=== PATIENT | male | born 1975 | race Caucasian/White ===

== ENCOUNTER 2018-06-12 12:34 | Outpatient (REF) | payer MEDICARE, MEDICAID, SELFPAY ==
[2018-06-12 19:28] LABS: ALT 31 U/L (12-78); AST 25 U/L (15-37); Albumin 3.8 g/dL (3.4-5.0); Alkaline Phosphatase 70 U/L (46-116); Anion Gap 9.7 mmol/L (3-11); BUN 11 mg/dL (7-18); Bilirubin, Total 0.5 mg/dL (0.2-1.0); CO2 27.3 mmol/L (21.0-32.0); CREATININE 0.92 mg/dL (0.70-1.30); Calcium 9.2 mg/dL (8.5-10.1); Chloride 97 mmol/L (98-107); Cholesterol 201 mg/dL (50-200); Glucose 145 mg/dL (70-100); HDL Cholesterol 36 mg/dL (40-60); LDL CHOLESTEROL 140 mg/dL (<100); Potassium 4.2 mmol/L (3.5-5.1); Sodium 134 mmol/L (136-145); TSH (W/Ref FT4) 1.72 uIU/mL (0.358-3.74); Triglyceride 174 mg/dL (30-150)
== END 2018-06-12 12:54 ==
LOC: NCHCN 12:34
PROVIDERS: PCP Nurse Practitioner Family; Visit Provider Family Medicine
DX: E11.9 Type 2 diabetes mellitus without complications (principal); Z68.32 Body mass index [BMI] 32.0-32.9, adult
CPT/HCPCS: 80053; 80061; 83721; 84443

== ENCOUNTER 2018-11-26 19:09 | Outpatient (REF) | payer MEDICARE, MEDICAID, SELFPAY ==
[2018-11-29 14:13] LABS: Amphetamine 34568 ng/mL (Cutoff: 25); Amphetamines Interpretation Positive.; MDA (Ecstasy Metabolite) Negative ng/mL (Cutoff: 25); MDMA (Ecstasy) Negative ng/mL (Cutoff: 25); Methamphetamine Negative ng/mL (Cutoff: 25); Phentermine Negative ng/mL (Cutoff: 25); Pseudoephedrine/Ephedrine Negative ng/mL (Cutoff: 25)
== END 2018-11-26 19:29 ==
LOC: NCHCN 19:09
PROVIDERS: PCP Nurse Practitioner Family; Visit Provider Family Medicine
DX: F90.9 Attention-deficit hyperactivity disorder, unspecified type (principal); F15.29 Other stimulant dependence with unspecified stimulant-induced disorder; Z51.81 Encounter for therapeutic drug level monitoring
CPT/HCPCS: 80324

== ENCOUNTER 2019-10-18 22:10 | Emergency (ER) | payer MEDICARE, MEDICAID, SELFPAY ==
[2019-10-18 22:13] VITALS: BP 169/113; PULSE 120; RESP 24; TEMP 37.2; O2SAT 98
--- NOTE | 2019-10-18 22:30 | NUR.NOTE ---
Nursing Note: Instilled approx. 100 ml of soap suds enema.
--- NOTE | 2019-10-18 22:35 | ED.GENADUL_ITS ---
Discharge Plan Disposition Patient Disposition: HOME Condition: Good Discharge Details Chief Complaint: Abd Prob Clinical Impression: Constipation Primary Care Provider: Kristyn Caal ED Provider: Luis Alvarenga Home Meds and New Rx's Prescriptions: Continued aripiprazole [Abilify] 5 mg tablet 5 mg PO DAILY RF: 0 Vyvanse 60 mg capsule 60 mg PO DAILY RF: 0 fluticasone propionate 50 mcg/actuation spray,suspension 2 spray CALLI DAILY RF: 0 betamethasone dipropionate 0.05 % cream 1 applic TP BID PRNRF: 0 metformin 500 mg tablet 500 mg PO BID RF: 0 benzoyl peroxide 5 % gel 1 applic TP BID RF: 0 loratadine 10 mg capsule 10 mg PO DAILY RF: 0 sildenafil [Viagra] 100 mg tablet 100 mg PO DAILY PRNRF: 0 gabapentin 800 mg tablet 800 mg PO QID RF: 0 methadone 10 MG/ML concentrate 75 mg PO BID RF: 0 omeprazole 20 MG capsule,delayed release(DR/EC) 40 mg PO DAILY RF: 0 escitalopram oxalate [Lexapro] 20 MG tablet 20 mg PO DAILY RF: 0 Discharge Instructions Instructions: Constipation (ED) Additional Instructions: At this time your constipation has been notably improved. Please tomorrow drink 10 to 12 cups of water mixed with Gatorade or Powerade intake some significant prune juice as well. You still have some stool in there, however a notable amount has been taken out by the disimpaction and the enemas. Do not be surprised if you have some cramping with the prune juice and the fluids. If you notice any worsening of your symptoms, or any new symptoms such as vomiting, diarrhea, fever, chills, shortness of breath, chest pain, numbness, weakness, or fainting , please return immediately to the emergency department for reevaluation. Please follow up with your primary care provider as soon as possible for reassessment and reevaluation. As always, it was a pleasure participating in your medical care today. Referrals: Kristyn Caal [Primary Care Provider] - Medical Decision Making 44-year-old male with a past medical history of methadone use presents today for evaluation of constipation. The patient recently just got out of a ort stint in retirement, normally he takes a split dose methadone, however when he was in retirement he took a single daily dose of methadone, which he states always causes him to get constipated. States that since coming out of retirement he has not had a significant bowel movement for the last 12 days. He admits to cramps. He has been taking multiple stool softeners, and today he did take multiple doses of Senokot, and since then he has been having notable cramps with no expectoration of stool. He presents today for additional assistance. He denies any weight loss, fevers, history of neutropenia or cancer. No other complaints at this time. He states that this feels similar to his previous episodes of constipation that he has had. Physical exam demonstrates nontender nonsurgical abdomen, rectal exam demonstrates notably hard round firm stool ball. This was broken up with digital exam. Patient tolerated this well. Will do enema, and reassess. 11:30 PM 2 enemas later into a digital rectal exams later the. Patient is feeling much better, notable amount of stool has been exuded. Patient is requesting to be discharged home. Digital exam demonstrates a notable decrease in the amount of stool in the rectal vault. Hard stool balls have been removed. Recommend continued fluids at home, and notable prune juice. Discussed red flags for which to return. I have extensively reviewed the treatment plan and discharge instructions with the patient. I have addressed all patient concerns at this time. The patient was made aware of what symptoms to monitor for that would warrant a return to the emergency department. Discussed the plan with the patient, they demonstrate verbal understanding and agreement with our assessment and plan at this time. HPI General Date/Time Provider Initiated Documentation: 10/18/19 22:11 . HPI Narrative: 44-year-old male with a past medical history of methadone use presents today for evaluation of constipation. The patient recently just got out of a short stint in retirement, normally he takes a split dose methadone, however when he w as in retirement he took a single daily dose of methadone, which he states always causes him to get constipated. States that since coming out of retirement he has not had a significant bowel movement for the last 12 days. He admits to cramps. He has been taking multiple stool softeners, and today he did take multiple doses of Senokot, and since then he has been having notable cramps with no expectoration of stool. He presents today for additional assistance. He denies any weight loss, fevers, history of neutropenia or cancer. No other complaints at this time. He states that this feels similar to his previous episodes of constipation that he has had. Related Data Home Medications Medication Instructions Recorded Confirmed methadone 75 mg PO BID 09/03/15 10/18/19 omeprazole 40 mg PO DAILY 09/03/15 10/18/19 escitalopram oxalate [Lexapro] 20 mg PO DAILY 11/09/16 10/18/19 aripiprazole 5 mg tablet 5 mg PO DAILY 01/01/19 10/18/19 benzoyl peroxide 5 % topical gel 1 applic TP BID 01/01/19 10/18/19 betamethasone dipropionate 0.05 % 1 applic TP BID PRN 01/01/19 10/18/19 topical cream fluticasone propionate 50 2 spray CALLI DAILY 01/01/19 10/18/19 mcg/actuation nasal spray,suspension gabapentin 800 mg tablet 800 mg PO QID tab 01/01/19 10/18/19 lisdexamfetamine 60 mg capsule 60 mg PO DAILY 01/01/19 10/18/19 loratadine 10 mg capsule 10 mg PO DAILY 01/01/19 10/18/19 metformin 500 mg tablet 500 mg PO BID 01/01/19 10/18/19 sildenafil 100 mg tablet 100 mg PO DAILY PRN 01/01/19 10/18/19 Allergies Allergy/AdvReac Type Severity Reaction Status Date / Time tolmetin Allergy Unverified 01/01/19 09:20 General Stated Complaint: Abd Prob KARL: 4 Review of Systems All systems reviewed & are unremarkable except as noted in HPI and below [facility] Medical History ADHD (Acute) Anxiety and depression (Acute) Chronic constipation (Acute) Degenerative disc disease (Acute) Diabetes mellitus (Chronic) Eczema of both hands (Acute) Elevated blood pressure reading (Acute) Erectile dysfunction (Acute) ETOH abuse (Chronic) Former smoker (Acute) GERD (gastroesophageal reflux disease) (Chronic) Gynecomastia (Acute) Headache (Acute) Hidradenitis suppurativa (Acute) Opioid dependence (Acute) Scrotal abscess (Acute) Sinusitis (Acute) Sleep apnea (Acute) Social History (Reviewed 10/18/19 @ 22:36 by NOAH Hobson Smoking/Tobacco Use Status: Current every day Drug use: Occasionally Do you feel safe in your relationship?: Yes Exam Narrative Exam Narrative: 1.Const: Well-nourished, Well-developed, appearing stated age 2.Eyes: PERRL, no conjunctival injection, and symmetrical lids. 3.ENT: Atraumatic external nose and ears. Moist MM. Neck: Symmetric, trachea midline, No thyromegaly. 4.CVS: +S1/S2, No murmurs or gallops. Peripheral pulses 2+ and equal in all extremities. Brisk capillary refill in all extremities. 5.RESP: Unlabored respiratory effort. Clear to auscultation bilaterally. No wheezes rales or rhonchi 6.GI: Soft, Nontender/Nondistended, No hepatosplenomegaly. No guarding or rebound. Bowel sounds are present, palpable stool present. No distention noted. Rectal exam demonstrates notable large compact hard stool ball. This was broken up digitally. 7.MSK: Normocephalic/Atraumatic, Extremities w/o deformity or ttp No cyanosis or clubbing, Normal movement of all extremities 8.Skin: Warm, Dry. No rashes or lesions. 9.Neuro: cardiopulmonary technician and eeg tech II-XII grossly intact. Sensation grossly intact, no focal neurologic deficits. 10.Psych: (AAO) x3. Appropriate mood and affect Course Vital Signs Vital signs: Vital Signs Temperature 37.2 C 10/18/19 22:13 Pulse 120 H 10/18/19 22:13 Respiratory Rate 24 10/18/19 22:13 Blood Pressure 169/113 H 10/18/19 22:13 Pulse Oximetry 98 10/18/19 22:13 Temperature 37.2 C 10/18/19 22:13 Temperature Source Tympanic 10/18/19 22:13 Pulse 120 H 10/18/19 22:13 Respiratory Rate 24 10/18/19 22:13 Respiratory Effort 10/18/19 22:19 Blood Pressure 169/113 H 10/18/19 22:13 Pulse Oximetry 98 10/18/19 22:13 Oxygen Delivery Method Room Air 10/18/19 22:13 Oxygen Flow Rate 0 10/18/19 22:13 Pain Level 10 10/18/19 22:13
--- NOTE | 2019-10-18 23:26 | NUR.NOTE ---
Nursing Note: Instilled approx 250 ml of soaps lukas enema.
== END 2019-10-19 00:10 | disposition home or self-care (01) ==
LOC: ER 10-19 01:39
PROVIDERS: Emergency Provider Student in an Organized Health Care Education/Training Program; PCP Nurse Practitioner Family
DX: K59.09 Other constipation (principal); T40.3X5A Adverse effect of methadone, initial encounter; F11.20 Opioid dependence, uncomplicated
CPT/HCPCS: 99282; 99283

== ENCOUNTER 2020-12-02 18:48 | Emergency (ER) | payer MEDICARE, MEDICAID, SELFPAY ==
[2020-12-02 18:58] VITALS: BP 147/92; PULSE 98; RESP 18; TEMP 36.3; O2SAT 98
--- NOTE | 2020-12-02 19:14 | ED.GENADUL_ITS ---
Discharge Plan Disposition Patient Disposition: HOME Condition: Stable Discharge Details Clinical Impression: Vomiting and diarrhea, Alcohol abuse Primary Care Provider: Kristyn Caal ED Provider: Ema Rivera Home Meds and New Rx's Prescriptions: No Action sildenafil [Viagra] 100 mg tablet 100 mg PO DAILY PRNRF: 0 methadone 10 MG/ML concentrate 75 mg PO BID RF: 0 omeprazole 20 MG capsule,delayed release(DR/EC) 40 mg PO DAILY RF: 0 Discharge Instructions Instructions: Abuse of Alcohol (ED), Acute Diarrhea (ED) Additional Instructions: Take the take the nausea medication as directed. Use a [id number] antacid such as Pepcid. Follow up with primary care provider in 3-5 days. Return to ED sooner if any worsening or concerns. Increase oral fluids. Referrals: Kristyn Caal [Primary Care Provider] - 5 days Medical Decision Making 45-year-old male presents to the ER with chief complaint of nausea vomiting diarrhea for the last 3 days. He reports he has been drinking water and Gatorade every day. He reports last drink approximately 2 hours prior to arrival. He denies any hematochezia or blood in his stools denies any abdominal pain. He reports his son's girlfriend is Covid positive. He also endorses some body aches denies fever. He is able to keep down his methadone daily. He is a daily smoker denies any other drugs. Past medical history includes ADHD, anxiety depression, diabetes mellitus, GERD, hidradenitis suppurativa, sleep apnea and opioid dependence. CBC, CMP, EtOH, urinalysis urine drug screen, Covid swab ordered IV normal saline 1 L ordered and infusing at this time. Labs are largely unremarkable sodium is 135 urine drug screen is positive for methadone ethyl alcohol is 183.9 Covid is negative. Patient tolerating p.o. fluids prior to discharge without difficulty. We will give patient Zofran to go and given a GI cocktail prior to discharge. Patient hemodynamically stable alert and oriented prior to discharge. Instructed to follow-up with PCP. This text was generated using [employer] system, please disregard any oddities of phrase or misspellings. Patient was given resources for substance abuse treatment facilities. HPI General Mode of arrival: ambulatory . Date/Time Provider Initiated Documentation: 12/02/20 19:12 . Limitations to Documentation: no limitations . Information obtained by: patient and RN notes reviewed . HPI Narrative: 45-year-old male presents to the ER with chief complaint of nausea vomiting diarrhea for the last 3 days. He reports he has been drinking water and Gatorade every day. He reports last drink approximately 2 hours prior to arrival. He denies any hematochezia or blood in his stools denies any abdominal pain. He reports his son's girlfriend is Covid positive. He also endorses some body aches denies fever. He is able to keep down his methadone daily. He is a daily smoker denies any other drugs. Past medical history includes ADHD, anxiety depression, diabetes mellitus, GERD, hidradenitis suppurativa, sleep apnea and opioid dependence. Related Data Home Medications Medication Instructions Recorded Confirmed methadone 75 mg PO BID 09/03/15 12/02/20 omeprazole 40 mg PO DAILY 09/03/15 12/02/20 sildenafil 100 mg tablet 100 mg PO DAILY PRN 01/01/19 12/02/20 Allergies Allergy/AdvReac Type Severity Reaction Status Date / Time tolmetin Allergy Unverified 12/02/20 19:01 General Stated Complaint: Nausea/Vomit/Diar KARL: 3 Review of Systems All systems reviewed & are unremarkable except as noted in HPI and below Gastrointestinal Gastrointestinal: Reports diarrhea, Reports nausea and Reports vomiting [facility] Medical History (Updated 12/02/20 @ 20:45 by Ema Rivera) ADHD Anxiety and depression Chronic constipation Degenerative disc disease Diabetes mellitus Eczema of both hands Elevated blood pressure reading Erectile dysfunction ETOH abuse Former smoker GERD (gastroesophageal reflux disease) Gynecomastia Headache Hidradenitis suppurativa Opioid dependence Scrotal abscess Sinusitis Sleep apnea Social History Smoking/Tobacco Use Status: Current every day Tobacco Type: cigarettes Smoking risk assessment performed?: Yes Alcohol Intake: current Alcohol Intake frequency: 3 or more drinks per day Alcohol type: hard liquor Drug use: Occasionally Do you feel safe in your relationship?: Yes Exam Narrative Exam Narrative: Constitutional: Alert and oriented x3. Appears stated age. Normal body habitus. Head: Normocephalic, no trauma. Eyes: Pupils PERRLA, Red reflex noted, EOM's intact. Eyelids symmetrical without lesions, discharge, or swelling. ENT: Bilateral TM's WNL, External ear normal to inspection, no mastoid TTP, swelling, or erythema, Nasal turbinates WNL, no nasal discharge. Normal dentition, Posterior pharynx WNL, no exudate. Chest: RRR, Normal S1, S2, distal pulses intact. Resp: Lungs clear to auscultation bilaterally, no wheezes, rales, or rhonchi. Musculoskeletal: Normal gait, 5/5 strength to all four extremities. Skin: No suspicious rashes or lesions. Capillary refill less than 2 sec. Neurologic: Cranial nerves II-XII intact. Alert and oriented x 3. DTR's intact. Hematologic/Lymphatic: No ecchymosis, no lymphadenopathy. Course Vital Signs Vital signs: Vital Signs Temperature 36.3 C L 12/02/20 18:58 Pulse 98 H 12/02/20 18:58 Respiratory Rate 18 12/02/20 18:58 Blood Pressure 147/92 H 12/02/20 18:58 Pulse Oximetry 98 12/02/20 18:58 Temperature 36.3 C L 12/02/20 18:58 Temperature Source Temporal Artery Scan 12/02/20 18:58 Pulse 98 H 12/02/20 18:58 Respiratory Rate 18 12/02/20 18:58 Respiratory Effort 12/02/20 19:03 Blood Pressure 147/92 H 12/02/20 18:58 Blood Pressure Position Sitting 12/02/20 18:58 Pulse Oximetry 98 12/02/20 18:58 Oxygen Delivery Method Room Air 12/02/20 18:58 Oxygen Flow Rate 0 12/02/20 18:58 Pain Level 2 12/02/20 18:58 PAWSS Have you Been Recently Intoxicated or Drunk Within the Last 30 days?: Yes Have you Ever Experienced Previous Episodes of Alcohol Withdrawal?: Yes Have you ever Experienced Withdrawal Seizures?: No Have you ever Experienced Delirium Tremens(DT)s?: Yes Have you ever undergone Alcohol Rehabilitation Treatment (i.e, inpt ot outpatient treatment programs)?: Yes Have you ever Experienced Blackouts?: Yes Have you ever Combined Alcohol with other Downers within the last 90 days?: No Have you ever Combined Alcohol with any other Substance of Abuse during the last 90 days?: Yes Positive Blood Alcohol level on Presentation? [PCS.BAL]: Yes Evidence of Increased Autonomic Activity (i.e. HR>120, tremor, sweating, agitation, nausea)?: No Result: 8
[2020-12-02 19:28] LABS: Source Nasal/Nares
[2020-12-02 19:31] LABS: Abs Immature Grans 0.03 10^3/uL (0.0-0.06); Absolute Basophil Count 0.12 10^3/uL (0.0-0.2); Absolute Eosinophil Count 0.15 10^3/uL (0.0-0.7); Absolute Lymphocyte Count 3.71 10^3/uL (1.2-3.4); Absolute Monocyte Count 0.73 10^3/uL (0.1-0.8); Absolute Neutrophil Count 5.43 10^3/uL (1.2-6.7); Basophils % 1.2; Eosinophils % 1.5; HCT 45.6 % (40.0-50.0); HGB 15.6 g/dL (13.5-17.5); Immature Grans % 0.3; Lymphocytes % 36.5; MCH 30.8 pg (27.0-33.0); MCHC 34.2 % (32.0-36.0); MCV 90.1 fL (80-95); MPV 8.6 fL (8.0-11.0); Monocytes % 7.2; Neutrophils % 53.3; Nucleated RBC 0 %; Platelet Count 367 10^3/uL (130-400); RBC 5.06 10^6/uL (4.36-5.78); RDW 13.4 % (11.8-14.1); RDW-SD 44.7 fL; WBC 10.17 10^3/uL (4.4-10.8)
[2020-12-02 19:44] LABS: ALT 85 U/L (16-63); AST 90 U/L (15-37); Albumin 3.5 g/dL (3.4-5.0); Alkaline Phosphatase 108 U/L (46-116); Anion Gap 7.9 mmol/L (3-11); BUN 7 mg/dL (7-18); Bilirubin, Total 0.3 mg/dL (0.2-1.0); CO2 28.1 mmol/L (21.0-32.0); CREATININE 0.8 mg/dL (0.70-1.30); Calcium 8.8 mg/dL (8.5-10.1); Chloride 99 mmol/L (98-107); ETHANOL BLOOD 183.9 mg/dL (<3); Glucose 135 mg/dL (74-106); Magnesium 2.1 mg/dL (1.8-2.4); Potassium 3.6 mmol/L (3.5-5.1); Sodium 135 mmol/L (136-145); Total Protein 8.1 g/dL (6.4-8.2)
[2020-12-02] MEDS: FAMOTIDINE 20 MG/50 ML BAG 200 MG IVPB (19:54)
[2020-12-02] MEDS: Normal Saline 500 ML IV (19:55)
[2020-12-02 20:27] LABS: COVID-19 PCR Negative (Negative)
[2020-12-02 20:36] LABS: *AMPHETAMINES SCREEN URINE Negative (Negative); *BARBITURATES SCREEN URINE Negative (Negative); *BENZODIAZEPINES SCREEN URINE Negative (Negative); Cannabinoids THC Negative (Negative); Cocaine Screen,Urine Negative (Negative); METHADONE URINE SCREEN Positive (Negative); OPIATES URINE SCREEN Negative (Negative); Tricyclic Antidepressants Negative (Negative)
[2020-12-02] MEDS: Ondansetron O.D.T. 4 MG TABEF, 3 TABS/BTL PO (20:54)
[2020-12-02 20:55] VITALS: BP 148/74; PULSE 58; RESP 18; TEMP 36.1; O2SAT 98
== END 2020-12-02 21:15 | disposition home or self-care (01) ==
PROVIDERS: Emergency Provider Registered Nurse Emergency; PCP Nurse Practitioner Family
DX: R11.2 Nausea with vomiting, unspecified (principal); R19.7 Diarrhea, unspecified; F10.10 Alcohol abuse, uncomplicated; F11.20 Opioid dependence, uncomplicated; Z20.822 Contact with and (suspected) exposure to COVID-19; R52 Pain, unspecified
CPT/HCPCS: 80053; 80307; 87635; 96361; 96374; 96375; 99284; 80320; 83735; 85025; 87086; 99283

== ENCOUNTER 2020-12-10 16:36 | Emergency (ER) | payer MEDICARE, MEDICAID, SELFPAY ==
[2020-12-10 16:54] VITALS: BP 157/105; PULSE 83; RESP 16; TEMP 36; O2SAT 96
--- NOTE | 2020-12-10 17:02 | ED.GENADUL_ITS ---
Discharge Plan Disposition Patient Disposition: HOME Condition: Stable Discharge Details Clinical Impression: Alcohol abuse, Vomiting and diarrhea Primary Care Provider: Kristyn Caal ED Provider: William White Home Meds and New Rx's Prescriptions: Continued sildenafil [Viagra] 100 mg tablet 100 mg PO DAILY PRNRF: 0 methadone 10 MG/ML concentrate 75 mg PO BID RF: 0 omeprazole 20 MG capsule,delayed release(DR/EC) 40 mg PO DAILY RF: 0 Discharge Instructions Instructions: Abuse of Alcohol (ED) Additional Instructions: your symptoms are likely due to the alcohol use, you have evidence of liver damage on your labs from the alcohol try to limit alcohol to 2 drinks a day follow up with your primary care provider in 1-2 weeks if you feel more ill, have severe pain or persistent vomit return to the emergency department Medical Decision Making 45 yo male with hx of chronic pain on methadone per his report comes in with continued n/v and diarrhea since Sunday. Denies any fevers, chills, chest pain, dyspnea, headaches. Denies any drug use but does drink vodka daily. Denies new medications or food. On exam he is caox4. He has no focal deficits. He has no abdominal tenderness on exam. Suspect his symptoms are primarily due to his alcohol abuse but will check for electrolyte abnormalities and hepatitis due to his alcohol use. Has no chest pain, no dyspnea so doubt acs. No headache or deficits on exam so doubt ich or cva and do not feel head ct indicated. No abdominal tenderness so doubt surgical pathology such as sbo and do not feel imaging of abdomen indicated pt stable, sleeping on reassessment and easily arrousable. Labs show alcohol level of 350 which is remarkable given he is clinically sober currently, and lft's are elevated. Still no abdominal tenderness and bedside u/s shows normal appearing gallbladder. Discussed with him his symptoms are likely related to his alcohol abuse. He is going to f/u with his pcp and try to limit alcohol intake, return precautions given Differential Diagnosis Differential Diagnosis: alcohol abuse, electrolyte abnormality Lab Data Lab results reviewed: Yes I reviewed the patient's lab results. HPI General Mode of arrival: EMS . Date/Time Provider Initiated Documentation: 12/10/20 16:58 . Limitations to Documentation: no limitations . Information obtained by: patient . History of Present Illness 45 year old M presents to the emergency department with the chief complaint of nausea and vomit, Patient started experiencing this week(s) (1) and it has been constant. No relieving factors improve symptom(s), No exacerbating factors reported . Patient did receive the following treatments prior to arrival, none Related Data Home Medications Medication Instructions Recorded Confirmed methadone 75 mg PO BID 09/03/15 12/10/20 omeprazole 40 mg PO DAILY 09/03/15 12/10/20 sildenafil 100 mg tablet 100 mg PO DAILY PRN 01/01/19 12/10/20 Allergies Allergy/AdvReac Type Severity Reaction Status Date / Time tolmetin Allergy Unverified 12/10/20 17:20 General Stated Complaint: AMS/LOC KARL: 2 Review of Systems All systems reviewed & are unremarkable except as noted in HPI and below Constitutional Constitutional: Denies chills, Denies fever(s) and Denies weakness Cardiovascular Cardiovascular: Denies chest pain and Denies dyspnea Respiratory Respiratory: Denies cough and Denies dyspnea Genitourinary Genitourinary: Denies dysuria Musculoskeletal Musculoskeletal: Denies joint swelling Integumentary/Breasts Skin/Breast: Denies rash Neurologic Neurologic: Denies weakness [facility] Medical History (Updated 12/10/20 @ 18:37 by William White MD) ADHD Anxiety and depression Chronic constipation Degenerative disc disease Diabetes mellitus Eczema of both hands Elevated blood pressure reading Erectile dysfunction ETOH abuse Former smoker GERD (gastroesophageal reflux disease) Gynecomastia Headache Hidradenitis suppurativa Opioid dependence Scrotal abscess Sinusitis Sleep apnea Social History Smoking/Tobacco Use Status: Current every day Tobacco Type: cigarettes Smoking risk assessment performed?: Yes Alcohol Intake: current Alcohol Intake frequency: 3 or more drinks per day Alcohol type: hard liquor Drug use: Occasionally Do you feel safe at home: Yes Do you feel safe in your relationship?: Yes Exam Const General: no acute distress Orientation: alert HENMT Head: normal to inspection Ears: external ears normal General nose exam: external nose normal Mouth: moist mucous membranes Eyes General: appearance normal, both eyes and all related structures Neck Neck: normal visual inspection Resp Effort & Inspection: normal respiratory effort and able to speak in complete sentences Cardio Rate: regular rate GI Palpation: soft and nontender Skin General skin exam: no rashes or lesions noted Neuro General: patient alert and patient oriented x3 Extrem General: normal to inspection Psych Mental Status: mental status grossly normal Course Vital Signs Vital signs: Vital Signs Temperature 36 C L 12/10/20 16:54 Pulse 83 12/10/20 16:54 Respiratory Rate 16 12/10/20 16:54 Blood Pressure 157/105 H 12/10/20 16:54 Pulse Oximetry 96 12/10/20 16:54 Temperature 36 C L 12/10/20 16:54 Temperature Source Oral 12/10/20 16:54 Pulse 83 12/10/20 16:54 Respiratory Rate 16 12/10/20 16:54 Respiratory Effort 12/10/20 17:00 Blood Pressure 157/105 H 12/10/20 16:54 Blood Pressure Position Supine 12/10/20 16:54 Pulse Oximetry 96 12/10/20 16:54 Oxygen Delivery Method Room Air 12/10/20 16:54 Oxygen Flow Rate 0 12/10/20 16:54 Pain Level 0 12/10/20 16:54 PAWSS Have you Been Recently Intoxicated or Drunk Within the Last 30 days?: Yes Result: 1
[2020-12-10 17:20] LABS: Abs Immature Grans 0.04 10^3/uL (0.0-0.06); Absolute Basophil Count 0.09 10^3/uL (0.0-0.2); Absolute Eosinophil Count 0.09 10^3/uL (0.0-0.7); Absolute Lymphocyte Count 3.87 10^3/uL (1.2-3.4); Absolute Monocyte Count 0.65 10^3/uL (0.1-0.8); Absolute Neutrophil Count 4.21 10^3/uL (1.2-6.7); HCT 44.1 % (40.0-50.0); Immature Grans % 0.4; Lymphocytes % 43.2; MCH 30.7 pg (27.0-33.0); MCV 90.2 fL (80-95); MPV 8.9 fL (8.0-11.0); Monocytes % 7.3; Neutrophils % 47.1; Nucleated RBC 0 %; Platelet Count 300 10^3/uL (130-400); RBC 4.89 10^6/uL (4.36-5.78); RDW 13.4 % (11.8-14.1); RDW-SD 44.9 fL; WBC 8.95 10^3/uL (4.4-10.8)
[2020-12-10] MEDS: Ondansetron 4 MG/2 ML VIAL IVP (17:20)
[2020-12-10] MEDS: Normal Saline 1,000 ML 1000 ML IV (17:20)
[2020-12-10 17:24] LABS: Bilirubin Negative (Negative); Blood Negative (Negative); Clarity Clear (Clear); Glucose Negative (Negative); Ketones Negative (Negative); Leukocyte Esterase Negative (Negative); Nitrite Negative (Negative); Urobilinogen 0.2 EU/dL (Up TO 0.2)
[2020-12-10 17:26] LABS: *AMPHETAMINES SCREEN URINE Negative (Negative); *BARBITURATES SCREEN URINE Negative (Negative); *BENZODIAZEPINES SCREEN URINE Negative (Negative); Cannabinoids THC Negative (Negative); Cocaine Screen,Urine Negative (Negative); METHADONE URINE SCREEN Positive (Negative); OPIATES URINE SCREEN Negative (Negative)
[2020-12-10 17:27] LABS: Tricyclic Antidepressants Negative (Negative)
[2020-12-10 17:42] LABS: Acetaminophen < 2 ug/mL (10-30)
[2020-12-10 17:48] LABS: ALT 134 U/L (16-63); AST 166 U/L (15-37); Albumin 2.9 g/dL (3.4-5.0); Alkaline Phosphatase 137 U/L (46-116); Anion Gap 8.6 mmol/L (3-11); BUN 7 mg/dL (7-18); Bilirubin, Total 0.3 mg/dL (0.2-1.0); CO2 28.4 mmol/L (21.0-32.0); CREATININE 0.7 mg/dL (0.70-1.30); Chloride 101 mmol/L (98-107); Creatine Kinase 65 U/L (39-308); Glucose 142 mg/dL (74-106); Magnesium 1.8 mg/dL (1.8-2.4); Potassium 3.1 mmol/L (3.5-5.1); Sodium 138 mmol/L (136-145); TSH (W/Ref FT4) 1.46 uIU/mL (0.36-3.74); Total Protein 7.2 g/dL (6.4-8.2)
[2020-12-10 17:50] LABS: ETHANOL BLOOD 346.9 mg/dL (<3)
[2020-12-10] MEDS: Potassium Chloride 20 MEQ TABCR 40 MEQ PO (18:44)
[2020-12-10 18:51] VITALS: BP 148/93; PULSE 82; RESP 16; TEMP 36.4; O2SAT 96
[2020-12-13 12:14] LABS: Hepatitis A Antibody IgM Negative (Negative); Hepatitis B Core Antibody Negative (Negative); Hepatitis B surface Ag Negative (Negative); Hepatitis C Ab w Rflx HCV PCR Negative (Negative)
== END 2020-12-10 18:49 | disposition home or self-care (01) ==
PROVIDERS: Emergency Provider Emergency Medicine; PCP Nurse Practitioner Family
DX: F10.120 Alcohol abuse with intoxication, uncomplicated (principal); Y90.8 Blood alcohol level of 240 mg/100 ml or more; R11.2 Nausea with vomiting, unspecified; R19.7 Diarrhea, unspecified; R74.01 Elevation of levels of liver transaminase levels
CPT/HCPCS: 36415; 80053; 80307; 82550; 82805; 86704; 86709; 86803; 87340; 96361; 96374; 99284; 80320; 80329; 81003; 83735; 84443; 85025; J2405

== ENCOUNTER 2020-12-16 03:58 | Inpatient (IN) | payer MEDICARE, MEDICAID, SELFPAY ==
[2020-12-16] VITALS (119 sets, daily range): BP systolic 129–231; BP diastolic 77–145; PULSE 45–141; RESP 7–24; TEMP 36.3–36.5; O2SAT 91–99
--- NOTE | 2020-12-16 04:11 | ED.GENADUL_ITS ---
Discharge Plan Disposition Patient Disposition: [facility] INPATIENT Condition: Stable Discharge Details Clinical Impression: Alcohol withdrawal, Electrolyte and fluid disorder, Alcoholic hepatitis Admit Date/Time: 12/16/20 11:24 Admit Provider: Danny Best Attending Provider: Danny Best Primary Care Provider: Kristyn Caal ED Provider: William White Medical Decision Making <Kevin Valverde MD - Last Filed: 12/16/20 06:17> At this point patient appears to be in full-blown alcohol withdrawal. Unclear whether vomiting and diarrhea related to withdrawal or precipitated withdrawal. Either way he is markedly tachycardic, hypertensive, diaphoretic, anxious, tremulous. Previous LFTs have been mildly elevated but he has no prior history of cirrhosis and exhibits no definitive acute liver failure. As such per hospit alist preference will proceed with phenobarbital load for alcohol withdrawal. Will provide ondansetron for nausea and vomiting. Will give a liter of saline and follow with banana bag. 06:00 - Patient with a fair number of electrolyte and lab abnormalities at this point. Will need to replenish magnesium and potassium intravenously. Initial phenobarbital load is ongoing. Vital signs do seem to be getting better. Continues to have evidence of alcohol hepatitis by lab, but no suggestion of acute liver failure. Will wait for morning meeting to occur to see if any discharges occur that will allow us to admit this patient to ICU. If not, will need to begin looking for ICU bed and transfer. For now continue phenobarb load, monitor vitals and CIWA, replenish electrolytes. Medical Records Medical records reviewed: Yes I reviewed the patient's medical records. ECG Data Attestation: I personally reviewed and interpreted this ECG (s) as follows: <William White MD - Last Filed: 12/16/20 17:45> pt laying in bed on my assessment, HR now 100 and still hypertensive at 180/80 on my exam denies any dyspnea, chest pain, or headache or other symptoms to suggest end organ damanage. Elevated lfts likely secondary to alcohol hepatitis. Unfortunately still no beds here trying to determine other hospitals that he may be able to be transferred pt stable and we now have an icu bed, spoke with dr. best who accepts for admission Lab Data Lab results reviewed: Yes I reviewed the patient's lab results. HPI <Kevin Valverde MD - Last Filed: 12/16/20 06:17> General Mode of arrival: ambulatory . Date/Time Provider Initiated Documentation: 12/16/20 04:01 . Limitations to Documentation: no limitations . Information obtained by: patient, RN notes reviewed and old records reviewed . HPI Narrative: Patient returns to ED with continued vomiting and diarrhea. Patient first seen here 2 weeks ago with similar complaint. Patient continues to have vomiting and diarrhea without ability to eat food. At this point he is having difficulty even keeping liquids down. He has been minimizing his alcohol intake because he has been so ill. Patient normally during anywhere from a pint to a fifth of hard liquor daily. He has been unable to do so over the last few days. Arrives to the ED this morning with continued vomiting, diarrhea and now anxiety, diaphoresis, feeling extremely unwell. He has been getting his methadone regularly. He denies any other street drugs. He denies cough, chest pain, shortness of breath, abdominal pain, hematemesis, hematochezia, headache, neurologic changes. Related Data Home Medications Medication Instructions Recorded Confirmed methadone 75 mg PO DAILY@1600 09/03/15 12/16/20 omeprazole 40 mg PO DAILY 09/03/15 12/16/20 lamotrigine [Lamictal] 100 mg PO BID 12/16/20 12/16/20 methadone 100 mg PO DAILY AM 12/16/20 12/16/20 methylphenidate HCl [Ritalin] 20 mg PO TID 12/16/20 12/16/20 Allergies Allergy/AdvReac Type Severity Reaction Status Date / Time tolmetin Allergy Unverified 12/16/20 04:22 General KARL: 2 Review of Systems <Kevin Valverde MD - Last Filed: 12/16/20 06:17> Narrative: 12/09 Review of Systems completed and is negative except as stated above in HPI (Systems reviewed: Const, Eyes, ENT, Resp, CV, GI, , MSK, Skin, Neuro) PFSH <Kevin Valverde MD - Last Filed: 12/16/20 06:17> Medical History (Updated 12/16/20 @ 06:17 by Kevin Valverde MD) ADHD Anxiety and depression Chronic constipation Degenerative disc disease Diabetes mellitus Eczema of both hands Elevated blood pressure reading Erectile dysfunction ETOH abuse Former smoker GERD (gastroesophageal reflux disease) Gynecomastia Headache Hidradenitis suppurativa Opioid dependence Scrotal abscess Sinusitis Sleep apnea Social History Smoking/Tobacco Use Status: Current every day Tobacco Type: cigarettes Smoking risk assessment performed?: Yes Alcohol Intake: current Alcohol Intake frequency: 3 or more drinks per day Alcohol type: hard liquor Drug use: Occasionally Substance use type: marijuana Do you feel safe at home: Yes Do you feel safe in your relationship?: Yes Exam <Kevin Valverde MD - Last Filed: 12/16/20 06:17> Narrative Exam Narrative: Const: WDWN male in NAD. Anxious. HEENT: NC/AT. Normal facial exam. Eyes: Normal conjunctiva and sclera. Neck: Supple. Trachea midline. Lungs: Normal respiratory effort. Lungs are clear. Cor: RRR without murmur. Good radial pulses. Tachycardic. GI: Soft. NT/ND. No guarding or rebound. Neuro: A+O x 3. Normal speech, mentation, gait. Cranial nerves II - XII grossly intact. No gross motor or sensory deficit. Tremor. Ext: No C/C/E. Skin: Warm. Diaphoretic. Critical Care Time <Kevin Valverde MD - Last Filed: 12/16/20 06:17> Critical Care Time Critical Care Time: Yes Total Critical Care Time: 60 Attestation: Upon my evaluation, this patient had a high probability of imminent or life- threatening deterioration, which required my direct attention, intervention, and personal management. I have personally provided 60 minutes of critical care time exclusive of time spent on separately billable procedures. Time includes review of laboratory data, radiology results, discussion with consultants, and monitoring for potential decompensation. Interventions were performed as documented above. Sign Out <Kevin Valverde MD - Last Filed: 12/16/20 06:17> Sign Out Data: Sign Out Comment: pending discharges from med/surg versus transfer if no ICU capability here Last updated by Kevin Valverde MD at 12/16/20 07:47
--- NOTE | 2020-12-16 04:45 | RT.EKG_ITS ---
APPROVED REPORT Exam: Resting ECG Reason for Exam: alcohol withdrawal Patient Location: E HR:126 bpm ECG Measurements Heart Rate 126 AXIS UT 158 P 80 QRSd 83 QRS 36 QT 255 T 263 QTc 370 Conclusion Sinus tachycardia...rate> 99 Prominent P waves, nondiagnostic...wide/notched/biphasic P waves Normal [place] Nonspecific ST-T changes No STEMI
[2020-12-16] MEDS: Normal Saline 1,000 ML 1000 ML IV (04:50)
[2020-12-16 04:58] LABS: Source Nasal/Nares
[2020-12-16 05:02] LABS: Abs Immature Grans 0.03 10^3/uL (0.0-0.06); Absolute Basophil Count 0.07 10^3/uL (0.0-0.2); Absolute Eosinophil Count 0.01 10^3/uL (0.0-0.7); Absolute Monocyte Count 0.43 10^3/uL (0.1-0.8); Absolute Neutrophil Count 5.68 10^3/uL (1.2-6.7); Basophils % 0.8; Eosinophils % 0.1; HCT 40.7 % (40.0-50.0); HGB 14.3 g/dL (13.5-17.5); Immature Grans % 0.3; Lymphocytes % 27.8; MCH 30.6 pg (27.0-33.0); MCHC 35.1 % (32.0-36.0); MCV 87.2 fL (80-95); Nucleated RBC 0 %; RBC 4.67 10^6/uL (4.36-5.78); RDW 12.7 % (11.8-14.1); RDW-SD 40.4 fL; WBC 8.62 10^3/uL (4.4-10.8)
[2020-12-16 05:10] LABS: ETHANOL BLOOD 23.6 mg/dL (<10); Lipase 432 U/L (73-393)
[2020-12-16 05:11] LABS: Prothrombin Time 10.4 sec (9.3-11.0)
[2020-12-16 05:20] LABS: Albumin 3.1 g/dL (3.4-5.0); Alkaline Phosphatase 222 U/L (46-116); Anion Gap 16.1 mmol/L (3-11); BUN 6 mg/dL (7-18); Bilirubin, Total 1.3 mg/dL (0.2-1.0); CO2 23.9 mmol/L (21.0-32.0); CREATININE 0.8 mg/dL (0.70-1.30); Calcium 8.4 mg/dL (8.5-10.1); Chloride 92 mmol/L (98-107); Glucose 178 mg/dL (74-106); Magnesium 1.5 mg/dL (1.8-2.4); Sodium 132 mmol/L (136-145); Total Protein 7.7 g/dL (6.4-8.2)
[2020-12-16 05:20] LABS: *AMPHETAMINES SCREEN URINE Negative (Negative); *BARBITURATES SCREEN URINE Negative (Negative); *BENZODIAZEPINES SCREEN URINE Negative (Negative); Cannabinoids THC Positive (Negative); Cocaine Screen,Urine Negative (Negative); METHADONE URINE SCREEN Positive (Negative); OPIATES URINE SCREEN Negative (Negative)
[2020-12-16 05:25] LABS: Tricyclic Antidepressants Positive (Negative)
[2020-12-16 05:28] LABS: Potassium 2.9 mmol/L (3.5-5.1)
[2020-12-16 05:35] LABS: ALT 211 U/L (16-63); AST 457 U/L (15-37)
[2020-12-16] MEDS: POTASSIUM CHLORIDE 10 MEQ/100 ML BAG 100 MEQ IVPB (06:35)
[2020-12-16] MEDS: MAGNESIUM SULFATE 1 GM/100 ML BAG IVPB (06:37)
--- NOTE | 2020-12-16 08:38 | NUR.NOTE ---
Nursing Note: CORAL Roberts, 100mg in morning, 75mg in afternoon both of methadone. aPatient has take home and should have enough to get through the , Elizabeth Gonzalez
[2020-12-16] MEDS: lamoTRIgine 100 MG TAB PO (08:51)
[2020-12-16] MEDS: Methadone Liquid 10 MG/ML 100 MG PO (09:04)
[2020-12-16] MEDS: MULTIVITAMIN 10 ML, THIAMINE 100 MG, FOLIC ACID 1 MG in DEXTROSE 5%-0.45% SALINE 1,000 ML 42 ML IV (09:22)
[2020-12-16 09:51] LABS: BUN 4 mg/dL (7-18); CREATININE 0.8 mg/dL (0.70-1.30); Calcium 7.6 mg/dL (8.5-10.1); Chloride 98 mmol/L (98-107); Glucose 151 mg/dL (74-106); Magnesium 1.7 mg/dL (1.8-2.4); Sodium 134 mmol/L (136-145)
[2020-12-16] MEDS: Potassium Chloride Liquid 20 MEQ PKT 40 MEQ PO (10:13)
[2020-12-16] MEDS: Heparin 5,000 UNITS/ML VIAL 5000 UNITS SC ×2 (16:28→23:53)
[2020-12-16] MEDS: Methadone Liquid 10 MG/ML 75 MG PO (16:28)
[2020-12-16] MEDS: Pantoprazole 40 MG VIAL IVP (16:28)
[2020-12-16] MEDS: Metoprolol 5 MG/5 ML VIAL IVP (16:29)
[2020-12-16] MEDS: Normal Saline Flush 10 ML SYR IVP ×2 (16:29→20:10)
[2020-12-16 17:41] LABS: COVID-19 PCR Negative (Negative)
[2020-12-16] MEDS: diphenhydrAMINE 25 MG CAP PO (20:10)
[2020-12-16] MEDS: Metoprolol 50 MG TAB PO (20:10)
[2020-12-17] VITALS: BP 156/94; PULSE 62; PULSE 63; RESP 10; TEMP 36.3; O2SAT 96
[2020-12-17 02:00] VITALS: BP 135/94; PULSE 63; PULSE 66; RESP 13; O2SAT 88
[2020-12-17 04:00] VITALS: BP 163/98; PULSE 67; PULSE 68; RESP 9; TEMP 36.3; O2SAT 96
[2020-12-17 06:00] VITALS: BP 154/96; PULSE 67; PULSE 68; RESP 7; O2SAT 97
--- NOTE | 2020-12-17 06:57 | W.PM.HP.N ---
Date of service: 12/16/20 Time of Service: 16:29 Assessment and Plan Assessment and plan (1) Alcohol withdrawal: Status: Acute Assessment and plan: Initiated on a phenobarbital withdrawal protocol and doing well. Cont monitoring. Could likely be made med-surg status today. (2) Electrolyte and fluid disorder: Status: Acute Assessment and plan: Na mildly low. K 2.9, 3.0. Replacement initiated. Monitor (3) Alcoholic hepatitis: Status: Acute Assessment and plan: AST 457, ALT 211, Total bilirubin 1.3. With avoidance of etoh, expect to see these values trend downward. Monitor. (4) Anxiety and depression: Status: Acute Assessment and plan: Currently not on any antidepressants or anxiolytics. (5) Elevated blood pressure reading: Status: Acute Assessment and plan: BP readings as high as 209/114 HR elevated in the 90's to low 100's. IV lopressor 5mg administered. Scheduled metoprolol 50mg BID. Monitor. (6) Tobacco abuse: Status: Acute Assessment and plan: He requests nicotrol inhaler; ordered. History of Present Illness History of Present Illness Chief Complaint: vomiting and diarrhea Narrative: This is a 45 yo male with a PMH of anxiety and depression, opiod dependence, Etoh abuse syndrome, DM2, GERD, sleep apnea. He presented to the ED with c/o vomiting and diarrhea that he was also seen for in the ED 2 weeks prior. He reported inability to keep down food and liquids. Despite this, his BUN and creatinine were normal. He has continued to drink alcohol but at lesser than his usual amounts. He typically drank a pint to a fifth of hard liquor daily. He endorsed takinghis methadone as prescribed and not using any illicit drugs. He was found to be tachycardic, hypertensive, diaphoretic and tremulous. LFTs were elevated. He was initiated on a phenobarbital protocol for alcohol withdrawal and then transferred to the ICU for further care. Review of Systems All systems reviewed & are unremarkable except as noted in HPI and below [facility] Medical History (Updated 12/17/20 @ 07:10 by Danny Child MD) ADHD Anxiety and depression Chronic constipation Degenerative disc disease Diabetes mellitus Eczema of both hands Elevated blood pressure reading Erectile dysfunction ETOH abuse Former smoker GERD (gastroesophageal reflux disease) Gynecomastia Headache Hidradenitis suppurativa Opioid dependence Scrotal abscess Sinusitis Sleep apnea Social History Smoking/Tobacco Use Status: Current every day Tobacco Type: cigarettes Smoking risk assessment performed?: Yes Alcohol Intake: current Alcohol Intake frequency: 3 or more drinks per day Alcohol type: hard liquor Drug use: Occasionally Substance use type: marijuana Do you feel safe at home: Yes Do you feel safe in your relationship?: Yes Meds Allergies and Home Medications Allergies Allergy/AdvReac Type Severity Reaction Status Date / Time tolmetin Allergy Unverified 12/16/20 04:22 Home Medications Medication Instructions Recorded Confirmed Type methadone 75 mg PO DAILY@1600 09/03/15 12/16/20 History omeprazole 40 mg PO DAILY 09/03/15 12/16/20 History lamotrigine [Lamictal] 100 mg PO BID 12/16/20 12/16/20 History methadone 100 mg PO DAILY AM 12/16/20 12/16/20 History methylphenidate HCl [Ritalin] 20 mg PO TID 12/16/20 12/16/20 History Exam Narrative Exam Narrative: Pt is lying in bed. Const General: cooperative and no acute distress Nutritional Appearance: average body habitus Orientation: alert and oriented x3 HENMT Head: normocephalic Neck Neck: full ROM and no JVD Resp Effort & Inspection: normal respiratory effort Auscultation: clear to auscultation bilaterally Cardio Rate: regular rate Rhythm: regular rhythm Heart Sounds: S1 normal and S2 normal GI Inspection: non-distended Palpation: soft and nontender Auscultation: normal bowel sounds Skin General skin exam: no rashes or lesions noted Neuro General: no focal motor deficits Cranial Nerves: facial strength normal Speech: speech normal Extrem General: no pedal edema and no calf tenderness Psych Appearance: grossly normal Mood: anxious mood Affect: normal affect Results Labs Result diagrams: 12/16/20 04:30 12/16/20 09:35 Labs: Laboratory Results - last 24 hr 12/16/20 12/16/20 04:50 09:35 Sodium 134 L Potassium 3.0 L Chloride 98 Carbon Dioxide 26.0 Anion Gap 10.0 BUN 4 L Creatinine 0.8 Estimated GFR/1.73 m2 >= 60.00 Glucose 151 H Calcium 7.6 L Magnesium 1.7 L SARS-CoV-2 (PCR) Negative Last Vital Signs Temp 36.3 C L 12/17/20 04:00 Pulse 67 12/17/20 06:00 Resp 7 L 12/17/20 06:00 BP 154/96 H 12/17/20 06:00 Pulse Ox 97 12/17/20 06:00
[2020-12-17 07:15] LABS: Abs Immature Grans 0.04 10^3/uL (0.0-0.06); Absolute Basophil Count 0.09 10^3/uL (0.0-0.2); Absolute Eosinophil Count 0.09 10^3/uL (0.0-0.7); Absolute Lymphocyte Count 2.74 10^3/uL (1.2-3.4); Absolute Monocyte Count 0.45 10^3/uL (0.1-0.8); Absolute Neutrophil Count 5.76 10^3/uL (1.2-6.7); HCT 38.6 % (40.0-50.0); HGB 13.5 g/dL (13.5-17.5); Immature Grans % 0.4; Lymphocytes % 29.9; MCH 30.6 pg (27.0-33.0); MCV 87.5 fL (80-95); MPV 10.4 fL (8.0-11.0); Monocytes % 4.9; Neutrophils % 62.8; Nucleated RBC 0 %; Platelet Count 197 10^3/uL (130-400); RBC 4.41 10^6/uL (4.36-5.78); RDW 13.1 % (11.8-14.1); RDW-SD 41.8 fL; WBC 9.17 10^3/uL (4.4-10.8)
[2020-12-17 07:39] LABS: ALT 168 U/L (16-63); AST 268 U/L (15-37); Albumin 2.9 g/dL (3.4-5.0); Alkaline Phosphatase 207 U/L (46-116); Anion Gap 6.3 mmol/L (3-11); Bilirubin, Total 1.4 mg/dL (0.2-1.0); CO2 30.7 mmol/L (21.0-32.0); CREATININE 0.6 mg/dL (0.70-1.30); Calcium 8.7 mg/dL (8.5-10.1); Chloride 97 mmol/L (98-107); Glucose 128 mg/dL (74-106); Potassium 3.1 mmol/L (3.5-5.1); Sodium 134 mmol/L (136-145); Total Protein 7.4 g/dL (6.4-8.2)
[2020-12-17 07:48] LABS: BUN 2 mg/dL (7-18)
[2020-12-17] MEDS: lamoTRIgine 100 MG TAB PO (07:59)
[2020-12-17] MEDS: Methadone Liquid 10 MG/ML 100 MG PO (07:59)
[2020-12-17] MEDS: Heparin 5,000 UNITS/ML VIAL 5000 UNITS SC (07:59)
[2020-12-17] MEDS: Metoprolol 50 MG TAB PO (08:00)
[2020-12-17 08:17] VITALS: BP 161/113; PULSE 85; RESP 13; TEMP 35.7; O2SAT 96
--- NOTE | 2020-12-17 08:37 | PDOC.CMIN ---
- If Service Date Differs Date of service: 12/17/20 Time of Service: 08:37 Care Management Initial Assess REASON FOR HOSPITALIZATION:: alcohol withdrawal PAST MEDICAL HISTORY/PAST SURGICAL HISTORY:: Medical History (Updated 12/17/20 @ 07:10 by Danny Child MD). ADHD. Anxiety and depression. Chronic constipation. Degenerative disc disease. Diabetes mellitus. Eczema of both hands. Elevated blood pressure reading. Erectile dysfunction. ETOH abuse. Former smoker. GERD (gastroesophageal reflux disease). Gynecomastia. Headache. Hidradenitis suppurativa. Opioid dependence. Scrotal abscess. Sinusitis. Sleep apnea PREVIOUS FUNCTIONAL STATUS/SOCIAL/FAMILY SUPPORTS:: Feliciano lives in [facility] in a home he owns and shares with his brother. He is independent at baseline and receives no services except he does have a therapist who is very supportive. CURRENT FUNCTIONAL STATUS:: Feliciano was sitting on his bed when CM met with him. He was preparing to go home and denied the need for services. He stated that he has a therapist that he has been working with for some time and feels well supported. ADVANCE DIRECTIVES:: none on file Has patient been provided with info about the portal/API?: Yes Did the patient sign up for the portal?: No CODE STATUS:: Full Code INSURANCE COVERAGE / FINANCIAL ISSUES:: Medicare. Medicaid PRIMARY CARE PHYSICIAN:: Kristyn Caal POTENTIAL DISCHARGE NEEDS:: followup with PCP and plan of care PATIENT/FAMILY EDUCATION NEEDS:: Review of discharge instructions, meedications, limitations, activity, Ask Me Three TRANSPORTATION:: via private vehicle with family PLAN:: Feliciano will be discharged home with no new services. He will follow up with his community providers and supports and plan of care and transport with family.
[2020-12-17] MEDS: MULTIVITAMIN 10 ML, THIAMINE 100 MG, FOLIC ACID 1 MG in DEXTROSE 5%-0.45% SALINE 1,000 ML 42 ML IV (10:04)
--- NOTE | 2020-12-17 10:21 | W.NUTCONSULT ---
Date of service: 12/17/20 Time of Service: 10:21 Nutritional Consult ASSESSMENT: Mr. Capellan is admitted with alcohol withdrawal. He is ordered for clear liquids. He is taking 75% of his trays. He is 168 cm and 72.1 kg. BMI is 25.7 kg/m2 c/w mild overweight. His weight 12/02 was 72.1 kg which shows that he has lost a significant 6.9% in two weeks. NUTRITIONAL DIAGNOSIS: Significant unintentional weight loss. INTERVENTION: For now, will add Ensure clear to his clear liquid trays. MONITORING AND EVALUATION: Will continue to monitor weight and PO. Will evaluate nutrition care plan ongoing and adjust as needed. Time Spent in Nutritional Counseling and Treatment: 0
--- NOTE | 2020-12-17 12:06 | DSE_ITS ---
Date of service: 12/17/20 Time of Service: 12:07 DS: Diagnosis Discharge Diagnosis (1) Alcohol withdrawal: Status: Acute (2) Electrolyte and fluid disorder: Status: Acute (3) Alcoholic hepatitis: Status: Acute (4) Anxiety and depression: Status: Acute (5) Elevated blood pressure reading: Status: Acute (6) Tobacco abuse: Status: Acute Discharge Plan Disposition Patient Disposition: HOME Condition: Good Discharge Details Reason For Visit: Alcohol Withdrawl Admit Date/Time: 12/16/20 11:24 Admit Provider: Danny Child Attending Provider: Danny Child [facility] Course: This is a 45 yo male with a PMH of anxiety and depression, opiod dependence, Etoh abuse syndrome, DM2, GERD, sleep apnea. He presented to the ED with c/o vomiting and diarrhea that he was also seen for in the ED 2 weeks prior. He reported inability to keep down food and liquids. Despite this, his BUN and creatinine were normal. He has continued to drink alcohol but at lesser than his usual amounts. He typically drank a pint to a fifth of hard liquor daily. He endorsed taking his methadone as prescribed and not using any illicit drugs. He was found to be tachycardic, hypertensive, diaphoretic and tremulous. LFTs were elevated. He was initiated on a phenobarbital protocol for alcohol withdrawal and then transferred to the ICU for further care. He endorsed sobriety from 2013 until last year. Metoprolol initiated for blood pressure control. He felt significantly better and not requiring any further phenobarbital dosing the following day. He would like to discharge with outpatient follow up with his therapist. He will discuss with care managment the community services that will be available to him. Schedule a PCP f/u in 1-2 weeks. Home Meds and New Rx's Prescriptions: New metoprolol tartrate 50 mg Tablet 50 mg PO BID Qty: 60 RF: 0 thiamine HCl (vitamin B1) 100 mg tablet 100 mg PO DAILY Qty: 30 RF: 0 Continued methadone 10 MG/ML concentrate 75 mg PO DAILY@1600 RF: 0 omeprazole 20 MG capsule,delayed release(DR/EC) 40 mg PO DAILY RF: 0 methadone 10 mg/mL Concentrate 100 mg PO DAILY AM RF: 0 lamotrigine [Lamictal] 100 mg Tablet 100 mg PO BID RF: 0 methylphenidate HCl [Ritalin] 20 mg Tablet 20 mg PO TID RF: 0 Discharge Instructions Instructions: Low-Sodium Diet (DC) Activity:: Activity as Tolerated Equipment/Supplies:: No Equipment Needed Diet:: Low Sodium Discharge Orders Discharge Orders: Discharge Order (Routine); Ordered 12/17/20 Ordered By: Danny Child DS: Summary Time Spent with Patient providing and/or coordinating discharge services: Greater than 30 minutes Status at Discharge Functional status at discharge: independent ambulation Overall status at discharge: patient is progressing back to baseline Mental Status: mental status grossly normal Speech and Movement: speech and movement normal Mood: anxious mood Affect: normal affect Exam Psych Mental Status: mental status grossly normal Speech and Movement: speech and movement normal Mood: anxious mood Affect: normal affect DS: Data Vitals/I&O Vitals and I&O: Vital Signs Temperature 35.7 C L 12/17/20 08:17 Temperature Source Temporal Artery Scan 12/17/20 08:17 Pulse 85 12/17/20 08:17 Pulse 68 12/17/20 06:00 Respiratory Rate 13 12/17/20 08:17 Respiratory Effort 12/17/20 08:17 Respiratory Depth Normal 12/17/20 08:17 Respiratory Pattern Normal 12/17/20 08:17 Blood Pressure 161/113 H 12/17/20 08:17 Blood Pressure Mean 129 12/17/20 08:17 Blood Pressure Position Sitting 12/17/20 08:17 Pulse Oximetry 96 12/17/20 08:17 Respiratory End-tidal CO2 42 12/16/20 09:20 Oxygen Delivery Method Room Air 12/17/20 08:17 Oxygen Flow Rate 0 12/17/20 08:17 Pain Level 0 12/17/20 08:17 Intake & Output 12/16/20 12/17/20 12/17/20 23:59 11:59 23:59 Intake Total 700 / 2115.0539 1461.2 / 1461.2 Output Total 2750 / 3675 1325 / 1325 Balance -2050 / -0679.9461 136.2 / 136.2 Weight 72.1 kg 72.1 kg Intake: IV 1324.0539 1021.2 / 1021.2 Oral 690 / 790 440 / 440 Output: Urine 2750 / 3675 1075 / 1075 Stool 250 / 250 Other: Urine Color Pale Yellow Light Letitia Urine Appearance Clear Clear Urine Odor Normal None Comment Patient voids in urinal. Voided 425ml of yellow urine Stool Size Small Stool Characteristics Liquid Brown Voiding Methods Urinal Urinal Data Completed and Pending Labs on day of discharge: Labs from last 24 hours 12/17/20 12/17/20 12/16/20 06:08 06:08 04:50 WBC 9.17 RBC 4.41 Hgb 13.5 Hct 38.6 L MCV 87.5 MCH 30.6 MCHC 35.0 RDW 13.1 Plt Count 197 D MPV 10.4 Immature Gran % 0.4 Neutrophils % 62.8 Lymphocytes % 29.9 Monocytes % 4.9 Eosinophils % 1.0 Basophils % 1.0 Nucleated RBC % 0 Absolute Neutrophils 5.76 Absolute Lymphocytes 2.74 Absolute Monocytes 0.45 Absolute Eosinophils 0.09 Absolute Basophils 0.09 Sodium 134 L Potassium 3.1 L Chloride 97 L Carbon Dioxide 30.7 Anion Gap 6.3 BUN 2 L Creatinine 0.6 L Estimated GFR/1.73 m2 >= 60.00 Glucose 128 H Calcium 8.7 Total Bilirubin 1.4 H AST 268 H ALT 168 H Alkaline Phosphatase 207 H Total Protein 7.4 Albumin 2.9 L SARS-CoV-2 (PCR) Negative [facility] Medical History ADHD Anxiety and depression Chronic constipation Degenerative disc disease Diabetes mellitus Eczema of both hands Elevated blood pressure reading Erectile dysfunction ETOH abuse Former smoker GERD (gastroesophageal reflux disease) Gynecomastia Headache Hidradenitis suppurativa Opioid dependence Scrotal abscess Sinusitis Sleep apnea Social History Smoking/Tobacco Use Status: Current every day Tobacco Type: cigarettes Smoking risk assessment performed?: Yes Alcohol Intake: current Alcohol Intake frequency: 3 or more drinks per day Alcohol type: hard liquor Drug use: Occasionally Substance use type: marijuana Do you feel safe at home: Yes Do you feel safe in your relationship?: Yes
[2020-12-17 12:31] VITALS: BP 150/99; PULSE 3; RESP 10; TEMP 35.1; O2SAT 98
[2020-12-17] MEDS: Mupirocin 2% 15 GM TUBE TP (13:33)
--- NOTE | 2020-12-17 14:36 | PDOC.CMDIS ---
- If Service Date Differs Date of service: 12/17/20 Time of Service: 14:36 LACE Index Scoring Tool - Questions: Length of Stay (in days): 1 Acuity (Admit via E.D.?): Yes Comorbidities: Diabetes w/o Complication, Liver or Renal Disease E.D. Visits: 1 - Answers: Total Score: 10 Risk of Readmission: High Risk Care Management Discharge Reason for Hospitalization: alcohol withdrawal Discharge Plan: Feliciano will be discharged home with no new services. He will follow up with his PCP and plan of care and transport with family. Patient/Family Education Needs: Review of discharge instructions, medications, follow up plan, Ask Me Three
== END 2020-12-17 14:01 | disposition home or self-care (01) | DRG 897 ==
LOC: ER 07:58 → ICU 16:18
PROVIDERS: Emergency Medicine; Admitting Provider Family Medicine; Emergency Provider Emergency Medicine; PCP Family Medicine; Visit Provider Family Medicine
DX: F10.139 Alcohol abuse with withdrawal, unspecified (principal); F11.20 Opioid dependence, uncomplicated; E87.1 Hypo-osmolality and hyponatremia; K70.10 Alcoholic hepatitis without ascites; F90.9 Attention-deficit hyperactivity disorder, unspecified type; F41.8 Other specified anxiety disorders; E11.9 Type 2 diabetes mellitus without complications; L30.9 Dermatitis, unspecified; K21.9 Gastro-esophageal reflux disease without esophagitis; G47.30 Sleep apnea, unspecified; F17.210 Nicotine dependence, cigarettes, uncomplicated; K59.09 Other constipation; L73.2 Hidradenitis suppurativa; Z20.822 Contact with and (suspected) exposure to COVID-19; R03.0 Elevated blood-pressure reading, without diagnosis of hypertension
CPT/HCPCS: 36415; 80048; 80053; 80307; 83690; 87635; 93005; 96361; 96365; 96366; 96367; 96368; 80320; 83735; 84100; 85025; 85610; 93010; 99223; 99281; J1644; J2560; J3475; J3480

== ENCOUNTER 2021-11-15 17:53 | Outpatient (REF) | payer MEDICARE, MEDICAID, SELFPAY ==
[2021-11-15 19:32] LABS: Calculated LDL 137 mg/dL (<100); Cholesterol 242 mg/dL (<200); HDL Cholesterol 58 mg/dL (40-60); Triglyceride 236 mg/dL (<150)
[2021-11-15 19:38] LABS: Anion Gap 10.9 mmol/L (3-11); BUN 9 mg/dL (7-18); CO2 27.1 mmol/L (21.0-32.0); CREATININE 0.8 mg/dL (0.70-1.30); Calcium 9.3 mg/dL (8.5-10.1); Chloride 97 mmol/L (98-107); Estimated GFR 109.17 (mL/min/1.73m2); Glucose 177 mg/dL (74-106); Potassium 3.6 mmol/L (3.5-5.1); Sodium 135 mmol/L (136-145)
[2021-11-17 10:00] LABS: HIV-1/2 Ag & Ab Screen Negative (Negative)
[2021-11-17 10:01] LABS: Hepatitis C Ab w Rflx HCV PCR Negative (Negative)
== END 2021-11-15 17:54 | disposition home or self-care (01) ==
LOC: NCHCN 17:53
PROVIDERS: PCP Family Medicine; Visit Provider Family Medicine
DX: I10 Essential (primary) hypertension (principal); Z11.4 Encounter for screening for human immunodeficiency virus [HIV]; Z11.59 Encounter for screening for other viral diseases; Z00.00 Encounter for general adult medical examination without abnormal findings
CPT/HCPCS: 80048; 80061; 86803; 87389

== ENCOUNTER 2022-05-23 21:22 | Emergency (ER) | payer MEDICARE, MEDICAID, SELFPAY ==
[2022-05-23 21:27] VITALS: BP 134/82; PULSE 94; RESP 18; TEMP 37.2; O2SAT 97
--- NOTE | 2022-05-23 21:28 | W.ED.GENAD ---
Discharge Plan Disposition Patient Disposition: Against Medical Advice Condition: Stable Discharge Details Clinical Impression: Internal carotid artery stenosis, Internal carotid artery occlusion, Left-sided weakness, Left rib fracture Primary Care Provider: Albert Bateman ED Provider: Miranda Magana Home Meds and New Rx's Prescriptions: Continued methadone 10 MG/ML concentrate 75 mg PO DAILY@1600 omeprazole 20 MG capsule,delayed release(DR/EC) 40 mg PO DAILY methadone 10 mg/mL Concentrate 100 mg PO DAILY AM lamotrigine [Lamictal] 100 mg Tablet 100 mg PO BID methylphenidate HCl [Ritalin] 20 mg Tablet 20 mg PO TID metoprolol tartrate 50 mg Tablet 50 mg PO BID Qty: 60 0RF thiamine HCl (vitamin B1) 100 mg tablet 100 mg PO DAILY Qty: 30 0RF Discharge Instructions Instructions: Rib Fracture (ED), Carotid Artery Disease (DC), Weakness (ED) Additional Instructions: You are leaving the hospital AGAINST MEDICAL ADVICE. It is recommended that you stay for [facility] neurology recommendations and for possible admission to the hospital. Your CT imaging noted a lesion within your right internal carotid artery which may be contributing to your left-sided weakness. A call has been placed to [facility] neurology for further recommendations. Drink plenty of fluids and get plenty of rest. You have been placed on care management list to follow-up with your primary care doctor for the neurology recommendations. Return immediately to the emergency department if you develop any worsening or new concerning symptoms. Discharge Data Discharge Date/Time-TO BE ENTERED AT DEPARTURE: 05/24/22 00:06 Discharge Comment: Pt left AMA Discharge Physician: Miranda Magana Medical Decision Making 2144 -- 47-year-old male with a history of daily alcohol abuse, anxiety, depression, diabetes, GERD presents for left-sided weakness for the past week. Also admits to bilateral leg weakness over the last few months but states his left leg has been more prominent over the last week. Patient is awake and alert and oriented x3. He appears nontoxic. His muscle strength in his bilateral upper extremities is symmetric and 5/5. His muscle strength of his left lower extremity is 4/5 compared to right lower extremity which is 5/5. No meningeal or cerebellar signs. Differential diagnosis includes neuropathy in the setting of alcohol abuse, CVA, TIA, electrolyte abnormality. History and presentation does not appear consistent with cauda equina syndrome, meningitis. Will obtain screening labs, CTA head and neck, chest x-ray and give fluid bolus. 0050 --Labs and imaging reviewed. White blood cell count 12.23. Anion gap 13.7. Troponin negative. Urinalysis negative for infection. FLUVID negative. Alcohol level 146. CTA head notes: IMPRESSION: 1. ? No large vessel occlusion. 2. ? Diminutive petrous segment of the right ICA due to the presence of a pre occlusive lesion at the origin of the ICA, extracranial segment. Normal supraclinoid segment due to collateral flow. CTA neck notes: IMPRESSION: 1. ? Calcific atherosclerotic plaque at the origin of the right extracranial internal carotid artery with a string sign consistent with the pre occlusive lesion, severe stenosis by NASCET criteria. 2. ? Ulcerated plaque at the origin of the left extracranial internal carotid artery with a moderate 61% stenosis by NASCET criteria. 3. ? Mild stenosis at the origin of the codominant right vertebral artery. 4. ? Moderate stenosis at the origin of the left vertebral artery. Results discussed with patient and informed that this could likely be contributing to his left-sided weakness. Discussed that I will contact [facility] neurology for recommendations. Patient states he does not want to wait and needs to go home to take care of a few things . Discussed with patient that admission might be recommended and without [facility] neurology recommendations, he would be leaving AGAINST MEDICAL ADVICE. He has a normal mental status and full decisional capacity. The patient understands his condition and the risks of leaving A, including BUT NOT LIMITED TO permanent disability, , etc., and has had an opportunity to ask questions about his medical condition. The patient has been informed that he may return for care at any time, and has been referred to his local medical physician for follow up BLAINE. Patient states he can return to the hospital tomorrow. Discussed that I will discuss and review the CT scan with [facility] neurology and will place patient on care management list to discuss these recommendations with his primary care doctor. He is advised to return here immediately with any worsening or concerning symptoms. Chest x-ray reviewed and notes left-sided rib fracture. Patient was informed of these results and advised on proper pain control. 0648 --Long delay in discussion with [facility] neurology. Discussed with [facility] and they had no record of consult. Discussed with [facility] neurology Dr. Marline Whittington who reviewed imaging. She recommends urgent vascular surgery evaluation. She feels it would be best if patient comes directly to [facility] ED today as this can happen quicker. She recommends that he have a Plavix load of 300 mg followed by 75 mg daily in addition to 325 mg of aspirin followed by 81 mg daily. He also needs an echocardiogram and MRI brain. She again recommends that patient come directly to [facility] ED today to facilitate an urgent vascular surgery evaluation with likely plan for carotid endarterectomy. She states we can hold on sending aspirin and Plavix to his pharmacy if he can present to [facility] ED today and they can start the process there. 0700 --I called patient on the number provided at [phone] Whittington's recommendations with him and that he present to [facility] ED today for medication management and for urgent vascular surgery evaluation. Patient states he will go to [facility] ED today. Medical Records Medical records reviewed: Yes I reviewed the patient's medical records. Imaging Data Radiologic Study: Radiologist's impression: CTA Head With Contrast, Arteriography Exam date and time: 05/23/2022 10:17 PM Age: 47 years old Clinical indication: Stroke-like symptoms; Lt lower extremity weakness; Additional info: L sided weakness, R/O acute CVA, HX of tbi on 2009 TECHNIQUE: Imaging protocol: Computed tomographic angiography of the head with contrast. Exam focused on the arteries. 3D rendering (Not supervised by radiologist): MIP and/or 3D reconstructed images were created by the technologist. Radiation optimization: All CT scans at this facility use at least one of these dose optimization techniques: automated exposure control; mA and/or kV adjustment per patient size (includes targeted exams where dose is matched to clinical indication); or iterative reconstruction. Contrast material: OMNIPAQUE 350; Contrast volume: 100 ml; Contrast route: INTRAVENOUS (IV);? COMPARISON: No relevant prior studies available. FINDINGS: ANTERIOR CIRCULATION: Right internal carotid artery: Petrous segment is diminutive due to pre occlusive stenosis of the extracranial segment. The supraclinoid segment is of normal caliber as the receives collateral flow from the posterior circulation and via the small anterior communicating artery. No aneurysm. Right middle cerebral artery: No occlusion or significant stenosis. No aneurysm.? Right anterior cerebral artery: Patent but moderately hypoplastic right A1 segment with a small anterior communicating artery, anatomic variant. No occlusion. No aneurysm. Left internal carotid artery: Intracranial segment is patent with no significant stenosis. No aneurysm. Left middle cerebral artery: No occlusion or significant stenosis. No aneurysm. ? Left anterior cerebral artery: No occlusion or significant stenosis. No aneurysm.? POSTERIOR CIRCULATION: Right vertebral artery: No occlusion or significant stenosis. No aneurysm.? Left vertebral artery: No occlusion or significant stenosis. No aneurysm.? Basilar artery: No occlusion or significant stenosis. No aneurysm. Right posterior cerebral artery: No occlusion or significant stenosis. No aneurysm.? Left posterior cerebral artery: No occlusion or significant stenosis. No aneurysm.? Brain: No definite mass, mass effect, or midline shift. There is no rim edema. Unremarkable white matter. Cerebral ventricles: No ventriculomegaly. Paranasal sinuses: There is mucoperiosteal thickening of bilateral frontal sinuses. There is mucosal thickening and opacification of multiple left ethmoid air cells. There is a retention cyst in the right sphenoid sinus. No air-fluid levels. Bones/joints: Unremarkable. No acute fracture. Soft tissues: Unremarkable. IMPRESSION: 1. ? No large vessel occlusion. 2. ? Diminutive petrous segment of the right ICA due to the presence of a pre occlusive lesion at the origin of the ICA, extracranial segment. Normal supraclinoid segment due to collateral flow. CTA Neck With Contrast Exam date and time: 05/23/2022 10:17 PM Age: 47 years old Clinical indication: Stroke-like symptoms; Lt lower extremity weakness; Additional info: L sided weakness, R/O acute CVA, HX of tbi on 2009 TECHNIQUE: Imaging protocol: Computed tomographic angiography of the neck with contrast. 3D rendering (Not supervised by radiologist): MIP and/or 3D reconstructed images were created by the technologist. Radiation optimization: All CT scans at this facility use at least one of these dose optimization techniques: automated exposure control; mA and/or kV adjustment per patient size (includes targeted exams where dose is matched to clinical indication); or iterative reconstruction. Contrast material: OMNIPAQUE 350; Contrast volume: 100 ml; Contrast route: INTRAVENOUS (IV);? COMPARISON: No relevant prior studies available. FINDINGS: Right common carotid artery: No significant stenosis. No dissection or occlusion. Right internal carotid artery: Calcified plaque at the origin of the extracranial segment with a string sign indicating near complete occlusion. No dissection or occlusion. Right external carotid artery: No occlusion or significant stenosis of the origin.? Left common carotid artery: No significant stenosis. No dissection or occlusion. Left internal carotid artery: Mixed ulcerated plaque at the origin of and proximal left extracranial ICA with moderate 61% stenosis. No dissection or occlusion. Left external carotid artery: No occlusion or significant stenosis of the origin.? Right vertebral artery: Mild stenosis at the origin of the codominant right vertebral. No dissection or occlusion. Left vertebral artery: Moderate stenosis at the origin. No dissection or occlusion. Soft tissues: No significant soft tissue swelling. Bones/joints: No acute fracture. IMPRESSION: 1. ? Calcific atherosclerotic plaque at the origin of the right extracranial internal carotid artery with a string sign consistent with the pre occlusive lesion, severe stenosis by NASCET criteria. 2. ? Ulcerated plaque at the origin of the left extracranial internal carotid artery with a moderate 61% stenosis by NASCET criteria. 3. ? Mild stenosis at the origin of the codominant right vertebral artery. 4. ? Moderate stenosis at the origin of the left vertebral artery. XR Chest Exam date and time: 05/23/2022 10:53 PM Age: 47 years old Clinical indication: Other: Fall L rib pain, R/O fx/acute disease TECHNIQUE: Imaging protocol: Radiologic exam of the chest. Views: 2 views. COMPARISON: CT BRAIN NECK CTA 05/23/2022 10:17 PM FINDINGS: Lungs: There is no evidence of focal pulmonary consolidation. Pleural spaces: No pleural effusion or pneumothorax. Heart/Mediastinum: Normal in size. Bones/joints: There is a cortical indentation or step-off on the lateral aspect of the left 7th rib suspicious for a nondisplaced fracture. IMPRESSION: 1. ? No acute cardiopulmonary findings. 2. ? Suspected nondisplaced fracture of the lateral aspect of the left 7th rib. This may be confirmed by CT scan of the chest or left rib series if clinically indicated. Lab Data Lab results reviewed: Yes I reviewed the patient's lab results. Labs: Laboratory Tests Range/Units 05/23/22 05/23/22 05/23/22 22:00 22:00 22:00 WBC (4.4-10.8) 10^3/uL 12.23 H RBC (4.36-5.78) 10^6/uL 5.04 Hgb (13.5-17.5) g/dL 14.9 Hct (40.0-50.0) % 44.4 MCV (80-95) fL 88 MCH (27.0-33.0) pg 29.6 MCHC (32.0-36.0) % 33.6 RDW (11.8-14.1) % 13.1 Plt Count (130-400) 10^3/uL 360 MPV (8.0-11.0) fL 9.3 Immature Gran % 0.6 Neutrophils % 53.4 Lymphocytes % 35.6 Monocytes % 5.6 Eosinophils % 3.8 Basophils % 1.0 Nucleated RBC % (0.0-0.3) % 0.0 Absolute Neutrophils (1.2-6.7) 10^3/uL 6.53 Absolute Lymphocytes (1.2-3.4) 10^3/uL 4.35 H Absolute Monocytes (0.1-0.8) 10^3/uL 0.68 Absolute Eosinophils (0.0-0.7) 10^3/uL 0.46 Absolute Basophils (0.0-0.2) 10^3/uL 0.12 Sodium (136-145) mmol/L 134 L Potassium (3.5-5.1) mmol/L 4.0 Chloride (98-107) mmol/L 98 Carbon Dioxide (21.0-32.0) mmol/L 22.3 Anion Gap (3-11) mmol/L 13.7 H BUN (7-18) mg/dL 7 Creatinine (0.70-1.30) mg/dL 0.8 Est GFR (CKD-EPI 2020) (mL/min/1.73m2) 108.49 Glucose (74-106) mg/dL 143 H Calcium (8.5-10.1) mg/dL 9.1 Magnesium (1.8-2.4) mg/dL 2.2 Total Bilirubin (0.2-1.0) mg/dL 0.2 AST (15-37) U/L 22 ALT (16-63) U/L 31 Alkaline Phosphatase (46-116) U/L 82 Troponin I (<or=60) ng/L < 50 Total Protein (6.4-8.2) g/dL 8.2 Albumin (3.4-5.0) g/dL 3.4 Lipase (16-77) U/L Urine Color (Yellow) Urine Clarity (Clear) Urine pH (5-8) Ur Specific [place] (1.005-1.025) Urine Protein (Negative) mg/dL Urine Ketones (Negative) mg/dL Urine Blood (Negative) Urine Nitrite (Negative) Urine Bilirubin (Negative) Urine Urobilinogen (Up to 0.2) mg/dL Ur Leukocyte Esterase (Negative) Urine Glucose (Negative) mg/dL Ethyl Alcohol (<10) mg/dL 146.1 H COVID-19 Source SARS-CoV-2 (PCR) (Negative) Influenza Type A (PCR) (Negative) Influenza Type B (PCR) (Negative) RSV (PCR) (Negative) Range/Units 05/23/22 05/23/22 05/23/22 22:00 22:17 23:20 WBC (4.4-10.8) 10^3/uL RBC (4.36-5.78) 10^6/uL Hgb (13.5-17.5) g/dL Hct (40.0-50.0) % MCV (80-95) fL MCH (27.0-33.0) pg MCHC (32.0-36.0) % RDW (11.8-14.1) % Plt Count (130-400) 10^3/uL MPV (8.0-11.0) fL Immature Gran % Neutrophils % Lymphocytes % Monocytes % Eosinophils % Basophils % Nucleated RBC % (0.0-0.3) % Absolute Neutrophils (1.2-6.7) 10^3/uL Absolute Lymphocytes (1.2-3.4) 10^3/uL Absolute Monocytes (0.1-0.8) 10^3/uL Absolute Eosinophils (0.0-0.7) 10^3/uL Absolute Basophils (0.0-0.2) 10^3/uL Sodium (136-145) mmol/L Potassium (3.5-5.1) mmol/L Chloride (98-107) mmol/L Carbon Dioxide (21.0-32.0) mmol/L Anion Gap (3-11) mmol/L BUN (7-18) mg/dL Creatinine (0.70-1.30) mg/dL Est GFR (CKD-EPI 2020) (mL/min/1.73m2) Glucose (74-106) mg/dL Calcium (8.5-10.1) mg/dL Magnesium (1.8-2.4) mg/dL Total Bilirubin (0.2-1.0) mg/dL AST (15-37) U/L ALT (16-63) U/L Alkaline Phosphatase (46-116) U/L Troponin I (<or=60) ng/L Total Protein (6.4-8.2) g/dL Albumin (3.4-5.0) g/dL Lipase (16-77) U/L 32 Urine Color (Yellow) Yellow Urine Clarity (Clear) Clear Urine pH (5-8) 5.5 Ur Specific [place] (1.005-1.025) <= 1.005 Urine Protein (Negative) mg/dL Negative Urine Ketones (Negative) mg/dL Negative Urine Blood (Negative) Negative Urine Nitrite (Negative) Negative Urine Bilirubin (Negative) Negative Urine Urobilinogen (Up to 0.2) mg/dL 0.2 Ur Leukocyte Esterase (Negative) Negative Urine Glucose (Negative) mg/dL Negative Ethyl Alcohol (<10) mg/dL COVID-19 Source Nasopharynx SARS-CoV-2 (PCR) (Negative) Negative Influenza Type A (PCR) (Negative) Negative Influenza Type B (PCR) (Negative) Negative RSV (PCR) (Negative) Negative ECG Data Attestation: I personally reviewed and interpreted this ECG (s) as follows: Interpretation: Rate of 77, sinus, normal axis, normal intervals, no STEMI. HPI General Mode of arrival: ambulatory. Date/Time Provider Initiated Documentation: 05/23/22 21:26. Limitations to Documentation: no limitations. Information obtained by: patient. HPI Narrative: Patient is a 47-year-old male with a history of hypertension, GERD, diabetes, daily alcohol abuse who presents for left-sided weakness for the past week. Patient states he has left arm and leg weakness but states the weakness in his leg is more prominent. He does state that a couple months ago he was having issues with bilateral leg weakness and felt that his legs were giving out while walking. He states a few weeks ago he was having right leg weakness and now it is predominantly in his left leg for the past week. He denies any known injury. He has not been using a cane or walker for ambulation but instead holding onto things. Patient states he hit his head a month ago when he slipped on ice and has been having intermittent headaches. He denies any fever, blurry vision, chest pain, difficulty breathing, nausea, vomiting, diarrhea or dizziness. He denies any extremity pain or numbness. Related Data Home Medications Medication Instructions Recorded Confirmed methadone 10 mg/mL oral concentrate 75 mg PO DAILY@1600 09/03/15 12/16/20 omeprazole 20 mg capsule,delayed 40 mg PO DAILY 09/03/15 12/16/20 release lamotrigine 100 mg tablet 100 mg PO BID 12/16/20 12/16/20 (Lamictal) methadone 10 mg/mL oral concentrate 100 mg PO DAILY AM 12/16/20 12/16/20 methylphenidate HCl 20 mg tablet 20 mg PO TID 12/16/20 12/16/20 (Ritalin) metoprolol tartrate 50 mg tablet 50 mg PO BID #60 tabs 12/17/20 thiamine HCl (vitamin B1) 100 mg 100 mg PO DAILY #30 tabs 12/17/20 tablet Previous Rx's Medication Instructions Recorded metoprolol tartrate 50 mg tablet 50 mg PO BID #60 tabs 12/17/20 thiamine HCl (vitamin B1) 100 mg 100 mg PO DAILY #30 tabs 12/17/20 tablet Allergies Allergy/AdvReac Type Severity Reaction Status Date / Time tolmetin Allergy Unverified 12/16/20 04:22 General Stated Complaint: GenMedical KARL: 2 Review of Systems All systems reviewed & are unremarkable except as noted in HPI and below Constitutional Constitutional: Reports as per HPI, Denies chills and Denies fever(s) Eyes Eyes: Denies blurry vision ENT Ears, Nose, Mouth, and Throat: Denies dizziness, Denies sore throat and Denies throat swelling Cardiovascular Cardiovascular: Denies chest pain and Denies dyspnea Respiratory Respiratory: Denies cough and Denies dyspnea Gastrointestinal Gastrointestinal: Denies abdominal pain, Denies diarrhea and Denies vomiting Genitourinary Genitourinary: Denies hematuria and Denies dysuria Musculoskeletal Musculoskeletal: Denies back pain and Denies numbness Integumentary/Breasts Skin/Breast: Denies lesions and Denies rash Neurologic Neurologic: Denies dizziness, Reports localized weakness and Denies numbness Allergic/Immunologic Allergic/Immunologic: Denies throat swelling PFSH All Active Problems (Updated 05/24/22 @ 00:00 by Miranda Magana DO) Internal carotid artery stenosis (Acute) Internal carotid artery occlusion (Acute) Left-sided weakness (Acute) Left rib fracture (Acute) Tobacco abuse (Acute) Elevated blood pressure reading (Acute) Anxiety and depression (Acute) Vomiting and diarrhea (Acute) Alcohol abuse (Chronic) Alcohol withdrawal (Acute) Electrolyte and fluid disorder (Acute) Alcoholic hepatitis (Acute) Medical History ADHD Anxiety and depression Chronic constipation Degenerative disc disease Diabetes mellitus Eczema of both hands Elevated blood pressure reading Erectile dysfunction ETOH abuse Former smoker GERD (gastroesophageal reflux disease) Gynecomastia Headache Hidradenitis suppurativa Opioid dependence Scrotal abscess Sinusitis Sleep apnea Social History Smoking/Tobacco Use Status: Current every day Tobacco Type: cigarettes Smoking risk assessment performed?: Yes Alcohol Intake: current Alcohol Intake frequency: 3 or more drinks per day Alcohol type: hard liquor Drug use: Occasionally Substance use type: marijuana Do you feel safe at home: Yes Do you feel safe in your relationship?: Yes Exam Const General: cooperative and no acute distress Orientation: alert, awake and oriented x3 HENMT Head: normal to inspection Ears: hearing grossly normal bilaterally, external ears normal and TM's normal bilaterally Face and sinus: normal facial exam Mouth: oral mucosae normal Throat: posterior oropharynx normal Eyes General: appearance normal, both eyes and all related structures Pupils: PERRL EOM: EOM intact bilaterally Neck Neck: normal visual inspection and No submandibular swelling Lymphatic: no lymphadenopathy noted Chest Chest: normal inspection of the chest and no tenderness Chest/axillae images: 1. Tenderness to palpation. No evidence of crepitus, step off, trauma, rash, cellulitis or lesions. Resp Effort & Inspection: normal respiratory effort and able to speak in complete sentences Auscultation: clear to auscultation bilaterally Cardio Rate: regular rate Rhythm: regular rhythm GI Inspection: normal to inspection Palpation: soft, not firm, not rigid and nontender Auscultation: hypoactive bowel sounds Male General Exam: Yes normal external exam Back/Spine/Pelvis Thoracic/Lumbar Spine: thoracic and lumbar spine normal to inspection Pelvis: no pain with anterior-posterior compression Skin General skin exam: no rashes or lesions noted Neuro General: patient alert, patient awake and patient oriented x3 Cognition: normal cognition Speech: speech normal Motor: no pronator drift Sensory Exam: no sensory deficits noted Other: Muscle strength 5/5 bilateral upper extremities. Muscle strength 4/5 left lower extremity. Muscle strength 5/5 right lower extremity. Extrem General: normal to inspection, full ROM, capillary refill normal, no calf tenderness bilaterally and no edema Psych Appearance: grossly normal Mental Status: mental status grossly normal Speech and Movement: speech and movement normal Affect: normal affect
--- NOTE | 2022-05-23 22:00 | DI.RAD_ITS ---
Exam(s) XR CHEST 2V PA LATERAL EXAM: XR CHEST 2V PA LATERAL CLINICAL HISTORY: fall L rib pain, r/o fx/acute disease TECHNIQUE: 2D digital imaging was performed of the chest. Two images were obtained. PA and lateral views were obtained. COMPARISON: CR LEFT RIBS TO INCLUDE CXR from 03/06/2010 FINDINGS: MEDIASTINUM: Normal. HEART: Normal. PULMONARY VASCULATURE: Normal. LUNGS: Clear. PLEURAL SPACE: No pleural effusion or pneumothorax. BONE:Within normal limits for the patient's age. The deformity of the lateral aspect of the left 7th rib is unchanged compared to the examination from 03/06/2010. OTHER FINDINGS:Normal. IMPRESSION: No acute pulmonary findings. DATA REPOSITORY: RADIATION DOSE DELIVERED:
--- NOTE | 2022-05-23 22:00 | DI.CT_ITS ---
Exam(s) CT BRAIN NECK CTA EXAM: CT BRAIN NECK CTA CLINICAL HISTORY: L sided weakness, r/o acute cva. TECHNIQUE: Imaging Protocol: Axial CT angiography was performed with multi-slice acquisition and mu lti-planar and/or 3D reconstructions. CONTRAST MATERIAL: Intravenous: Omnipaque 350 contrast volume:100 mL COMPARISON: CT HEAD WITHOUT CONTRAST from 09/15/2009 CT HEAD WITHOUT CONTRAST from 01/27/2010 FINDINGS: CT Head W/O and W: Ventricles and Extra axial spaces: Normal in size and morphology for the patient's age. Hemorrhage: None. Cerebral parenchyma: There are old right basal gangliar lacunar infarcts. There is a small area of d ecreased attenuation seen in the high right parietal region medially. Midline shift: None. Brainstem/Cerebellum: Normal. Calvarium: Normal. Visualized Paranasal sinuses/Mastoids: There is mucosal thickening in visualized paranasal sinuses. No fluid levels are seen. The mastoid air cells are clear. Soft Tissues: Unremarkable. Enhancement: Unremarkable. CTA Neck W: Common Carotid: Right: No dissection, occlusion or significant stenosis. Left: No dissection, occlusion or significant stenosis. External Carotid: Right: No occlusion or significant stenosis. Left: No occlusion or significant stenosis. Internal Carotid: Right: There is calcific plaque seen at the origin of the right internal carotid artery with occlusi on of the proximal right internal carotid artery. There is a thin reconstitution seen in the petrous portion of the internal carotid artery. Left: There is atherosclerotic plaque seen at the origin of the left internal carotid artery. There is moderate stenosis seen in the proximal left internal carotid artery. Vertebral Artery: Right: No dissection, occlusion or significant stenosis. There is mild narrowing of the origin of th e right vertebral artery. Left: No dissection, occlusion or significant stenosis. There is mild narrowing of the origin of the left vertebral artery. Lung Apices: Normal. Bones: Within normal limits for the patient's age. Soft Tissues: Normal. Thyroid gland: Unremarkable. CTA Brain W: Internal Carotid Arteries: There is a thin petrous portion and proximal right internal carotid artery with normal caliber supraclinoid segment. Anterior Cerebral Arteries: Right: No aneurysm, occlusion or significant stenosis. Left: No aneurysm, occlusion or significant stenosis. Middle Cerebral Arteries: Right: No aneurysm, occlusion or significant stenosis. Left: No aneurysm, occlusion or significant stenosis. Posterior Cerebral Arteries: Right: No aneurysm, occlusion or significant stenosis. Left: No aneurysm, occlusion or significant stenosis. Vertebral Arteries: Right: No aneurysm, occlusion or significant stenosis. Left: No aneurysm, occlusion or significant stenosis. Basilar Artery: No aneurysm, occlusion or significant stenosis. IMPRESSION: 1. Atherosclerotic plaque at the origin of the right internal carotid artery with occlusion of the pr oximal right internal carotid artery. The petrous and proximal intracranial portion of the right int ernal carotid artery is thin with a normal caliber supraclinoid right internal carotid artery. 2. There is atherosclerosis at the origin of the left internal carotid artery with moderate stenosis present. 3. Question of an area of decreased attenuation in the medial segment of the in the medial aspect of the right parietal lobe. MRI should be considered for further evaluation in this patient. 4. Old right lacunar infarct. 5. No acute intracranial hemorrhage. Unexpected findings RADIATION DOSE DELIVERED: 2,182.89mGy.cm Total DLP DATA REPOSITORY: All CT scans at this facility are submitted to the National Radiology Data Registry (NRDR) Dose Index Registry (DIR) with the [employer] ([employer]). RADIATION OPTIMIZATION: All CT scans at this facility use at least one of these dose optimization te chniques: automated exposure control; mA and/or kV adjustment per patient size (includes targeted exa ms where dose is matched to clinical indication); or iterative reconstruction.
[2022-05-23] MEDS: Normal Saline - Diluent 50 ML VIAL IJ (22:12)
[2022-05-23] MEDS: Omnipaque 350 MG/ML 100 ML BTL IJ (22:12)
[2022-05-23 22:13] LABS: Abs Immature Grans 0.07 10^3/uL (0.0-0.06); Absolute Basophil Count 0.12 10^3/uL (0.0-0.2); Absolute Lymphocyte Count 4.35 10^3/uL (1.2-3.4); Absolute Monocyte Count 0.68 10^3/uL (0.1-0.8); Eosinophils % 3.8; HCT 44.4 % (40.0-50.0); HGB 14.9 g/dL (13.5-17.5); Immature Grans % 0.6; Lymphocytes % 35.6; MCH 29.6 pg (27.0-33.0); MCHC 33.6 % (32.0-36.0); MCV 88 fL (80-95); MPV 9.3 fL (8.0-11.0); Monocytes % 5.6; Neutrophils % 53.4; Platelet Count 360 10^3/uL (130-400); RBC 5.04 10^6/uL (4.36-5.78); RDW 13.1 % (11.8-14.1); RDW-SD 42.5 fL; WBC 12.23 10^3/uL (4.4-10.8)
[2022-05-23] MEDS: Normal Saline Flush 10 ML SYR IVP (22:13)
[2022-05-23 22:17] LABS: Absolute Eosinophil Count 0.46 10^3/uL (0.0-0.7); Absolute Neutrophil Count 6.53 10^3/uL (1.2-6.7)
[2022-05-23 22:29] LABS: Bilirubin Negative (Negative); Blood Negative (Negative); Clarity Clear (Clear); Glucose Negative (Negative); Ketones Negative (Negative); Leukocyte Esterase Negative (Negative); Nitrite Negative (Negative); Specific Gravity <= 1.005 (1.005-1.025); Urobilinogen 0.2 mg/dL (Up to 0.2); pH 5.5 (5-8)
[2022-05-23 22:33] LABS: ETHANOL BLOOD 146.1 mg/dL (<10)
[2022-05-23 22:34] LABS: Lipase 32 U/L (16-77)
[2022-05-23 22:40] LABS: ALT 31 U/L (16-63); AST 22 U/L (15-37); Albumin 3.4 g/dL (3.4-5.0); Alkaline Phosphatase 82 U/L (46-116); Anion Gap 13.7 mmol/L (3-11); BUN 7 mg/dL (7-18); Bilirubin, Total 0.2 mg/dL (0.2-1.0); CO2 22.3 mmol/L (21.0-32.0); CREATININE 0.8 mg/dL (0.70-1.30); Calcium 9.1 mg/dL (8.5-10.1); Chloride 98 mmol/L (98-107); Estimated GFR 108.49 (mL/min/1.73m2); Glucose 143 mg/dL (74-106); Magnesium 2.2 mg/dL (1.8-2.4); Sodium 134 mmol/L (136-145); Total Protein 8.2 g/dL (6.4-8.2); Troponin I < 50 ng/L (<or=60)
--- NOTE | 2022-05-23 22:45 | RT.EKG_ITS ---
APPROVED REPORT Exam: Resting ECG Reason for Exam: weakness Patient Location: E HR:77 bpm ECG Measurements Heart Rate 77 AXIS SC 146 P 10 QRSd 75 QRS -6 QT 318 T 41 QTc 360 Conclusion Sinus rhythm...normal P axis, V-rate 60- 99. Sinus. Normal axis. Normal intervals. No STEMI. I have reviewed and interpreted ECG and agree with software generated interpretation.
[2022-05-23] MEDS: Normal Saline 1,000 ML 1000 ML IV (23:29)
--- NOTE | 2022-05-23 23:48 | DI.VRAD_ITS ---
PROCEDURE INFORMATION: Exam: CTA Head With Contrast, Arteriography Exam date and time: 05/23/2022 10:17 PM Age: 47 years old Clinical indication: Stroke-like symptoms; Lt lower extremity weakness; Additional info: L sided weakness, R/O acute CVA, HX of tbi on 2009 TECHNIQUE: Imaging protocol: Computed tomographic angiography of the head with contrast. Exam focused on the arteries. 3D rendering (Not supervised by radiologist): MIP and/or 3D reconstructed images were created by the technologist. Radiation optimization: All CT scans at this facility use at least one of these dose optimization techniques: automated exposure control; mA and/or kV adjustment per patient size (includes targeted exams where dose is matched to clinical indication); or iterative reconstruction. Contrast material: OMNIPAQUE 350; Contrast volume: 100 ml; Contrast route: INTRAVENOUS (IV); COMPARISON: No relevant prior studies available. FINDINGS: ANTERIOR CIRCULATION: Right internal carotid artery: Petrous segment is diminutive due to pre occlusive stenosis of the extracranial segment. The supraclinoid segment is of normal caliber as the receives collateral flow from the posterior circulation and via the small anterior communicating artery. No aneurysm. Right middle cerebral artery: No occlusion or significant stenosis. No aneurysm. Right anterior cerebral artery: Patent but moderately hypoplastic right A1 segment with a small anterior communicating artery, anatomic variant. No occlusion. No aneurysm. Left internal carotid artery: Intracranial segment is patent with no significant stenosis. No aneurysm. Left middle cerebral artery: No occlusion or significant stenosis. No aneurysm. Left anterior cerebral artery: No occlusion or significant stenosis. No aneurysm. POSTERIOR CIRCULATION: Right vertebral artery: No occlusion or significant stenosis. No aneurysm. Left vertebral artery: No occlusion or significant stenosis. No aneurysm. Basilar artery: No occlusion or significant stenosis. No aneurysm. Right posterior cerebral artery: No occlusion or significant stenosis. No aneurysm. Left posterior cerebral artery: No occlusion or significant stenosis. No aneurysm. Brain: No definite mass, mass effect, or midline shift. There is no rim edema. Unremarkable white matter. Cerebral ventricles: No ventriculomegaly. Paranasal sinuses: There is mucoperiosteal thickening of bilateral frontal sinuses. There is mucosal thickening and opacification of multiple left ethmoid air cells. There is a retention cyst in the right sphenoid sinus. No air-fluid levels. Bones/joints: Unremarkable. No acute fracture. Soft tissues: Unremarkable. IMPRESSION: 1. No large vessel occlusion. 2. Diminutive petrous segment of the right ICA due to the presence of a pre occlusive lesion at the origin of the ICA, extracranial segment. Normal supraclinoid segment due to collateral flow. PROCEDURE INFORMATION: Exam: CTA Neck With Contrast Exam date and time: 05/23/2022 10:17 PM Age: 47 years old Clinical indication: Stroke-like symptoms; Lt lower extremity weakness; Additional info: L sided weakness, R/O acute CVA, HX of tbi on 2009 TECHNIQUE: Imaging protocol: Computed tomographic angiography of the neck with contrast. 3D rendering (Not supervised by radiologist): MIP and/or 3D reconstructed images were created by the technologist. Radiation optimization: All CT scans at this facility use at least one of these dose optimization techniques: automated exposure control; mA and/or kV adjustment per patient size (includes targeted exams where dose is matched to clinical indication); or iterative reconstruction. Contrast material: OMNIPAQUE 350; Contrast volume: 100 ml; Contrast route: INTRAVENOUS (IV); COMPARISON: No relevant prior studies available. FINDINGS: Right common carotid artery: No significant stenosis. No dissection or occlusion. Right internal carotid artery: Calcified plaque at the origin of the extracranial segment with a string sign indicating near complete occlusion. No dissection or occlusion. Right external carotid artery: No occlusion or significant stenosis of the origin. Left common carotid artery: No significant stenosis. No dissection or occlusion. Left internal carotid artery: Mixed ulcerated plaque at the origin of and proximal left extracranial ICA with moderate 61% stenosis. No dissection or occlusion. Left external carotid artery: No occlusion or significant stenosis of the origin. Right vertebral artery: Mild stenosis at the origin of the codominant right vertebral. No dissection or occlusion. Left vertebral artery: Moderate stenosis at the origin. No dissection or occlusion. Soft tissues: No significant soft tissue swelling. Bones/joints: No acute fracture. IMPRESSION: 1. Calcific atherosclerotic plaque at the origin of the right extracranial internal carotid artery with a string sign consistent with the pre occlusive lesion, severe stenosis by NASCET criteria. 2. Ulcerated plaque at the origin of the left extracranial internal carotid artery with a moderate 61% stenosis by NASCET criteria. 3. Mild stenosis at the origin of the codominant right vertebral artery. 4. Moderate stenosis at the origin of the left vertebral artery. THIS REPORT CONTAINS FINDINGS THAT MAY BE CRITICAL TO PATIENT CARE. The findings were verbally communicated via telephone conference with lorenzo yee at 11:35 PM EDT on 05/23/2022. The findings were acknowledged and understood. REFERENCES: NASCET CRITERIA. The degree of stenosis in the cervical segment of the internal carotid artery is based on NASCET criteria. Normal is no stenosis. Mild is less than 50% stenosis. Moderate is 50-69% stenosis. Severe is 70% to 99% stenosis. Total occlusion is no detectable patent lumen. Dictated and Authenticated by: Robel Guy MD. Ordering:HERMAN Jean MD
--- NOTE | 2022-05-23 23:55 | DI.VRAD_ITS ---
PROCEDURE INFORMATION: Exam: XR Chest Exam date and time: 05/23/2022 10:53 PM Age: 47 years old Clinical indication: Other: Fall L rib pain, R/O fx/acute disease TECHNIQUE: Imaging protocol: Radiologic exam of the chest. Views: 2 views. COMPARISON: CT BRAIN NECK CTA 05/23/2022 10:17 PM FINDINGS: Lungs: There is no evidence of focal pulmonary consolidation. Pleural spaces: No pleural effusion or pneumothorax. Heart/Mediastinum: Normal in size. Bones/joints: There is a cortical indentation or step-off on the lateral aspect of the left 7th rib suspicious for a nondisplaced fracture. IMPRESSION: 1. No acute cardiopulmonary findings. 2. Suspected nondisplaced fracture of the lateral aspect of the left 7th rib. This may be confirmed by CT scan of the chest or left rib series if clinically indicated. Dictated and Authenticated by: Robel Guy MD. Ordering:HERMAN Jean MD
[2022-05-24 00:02] LABS: COVID-19 PCR Negative (Negative); Influenza A PCR Negative (Negative); Influenza B PCR Negative (Negative); RSV PCR Negative (Negative)
[2022-05-24 00:04] LABS: Source Nasopharynx
[2022-05-24 00:08] VITALS: BP 138/76; PULSE 89; RESP 18; O2SAT 96
--- NOTE | 2022-05-24 18:00 | NUR.NOTE ---
Nursing Note: Referral faxed to [facility] for follow up on [facility] Neruology/; BLAINE. Referral given to Care management for [facility] vascular surgery for the above.
== END 2022-05-24 00:06 | disposition left against medical advice (07) ==
PROVIDERS: Emergency Provider Physician Assistant; PCP Family Medicine
DX: E11.9 Type 2 diabetes mellitus without complications; Z53.20 Procedure and treatment not carried out because of patient's decision for unspecified reasons; I65.23 Occlusion and stenosis of bilateral carotid arteries; S22.32XA Fracture of one rib, left side, initial encounter for closed fracture; I10 Essential (primary) hypertension; W00.0XXA Fall on same level due to ice and snow, initial encounter; W22.8XXA Striking against or struck by other objects, initial encounter; Z20.822 Contact with and (suspected) exposure to COVID-19
CPT/HCPCS: 70496; 70498; 80053; 83690; 87637; 93005; 96360; 99284; 99285; 71046; 80320; 81003; 83735; 84484; 85025; 93010; J3490

== ENCOUNTER → 2022-08-15 08:13 | Outpatient (BNVA) | payer MEDICARE, MEDICAID, SELFPAY | PROVIDERS: PCP Nurse Practitioner Family; Referring Provider Nurse Practitioner Family; Visit Provider Psychiatry & Neurology Neurology | DX: I69.341 Monoplegia of lower limb following cerebral infarction affecting right dominant side (principal); M48.02 Spinal stenosis, cervical region; I10 Essential (primary) hypertension; E11.9 Type 2 diabetes mellitus without complications | CPT/HCPCS: 99214 ==

== ENCOUNTER 2022-12-18 06:43 | Inpatient (IN) | payer MEDICARE, MEDICAID, SELFPAY ==
[2022-12-18] VITALS (19 sets, daily range): BP systolic 107–195; BP diastolic 72–102; PULSE 73–110; RESP 8–20; TEMP 36.3–36.6; O2SAT 90–97
--- NOTE | 2022-12-18 07:00 | RT.EKG_ITS ---
APPROVED REPORT Exam: Resting ECG Reason for Exam: chest pain Patient Location: E HR:110 bpm ECG Measurements Heart Rate 110 AXIS MA 121 P -17 QRSd 83 QRS -24 QT 314 T 21 QTc 426 Conclusion Sinus tachycardia...rate> [address] segment or T wave abnormalities to suggest occlusive MT
--- NOTE | 2022-12-18 07:15 | DI.RAD_ITS ---
Exam(s) XR CHEST 2V PA LATERAL EXAM: XR CHEST 2V PA LATERAL CLINICAL HISTORY: short of breath. TECHNIQUE: 2D digital imaging was performed. COMPARISON: Prior chest x-ray 05/23/2022. FINDINGS: 2 views: Heart size is normal. The mediastinum is not widened. Lungs are clear. No infiltrates nor pleural effusions. IMPRESSION: No acute pulmonary findings. DATA REPOSITORY: RADIATION DOSE DELIVERED:
[2022-12-18 07:49] LABS: Abs Immature Grans 0.06 10^3/uL (0.0-0.06); Absolute Basophil Count 0.06 10^3/uL (0.0-0.2); Absolute Eosinophil Count 0.01 10^3/uL (0.0-0.7); Absolute Lymphocyte Count 3.48 10^3/uL (1.2-3.4); Absolute Monocyte Count 0.81 10^3/uL (0.1-0.8); Absolute Neutrophil Count 9.72 10^3/uL (1.2-6.7); Basophils % 0.4; Eosinophils % 0.1; HCT 38.8 % (40.0-50.0); HGB 13.7 g/dL (13.5-17.5); Immature Grans % 0.4; Lymphocytes % 24.6; MCH 29.6 pg (27.0-33.0); MCHC 35.3 % (32.0-36.0); MCV 84 fL (80-95); MPV 9.1 fL (8.0-11.0); Monocytes % 5.7; Neutrophils % 68.8; Platelet Count 294 10^3/uL (130-400); RBC 4.63 10^6/uL (4.36-5.78); RDW 12.6 % (11.8-14.1); RDW-SD 37.9 fL; WBC 14.13 10^3/uL (4.4-10.8)
[2022-12-18] MEDS: Normal Saline 1,000 ML 1000 ML IV (08:19)
[2022-12-18] MEDS: Ondansetron 4 MG/2 ML VIAL IVP (08:19)
[2022-12-18] MEDS: LORazepam 0.5 MG TAB PO (08:26)
--- NOTE | 2022-12-18 08:37 | ED.GENADUL_ITS ---
Discharge Plan Discharge Details Chief Complaint: GenMedical Admit Date/Time: 12/18/22 12:34 Admit Provider: Aleks Vasquez Attending Provider: Aleks Vasquez Primary Care Provider: KEAGAN TRIMBLE ED Provider: Erendira Alcazar Medical Decision Making 47yo M with hx of prior CVA, anxiety, ETOH abuse, HTN, DM, presenting for nausea, vomiting, and diarrhea for one week as well as two weeks of cough, rhinnorhea, and shortness of breath. Afebrile. Tachycardiac on arrival as well as hypertensive. Diaphoretic and slightly tremulous. Will treat initially with 1L IVFB, zofran, ativan. Reports history of ETOH withdrawal (no seizures) which may be contributing; started on CIWA, treating with ativan. EKG sinus tachycardia, no indication of occlusive WA. Symptoms overall not consistent with pulmonary embolism. CXR independently reviewed, no focal pneumonia or pneumothorax on my view, agree with radiology read below. Labs reviewed as below, CBC with leukocytosis to 14, CMP with marked hyponatremia to 119 with normal blood glucose and mildly elevated transaminases. Repeat BMP ordered for confirmation and Na 121. Symptoms concerning for legionella though no clear pneumonia on CXR so will not treat presumptively, ETOH could also be cause of hyponatremia. Will send urinary antigen/PCR as well as urine sodium/osms. Difficultly to determine etiology of GI symptoms & tremors (ETOH withdrawal/pos legionella/possibly symptomatic hyponatremia) and patient also at risks for seizures 2/t withdrawal; will treat with 100ml of hypertonic saline. Repeat BMP with Na of 126, slightly above goal. On reassessment patient symptomatically improved. Discussed with hospitalist caregivers non medical and accepted to medicine service for further workup and management. Imaging Data Radiologic Study: Imaging: X-Ray Radiologist's impression: IMPRESSION: No acute pulmonary findings. Lab Data Lab results reviewed: Yes I reviewed the patient's lab results. Labs: Laboratory Tests Range/Units 12/18/22 12/18/22 12/18/22 07:26 07:26 07:26 WBC (4.4-10.8) 10^3/uL 14.13 H RBC (4.36-5.78) 10^6/uL 4.63 Hgb (13.5-17.5) g/dL 13.7 Hct (40.0-50.0) % 38.8 L MCV (80-95) fL 84 MCH (27.0-33.0) pg 29.6 MCHC (32.0-36.0) % 35.3 RDW (11.8-14.1) % 12.6 Plt Count (130-400) 10^3/uL 294 MPV (8.0-11.0) fL 9.1 Immature Gran % 0.4 Neutrophils % 68.8 Lymphocytes % 24.6 Monocytes % 5.7 Eosinophils % 0.1 Basophils % 0.4 Nucleated RBC % (0.0-0.3) % 0.0 Absolute Neutrophils (1.2-6.7) 10^3/uL 9.72 H Absolute Lymphocytes (1.2-3.4) 10^3/uL 3.48 H Absolute Monocytes (0.1-0.8) 10^3/uL 0.81 H Absolute Eosinophils (0.0-0.7) 10^3/uL 0.01 Absolute Basophils (0.0-0.2) 10^3/uL 0.06 Sodium Cancelled Cancelled Potassium Cancelled Cancelled Chloride Cancelled Carbon Dioxide Anion Gap BUN Creatinine Est GFR (CKD-EPI 2020) Glucose Calcium Magnesium Total Bilirubin AST ALT Alkaline Phosphatase Troponin I NT-Pro-B Natriuret Pep Total Protein Albumin Lipase Ur Random Sodium mmol/L Ethyl Alcohol COVID-19 Source SARS-CoV-2 (PCR) Influenza Type A (PCR) Influenza Type B (PCR) RSV (PCR) Range/Units 12/18/22 12/18/22 12/18/22 07:26 07:26 07:26 WBC (4.4-10.8) 10^3/uL RBC (4.36-5.78) 10^6/uL Hgb (13.5-17.5) g/dL Hct (40.0-50.0) % MCV (80-95) fL MCH (27.0-33.0) pg MCHC (32.0-36.0) % RDW (11.8-14.1) % Plt Count (130-400) 10^3/uL MPV (8.0-11.0) fL Immature Gran % Neutrophils % Lymphocytes % Monocytes % Eosinophils % Basophils % Nucleated RBC % (0.0-0.3) % Absolute Neutrophils (1.2-6.7) 10^3/uL Absolute Lymphocytes (1.2-3.4) 10^3/uL Absolute Monocytes (0.1-0.8) 10^3/uL Absolute Eosinophils (0.0-0.7) 10^3/uL Absolute Basophils (0.0-0.2) 10^3/uL Sodium Potassium Chloride Cancelled Carbon Dioxide Cancelled Cancelled Anion Gap Cancelled Cancelled BUN Cancelled Creatinine Est GFR (CKD-EPI 2020) Glucose Calcium Magnesium Total Bilirubin AST ALT Alkaline Phosphatase Troponin I NT-Pro-B Natriuret Pep Total Protein Albumin Lipase Ur Random Sodium mmol/L Ethyl Alcohol COVID-19 Source SARS-CoV-2 (PCR) Influenza Type A (PCR) Influenza Type B (PCR) RSV (PCR) Range/Units 12/18/22 12/18/22 12/18/22 07:26 07:26 07:26 WBC (4.4-10.8) 10^3/uL RBC (4.36-5.78) 10^6/uL Hgb (13.5-17.5) g/dL Hct (40.0-50.0) % MCV (80-95) fL MCH (27.0-33.0) pg MCHC (32.0-36.0) % RDW (11.8-14.1) % Plt Count (130-400) 10^3/uL MPV (8.0-11.0) fL Immature Gran % Neutrophils % Lymphocytes % Monocytes % Eosinophils % Basophils % Nucleated RBC % (0.0-0.3) % Absolute Neutrophils (1.2-6.7) 10^3/uL Absolute Lymphocytes (1.2-3.4) 10^3/uL Absolute Monocytes (0.1-0.8) 10^3/uL Absolute Eosinophils (0.0-0.7) 10^3/uL Absolute Basophils (0.0-0.2) 10^3/uL Sodium Potassium Chloride Carbon Dioxide Anion Gap BUN Cancelled Creatinine Cancelled Cancelled Est GFR (CKD-EPI 2020) Cancelled Cancelled Glucose Cancelled Calcium Magnesium Total Bilirubin AST ALT Alkaline Phosphatase Troponin I NT-Pro-B Natriuret Pep Total Protein Albumin Lipase Ur Random Sodium mmol/L Ethyl Alcohol COVID-19 Source SARS-CoV-2 (PCR) Influenza Type A (PCR) Influenza Type B (PCR) RSV (PCR) Range/Units 12/18/22 12/18/22 12/18/22 07:26 07:26 07:26 WBC (4.4-10.8) 10^3/uL RBC (4.36-5.78) 10^6/uL Hgb (13.5-17.5) g/dL Hct (40.0-50.0) % MCV (80-95) fL MCH (27.0-33.0) pg MCHC (32.0-36.0) % RDW (11.8-14.1) % Plt Count (130-400) 10^3/uL MPV (8.0-11.0) fL Immature Gran % Neutrophils % Lymphocytes % Monocytes % Eosinophils % Basophils % Nucleated RBC % (0.0-0.3) % Absolute Neutrophils (1.2-6.7) 10^3/uL Absolute Lymphocytes (1.2-3.4) 10^3/uL Absolute Monocytes (0.1-0.8) 10^3/uL Absolute Eosinophils (0.0-0.7) 10^3/uL Absolute Basophils (0.0-0.2) 10^3/uL Sodium Potassium Chloride Carbon Dioxide Anion Gap BUN Creatinine Est GFR (CKD-EPI 2020) Glucose Cancelled Calcium Cancelled Cancelled Magnesium Cancelled Cancelled Total Bilirubin Cancelled AST ALT Alkaline Phosphatase Troponin I NT-Pro-B Natriuret Pep Total Protein Albumin Lipase Ur Random Sodium mmol/L Ethyl Alcohol COVID-19 Source SARS-CoV-2 (PCR) Influenza Type A (PCR) Influenza Type B (PCR) RSV (PCR) Range/Units 12/18/22 12/18/22 12/18/22 07:26 07:26 07:26 WBC (4.4-10.8) 10^3/uL RBC (4.36-5.78) 10^6/uL Hgb (13.5-17.5) g/dL Hct (40.0-50.0) % MCV (80-95) fL MCH (27.0-33.0) pg MCHC (32.0-36.0) % RDW (11.8-14.1) % Plt Count (130-400) 10^3/uL MPV (8.0-11.0) fL Immature Gran % Neutrophils % Lymphocytes % Monocytes % Eosinophils % Basophils % Nucleated RBC % (0.0-0.3) % Absolute Neutrophils (1.2-6.7) 10^3/uL Absolute Lymphocytes (1.2-3.4) 10^3/uL Absolute Monocytes (0.1-0.8) 10^3/uL Absolute Eosinophils (0.0-0.7) 10^3/uL Absolute Basophils (0.0-0.2) 10^3/uL Sodium Potassium Chloride Carbon Dioxide Anion Gap BUN Creatinine Est GFR (CKD-EPI 2020) Glucose Calcium Magnesium Total Bilirubin Cancelled AST Cancelled Cancelled ALT Cancelled Cancelled Alkaline Phosphatase Cancelled Troponin I NT-Pro-B Natriuret Pep Total Protein Albumin Lipase Ur Random Sodium mmol/L Ethyl Alcohol COVID-19 Source SARS-CoV-2 (PCR) Influenza Type A (PCR) Influenza Type B (PCR) RSV (PCR) Range/Units 12/18/22 12/18/22 12/18/22 07:26 07:26 07:26 WBC (4.4-10.8) 10^3/uL RBC (4.36-5.78) 10^6/uL Hgb (13.5-17.5) g/dL Hct (40.0-50.0) % MCV (80-95) fL MCH (27.0-33.0) pg MCHC (32.0-36.0) % RDW (11.8-14.1) % Plt Count (130-400) 10^3/uL MPV (8.0-11.0) fL Immature Gran % Neutrophils % Lymphocytes % Monocytes % Eosinophils % Basophils % Nucleated RBC % (0.0-0.3) % Absolute Neutrophils (1.2-6.7) 10^3/uL Absolute Lymphocytes (1.2-3.4) 10^3/uL Absolute Monocytes (0.1-0.8) 10^3/uL Absolute Eosinophils (0.0-0.7) 10^3/uL Absolute Basophils (0.0-0.2) 10^3/uL Sodium Potassium Chloride Carbon Dioxide Anion Gap BUN Creatinine Est GFR (CKD-EPI 2020) Glucose Calcium Magnesium Total Bilirubin AST ALT Alkaline Phosphatase Cancelled Troponin I Cancelled NT-Pro-B Natriuret Pep Cancelled Total Protein Cancelled Cancelled Albumin Cancelled Cancelled Lipase Cancelled Ur Random Sodium mmol/L Ethyl Alcohol Cancelled COVID-19 Source SARS-CoV-2 (PCR) Influenza Type A (PCR) Influenza Type B (PCR) RSV (PCR) Range/Units 12/18/22 12/18/22 12/18/22 07:38 08:11 09:00 WBC (4.4-10.8) 10^3/uL RBC (4.36-5.78) 10^6/uL Hgb (13.5-17.5) g/dL Hct (40.0-50.0) % MCV (80-95) fL MCH (27.0-33.0) pg MCHC (32.0-36.0) % RDW (11.8-14.1) % Plt Count (130-400) 10^3/uL MPV (8.0-11.0) fL Immature Gran % Neutrophils % Lymphocytes % Monocytes % Eosinophils % Basophils % Nucleated RBC % (0.0-0.3) % Absolute Neutrophils (1.2-6.7) 10^3/uL Absolute Lymphocytes (1.2-3.4) 10^3/uL Absolute Monocytes (0.1-0.8) 10^3/uL Absolute Eosinophils (0.0-0.7) 10^3/uL Absolute Basophils (0.0-0.2) 10^3/uL Sodium 119 L* Potassium 4.6 Chloride 83 L Carbon Dioxide 22.0 Anion Gap 14.0 H BUN 6 L Creatinine 0.9 Est GFR (CKD-EPI 2020) 104.70 Glucose 138 H Calcium 9.8 Magnesium 1.9 Total Bilirubin 0.7 AST 85 H ALT 81 H Alkaline Phosphatase 97 Troponin I < 50 NT-Pro-B Natriuret Pep 68 Total Protein 9.1 H Albumin 4.0 Lipase 49 Ur Random Sodium mmol/L 52 Ethyl Alcohol 10.4 H COVID-19 Source Cancelled SARS-CoV-2 (PCR) Cancelled Influenza Type A (PCR) Cancelled Influenza Type B (PCR) Cancelled RSV (PCR) Cancelled Range/Units 12/18/22 12/18/22 12/18/22 09:25 10:00 10:45 WBC (4.4-10.8) 10^3/uL RBC (4.36-5.78) 10^6/uL Hgb (13.5-17.5) g/dL Hct (40.0-50.0) % MCV (80-95) fL MCH (27.0-33.0) pg MCHC (32.0-36.0) % RDW (11.8-14.1) % Plt Count (130-400) 10^3/uL MPV (8.0-11.0) fL Immature Gran % Neutrophils % Lymphocytes % Monocytes % Eosinophils % Basophils % Nucleated RBC % (0.0-0.3) % Absolute Neutrophils (1.2-6.7) 10^3/uL Absolute Lymphocytes (1.2-3.4) 10^3/uL Absolute Monocytes (0.1-0.8) 10^3/uL Absolute Eosinophils (0.0-0.7) 10^3/uL Absolute Basophils (0.0-0.2) 10^3/uL Sodium 121 L* 126 L Potassium 4.8 4.7 Chloride 87 L 92 L Carbon Dioxide 20.8 L 21.1 Anion Gap 13.2 H 12.9 H BUN 5 L 6 L Creatinine 0.8 0.7 Est GFR (CKD-EPI 2020) 108.49 112.95 Glucose 135 H 119 H Calcium 9.1 9.2 Magnesium Total Bilirubin AST ALT Alkaline Phosphatase Troponin I NT-Pro-B Natriuret Pep Total Protein Albumin Lipase Ur Random Sodium mmol/L Ethyl Alcohol COVID-19 Source Nasopharynx SARS-CoV-2 (PCR) Negative Influenza Type A (PCR) Negative Influenza Type B (PCR) Negative RSV (PCR) Negative HPI General Mode of arrival: ambulatory . Date/Time Provider Initiated Documentation: 12/18/22 07:06 . Limitations to Documentation: no limitations . Information obtained by: patient . HPI Narrative: 47yo M with hx of prior CVA, anxiety, ETOH abuse, HTN, DM, presenting for nausea, vomiting, and diarrhea for one week. Two weeks ago had cough and rhinnorhea, these have improved but are still present. Mild shortness of breath. One week into the course of illness developed GI symptoms. Has not been able to keep anything down for the past 3-4 days except for beer. Unable to take his home medications. No blood in emesis or stool. No dysuria or hematuria. No abdominal pain. He is otherwise in his usual state of health wi th no fevers, chills, rash, chest pain, LE edema, or other concerns. Related Data Home Medications Medication Instructions Recorded Confirmed methadone 10 mg/mL oral concentrate 75 mg PO DAILY@1600 09/03/15 12/18/22 lamotrigine 100 mg tablet 100 mg PO BID 12/16/20 12/18/22 (Lamictal) methadone 10 mg/mL oral concentrate 100 mg PO DAILY AM 12/16/20 12/18/22 metoprolol tartrate 50 mg tablet 50 mg PO BID #60 tabs 12/17/20 12/18/22 thiamine HCl (vitamin B1) 100 mg 100 mg PO DAILY #30 tabs 12/17/20 12/18/22 tablet atorvastatin 80 mg tablet 80 mg PO DAILY 07/18/22 12/18/22 baclofen 20 mg tablet 20 mg PO TID 07/18/22 12/18/22 clopidogrel 75 mg tablet 75 mg PO DAILY 07/18/22 12/18/22 docusate sodium 100 mg capsule 100 mg PO BID PRN 07/18/22 12/18/22 (Colace) escitalopram oxalate 20 mg tablet 20 mg PO DAILY 07/18/22 12/18/22 gabapentin 800 mg tablet 800 mg PO TID 07/18/22 12/18/22 hydroxyzine HCl 25 mg tablet 25 mg PO TID PRN 07/18/22 12/18/22 lisinopril 20 mg tablet 20 mg PO DAILY 07/18/22 12/18/22 loratadine 10 mg tablet (Allergy 10 mg PO DAILY 07/18/22 12/18/22 Relief (loratadine)) metformin 500 mg tablet 500 mg PO BID 07/18/22 12/18/22 nicotine 7 mg/24 hr daily 1 patch transdermal Q24H 07/18/22 12/18/22 transdermal patch pantoprazole 40 mg tablet,delayed 40 mg PO DAILY 07/18/22 12/18/22 release polyethylene glycol 3350 17 17 g PO DAILY 07/18/22 12/18/22 gram/dose oral powder sildenafil 100 mg tablet (Viagra) 100 mg PO DAILY PRN 07/18/22 12/18/22 lorazepam 0.5 mg tablet 0.5 mg PO ONCE PRN 08/15/22 12/18/22 anxiety/claustrophobia #2 tabs Previous Rx's Medication Instructions Recorded metoprolol tartrate 50 mg tablet 50 mg PO BID #60 tabs 12/17/20 thiamine HCl (vitamin B1) 100 mg 100 mg PO DAILY #30 tabs 12/17/20 tablet lorazepam 0.5 mg tablet 0.5 mg PO ONCE PRN 08/15/22 anxiety/claustrophobia #2 tabs Allergies Allergy/AdvReac Type Severity Reaction Status Date / Time tolmetin Allergy Unverified 12/18/22 06:56 General Stated Complaint: GenMedical KARL: 3 Review of Systems Narrative: see HPI PFSH All Active Problems Left carotid stenosis (Acute) Right carotid artery occlusion (Acute) CVA (cerebral vascular accident) (Chronic) Tobacco abuse (Acute) Elevated blood pressure reading (Acute) Anxiety and depression (Acute) Vomiting and diarrhea (Acute) Alcohol abuse (Chronic) Alcohol withdrawal (Acute) Electrolyte and fluid disorder (Acute) Alcoholic hepatitis (Acute) Medical History ADHD BMI 32.0-32.9,adult Chronic constipation Degenerative disc disease Diabetes mellitus Eczema of both hands Erectile dysfunction ETOH abuse GERD (gastroesophageal reflux disease) Gynecomastia Headache Hidradenitis suppurativa Hyperlipidemia Hypertension Mood disorder Nephropathy Opioid dependence Scrotal abscess Sinusitis Sleep apnea Spinal stenosis of lumbar region TBI (traumatic brain injury) Weakness of left leg Surgical History S/P lumbar spine operation Family History Mother Stroke Father Heart disease Social History Smoking/Tobacco Use Status: Current every day Smoking risk assessment performed?: Yes Alcohol Intake: former Drug use: Current Sobriety Substance use type: former substance user and marijuana Number of Children: 4 current occupation: Disabled Do you feel safe at home: Yes Do you feel safe in your relationship?: Yes Exam Narrative Exam Narrative: General: Alert, anxious, diaphoretic Head: Normocephalic, atraumatic Neck: Trachea midline, Neck supple. ENT: MMM. Cardiac: Tachycardiac, regular, no murmurs appreciated Resp: No respiratory distress. CTAB. Abd: Soft, non-distended, nontender : No suprapubic tenderness. Extremities: No deformities. No peripheral edema. Neurologic: GCS 15. Moves all extremities freely against gravity Course Vital Signs Vital signs: Vital Signs Temperature 36.4 C L 12/18/22 06:53 Pulse 110 H 12/18/22 06:53 Respiratory Rate 20 12/18/22 06:53 Blood Pressure 195/96 H 12/18/22 06:53 Pulse Oximetry 97 12/18/22 06:53 Temperature 36.4 C L 12/18/22 07:14 Temperature Source Temporal Artery Scan 12/18/22 07:14 Pulse 110 H 12/18/22 07:14 Respiratory Rate 20 12/18/22 07:14 Respiratory Effort Normal, Non-Labored 12/18/22 07:13 Respiratory Depth Normal 12/18/22 07:13 Respiratory Pattern Normal 12/18/22 07:38 Blood Pressure 195/96 H 12/18/22 07:14 Blood Pressure Position Sitting 12/18/22 07:14 Pulse Oximetry 97 12/18/22 07:14 Oxygen Delivery Method Room Air 12/18/22 07:14 Oxygen Flow Rate 0 12/18/22 07:14 Lab/Test Results Lab/Test Results: Laboratory Tests Range/Units 12/18/22 12/18/22 12/18/22 07:26 07:26 07:26 WBC (4.4-10.8) 10^3/uL 14.13 H RBC (4.36-5.78) 10^6/uL 4.63 Hgb (13.5-17.5) g/dL 13.7 Hct (40.0-50.0) % 38.8 L MCV (80-95) fL 84 MCH (27.0-33.0) pg 29.6 MCHC (32.0-36.0) % 35.3 RDW (11.8-14.1) % 12.6 Plt Count (130-400) 10^3/uL 294 MPV (8.0-11.0) fL 9.1 Immature Gran % 0.4 Neutrophils % 68.8 Lymphocytes % 24.6 Monocytes % 5.7 Eosinophils % 0.1 Basophils % 0.4 Nucleated RBC % (0.0-0.3) % 0.0 Absolute Neutrophils (1.2-6.7) 10^3/uL 9.72 H Absolute Lymphocytes (1.2-3.4) 10^3/uL 3.48 H Absolute Monocytes (0.1-0.8) 10^3/uL 0.81 H Absolute Eosinophils (0.0-0.7) 10^3/uL 0.01 Absolute Basophils (0.0-0.2) 10^3/uL 0.06 Sodium Cancelled Cancelled Potassium Cancelled Cancelled Chloride Cancelled Carbon Dioxide Anion Gap BUN Creatinine Est GFR (CKD-EPI 2020) Glucose Calcium Magnesium Total Bilirubin AST ALT Alkaline Phosphatase Troponin I NT-Pro-B Natriuret Pep Total Protein Albumin Lipase Ethyl Alcohol COVID-19 Source SARS-CoV-2 (PCR) Influenza Type A (PCR) Influenza Type B (PCR) RSV (PCR) Range/Units 12/18/22 12/18/22 12/18/22 07:26 07:26 07:26 WBC (4.4-10.8) 10^3/uL RBC (4.36-5.78) 10^6/uL Hgb (13.5-17.5) g/dL Hct (40.0-50.0) % MCV (80-95) fL MCH (27.0-33.0) pg MCHC (32.0-36.0) % RDW (11.8-14.1) % Plt Count (130-400) 10^3/uL MPV (8.0-11.0) fL Immature Gran % Neutrophils % Lymphocytes % Monocytes % Eosinophils % Basophils % Nucleated RBC % (0.0-0.3) % Absolute Neutrophils (1.2-6.7) 10^3/uL Absolute Lymphocytes (1.2-3.4) 10^3/uL Absolute Monocytes (0.1-0.8) 10^3/uL Absolute Eosinophils (0.0-0.7) 10^3/uL Absolute Basophils (0.0-0.2) 10^3/uL Sodium Potassium Chloride Cancelled Carbon Dioxide Cancelled Cancelled Anion Gap Cancelled Cancelled BUN Cancelled Creatinine Est GFR (CKD-EPI 2020) Glucose Calcium Magnesium Total Bilirubin AST ALT Alkaline Phosphatase Troponin I NT-Pro-B Natriuret Pep Total Protein Albumin Lipase Ethyl Alcohol COVID-19 Source SARS-CoV-2 (PCR) Influenza Type A (PCR) Influenza Type B (PCR) RSV (PCR) Range/Units 12/18/22 12/18/22 12/18/22 07:26 07:26 07:26 WBC (4.4-10.8) 10^3/uL RBC (4.36-5.78) 10^6/uL Hgb (13.5-17.5) g/dL Hct (40.0-50.0) % MCV (80-95) fL MCH (27.0-33.0) pg MCHC (32.0-36.0) % RDW (11.8-14.1) % Plt Count (130-400) 10^3/uL MPV (8.0-11.0) fL Immature Gran % Neutrophils % Lymphocytes % Monocytes % Eosinophils % Basophils % Nucleated RBC % (0.0-0.3) % Absolute Neutrophils (1.2-6.7) 10^3/uL Absolute Lymphocytes (1.2-3.4) 10^3/uL Absolute Monocytes (0.1-0.8) 10^3/uL Absolute Eosinophils (0.0-0.7) 10^3/uL Absolute Basophils (0.0-0.2) 10^3/uL Sodium Potassium Chloride Carbon Dioxide Anion Gap BUN Cancelled Creatinine Cancelled Cancelled Est GFR (CKD-EPI 2020) Cancelled Cancelled Glucose Cancelled Calcium Magnesium Total Bilirubin AST ALT Alkaline Phosphatase Troponin I NT-Pro-B Natriuret Pep Total Protein Albumin Lipase Ethyl Alcohol COVID-19 Source SARS-CoV-2 (PCR) Influenza Type A (PCR) Influenza Type B (PCR) RSV (PCR) Range/Units 12/18/22 12/18/22 12/18/22 07:26 07:26 07:26 WBC (4.4-10.8) 10^3/uL RBC (4.36-5.78) 10^6/uL Hgb (13.5-17.5) g/dL Hct (40.0-50.0) % MCV (80-95) fL MCH (27.0-33.0) pg MCHC (32.0-36.0) % RDW (11.8-14.1) % Plt Count (130-400) 10^3/uL MPV (8.0-11.0) fL Immature Gran % Neutrophils % Lymphocytes % Monocytes % Eosinophils % Basophils % Nucleated RBC % (0.0-0.3) % Absolute Neutrophils (1.2-6.7) 10^3/uL Absolute Lymphocytes (1.2-3.4) 10^3/uL Absolute Monocytes (0.1-0.8) 10^3/uL Absolute Eosinophils (0.0-0.7) 10^3/uL Absolute Basophils (0.0-0.2) 10^3/uL Sodium Potassium Chloride Carbon Dioxide Anion Gap BUN Creatinine Est GFR (CKD-EPI 2020) Glucose Cancelled Calcium Cancelled Cancelled Magnesium Cancelled Cancelled Total Bilirubin Cancelled AST ALT Alkaline Phosphatase Troponin I NT-Pro-B Natriuret Pep Total Protein Albumin Lipase Ethyl Alcohol COVID-19 Source SARS-CoV-2 (PCR) Influenza Type A (PCR) Influenza Type B (PCR) RSV (PCR) Range/Units 12/18/22 12/18/22 12/18/22 07:26 07:26 07:26 WBC (4.4-10.8) 10^3/uL RBC (4.36-5.78) 10^6/uL Hgb (13.5-17.5) g/dL Hct (40.0-50.0) % MCV (80-95) fL MCH (27.0-33.0) pg MCHC (32.0-36.0) % RDW (11.8-14.1) % Plt Count (130-400) 10^3/uL MPV (8.0-11.0) fL Immature Gran % Neutrophils % Lymphocytes % Monocytes % Eosinophils % Basophils % Nucleated RBC % (0.0-0.3) % Absolute Neutrophils (1.2-6.7) 10^3/uL Absolute Lymphocytes (1.2-3.4) 10^3/uL Absolute Monocytes (0.1-0.8) 10^3/uL Absolute Eosinophils (0.0-0.7) 10^3/uL Absolute Basophils (0.0-0.2) 10^3/uL Sodium Potassium Chloride Carbon Dioxide Anion Gap BUN Creatinine Est GFR (CKD-EPI 2020) Glucose Calcium Magnesium Total Bilirubin Cancelled AST Cancelled Cancelled ALT Cancelled Cancelled Alkaline Phosphatase Cancelled Troponin I NT-Pro-B Natriuret Pep Total Protein Albumin Lipase Ethyl Alcohol COVID-19 Source SARS-CoV-2 (PCR) Influenza Type A (PCR) Influenza Type B (PCR) RSV (PCR) Range/Units 12/18/22 12/18/22 12/18/22 07:26 07:26 07:26 WBC (4.4-10.8) 10^3/uL RBC (4.36-5.78) 10^6/uL Hgb (13.5-17.5) g/dL Hct (40.0-50.0) % MCV (80-95) fL MCH (27.0-33.0) pg MCHC (32.0-36.0) % RDW (11.8-14.1) % Plt Count (130-400) 10^3/uL MPV (8.0-11.0) fL Immature Gran % Neutrophils % Lymphocytes % Monocytes % Eosinophils % Basophils % Nucleated RBC % (0.0-0.3) % Absolute Neutrophils (1.2-6.7) 10^3/uL Absolute Lymphocytes (1.2-3.4) 10^3/uL Absolute Monocytes (0.1-0.8) 10^3/uL Absolute Eosinophils (0.0-0.7) 10^3/uL Absolute Basophils (0.0-0.2) 10^3/uL Sodium Potassium Chloride Carbon Dioxide Anion Gap BUN Creatinine Est GFR (CKD-EPI 2020) Glucose Calcium Magnesium Total Bilirubin AST ALT Alkaline Phosphatase Cancelled Troponin I Cancelled NT-Pro-B Natriuret Pep Cancelled Total Protein Cancelled Cancelled Albumin Cancelled Cancelled Lipase Cancelled Ethyl Alcohol Cancelled COVID-19 Source SARS-CoV-2 (PCR) Influenza Type A (PCR) Influenza Type B (PCR) RSV (PCR) Range/Units 12/18/22 07:38 WBC (4.4-10.8) 10^3/uL RBC (4.36-5.78) 10^6/uL Hgb (13.5-17.5) g/dL Hct (40.0-50.0) % MCV (80-95) fL MCH (27.0-33.0) pg MCHC (32.0-36.0) % RDW (11.8-14.1) % Plt Count (130-400) 10^3/uL MPV (8.0-11.0) fL Immature Gran % Neutrophils % Lymphocytes % Monocytes % Eosinophils % Basophils % Nucleated RBC % (0.0-0.3) % Absolute Neutrophils (1.2-6.7) 10^3/uL Absolute Lymphocytes (1.2-3.4) 10^3/uL Absolute Monocytes (0.1-0.8) 10^3/uL Absolute Eosinophils (0.0-0.7) 10^3/uL Absolute Basophils (0.0-0.2) 10^3/uL Sodium Potassium Chloride Carbon Dioxide Anion Gap BUN Creatinine Est GFR (CKD-EPI 2020) Glucose Calcium Magnesium Total Bilirubin AST ALT Alkaline Phosphatase Troponin I NT-Pro-B Natriuret Pep Total Protein Albumin Lipase Ethyl Alcohol COVID-19 Source Cancelled SARS-CoV-2 (PCR) Cancelled Influenza Type A (PCR) Cancelled Influenza Type B (PCR) Cancelled RSV (PCR) Cancelled Critical Care Time Critical Care Time Critical Care Time: Yes Total Critical Care Time: 34 Attestation: Due to a high probability of clinically significant, life threatening deterioration, the patient required my highest level of preparedness to intervene emergently and I personally spent this critical care time directly and personally managing the patient. This critical care time included obtaining a history; examining the patient; pulse oximetry; ordering and review of studies; arranging urgent treatment with development of a management plan; evaluation of patient's response to treatment; frequent reassessment; and, discussions with other providers. This critical care time was performed to assess and manage the high probability of imminent, life-threatening deterioration that could result in multi-organ failure. It was exclusive of separately billable procedures.
[2022-12-18 08:47] LABS: ALT 81 U/L (16-63); AST 85 U/L (15-37); Alkaline Phosphatase 97 U/L (46-116); BUN 6 mg/dL (7-18); Bilirubin, Total 0.7 mg/dL (0.2-1.0); CREATININE 0.9 mg/dL (0.70-1.30); Calcium 9.8 mg/dL (8.5-10.1); Chloride 83 mmol/L (98-107); ETHANOL BLOOD 10.4 mg/dL (<10); Glucose 138 mg/dL (74-106); Lipase 49 U/L (16-77); Magnesium 1.9 mg/dL (1.8-2.4); NT-proBNP 68 pg/mL (<300); Potassium 4.6 mmol/L (3.5-5.1); Total Protein 9.1 g/dL (6.4-8.2); Troponin I < 50 ng/L (<or=60)
[2022-12-18 08:50] LABS: Sodium 119 mmol/L (136-145)
[2022-12-18 09:50] LABS: Anion Gap 13.2 mmol/L (3-11); BUN 5 mg/dL (7-18); CO2 20.8 mmol/L (21.0-32.0); CREATININE 0.8 mg/dL (0.70-1.30); Calcium 9.1 mg/dL (8.5-10.1); Chloride 87 mmol/L (98-107); Estimated GFR 108.49 (mL/min/1.73m2); Glucose 135 mg/dL (74-106); Potassium 4.8 mmol/L (3.5-5.1)
[2022-12-18 09:52] LABS: Sodium 121 mmol/L (136-145)
[2022-12-18 09:59] LABS: Sodium, Urine 52 mmol/L
[2022-12-18] MEDS: SODIUM CHLORIDE 3% 500 ML IV (10:21)
[2022-12-18] MEDS: LORazepam 1 MG TAB PO/SL ×2 (10:39→15:06)
--- NOTE | 2022-12-18 10:46 | NUR.NOTE ---
Per SHADY pt has take home through the . 100mg in morning 75mg in evening. Nursing Note:
[2022-12-18 10:50] LABS: COVID-19 PCR Negative (Negative); Influenza A PCR Negative (Negative); Influenza B PCR Negative (Negative); RSV PCR Negative (Negative)
[2022-12-18 11:04] LABS: Anion Gap 12.9 mmol/L (3-11); BUN 6 mg/dL (7-18); CO2 21.1 mmol/L (21.0-32.0); CREATININE 0.7 mg/dL (0.70-1.30); Calcium 9.2 mg/dL (8.5-10.1); Chloride 92 mmol/L (98-107); Estimated GFR 112.95 (mL/min/1.73m2); Glucose 119 mg/dL (74-106); Potassium 4.7 mmol/L (3.5-5.1); Sodium 126 mmol/L (136-145)
[2022-12-18 11:08] LABS: Source Nasopharynx
--- NOTE | 2022-12-18 13:24 | W.PC.ACHO ---
Registration Status: REG ER Primary Language: Preferred Language: French ED Information & Data Chief Complaint GenMedical 12/18/22 08:38 Triage Note Patient complaining of cough 12/18/22 06:53 , vomiting, diarrhea, dizzy, SOB, sweating for a couple of weeks. Medical / Surgical History (Last Reviewed 08/15/22 @ 22:43 by Carmen Crowder MD) TBI (traumatic brain injury) Hyperlipidemia Mood disorder Spinal stenosis of lumbar region BMI 32.0-32.9,adult Hypertension Nephropathy Weakness of left leg ETOH abuse Degenerative disc disease ADHD Gynecomastia GERD (gastroesophageal reflux disease) Opioid dependence Chronic constipation Erectile dysfunction Hidradenitis suppurativa Diabetes mellitus Sleep apnea Eczema of both hands Headache Scrotal abscess Sinusitis (Last Reviewed 08/15/22 @ 22:43 by Carmen Crowder MD) S/P lumbar spine operation Most Recent Vital Signs Temperature 36.6 C 12/18/22 09:17 Temperature Source Tympanic 12/18/22 09:17 Pulse 108 H 12/18/22 09:17 Respiratory Rate 20 12/18/22 07:14 Respiratory Effort Normal, Non-Labored 12/18/22 07:13 Respiratory Depth Normal 12/18/22 07:13 Respiratory Pattern Normal 12/18/22 07:38 Blood Pressure 185/102 H 12/18/22 09:17 Blood Pressure Position Sitting 12/18/22 07:14 Pulse Oximetry 97 12/18/22 09:17 Oxygen Delivery Method Room Air 12/18/22 07:14 Oxygen Flow Rate 0 12/18/22 07:14 Allergies tolmetin Allergy (Unverified 12/18/22 06:56) years ago Precautions Isolation PUI 12/18/22 06:59 Active Medications Generic Name Dose Route Start Last Admin Trade Name Freq PRN Reason Stop Dose Admin Sodium Chloride (Hypertonic) 500 mls @ 0 mls/hr 12/18/22 10:00 12/18/22 10:29 Sodium Chloride 3% IV 0 mls/hr INFUSION GABY Infusion As Directed Lorazepam 0 mg 12/18/22 10:28 12/18/22 10:39 Lorazepam 1 Mg Tab PO/SL 2 mg DIRECTED PRN Administration IV IV Catheter Type [Left Saline Lock Antecubital] IV Catheter Type [Right Saline Lock Antecubital] IV Catheter Gauge [Left 18 Antecubital] IV Catheter Gauge [Right 18 Antecubital] Diet Orders Category Date Time Status Regular/Normal [DIET] Nutrition 12/18/22 Lunch Active Diagnostics 12/18/22 12/18/22 12/18/22 Range/Units 10:45 10:00 09:54 WBC (4.4-10.8) 10^3/uL RBC (4.36-5.78) 10^6/uL Hgb (13.5-17.5) g/dL Hct (40.0-50.0) % MCV (80-95) fL MCH (27.0-33.0) pg MCHC (32.0-36.0) % RDW (11.8-14.1) % Plt Count (130-400) 10^3/uL MPV (8.0-11.0) fL Immature Gran % Neutrophils % Lymphocytes % Monocytes % Eosinophils % Basophils % Nucleated RBC % (0.0-0.3) % Absolute Neutrophils (1.2-6.7) 10^3/uL Absolute Lymphocytes (1.2-3.4) 10^3/uL Absolute Monocytes (0.1-0.8) 10^3/uL Absolute Eosinophils (0.0-0.7) 10^3/uL Absolute Basophils (0.0-0.2) 10^3/uL Sodium 126 L Potassium 4.7 Chloride 92 L Carbon Dioxide 21.1 Anion Gap 12.9 H BUN 6 L Creatinine 0.7 Est GFR (CKD-EPI 2020) 112.95 Glucose 119 H Calcium 9.2 Magnesium Total Bilirubin AST ALT Alkaline Phosphatase Troponin I NT-Pro-B Natriuret Pep Total Protein Albumin Lipase Urine Osmolality Ur Random Sodium mmol/L Ethyl Alcohol COVID-19 Source Nasopharynx SARS-CoV-2 (PCR) Negative Influenza Type A (PCR) Negative Influenza Type B (PCR) Negative Legionella Source Pending Urine Legionella Ag Legionella DNA (PCR) Pending RSV (PCR) Negative 12/18/22 12/18/22 12/18/22 Range/Units 09:25 09:00 08:11 WBC (4.4-10.8) 10^3/uL RBC (4.36-5.78) 10^6/uL Hgb (13.5-17.5) g/dL Hct (40.0-50.0) % MCV (80-95) fL MCH (27.0-33.0) pg MCHC (32.0-36.0) % RDW (11.8-14.1) % Plt Count (130-400) 10^3/uL MPV (8.0-11.0) fL Immature Gran % Neutrophils % Lymphocytes % Monocytes % Eosinophils % Basophils % Nucleated RBC % (0.0-0.3) % Absolute Neutrophils (1.2-6.7) 10^3/uL Absolute Lymphocytes (1.2-3.4) 10^3/uL Absolute Monocytes (0.1-0.8) 10^3/uL Absolute Eosinophils (0.0-0.7) 10^3/uL Absolute Basophils (0.0-0.2) 10^3/uL Sodium 121 L* 119 L* Potassium 4.8 4.6 Chloride 87 L 83 L Carbon Dioxide 20.8 L 22.0 Anion Gap 13.2 H 14.0 H BUN 5 L 6 L Creatinine 0.8 0.9 Est GFR (CKD-EPI 2020) 108.49 104.70 Glucose 135 H 138 H Calcium 9.1 9.8 Magnesium 1.9 Total Bilirubin 0.7 AST 85 H ALT 81 H Alkaline Phosphatase 97 Troponin I < 50 NT-Pro-B Natriuret Pep 68 Total Protein 9.1 H Albumin 4.0 Lipase 49 Urine Osmolality Pending Ur Random Sodium 52 mmol/L Ethyl Alcohol 10.4 H COVID-19 Source SARS-CoV-2 (PCR) Influenza Type A (PCR) Influenza Type B (PCR) Legionella Source Urine Legionella Ag Pending Legionella DNA (PCR) RSV (PCR) 12/18/22 12/18/22 12/18/22 Range/Units 07:38 07:26 07:26 WBC (4.4-10.8) 10^3/uL RBC (4.36-5.78) 10^6/uL Hgb (13.5-17.5) g/dL Hct (40.0-50.0) % MCV (80-95) fL MCH (27.0-33.0) pg MCHC (32.0-36.0) % RDW (11.8-14.1) % Plt Count (130-400) 10^3/uL MPV (8.0-11.0) fL Immature Gran % Neutrophils % Lymphocytes % Monocytes % Eosinophils % Basophils % Nucleated RBC % (0.0-0.3) % Absolute Neutrophils (1.2-6.7) 10^3/uL Absolute Lymphocytes (1.2-3.4) 10^3/uL Absolute Monocytes (0.1-0.8) 10^3/uL Absolute Eosinophils (0.0-0.7) 10^3/uL Absolute Basophils (0.0-0.2) 10^3/uL Sodium Potassium Chloride Carbon Dioxide Anion Gap BUN Creatinine Est GFR (CKD-EPI 2020) Glucose Calcium Magnesium Total Bilirubin AST ALT Alkaline Phosphatase Troponin I NT-Pro-B Natriuret Pep Total Protein Cancelled Albumin Cancelled Cancelled Lipase Cancelled Urine Osmolality Ur Random Sodium mmol/L Ethyl Alcohol Cancelled COVID-19 Source Cancelled SARS-CoV-2 (PCR) Cancelled Influenza Type A (PCR) Cancelled Influenza Type B (PCR) Cancelled Legionella Source Urine Legionella Ag Legionella DNA (PCR) RSV (PCR) Cancelled 12/18/22 12/18/22 12/18/22 Range/Units 07:26 07:26 07:26 WBC (4.4-10.8) 10^3/uL RBC (4.36-5.78) 10^6/uL Hgb (13.5-17.5) g/dL Hct (40.0-50.0) % MCV (80-95) fL MCH (27.0-33.0) pg MCHC (32.0-36.0) % RDW (11.8-14.1) % Plt Count (130-400) 10^3/uL MPV (8.0-11.0) fL Immature Gran % Neutrophils % Lymphocytes % Monocytes % Eosinophils % Basophils % Nucleated RBC % (0.0-0.3) % Absolute Neutrophils (1.2-6.7) 10^3/uL Absolute Lymphocytes (1.2-3.4) 10^3/uL Absolute Monocytes (0.1-0.8) 10^3/uL Absolute Eosinophils (0.0-0.7) 10^3/uL Absolute Basophils (0.0-0.2) 10^3/uL Sodium Potassium Chloride Carbon Dioxide Anion Gap BUN Creatinine Est GFR (CKD-EPI 2020) Glucose Calcium Magnesium Total Bilirubin AST Cancelled ALT Cancelled Cancelled Alkaline Phosphatase Cancelled Cancelled Troponin I Cancelled NT-Pro-B Natriuret Pep Cancelled Total Protein Cancelled Albumin Lipase Urine Osmolality Ur Random Sodium mmol/L Ethyl Alcohol COVID-19 Source SARS-CoV-2 (PCR) Influenza Type A (PCR) Influenza Type B (PCR) Legionella Source Urine Legionella Ag Legionella DNA (PCR) RSV (PCR) 12/18/22 12/18/22 12/18/22 Range/Units 07:26 07:26 07:26 WBC (4.4-10.8) 10^3/uL RBC (4.36-5.78) 10^6/uL Hgb (13.5-17.5) g/dL Hct (40.0-50.0) % MCV (80-95) fL MCH (27.0-33.0) pg MCHC (32.0-36.0) % RDW (11.8-14.1) % Plt Count (130-400) 10^3/uL MPV (8.0-11.0) fL Immature Gran % Neutrophils % Lymphocytes % Monocytes % Eosinophils % Basophils % Nucleated RBC % (0.0-0.3) % Absolute Neutrophils (1.2-6.7) 10^3/uL Absolute Lymphocytes (1.2-3.4) 10^3/uL Absolute Monocytes (0.1-0.8) 10^3/uL Absolute Eosinophils (0.0-0.7) 10^3/uL Absolute Basophils (0.0-0.2) 10^3/uL Sodium Potassium Chloride Carbon Dioxide Anion Gap BUN Creatinine Est GFR (CKD-EPI 2020) Glucose Calcium Cancelled Magnesium Cancelled Cancelled Total Bilirubin Cancelled Cancelled AST Cancelled ALT Alkaline Phosphatase Troponin I NT-Pro-B Natriuret Pep Total Protein Albumin Lipase Urine Osmolality Ur Random Sodium mmol/L Ethyl Alcohol COVID-19 Source SARS-CoV-2 (PCR) Influenza Type A (PCR) Influenza Type B (PCR) Legionella Source Urine Legionella Ag Legionella DNA (PCR) RSV (PCR) 12/18/22 12/18/22 12/18/22 Range/Units 07:26 07:26 07:26 WBC (4.4-10.8) 10^3/uL RBC (4.36-5.78) 10^6/uL Hgb (13.5-17.5) g/dL Hct (40.0-50.0) % MCV (80-95) fL MCH (27.0-33.0) pg MCHC (32.0-36.0) % RDW (11.8-14.1) % Plt Count (130-400) 10^3/uL MPV (8.0-11.0) fL Immature Gran % Neutrophils % Lymphocytes % Monocytes % Eosinophils % Basophils % Nucleated RBC % (0.0-0.3) % Absolute Neutrophils (1.2-6.7) 10^3/uL Absolute Lymphocytes (1.2-3.4) 10^3/uL Absolute Monocytes (0.1-0.8) 10^3/uL Absolute Eosinophils (0.0-0.7) 10^3/uL Absolute Basophils (0.0-0.2) 10^3/uL Sodium Potassium Chloride Carbon Dioxide Anion Gap BUN Creatinine Cancelled Est GFR (CKD-EPI 2020) Cancelled Cancelled Glucose Cancelled Cancelled Calcium Cancelled Magnesium Total Bilirubin AST ALT Alkaline Phosphatase Troponin I NT-Pro-B Natriuret Pep Total Protein Albumin Lipase Urine Osmolality Ur Random Sodium mmol/L Ethyl Alcohol COVID-19 Source SARS-CoV-2 (PCR) Influenza Type A (PCR) Influenza Type B (PCR) Legionella Source Urine Legionella Ag Legionella DNA (PCR) RSV (PCR) 12/18/22 12/18/22 12/18/22 Range/Units 07:26 07:26 07:26 WBC (4.4-10.8) 10^3/uL RBC (4.36-5.78) 10^6/uL Hgb (13.5-17.5) g/dL Hct (40.0-50.0) % MCV (80-95) fL MCH (27.0-33.0) pg MCHC (32.0-36.0) % RDW (11.8-14.1) % Plt Count (130-400) 10^3/uL MPV (8.0-11.0) fL Immature Gran % Neutrophils % Lymphocytes % Monocytes % Eosinophils % Basophils % Nucleated RBC % (0.0-0.3) % Absolute Neutrophils (1.2-6.7) 10^3/uL Absolute Lymphocytes (1.2-3.4) 10^3/uL Absolute Monocytes (0.1-0.8) 10^3/uL Absolute Eosinophils (0.0-0.7) 10^3/uL Absolute Basophils (0.0-0.2) 10^3/uL Sodium Potassium Chloride Carbon Dioxide Cancelled Anion Gap Cancelled Cancelled BUN Cancelled Cancelled Creatinine Cancelled Est GFR (CKD-EPI 2020) Glucose Calcium Magnesium Total Bilirubin AST ALT Alkaline Phosphatase Troponin I NT-Pro-B Natriuret Pep Total Protein Albumin Lipase Urine Osmolality Ur Random Sodium mmol/L Ethyl Alcohol COVID-19 Source SARS-CoV-2 (PCR) Influenza Type A (PCR) Influenza Type B (PCR) Legionella Source Urine Legionella Ag Legionella DNA (PCR) RSV (PCR) 12/18/22 12/18/22 12/18/22 Range/Units 07:26 07:26 07:26 WBC (4.4-10.8) 10^3/uL RBC (4.36-5.78) 10^6/uL Hgb (13.5-17.5) g/dL Hct (40.0-50.0) % MCV (80-95) fL MCH (27.0-33.0) pg MCHC (32.0-36.0) % RDW (11.8-14.1) % Plt Count (130-400) 10^3/uL MPV (8.0-11.0) fL Immature Gran % Neutrophils % Lymphocytes % Monocytes % Eosinophils % Basophils % Nucleated RBC % (0.0-0.3) % Absolute Neutrophils (1.2-6.7) 10^3/uL Absolute Lymphocytes (1.2-3.4) 10^3/uL Absolute Monocytes (0.1-0.8) 10^3/uL Absolute Eosinophils (0.0-0.7) 10^3/uL Absolute Basophils (0.0-0.2) 10^3/uL Sodium Cancelled Potassium Cancelled Cancelled Chloride Cancelled Cancelled Carbon Dioxide Cancelled Anion Gap BUN Creatinine Est GFR (CKD-EPI 2020) Glucose Calcium Magnesium Total Bilirubin AST ALT Alkaline Phosphatase Troponin I NT-Pro-B Natriuret Pep Total Protein Albumin Lipase Urine Osmolality Ur Random Sodium mmol/L Ethyl Alcohol COVID-19 Source SARS-CoV-2 (PCR) Influenza Type A (PCR) Influenza Type B (PCR) Legionella Source Urine Legionella Ag Legionella DNA (PCR) RSV (PCR) 12/18/22 Range/Units 07:26 WBC 14.13 H (4.4-10.8) 10^3/uL RBC 4.63 (4.36-5.78) 10^6/uL Hgb 13.7 (13.5-17.5) g/dL Hct 38.8 L (40.0-50.0) % MCV 84 (80-95) fL MCH 29.6 (27.0-33.0) pg MCHC 35.3 (32.0-36.0) % RDW 12.6 (11.8-14.1) % Plt Count 294 (130-400) 10^3/uL MPV 9.1 (8.0-11.0) fL Immature Gran % 0.4 Neutrophils % 68.8 Lymphocytes % 24.6 Monocytes % 5.7 Eosinophils % 0.1 Basophils % 0.4 Nucleated RBC % 0.0 (0.0-0.3) % Absolute Neutrophils 9.72 H (1.2-6.7) 10^3/uL Absolute Lymphocytes 3.48 H (1.2-3.4) 10^3/uL Absolute Monocytes 0.81 H (0.1-0.8) 10^3/uL Absolute Eosinophils 0.01 (0.0-0.7) 10^3/uL Absolute Basophils 0.06 (0.0-0.2) 10^3/uL Sodium Cancelled Potassium Chloride Carbon Dioxide Anion Gap BUN Creatinine Est GFR (CKD-EPI 2020) Glucose Calcium Magnesium Total Bilirubin AST ALT Alkaline Phosphatase Troponin I NT-Pro-B Natriuret Pep Total Protein Albumin Lipase Urine Osmolality Ur Random Sodium mmol/L Ethyl Alcohol COVID-19 Source SARS-CoV-2 (PCR) Influenza Type A (PCR) Influenza Type B (PCR) Legionella Source Urine Legionella Ag Legionella DNA (PCR) RSV (PCR) Intake and Output - 24 Hour Total 12/18/22 06:43 thru 12/18/22 10:42 Intake Total 1086.667 Balance 1086.667 Weight 79.379 kg Intake: IV 1086.667 Falls Risk Assessment History of Falls No History 12/18/22 08:05 Contributing Factors No Factors 12/18/22 08:05 Ambulatory Aids Uses ambulatory device 12/18/22 08:05 Tubes/Lines None 12/18/22 08:05 Gait Evaluation W/no contributing factors 12/18/22 08:05 Cognition No cognitive impairment 12/18/22 08:05 Fall Total Score 25 12/18/22 08:05 Level of Risk Moderate Risk 12/18/22 08:05 Notes 12/18/22 10:46 Nursing Notes by Elizabeth Gonzalez pt has take home through the . 100mg in morning 75mg in evening. Nursing Note: Initialized on 12/18/22 10:46 - END OF NOTE v v v v v v v v v Sending and/or Receiving Nurses: Please use comment section below to note any information pertinent to the patient hand-off not included above. Information / Comments: Report received from: Tone Wild RN @[id number]
[2022-12-18] MEDS: Enoxaparin 40 MG/0.4 ML SYR SC (15:16)
[2022-12-18 15:38] LABS: Anion Gap 7.1 mmol/L (3-11); BUN 8 mg/dL (7-18); CO2 25.9 mmol/L (21.0-32.0); CREATININE 0.7 mg/dL (0.70-1.30); Calcium 8.8 mg/dL (8.5-10.1); Chloride 94 mmol/L (98-107); Estimated GFR 112.95 (mL/min/1.73m2); Glucose 137 mg/dL (74-106); Sodium 127 mmol/L (136-145)
--- NOTE | 2022-12-18 15:49 | W.PM.HP.N ---
Date of service: 12/18/22 Time of Service: 15:49 Assessment and Plan Assessment and plan (1) Acute hyponatremia: Status: Acute Assessment and plan: patient does not need any further hypertonic saline as his Na has already risen by 9 mMoles in a matter of several hours. I have added DDAVP to prevent over correction of his hyponatremia. If his serum sodium continues to rise then he will need additional free water to bring his sodium back down. He should only rise by 5 to 6 mMoles in the first 24h.Critical care time spent interviewing and examining the patient, reviewing studies, discussing case with patient's nurse and consulting physicians was 60 minutes (2) Alcohol withdrawal: Status: Acute Qualifiers: Complication of substance-induced condition: with perceptual disturbance Qualified Code(s): F10.932 - Alcohol use, unspecified with withdrawal with perceptual disturbance (3) Hypertension: Assessment and plan: continue lisinopril Qualifiers: Hypertension type: primary hypertension Qualified Code(s): I10 - Essential (primary) hypertension (4) Diabetes mellitus: Assessment and plan: continue metformin and monitor glucose AC/HS, add novolog Qualifiers: Diabetes mellitus type: type 2 Diabetes mellitus detention insulin use: without terminal manager use Diabetes mellitus complication status: without complication Qualified Code(s): E11.9 - Type 2 diabetes mellitus without complications (5) Opioid dependence: Assessment and plan: unclear as to his last dose of methadone, some of his symptoms may be d/t methadone withdrawal. Nevertheless we have resumed his home dose of methadone Qualifiers: Substance use status: in withdrawal Qualified Code(s): F11.23 - Opioid dependence with withdrawal (6) Mood disorder: Assessment and plan: continue his lamictal (7) DVT prophylaxis: Status: Acute Assessment and plan: enoxaparin 40 mg SC daily; continue his aspirin and plavix for his cerebrovascular disease (carotid artery stenosis in setting of prior stroke). 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 Evaluation in the ER found him to be diaphoretic, tremulous, but not frankly hallucinating, workup included CXR (negative for acute findings), labs (CBC: WBC 14,000, no anemia or dyscrasia), CMP demonstrated hyponatremia (Na 119), mild transaminitis 9AST 85, ALT 81, normal bilirubin and alkaline phosphatase), blood alcohol level 10.4 mg/dL, FLUVID negative for SARS-COV2, RSV, and influenza A&B. Patient was treated for the hyponatremia w/ bolus of normal saline w/ repeat serum sodium of 121 at which point the ED provider ordered 3% saline x 100 mL to be given. His subsequent sodium levels have risen to 126, 127 and now 128. He was also given Ativan 0.5 mg IV for acute alcohol withdrawal. He is admitted to ICU for close monitoring and treatment of his alcohol withdrawal and hyponatremia. I have started him on DDAVP to avoid over correction of his hyponatremia. Review of Systems Unobtainable due to mental condition (patient excessively lethargic after ativan and methadone) PFSH All Active Problems (Updated 12/18/22 @ 19:18 by Aleks Vasquez MD) DVT prophylaxis (Acute) Acute hyponatremia (Acute) Alcohol withdrawal (Acute) Left carotid stenosis (Acute) Right carotid artery occlusion (Acute) CVA (cerebral vascular accident) (Chronic) Tobacco abuse (Acute) Elevated blood pressure reading (Acute) Anxiety and depression (Acute) Vomiting and diarrhea (Acute) Alcohol abuse (Chronic) Alcohol withdrawal (Acute) Electrolyte and fluid disorder (Acute) Alcoholic hepatitis (Acute) Medical History TBI (traumatic brain injury) Hyperlipidemia Mood disorder Spinal stenosis of lumbar region BMI 32.0-32.9,adult Hypertension Nephropathy Weakness of left leg ETOH abuse Degenerative disc disease ADHD Gynecomastia GERD (gastroesophageal reflux disease) Opioid dependence Chronic constipation Erectile dysfunction Hidradenitis suppurativa Diabetes mellitus Sleep apnea Eczema of both hands Headache Scrotal abscess Sinusitis Surgical History S/P lumbar spine operation Family History Mother Stroke Father Heart disease Social History Smoking/Tobacco Use Status: Current every day Smoking risk assessment performed?: Yes Alcohol Intake: former Drug use: Current Sobriety Substance use type: former substance user and marijuana Housing: house Number of Children: 4 current occupation: Disabled Do you feel safe at home: Yes Do you feel safe in your relationship?: Yes Meds Allergies and Home Medications Allergies Allergy/AdvReac Type Severity Reaction Status Date / Time tolmetin Allergy Unverified 12/18/22 06:56 Home Medications Medication Instructions Recorded Confirmed Type methadone 10 mg/mL oral concentrate 75 mg PO DAILY@1600 09/03/15 12/18/22 History lamotrigine 100 mg tablet 100 mg PO BID 12/16/20 12/18/22 History (Lamictal) methadone 10 mg/mL oral concentrate 100 mg PO DAILY AM 12/16/20 12/18/22 History metoprolol tartrate 50 mg tablet 50 mg PO BID #60 tabs 12/17/20 12/18/22 Rx thiamine HCl (vitamin B1) 100 mg 100 mg PO DAILY #30 tabs 12/17/20 12/18/22 Rx tablet atorvastatin 80 mg tablet 80 mg PO DAILY 07/18/22 12/18/22 History baclofen 20 mg tablet 20 mg PO TID 07/18/22 12/18/22 History clopidogrel 75 mg tablet 75 mg PO DAILY 07/18/22 12/18/22 History docusate sodium 100 mg capsule 100 mg PO BID PRN 07/18/22 12/18/22 History (Colace) escitalopram oxalate 20 mg tablet 20 mg PO DAILY 07/18/22 12/18/22 History gabapentin 800 mg tablet 800 mg PO TID 07/18/22 12/18/22 History hydroxyzine HCl 25 mg tablet 25 mg PO TID PRN 07/18/22 12/18/22 History lisinopril 20 mg tablet 20 mg PO DAILY 07/18/22 12/18/22 History loratadine 10 mg tablet (Allergy 10 mg PO DAILY 07/18/22 12/18/22 History Relief (loratadine)) metformin 500 mg tablet 500 mg PO BID 07/18/22 12/18/22 History nicotine 7 mg/24 hr daily 1 patch transdermal Q24H 07/18/22 12/18/22 History transdermal patch pantoprazole 40 mg tablet,delayed 40 mg PO DAILY 07/18/22 12/18/22 History release polyethylene glycol 3350 17 17 g PO DAILY 07/18/22 12/18/22 History gram/dose oral powder sildenafil 100 mg tablet (Viagra) 100 mg PO DAILY PRN 07/18/22 12/18/22 History lorazepam 0.5 mg tablet 0.5 mg PO ONCE PRN 08/15/22 12/18/22 Rx anxiety/claustrophobia #2 tabs Exam Narrative Exam Narrative: Patient is very somnolent but will arouse with verbal and tactile stimulation. When he opens his eyes he will answer me but then falls asleep midsentence. He has sonorous respirations. When he does awaken he does answer my questions such as how much alcohol he consumes and when his last drink was taken. However I could not keep him awake long enough to have a prolonged conversation or give a detailed history from him. HEENT remarkable for dry mucous membranes no facial asymmetry, PERRLA, EOMI, no scleral icterus Neck supple nontender no JVD he has a tattoo over the right side of his neck. He has diminished carotid pulses bilaterally no audible bruits Lungs are clear to auscultation Heart is regular rate rhythm no appreciable murmur rub Abdomen is soft nondistended nontender Extremities no peripheral cyanosis or edema. Patient did complain earlier of left knee pain but I do not see any erythema nor is there any crepitus with passive flexion extension nor any ballotable effusion, pedal pulses are intact. Feet are dirty Neuro exam was difficult to complete as a trouble keeping him awake. But I did not notice any facial asymmetry and when he was awake there was no dysarthric speech. EOMI intact, PERRLA, right arm and hand grasp and right leg strength is within normal limits There is slight weakness in left hand grasp as well as with arm pushing and pulling as well as with hip flexion extension on the left side. but he is able to resist me and hold them up in the air Results Labs 12/18/22 07:26 12/18/22 16:51 Labs: Laboratory Results - last 24 hr 12/18/22 12/18/22 12/18/22 07:26 07:26 07:26 WBC 14.13 H RBC 4.63 Hgb 13.7 Hct 38.8 L MCV 84 MCH 29.6 MCHC 35.3 RDW 12.6 Plt Count 294 MPV 9.1 Immature Gran % 0.4 Neutrophils % 68.8 Lymphocytes % 24.6 Monocytes % 5.7 Eosinophils % 0.1 Basophils % 0.4 Nucleated RBC % 0.0 Absolute Neutrophils 9.72 H Absolute Lymphocytes 3.48 H Absolute Monocytes 0.81 H Absolute Eosinophils 0.01 Absolute Basophils 0.06 Sodium Cancelled Cancelled Potassium Cancelled Cancelled Chloride Cancelled Carbon Dioxide Anion Gap BUN Creatinine Est GFR (CKD-EPI 2020) Glucose Calcium Magnesium Total Bilirubin AST ALT Alkaline Phosphatase Troponin I NT-Pro-B Natriuret Pep Total Protein Albumin Lipase Ur Random Sodium Ethyl Alcohol COVID-19 Source SARS-CoV-2 (PCR) Influenza Type A (PCR) Influenza Type B (PCR) RSV (PCR) 12/18/22 12/18/22 12/18/22 07:26 07:26 07:26 WBC RBC Hgb Hct MCV MCH MCHC RDW Plt Count MPV Immature Gran % Neutrophils % Lymphocytes % Monocytes % Eosinophils % Basophils % Nucleated RBC % Absolute Neutrophils Absolute Lymphocytes Absolute Monocytes Absolute Eosinophils Absolute Basophils Sodium Potassium Chloride Cancelled Carbon Dioxide Cancelled Cancelled Anion Gap Cancelled Cancelled BUN Cancelled Creatinine Est GFR (CKD-EPI 2020) Glucose Calcium Magnesium Total Bilirubin AST ALT Alkaline Phosphatase Troponin I NT-Pro-B Natriuret Pep Total Protein Albumin Lipase Ur Random Sodium Ethyl Alcohol COVID-19 Source SARS-CoV-2 (PCR) Influenza Type A (PCR) Influenza Type B (PCR) RSV (PCR) 12/18/22 12/18/22 12/18/22 07:26 07:26 07:26 WBC RBC Hgb Hct MCV MCH MCHC RDW Plt Count MPV Immature Gran % Neutrophils % Lymphocytes % Monocytes % Eosinophils % Basophils % Nucleated RBC % Absolute Neutrophils Absolute Lymphocytes Absolute Monocytes Absolute Eosinophils Absolute Basophils Sodium Potassium Chloride Carbon Dioxide Anion Gap BUN Cancelled Creatinine Cancelled Cancelled Est GFR (CKD-EPI 2020) Cancelled Cancelled Glucose Cancelled Calcium Magnesium Total Bilirubin AST ALT Alkaline Phosphatase Troponin I NT-Pro-B Natriuret Pep Total Protein Albumin Lipase Ur Random Sodium Ethyl Alcohol COVID-19 Source SARS-CoV-2 (PCR) Influenza Type A (PCR) Influenza Type B (PCR) RSV (PCR) 12/18/22 12/18/22 12/18/22 07:26 07:26 07:26 WBC RBC Hgb Hct MCV MCH MCHC RDW Plt Count MPV Immature Gran % Neutrophils % Lymphocytes % Monocytes % Eosinophils % Basophils % Nucleated RBC % Absolute Neutrophils Absolute Lymphocytes Absolute Monocytes Absolute Eosinophils Absolute Basophils Sodium Potassium Chloride Carbon Dioxide Anion Gap BUN Creatinine Est GFR (CKD-EPI 2020) Glucose Cancelled Calcium Cancelled Cancelled Magnesium Cancelled Cancelled Total Bilirubin Cancelled AST ALT Alkaline Phosphatase Troponin I NT-Pro-B Natriuret Pep Total Protein Albumin Lipase Ur Random Sodium Ethyl Alcohol COVID- Source SARS-CoV-2 (PCR) Influenza Type A (PCR) Influenza Type B (PCR) RSV (PCR) 12/18/22 12/18/22 12/18/22 07:26 07:26 07:26 WBC RBC Hgb Hct MCV MCH MCHC RDW Plt Count MPV Immature Gran % Neutrophils % Lymphocytes % Monocytes % Eosinophils % Basophils % Nucleated RBC % Absolute Neutrophils Absolute Lymphocytes Absolute Monocytes Absolute Eosinophils Absolute Basophils Sodium Potassium Chloride Carbon Dioxide Anion Gap BUN Creatinine Est GFR (CKD-EPI 2020) Glucose Calcium Magnesium Total Bilirubin Cancelled AST Cancelled Cancelled ALT Cancelled Cancelled Alkaline Phosphatase Cancelled Troponin I NT-Pro-B Natriuret Pep Total Protein Albumin Lipase Ur Random Sodium Ethyl Alcohol ID- Source SARS-CoV-2 (PCR) Influenza Type A (PCR) Influenza Type B (PCR) RSV (PCR) 12/18/22 12/18/22 12/18/22 07:26 07:26 07:26 WBC RBC Hgb Hct MCV MCH MCHC RDW Plt Count MPV Immature Gran % Neutrophils % Lymphocytes % Monocytes % Eosinophils % Basophils % Nucleated RBC % Absolute Neutrophils Absolute Lymphocytes Absolute Monocytes Absolute Eosinophils Absolute Basophils Sodium Potassium Chloride Carbon Dioxide Anion Gap BUN Creatinine Est GFR (CKD-EPI 2020) Glucose Calcium Magnesium Total Bilirubin AST ALT Alkaline Phosphatase Cancelled Troponin I Cancelled NT-Pro-B Natriuret Pep Cancelled Total Protein Cancelled Cancelled Albumin Cancelled Cancelled Lipase Cancelled Ur Random Sodium Ethyl Alcohol Cancelled ID- Source SARS-CoV-2 (PCR) Influenza Type A (PCR) Influenza Type B (PCR) RSV (PCR) 12/18/22 12/18/22 12/18/22 07:38 08:11 09:00 WBC RBC Hgb Hct MCV MCH MCHC RDW Plt Count MPV Immature Gran % Neutrophils % Lymphocytes % Monocytes % Eosinophils % Basophils % Nucleated RBC % Absolute Neutrophils Absolute Lymphocytes Absolute Monocytes Absolute Eosinophils Absolute Basophils Sodium 119 L* Potassium 4.6 Chloride 83 L Carbon Dioxide 22.0 Anion Gap 14.0 H BUN 6 L Creatinine 0.9 Est GFR (CKD-EPI 2020) 104.70 Glucose 138 H Calcium 9.8 Magnesium 1.9 Total Bilirubin 0.7 AST 85 H ALT 81 H Alkaline Phosphatase 97 Troponin I < 50 NT-Pro-B Natriuret Pep 68 Total Protein 9.1 H Albumin 4.0 Lipase 49 Ur Random Sodium 52 Ethyl Alcohol 10.4 H COVID-19 Source Cancelled SARS-CoV-2 (PCR) Cancelled Influenza Type A (PCR) Cancelled Influenza Type B (PCR) Cancelled RSV (PCR) Cancelled 12/18/22 12/18/22 12/18/22 09:25 10:00 10:45 WBC RBC Hgb Hct MCV MCH MCHC RDW Plt Count MPV Immature Gran % Neutrophils % Lymphocytes % Monocytes % Eosinophils % Basophils % Nucleated RBC % Absolute Neutrophils Absolute Lymphocytes Absolute Monocytes Absolute Eosinophils Absolute Basophils Sodium 121 L* 126 L Potassium 4.8 4.7 Chloride 87 L 92 L Carbon Dioxide 20.8 L 21.1 Anion Gap 13.2 H 12.9 H BUN 5 L 6 L Creatinine 0.8 0.7 Est GFR (CKD-EPI 2020) 108.49 112.95 Glucose 135 H 119 H Calcium 9.1 9.2 Magnesium Total Bilirubin AST ALT Alkaline Phosphatase Troponin I NT-Pro-B Natriuret Pep Total Protein Albumin Lipase Ur Random Sodium Ethyl Alcohol COVID-19 Source Nasopharynx SARS-CoV-2 (PCR) Negative Influenza Type A (PCR) Negative Influenza Type B (PCR) Negative RSV (PCR) Negative 12/18/22 15:18 WBC RBC Hgb Hct MCV MCH MCHC RDW Plt Count MPV Immature Gran % Neutrophils % Lymphocytes % Monocytes % Eosinophils % Basophils % Nucleated RBC % Absolute Neutrophils Absolute Lymphocytes Absolute Monocytes Absolute Eosinophils Absolute Basophils Sodium 127 L Potassium 4.0 Chloride 94 L Carbon Dioxide 25.9 Anion Gap 7.1 BUN 8 Creatinine 0.7 Est GFR (CKD-EPI 2020) 112.95 Glucose 137 H Calcium 8.8 Magnesium Total Bilirubin AST ALT Alkaline Phosphatase Troponin I NT-Pro-B Natriuret Pep Total Protein Albumin Lipase Ur Random Sodium Ethyl Alcohol COVID-19 Source SARS-CoV-2 (PCR) Influenza Type A (PCR) Influenza Type B (PCR) RSV (PCR) Last Vital Signs Temp 36.4 C L 12/18/22 13:57 Pulse 96 H 12/18/22 14:16 Resp 14 12/18/22 14:16 BP 129/89 12/18/22 14:16 Pulse Ox 93 12/18/22 14:16 PAWSS Have you Been Recently Intoxicated or Drunk Within the Last 30 days?: Yes Have you Ever Experienced Previous Episodes of Alcohol Withdrawal?: Yes Have you ever Experienced Withdrawal Seizures?: Unable to Obtain Have you ever Experienced Delirium Tremens(DT)s?: Yes Have you ever undergone Alcohol Rehabilitation Treatment (i.e, inpt ot outpatient treatment programs)?: Yes Have you ever Experienced Blackouts?: Yes Have you ever Combined Alcohol with other Downers within the last 90 days?: No Have you ever Combined Alcohol with any other Substance of Abuse during the last 90 days?: No Positive Blood Alcohol level on Presentation? [PCS.BAL]: Yes Evidence of Increased Autonomic Activity (i.e. HR>120, tremor, sweating, agitation, nausea)?: Yes Result: 7 Time Spent Time spent with Patient: 55-74 minutes Time was spent: preparing to see the patient(eg.review tests), ordering medications,tests, procedures, referring, communicating with other health critical care physician assistant, indepentently interpreting results, counseling the patient and care coordination
[2022-12-18] MEDS: Gabapentin 800 MG TAB PO ×2 (16:01→20:19)
[2022-12-18] MEDS: Methadone Liquid 10 MG/ML 75 MG PO (16:01)
[2022-12-18 16:32] LABS: PHOSPHORUS 3.1 mg/dL (2.6-4.7)
[2022-12-18 17:13] LABS: Anion Gap 8.2 mmol/L (3-11); BUN 9 mg/dL (7-18); CO2 25.8 mmol/L (21.0-32.0); CREATININE 0.7 mg/dL (0.70-1.30); Calcium 9.1 mg/dL (8.5-10.1); Chloride 94 mmol/L (98-107); Estimated GFR 112.95 (mL/min/1.73m2); Glucose 148 mg/dL (74-106); Sodium 128 mmol/L (136-145)
[2022-12-18 17:25] LABS: Osmolality, Urine 625 mOsm/kg (150-1150)
[2022-12-18] MEDS: Ketorolac 30 MG/ML VIAL IVP (17:37)
[2022-12-18] MEDS: Normal Saline Flush 10 ML SYR IVP (17:37)
[2022-12-18 19:33] LABS: Anion Gap 6.7 mmol/L (3-11); BUN 11 mg/dL (7-18); CO2 26.3 mmol/L (21.0-32.0); CREATININE 0.7 mg/dL (0.70-1.30); Calcium 9.1 mg/dL (8.5-10.1); Chloride 95 mmol/L (98-107); Estimated GFR 112.95 (mL/min/1.73m2); Glucose 111 mg/dL (74-106); Potassium 3.7 mmol/L (3.5-5.1); Sodium 128 mmol/L (136-145)
[2022-12-18] MEDS: lamoTRIgine 100 MG TAB PO (20:19)
[2022-12-18] MEDS: Baclofen 10 MG TAB 20 MG PO (20:20)
[2022-12-18] MEDS: metFORMIN 500 MG TAB PO (20:20)
[2022-12-18 20:59] LABS: Legionella Ag Detection Urine Negative (Negative)
[2022-12-18 22:26] LABS: Anion Gap 7.1 mmol/L (3-11); BUN 13 mg/dL (7-18); CO2 26.9 mmol/L (21.0-32.0); CREATININE 0.7 mg/dL (0.70-1.30); Chloride 95 mmol/L (98-107); Estimated GFR 112.95 (mL/min/1.73m2); Glucose 137 mg/dL (74-106); Potassium 3.7 mmol/L (3.5-5.1); Sodium 129 mmol/L (136-145)
[2022-12-19] VITALS (22 sets, daily range): BP systolic 116–153; BP diastolic 76–102; PULSE 81–104; RESP 7–16; TEMP 36.1–36.9; O2SAT 90–97
[2022-12-19 00:37] LABS: Sodium 130 mmol/L (136-145)
[2022-12-19] MEDS: DEXTROSE 5%-WATER 1,000 ML 75 ML IV (02:15)
[2022-12-19 03:54] LABS: Sodium 130 mmol/L (136-145)
[2022-12-19 07:14] LABS: Abs Immature Grans 0.04 10^3/uL (0.0-0.06); Absolute Basophil Count 0.05 10^3/uL (0.0-0.2); Absolute Eosinophil Count 0.05 10^3/uL (0.0-0.7); Absolute Lymphocyte Count 2.06 10^3/uL (1.2-3.4); Absolute Monocyte Count 0.65 10^3/uL (0.1-0.8); Absolute Neutrophil Count 7.86 10^3/uL (1.2-6.7); Basophils % 0.5; Eosinophils % 0.5; HCT 37.9 % (40.0-50.0); HGB 13.2 g/dL (13.5-17.5); Immature Grans % 0.4; Lymphocytes % 19.2; MCH 29.6 pg (27.0-33.0); MCHC 34.8 % (32.0-36.0); MCV 85 fL (80-95); MPV 9.4 fL (8.0-11.0); Monocytes % 6.1; Neutrophils % 73.3; Platelet Count 224 10^3/uL (130-400); RBC 4.46 10^6/uL (4.36-5.78); RDW-SD 39.8 fL; WBC 10.71 10^3/uL (4.4-10.8)
[2022-12-19 07:28] LABS: ALT 74 U/L (16-63); AST 81 U/L (15-37); Albumin 3.4 g/dL (3.4-5.0); Alkaline Phosphatase 82 U/L (46-116); Bilirubin, Direct 0.2 mg/dL (0.0-0.2); Bilirubin, Total 0.7 mg/dL (0.2-1.0); Magnesium 2.3 mg/dL (1.8-2.4); Total Protein 7.9 g/dL (6.4-8.2)
[2022-12-19 07:30] LABS: ALT 74 U/L (16-63); AST 80 U/L (15-37); Albumin 3.3 g/dL (3.4-5.0); Alkaline Phosphatase 83 U/L (46-116); Anion Gap 9.8 mmol/L (3-11); BUN 9 mg/dL (7-18); Bilirubin, Total 0.7 mg/dL (0.2-1.0); CO2 26.2 mmol/L (21.0-32.0); CREATININE 0.6 mg/dL (0.70-1.30); Calcium 9.2 mg/dL (8.5-10.1); Chloride 94 mmol/L (98-107); Estimated GFR 118.34 (mL/min/1.73m2); Glucose 108 mg/dL (74-106); Sodium 130 mmol/L (136-145); Total Protein 7.8 g/dL (6.4-8.2)
[2022-12-19] MEDS: Nicotine 7 MG/24 HR PATCH TD ×2 (07:59→10:54)
[2022-12-19] MEDS: Baclofen 10 MG TAB 20 MG PO ×3 (07:59→19:30)
[2022-12-19] MEDS: Gabapentin 800 MG TAB PO ×3 (08:01→19:30)
[2022-12-19] MEDS: Atorvastatin 40 MG TAB 80 MG PO (08:01)
[2022-12-19] MEDS: Clopidogrel 75 MG TAB PO (08:01)
[2022-12-19] MEDS: Escitalopram 20 MG TAB PO (08:01)
[2022-12-19] MEDS: Lisinopril 20 MG TAB PO (08:01)
[2022-12-19] MEDS: Acetaminophen 325 MG TAB PO (08:02)
[2022-12-19] MEDS: Pantoprazole 40 MG TABCR PO (08:03)
[2022-12-19] MEDS: lamoTRIgine 100 MG TAB PO ×2 (08:03→19:30)
[2022-12-19] MEDS: metFORMIN 500 MG TAB PO ×2 (08:03→19:30)
[2022-12-19] MEDS: Multivitamin TAB 1 TAB PO (08:04)
[2022-12-19] MEDS: Folic Acid 1 MG TAB PO (08:04)
[2022-12-19] MEDS: Thiamine 100 MG TAB PO (08:04)
[2022-12-19] MEDS: Loratidine 10 MG TAB PO (08:04)
[2022-12-19] MEDS: Methadone Liquid 10 MG/ML 100 MG PO (08:26)
[2022-12-19] MEDS: Normal Saline Flush 10 ML SYR IVP (08:27)
--- NOTE | 2022-12-19 08:40 | INITIAL_ITS ---
Date of service: 12/19/22 Time of Service: 08:40 Care Management Initial Assmt Initial Assessment REASON FOR HOSPITALIZATION:: Hyponatremia and alcohol withdrawal PREVIOUS FUNCTIONAL STATUS/SOCIAL/FAMILY SUPPORTS:: Feliciano, who prefers to be called Nanette, lives in a mobile home in [place] [facility] [place] with his brother Gianfranco. They own the mobile home together. Nanette has 4 children but only sees his oldest son on a regular basis. He was twice and the children from his second marriage have had a complicated custody situation, making contact more challenging. Nanette is disabled, having hurt his back many years ago. He is on Methadone maintenance for pain control which he receives from [facility]. He does not currently receive [facility] community services. CURRENT FUNCTIONAL STATUS:: Nanette was lying in bed in the ICU when CM met with donald katrin. He was a bit sleepy but awoke up fully to engage with CM. He talked a bit about his family situation with his 2 marriages and custody challenges with his younger 2 children. He also shared that he had a pretty significant stroke about 5-6 months ago and spent time at [facility] for rehabilitation. He still has residual weakness on his left side, mostly his LLE. CM offered to contact a financial coach but Nanette declined. he informed CM that he has stopped using alcohol for many years in the past and has no intention of drinking again. He shared that he just needed help with the detoxification process. ADVANCE DIRECTIVES:: none on file Has patient been provided with info about the portal/API?: Yes Did the patient sign up for the portal?: No CODE STATUS:: Full Code INSURANCE COVERAGE / FINANCIAL ISSUES:: Medicare Medicaid CURRENT HOME/COMMUNITY SERVICES/EQUIPMENT:: none PRIMARY CARE PHYSICIAN:: Beth Adams POTENTIAL DISCHARGE NEEDS:: follow up with substance use treatment options PATIENT/FAMILY EDUCATION NEEDS:: Review of discharge instructions, limitations, activity, follow up plan, discuss Ask Me [employer] TRANSPORTATION:: via private vehicle with family PLAN:: Anticipate Feliciano will be discharged home with no new services . He will follow up with his community providers and plan of care and transport with family. CM will follow and assess for discharge concerns. PFSH All Active Problems (Updated 12/18/22 @ 19:18 by Aleks Vasquez MD) DVT prophylaxis (Acute) Acute hyponatremia (Acute) Alcohol withdrawal (Acute) Left carotid stenosis (Acute) Right carotid artery occlusion (Acute) CVA (cerebral vascular accident) (Chronic) Tobacco abuse (Acute) Elevated blood pressure reading (Acute) Anxiety and depression (Acute) Vomiting and diarrhea (Acute) Alcohol abuse (Chronic) Alcohol withdrawal (Acute) Electrolyte and fluid disorder (Acute) Alcoholic hepatitis (Acute) Medical History TBI (traumatic brain injury) Hyperlipidemia Mood disorder Spinal stenosis of lumbar region BMI 32.0-32.9,adult Hypertension Nephropathy Weakness of left leg ETOH abuse Degenerative disc disease ADHD Gynecomastia GERD (gastroesophageal reflux disease) Opioid dependence Chronic constipation Erectile dysfunction Hidradenitis suppurativa Diabetes mellitus Sleep apnea Eczema of both hands Headache Scrotal abscess Sinusitis Surgical History S/P lumbar spine operation Family History Mother Stroke Father Heart disease Social History Smoking/Tobacco Use Status: Current every day Smoking risk assessment performed?: Yes Alcohol Intake: former Drug use: Current Sobriety Substance use type: former substance user and marijuana Housing: house Number of Children: 4 current occupation: Disabled Do you feel safe at home: Yes Do you feel safe in your relationship?: Yes
--- NOTE | 2022-12-19 09:17 | PGE_ITS ---
Date of Service Date of service: 12/19/22 Time of Service: 09:17 Assessment and Plan Assessment and plan (1) Acute hyponatremia: Status: Acute Assessment and plan: serum sodium is up to 130 this morning, he did require bolus of D5w x 500 mL to prevent over correction of his hyponatremia. He did receive his last dose of DDAVP this morning. I will recheck BMP at noon and if stable then decreased to daily labs. His hyponatremia is likely d/t beer potomania (he usually drinks up to 24 beers/day) professional time spent interviewing and examining patient, discussion of goals of care with hospital team (care management, nursing and consulting professionals) was 35 minutes. (2) Alcohol withdrawal: Status: Acute Assessment and plan: not scoring high on his CIWA scale and not requiring further parenteral ativan. He can be transfer to med/surg. He will be monitored for one more day and if stable then dc home in the a.m. Qualifiers: Complication of substance-induced condition: with perceptual disturbance Qualified Code(s): F10.932 - Alcohol use, unspecified with withdrawal with perceptual disturbance (3) Hypertension: Assessment and plan: continue lisinopril Qualifiers: Hypertension type: primary hypertension Qualified Code(s): I10 - Essential (primary) hypertension (4) Diabetes mellitus: Assessment and plan: continue metformin and monitor glucose AC/HS, add novolog Qualifiers: Diabetes mellitus type: type 2 Diabetes mellitus land sales agent insulin use: without land sales agent use Diabetes mellitus complication status: without complication Qualified Code(s): E11.9 - Type 2 diabetes mellitus without complications (5) Opioid dependence: Assessment and plan: pharmacy has verified his dose of methadone from [facility]. He takes 100 mg in the morning and 75 mg in the afternoon Qualifiers: Substance use status: in withdrawal Qualified Code(s): F11.23 - Opioid dependence with withdrawal (6) Mood disorder: Assessment and plan: continue his lamictal (7) DVT prophylaxis: Status: Acute Assessment and plan: enoxaparin 40 mg SC daily; continue his aspirin and plavix for his cerebrovascular disease (carotid artery stenosis in setting of prior stroke). Subjective Subjective Interval history since last seen: Patient states that he is sleepy this morning although he says that he did sleep last night. He feels less anxious today. He seems to be very sensitive to the Ativan. Just 1 mg oral made him very somnolent yesterday. Fortunately he does not seem to be having severe withdrawal. Overnight his CIWA score was 0 but this morning he has scored up to 5. Exam Narrative Exam Narrative: He does not appear anxious, he is alert and oriented to person/place/circumstance ( I did not ask him the date) Skin is non-diaphoretic Hands/arms: non tremulous Motor: good ROM and strength bilaterally in both upper and lower limbs Lungs: clear Heart: RRR w/out m,r,g Objective Last Vital Signs Temp 36.9 C 12/19/22 07:23 Pulse 102 H 12/19/22 09:01 Resp 13 12/19/22 09:01 BP 144/90 H 12/19/22 09:01 Pulse Ox 94 12/19/22 09:01 Laboratory Results - last 24 hr 12/18/22 12/18/22 12/18/22 09:00 09:25 10:00 WBC RBC Hgb Hct MCV MCH MCHC RDW Plt Count MPV Immature Gran % Neutrophils % Lymphocytes % Monocytes % Eosinophils % Basophils % Nucleated RBC % Absolute Neutrophils Absolute Lymphocytes Absolute Monocytes Absolute Eosinophils Absolute Basophils Sodium 121 L* Potassium 4.8 Chloride 87 L Carbon Dioxide 20.8 L Anion Gap 13.2 H BUN 5 L Creatinine 0.8 Est GFR (CKD-EPI 2020) 108.49 Glucose 135 H Calcium 9.1 Phosphorus Magnesium Total Bilirubin Conjugated Bilirubin AST ALT Alkaline Phosphatase Total Protein Albumin Ur Random Sodium 52 COVID-19 Source Nasopharynx SARS-CoV-2 (PCR) Negative Influenza Type A (PCR) Negative Influenza Type B (PCR) Negative RSV (PCR) Negative 12/18/22 12/18/22 12/18/22 10:45 13:18 14:55 WBC RBC Hgb Hct MCV MCH MCHC RDW Plt Count MPV Immature Gran % Neutrophils % Lymphocytes % Monocytes % Eosinophils % Basophils % Nucleated RBC % Absolute Neutrophils Absolute Lymphocytes Absolute Monocytes Absolute Eosinophils Absolute Basophils Sodium 126 L Cancelled Potassium 4.7 Cancelled Chloride 92 L Cancelled Carbon Dioxide 21.1 Cancelled Anion Gap 12.9 H Cancelled BUN 6 L Cancelled Creatinine 0.7 Cancelled Est GFR (CKD-EPI 2020) 112.95 Cancelled Glucose 119 H Cancelled Calcium 9.2 Cancelled Phosphorus 3.1 Magnesium Total Bilirubin Conjugated Bilirubin AST ALT Alkaline Phosphatase Total Protein Albumin Ur Random Sodium COVID-19 Source SARS-CoV-2 (PCR) Influenza Type A (PCR) Influenza Type B (PCR) RSV (PCR) 12/18/22 12/18/22 12/18/22 15:18 16:51 19:10 WBC RBC Hgb Hct MCV MCH MCHC RDW Plt Count MPV Immature Gran % Neutrophils % Lymphocytes % Monocytes % Eosinophils % Basophils % Nucleated RBC % Absolute Neutrophils Absolute Lymphocytes Absolute Monocytes Absolute Eosinophils Absolute Basophils Sodium 127 L 128 L 128 L Potassium 4.0 4.0 3.7 Chloride 94 L 94 L 95 L Carbon Dioxide 25.9 25.8 26.3 Anion Gap 7.1 8.2 6.7 BUN 8 9 11 Creatinine 0.7 0.7 0.7 Est GFR (CKD-EPI 2020) 112.95 112.95 112.95 Glucose 137 H 148 H 111 H Calcium 8.8 9.1 9.1 Phosphorus Magnesium Total Bilirubin Conjugated Bilirubin AST ALT Alkaline Phosphatase Total Protein Albumin Ur Random Sodium COVID-19 Source SARS-CoV-2 (PCR) Influenza Type A (PCR) Influenza Type B (PCR) RSV (PCR) 12/18/22 12/19/22 12/19/22 22:08 00:19 03:32 WBC RBC Hgb Hct MCV MCH MCHC RDW Plt Count MPV Immature Gran % Neutrophils % Lymphocytes % Monocytes % Eosinophils % Basophils % Nucleated RBC % Absolute Neutrophils Absolute Lymphocytes Absolute Monocytes Absolute Eosinophils Absolute Basophils Sodium 129 L 130 L 130 L Potassium 3.7 Chloride 95 L Carbon Dioxide 26.9 Anion Gap 7.1 BUN 13 Creatinine 0.7 Est GFR (CKD-EPI 2020) 112.95 Glucose 137 H Calcium 9.0 Phosphorus Magnesium Total Bilirubin Conjugated Bilirubin AST ALT Alkaline Phosphatase Total Protein Albumin Ur Random Sodium COVID-19 Source SARS-CoV-2 (PCR) Influenza Type A (PCR) Influenza Type B (PCR) RSV (PCR) 12/19/22 12/19/22 12/19/22 06:15 06:15 06:15 WBC 10.71 RBC 4.46 Hgb 13.2 L Hct 37.9 L MCV 85 MCH 29.6 MCHC 34.8 RDW 13.0 Plt Count 224 MPV 9.4 Immature Gran % 0.4 Neutrophils % 73.3 Lymphocytes % 19.2 Monocytes % 6.1 Eosinophils % 0.5 Basophils % 0.5 Nucleated RBC % 0.0 Absolute Neutrophils 7.86 H Absolute Lymphocytes 2.06 Absolute Monocytes 0.65 Absolute Eosinophils 0.05 Absolute Basophils 0.05 Sodium 130 L Potassium 4.0 Chloride 94 L Carbon Dioxide 26.2 Anion Gap 9.8 BUN 9 Creatinine 0.6 L Est GFR (CKD-EPI 2020) 118.34 Glucose 108 H Calcium 9.2 Phosphorus Magnesium 2.3 Total Bilirubin 0.7 0.7 Conjugated Bilirubin 0.2 AST 80 H 81 H ALT 74 H Alkaline Phosphatase Total Protein Albumin Ur Random Sodium COVID-19 Source SARS-CoV-2 (PCR) Influenza Type A (PCR) Influenza Type B (PCR) RSV (PCR) 12/19/22 12/19/22 12/19/22 06:15 06:15 06:15 WBC RBC Hgb Hct MCV MCH MCHC RDW Plt Count MPV Immature Gran % Neutrophils % Lymphocytes % Monocytes % Eosinophils % Basophils % Nucleated RBC % Absolute Neutrophils Absolute Lymphocytes Absolute Monocytes Absolute Eosinophils Absolute Basophils Sodium Potassium Chloride Carbon Dioxide Anion Gap BUN Creatinine Est GFR (CKD-EPI 2020) Glucose Calcium Phosphorus Magnesium Total Bilirubin Conjugated Bilirubin AST ALT 74 H Alkaline Phosphatase 83 82 Total Protein 7.8 7.9 Albumin 3.3 L Ur Random Sodium COVID-19 Source SARS-CoV-2 (PCR) Influenza Type A (PCR) Influenza Type B (PCR) RSV (PCR) 12/19/22 06:15 WBC RBC Hgb Hct MCV MCH MCHC RDW Plt Count MPV Immature Gran % Neutrophils % Lymphocytes % Monocytes % Eosinophils % Basophils % Nucleated RBC % Absolute Neutrophils Absolute Lymphocytes Absolute Monocytes Absolute Eosinophils Absolute Basophils Sodium Potassium Chloride Carbon Dioxide Anion Gap BUN Creatinine Est GFR (CKD-EPI 2020) Glucose Calcium Phosphorus Magnesium Total Bilirubin Conjugated Bilirubin AST ALT Alkaline Phosphatase Total Protein Albumin 3.4 Ur Random Sodium COVID-19 Source SARS-CoV-2 (PCR) Influenza Type A (PCR) Influenza Type B (PCR) RSV (PCR) PAWSS Have you Been Recently Intoxicated or Drunk Within the Last 30 days?: Yes Have you Ever Experienced Previous Episodes of Alcohol Withdrawal?: Yes Have you ever Experienced Withdrawal Seizures?: Unable to Obtain Have you ever Experienced Delirium Tremens(DT)s?: Yes Have you ever undergone Alcohol Rehabilitation Treatment (i.e, inpt ot outpatient treatment programs)?: Yes Have you ever Experienced Blackouts?: Yes Have you ever Combined Alcohol with other Downers within the last 90 days?: No Have you ever Combined Alcohol with any other Substance of Abuse during the last 90 days?: No Positive Blood Alcohol level on Presentation? [PCS.BAL]: Yes Evidence of Increased Autonomic Activity (i.e. HR>120, tremor, sweating, agitation, nausea)?: Yes Result: 7 Time Spent with Patient Time Spent with Patient: 35-49 minutes Time was spent: preparing to see the patient(eg.review tests), ordering medications,tests, procedures, referring, communicating with other health menagerie caretaker, indepentently interpreting results, counseling the patient and care coordination
[2022-12-19 09:20] LABS: *AMPHETAMINES SCREEN URINE Negative (Negative); *BARBITURATES SCREEN URINE Negative (Negative); *BENZODIAZEPINES SCREEN URINE Negative (Negative); Cannabinoids THC Negative (Negative); Cocaine Screen,Urine Positive (Negative); METHADONE URINE SCREEN Positive (Negative); OPIATES URINE SCREEN Negative (Negative); Tricyclic Antidepressants Negative (Negative)
[2022-12-19 12:18] LABS: Anion Gap 7.6 mmol/L (3-11); BUN 11 mg/dL (7-18); CO2 25.4 mmol/L (21.0-32.0); CREATININE 0.8 mg/dL (0.70-1.30); Chloride 93 mmol/L (98-107); Estimated GFR 108.49 (mL/min/1.73m2); Glucose 108 mg/dL (74-106); Potassium 4.5 mmol/L (3.5-5.1); Sodium 126 mmol/L (136-145)
[2022-12-19] MEDS: Enoxaparin 40 MG/0.4 ML SYR SC (13:55)
[2022-12-19] MEDS: LORazepam 1 MG TAB PO/SL (14:07)
[2022-12-19 18:32] LABS: BUN 10 mg/dL (7-18); CREATININE 0.9 mg/dL (0.70-1.30); Calcium 8.8 mg/dL (8.5-10.1); Chloride 91 mmol/L (98-107); Glucose 112 mg/dL (74-106)
[2022-12-19 18:38] LABS: Sodium 124 mmol/L (136-145)
[2022-12-19] MEDS: Methadone Liquid 10 MG/ML 75 MG PO (19:31)
[2022-12-19] MEDS: Insulin Aspart 300 UNITS/3 ML PEN SC (21:27)
[2022-12-19 22:09] LABS: Anion Gap 6.9 mmol/L (3-11); BUN 10 mg/dL (7-18); CO2 25.1 mmol/L (21.0-32.0); CREATININE 1.1 mg/dL (0.70-1.30); Chloride 92 mmol/L (98-107); Estimated GFR 82.29 (mL/min/1.73m2); Glucose 157 mg/dL (74-106)
[2022-12-19 22:10] LABS: Sodium 124 mmol/L (136-145)
[2022-12-20 07:33] LABS: Anion Gap 7.9 mmol/L (3-11); BUN 8 mg/dL (7-18); CO2 29.1 mmol/L (21.0-32.0); CREATININE 0.8 mg/dL (0.70-1.30); Calcium 9.2 mg/dL (8.5-10.1); Chloride 97 mmol/L (98-107); Estimated GFR 108.49 (mL/min/1.73m2); Glucose 136 mg/dL (74-106); Potassium 4.1 mmol/L (3.5-5.1); Sodium 134 mmol/L (136-145)
[2022-12-20] MEDS: Lisinopril 20 MG TAB PO (08:16)
[2022-12-20] MEDS: Baclofen 10 MG TAB 20 MG PO ×3 (08:16→20:53)
[2022-12-20] MEDS: Methadone Liquid 10 MG/ML 100 MG PO (08:16)
[2022-12-20] MEDS: metFORMIN 500 MG TAB PO ×2 (08:16→20:53)
[2022-12-20] MEDS: Gabapentin 800 MG TAB PO ×3 (08:16→20:53)
[2022-12-20] MEDS: Thiamine 100 MG TAB PO (08:17)
[2022-12-20] MEDS: Clopidogrel 75 MG TAB PO (08:17)
[2022-12-20] MEDS: lamoTRIgine 100 MG TAB PO ×2 (08:17→20:53)
[2022-12-20] MEDS: Multivitamin TAB 1 TAB PO (08:17)
[2022-12-20] MEDS: Atorvastatin 40 MG TAB 80 MG PO (08:17)
[2022-12-20] MEDS: Loratidine 10 MG TAB PO (08:17)
[2022-12-20] MEDS: Pantoprazole 40 MG TABCR PO (08:17)
[2022-12-20] MEDS: Escitalopram 20 MG TAB PO (08:17)
[2022-12-20] MEDS: Folic Acid 1 MG TAB PO (08:18)
--- NOTE | 2022-12-20 08:58 | RESPIRATORY ---
RT spoke with patient concerning history of Sleep Apnea in his chart. Patient stated he does not have a machine or has ever done anything for it. He stated that he knows he stops breathing in his sleep and is interested in getting a device is needed. RT instructed patient to contact his PCP in order to get a referral to have a sleep study done to start the process. RT told patient the first step is to have a sleep study done to see if he qualifies for a device or not.
[2022-12-20 09:09] VITALS: BP 148/86; PULSE 91; RESP 14; TEMP 36.9; O2SAT 99
[2022-12-20 09:17] VITALS: TEMP 36.9
--- NOTE | 2022-12-20 09:45 | PGE_ITS ---
Date of Service Date of service: 12/20/22 Time of Service: 09:46 Assessment and Plan Assessment and plan (1) Acute hyponatremia: Status: Acute Assessment and plan: After initial correction of his hyponatremia with 3% saline and use of DDAVP clamp serum sodium had initially risen to as high as 130 yesterday requiring some extra D5W to bring him back down. Unfortunately because of the additional dose of DDAVP he got yesterday morning his serum sodium dropped to as low as 124 yesterday. However overnight with fluid restriction has come up to 134. At this point he should not need any further fluid restriction and should not need any further IV fluids. We will continue to monitor his electrolytes. Because of his increased anxiety and tremulousness and diaphoresis he still needs hospitalization for his acute alcohol withdrawal. Seems to be very sensitive to the lorazepam therefore I will give him a trial with oxazepam low-dose 5 mg. (2) Alcohol withdrawal: Status: Acute Assessment and plan: As noted above patient is not ready for discharge as he is showing some signs of increased anxiety and diaphoresis along with nausea suggesting that he is still in withdrawal. Trial of oxazepam as noted above. Patient remained in the ICU this morning but has been already approved for transfer to medical/surgical floor. As he is not scoring high on his CIWA scores he can be managed on the medical floor with oral benzodiazepines. Qualifiers: Complication of substance-induced condition: with perceptual disturbance Qualified Code(s): F10.932 - Alcohol use, unspecified with withdrawal with perceptual disturbance (3) Hypertension: Assessment and plan: continue lisinopril Qualifiers: Hypertension type: primary hypertension Qualified Code(s): I10 - Essential (primary) hypertension (4) Diabetes mellitus: Assessment and plan: continue metformin and monitor glucose AC/HS, add novolog Qualifiers: Diabetes mellitus type: type 2 Diabetes mellitus marine oil terminal superintendent insulin use: without alf use Diabetes mellitus complication status: without complication Qualified Code(s): E11.9 - Type 2 diabetes mellitus without compl ications (5) Opioid dependence: Assessment and plan: pharmacy has verified his dose of methadone from [facility]. He takes 100 mg in the morning and 75 mg in the afternoon Qualifiers: Substance use status: in withdrawal Qualified Code(s): F11.23 - Opioid dependence with withdrawal (6) Mood disorder: Assessment and plan: continue his lamictal (7) DVT prophylaxis: Status: Acute Assessment and plan: enoxaparin 40 mg SC daily; continue his aspirin and plavix for his cerebrovascular disease (carotid artery stenosis in setting of prior stroke). Subjective Subjective Interval history since last seen: Patient states he he has been sweating more than usual. No hallucinations and no pain but some mild nausea. Per nursing, CIWA scoring around 4. he has not been requiring further Ativan but he may well need some low doses. Ativan 1 mg completely snowed him. Exam Narrative Exam Narrative: Middle age white male sitting up in bed having finished his breakfast; he is alert and oriented Lungs: clear Heart: regular, does not sound to be tachycardic and no murmur Abdomen: soft, nondistended, nontedner Extremities: slight tremor in his outstretched hands, L>R Objective Last Vital Signs Temp 36.9 C 12/20/22 09:17 Pulse 91 H 12/20/22 09:09 Resp 14 12/20/22 09:09 BP 148/86 H 12/20/22 09:09 Pulse Ox 99 12/20/22 09:09 Laboratory Results - last 24 hr 12/18/22 12/19/22 12/19/22 09:00 12:00 18:10 Sodium 126 L 124 L Potassium 4.5 4.0 Chloride 93 L 91 L Carbon Dioxide 25.4 27.0 Anion Gap 7.6 6.0 BUN 11 10 Creatinine 0.8 0.9 Est GFR (CKD-EPI 2020) 108.49 104.70 Glucose 108 H 112 H Calcium 9.0 8.8 Urine Osmolality 625 Urine Legionella Ag Negative 12/19/22 12/20/22 21:55 06:10 Sodium 124 L 134 L D Potassium 4.0 4.1 Chloride 92 L 97 L Carbon Dioxide 25.1 29.1 Anion Gap 6.9 7.9 BUN 10 8 Creatinine 1.1 0.8 Est GFR (CKD-EPI 2020) 82.29 108.49 Glucose 157 H 136 H Calcium 9.0 9.2 Urine Osmolality Urine Legionella Ag PAWSS Have you Been Recently Intoxicated or Drunk Within the Last 30 days?: Yes Have you Ever Experienced Previous Episodes of Alcohol Withdrawal?: Yes Have you ever Experienced Withdrawal Seizures?: Unable to Obtain Have you ever Experienced Delirium Tremens(DT)s?: Yes Have you ever undergone Alcohol Rehabilitation Treatment (i.e, inpt ot outpatient treatment programs)?: Yes Have you ever Experienced Blackouts?: Yes Have you ever Combined Alcohol with other Downers within the last 90 days?: No Have you ever Combined Alcohol with any other Substance of Abuse during the last 90 days?: No Positive Blood Alcohol level on Presentation? [PCS.BAL]: Yes Evidence of Increased Autonomic Activity (i.e. HR>120, tremor, sweating, agitation, nausea)?: Yes Result: 7 Time Spent with Patient Time Spent with Patient: 35-49 minutes Time was spent: preparing to see the patient(eg.review tests), ordering medications,tests, procedures, referring, communicating with other health school child care attendant (Discussed with care management and nursing), indepentently interpreting results, counseling the patient and care coordination
[2022-12-20 09:59] VITALS: BP 158/89; PULSE 100; RESP 18; TEMP 37.1; O2SAT 96
[2022-12-20] MEDS: Oxazepam 10 MG CAP PO (10:48)
[2022-12-20] MEDS: Nicotine 7 MG/24 HR PATCH TD (10:48)
[2022-12-20 11:17] VITALS: BP 131/76; PULSE 94; RESP 18; TEMP 36.6; O2SAT 96
[2022-12-20] MEDS: Enoxaparin 40 MG/0.4 ML SYR SC (14:26)
[2022-12-20 14:58] VITALS: BP 136/87; PULSE 83; RESP 18; TEMP 36.2; O2SAT 95
--- NOTE | 2022-12-20 17:23 | PDOC.CMPRO ---
Date of service: 12/20/22 Time of Service: 17:23 Care Management Progress Note Progress Note Text Progress Note Text: S/O:Nanette was asleep each time CM attempted to meet with him. He felt a bit tremulous this morning and was diaphoretic so was given a single dose of Serax, which may have made him sleepy. He did not respond to voice or gentle touch. Nanette scored 4 on the CIWA scale this morning and early afternoon but scored 0 later in the day. His blood pressure has been a little high and his heart rate has been between 90 and 100 most of the day. Fortunately, his sodium is normalizing and was 134 this morning. A: Nanette is a 47 year old man admitted on 12/18/22 with hyponatremia and ETOH withdrawal P:Anticipate Feliciano (Nanette) will be discharged home with no new services . He will follow up with his community providers and plan of care and transport with family. CM will follow and assess for discharge concerns.
[2022-12-20] MEDS: Insulin Aspart 300 UNITS/3 ML PEN SC (17:47)
[2022-12-20] MEDS: Normal Saline Flush 10 ML SYR IVP (17:47)
[2022-12-20 20:02] VITALS: BP 134/87; PULSE 98; RESP 16; TEMP 36.7; O2SAT 96
[2022-12-20] MEDS: Methadone Liquid 10 MG/ML 75 MG PO (20:53)
[2022-12-20] MEDS: Acetaminophen 325 MG TAB PO (21:01)
[2022-12-21 00:32] VITALS: BP 138/85; PULSE 85; RESP 16; TEMP 36.7; O2SAT 96
[2022-12-21 04:18] VITALS: BP 147/93; PULSE 77; RESP 16; TEMP 36.6; O2SAT 95
[2022-12-21] MEDS: Pantoprazole 40 MG TABCR PO (07:37)
[2022-12-21 07:43] VITALS: BP 155/93; PULSE 88; RESP 16; TEMP 35.9; O2SAT 97
[2022-12-21] MEDS: Escitalopram 20 MG TAB PO (07:50)
[2022-12-21] MEDS: Atorvastatin 40 MG TAB 80 MG PO (07:50)
[2022-12-21] MEDS: Gabapentin 800 MG TAB PO ×2 (07:50→14:26)
[2022-12-21] MEDS: metFORMIN 500 MG TAB PO (07:51)
[2022-12-21] MEDS: Baclofen 10 MG TAB 20 MG PO ×2 (07:51→14:26)
[2022-12-21] MEDS: Thiamine 100 MG TAB PO (07:51)
[2022-12-21] MEDS: Loratidine 10 MG TAB PO (07:51)
[2022-12-21] MEDS: Lisinopril 20 MG TAB PO (07:52)
[2022-12-21] MEDS: Folic Acid 1 MG TAB PO (07:52)
[2022-12-21] MEDS: Multivitamin TAB 1 TAB PO (07:52)
[2022-12-21] MEDS: lamoTRIgine 100 MG TAB PO (07:52)
[2022-12-21] MEDS: Clopidogrel 75 MG TAB PO (07:52)
[2022-12-21] MEDS: Insulin Aspart 300 UNITS/3 ML PEN SC (08:02)
[2022-12-21] MEDS: Acetaminophen 325 MG TAB PO (08:02)
[2022-12-21 08:04] LABS: Anion Gap 8.4 mmol/L (3-11); BUN 8 mg/dL (7-18); CO2 28.6 mmol/L (21.0-32.0); CREATININE 0.7 mg/dL (0.70-1.30); Calcium 9.6 mg/dL (8.5-10.1); Chloride 97 mmol/L (98-107); Estimated GFR 112.95 (mL/min/1.73m2); Glucose 165 mg/dL (74-106); Potassium 3.8 mmol/L (3.5-5.1); Sodium 134 mmol/L (136-145)
--- NOTE | 2022-12-21 09:11 | PDOC.CMPRO ---
Date of service: 12/21/22 Time of Service: 09:11 Care Management Progress Note Progress Note Text Progress Note Text: S/O:Nanette A: Nanette is a 47 year old man admitted on 12/18/22 with hyponatremia and ETOH withdrawal P:Anticipate Feliciano (Nanette) will be discharged home with no new services . He will follow up with his community providers and plan of care and transport with family. CM will follow and assess for discharge concerns.
[2022-12-21] MEDS: Methadone Liquid 10 MG/ML 100 MG PO (09:36)
[2022-12-21] MEDS: Nicotine 7 MG/24 HR PATCH TD (10:52)
[2022-12-21 11:11] VITALS: BP 133/88; PULSE 79; RESP 18; TEMP 36.8; O2SAT 98
--- NOTE | 2022-12-21 13:36 | W.PM.DS.N ---
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 Who presented to the ER for evaluation. he was found him to be diaphoretic, tremulous, but not frankly hallucinating, workup included CXR (negative for acute findings), labs (CBC: WBC 14,000, no anemia or dyscrasia), CMP demonstrated hyponatremia (Na 119), mild transaminitis 9AST 85, ALT 81, normal bilirubin and alkaline phosphatase), blood alcohol level 10.4 mg/dL, FLUVID negative for SARS-COV2, RSV, and influenza A&B. Patient was treated for the hyponatremia with bolus of normal saline and repeat serum sodium of 121 at which point the ED provider ordered 3% saline x 100 mL to be given. His subsequent sodium levels have risen to 126, 127 and then 128. He was also given Ativan 0.5 mg IV for acute alcohol withdrawal. He is admitted to ICU for close monitoring and treatment of his alcohol withdrawal and hyponatremia. He was started him on DDAVP to avoid over correction of his hyponatremia. His alcohol withdrawal symptoms initially responded to Ativan. His sodium improved. He was down stepped to the medical surgical unit for further monitoring. After being transferred to the floor he did experience some increased anxiety and diaphoresis along with nausea so was trialed on oxazepam with good response. He is now medically stable and ready for discharge to home. He will be discharged with no services Discharge is discussed with Dr. Ramos there are no new prescriptions at discharge he will follow-up with his primary care provider outpatient for chronic disease management Home Meds and New Rx's Prescriptions: Continued nicotine 7 mg/24 hr patch 24 hour 1 patch transdermal Q24H clopidogrel 75 mg tablet 75 mg PO DAILY atorvastatin 80 mg tablet 80 mg PO DAILY baclofen 20 mg tablet 20 mg PO TID hydroxyzine HCl 25 mg tablet 25 mg PO TID PRN pantoprazole 40 mg tablet,delayed release (DR/EC) 40 mg PO DAILY polyethylene glycol 3350 17 gram/dose powder 17 g PO DAILY docusate sodium [Colace] 100 mg capsule 100 mg PO BID PRN gabapentin 800 mg tablet 800 mg PO TID escitalopram oxalate 20 mg tablet 20 mg PO DAILY lisinopril 20 mg tablet 20 mg PO DAILY metformin 500 mg tablet 500 mg PO BID loratadine [Allergy Relief (loratadine)] 10 mg tablet 10 mg PO DAILY methadone 10 MG/ML concentrate 75 mg PO DAILY@1600 Patient Comments: 100 in am 75 in pm methadone 10 mg/mL Concentrate 100 mg PO DAILY AM lamotrigine [Lamictal] 100 mg Tablet 100 mg PO BID thiamine HCl (vitamin B1) 100 mg tablet 100 mg PO DAILY Qty: 30 0RF No Action lorazepam 0.5 mg tablet 0.5 mg PO ONCE PRN (Reason: anxiety/claustrophobia) Qty: 2 0RF Rx Instructions: Take one tablet 30min prior to MRI. Ok to take second at time of MRI if still anxious. Do not drive after taking. sildenafil [Viagra] 100 mg tablet 100 mg PO DAILY PRN Rx Instructions: administer 30 minutes to 4 hours before activity metoprolol tartrate 50 mg Tablet 50 mg PO BID Qty: 60 0RF Discharge Instructions Instructions: Hyponatremia (DC), Abuse of Alcohol (DC) Stand Alone Forms: Nursing Discharge Form Referrals: Albert Bateman [ [facility] STAFF PHYSICIAN] - 01/04/23 11:00 am Activity:: Activity as Tolerated Equipment/Supplies:: No Equipment Needed Diet:: As Tolerated Discharge Orders Discharge Orders: Discharge Order (Routine); Ordered 12/21/22 Ordered By: Melissa Reardon Discharge Data Discharge Date/Time-TO BE ENTERED AT DEPARTURE: 12/21/22 15:03 Discharge Comment: dc home DS: Summary Time Spent with Patient providing and/or coordinating discharge services: Less than 30 minutes Status at Discharge Functional status at discharge: independent ambulation Overall status at discharge: patient is back to baseline Mental Status: mental status grossly normal Speech and Movement: speech and movement normal Mood: congruent mood Affect: normal affect Exam Const General: cooperative and no acute distress Nutritional Appearance: average body habitus Orientation: alert and oriented x3 HENMT Head: normocephalic Neck Neck: full ROM and no JVD Resp Effort & Inspection: normal respiratory effort Auscultation: clear to auscultation bilaterally Cardio Rate: regular rate Rhythm: regular rhythm GI Inspection: non-distended Palpation: soft and nontender Auscultation: normal bowel sounds Skin General skin exam: no rashes or lesions noted Neuro General: no focal motor deficits Cranial Nerves: facial strength normal Speech: speech normal Extrem General: no pedal edema and no calf tenderness Psych Appearance: grossly normal Mental Status: mental status grossly normal Speech and Movement: speech and movement normal Mood: congruent mood Affect: normal affect DS: Data Vitals/I&O Vitals and I&O: Vital Signs Temperature 36.8 C 12/21/22 11:11 Temperature Source Tympanic 12/21/22 11:11 Pulse 79 12/21/22 11:11 Pulse Rhythm Regular 12/21/22 08:04 Pulse 96 H 12/19/22 09:01 Respiratory Rate 18 12/21/22 11:11 Respiratory Effort Normal, Non-Labored 12/21/22 08:04 Respiratory Depth Normal 12/21/22 08:04 Respiratory Pattern Normal 12/21/22 08:04 Blood Pressure 133/88 12/21/22 11:11 Blood Pressure Mean 103 12/20/22 09:09 Blood Pressure Position Supine 12/19/22 07:23 Pulse Oximetry 98 12/21/22 11:11 Oxygen Delivery Method Room Air 12/21/22 11:11 Oxygen Flow Rate 0 12/21/22 11:11 Pain Level 0 12/21/22 11:11 Comment bp called over radio 12/20/22 09:59 Intake & Output 12/20/22 12/21/22 12/21/22 23:59 11:59 23:59 Intake Total 1900 / 3290 920 / 930 Output Total 2049 2950 / 2950 Balance -150 / -2160 -2940 / -2020 Intake: IV Oral 1900 / 2290 920 Output: Urine 2049 2950 / 2950 Other: Urine Color Pale Yellow Urine Appearance Clear Clear Urine Odor None Normal Voiding Methods Urinal Urinal Data Completed and Pending Labs on day of discharge: Labs from last 24 hours 12/21/22 06:09 Sodium 134 L Potassium 3.8 Chloride 97 L Carbon Dioxide 28.6 Anion Gap 8.4 BUN 8 Creatinine 0.7 Est GFR (CKD-EPI 2020) 112.95 Glucose 165 H Calcium 9.6 PFSH All Active Problems (Updated 12/18/22 @ 19:18 by Aleks Vasquez MD) DVT prophylaxis (Acute) Acute hyponatremia (Acute) Alcohol withdrawal (Acute) Left carotid stenosis (Acute) Right carotid artery occlusion (Acute) CVA (cerebral vascular accident) (Chronic) Tobacco abuse (Acute) Elevated blood pressure reading (Acute) Anxiety and depression (Acute) Vomiting and diarrhea (Acute) Alcohol abuse (Chronic) Alcohol withdrawal (Acute) Electrolyte and fluid disorder (Acute) Alcoholic hepatitis (Acute) Medical History TBI (traumatic brain injury) Hyperlipidemia Mood disorder Spinal stenosis of lumbar region BMI 32.0-32.9,adult Hypertension Nephropathy Weakness of left leg ETOH abuse Degenerative disc disease ADHD Gynecomastia GERD (gastroesophageal reflux disease) Opioid dependence Chronic constipation Erectile dysfunction Hidradenitis suppurativa Diabetes mellitus Sleep apnea Eczema of both hands Headache Scrotal abscess Sinusitis Surgical History S/P lumbar spine operation Family History Mother Stroke Father Heart disease Social History Smoking/Tobacco Use Status: Current every day Smoking risk assessment performed?: Yes Alcohol Intake: former Drug use: Current Sobriety Substance use type: former substance user and marijuana Housing: house Number of Children: 4 current occupation: Disabled Do you feel safe at home: Yes Do you feel safe in your relationship?: Yes Time Spent with Patient Time Spent with Patient: <45 minutes Time was spent: preparing to see the patient(eg.review tests), indepentently interpreting results and counseling the patient
[2022-12-21] MEDS: Enoxaparin 40 MG/0.4 ML SYR SC (14:26)
--- NOTE | 2022-12-21 14:54 | PDOC.CMDIS ---
Date of service: 12/21/22 Time of Service: 14:55 LACE Index Scoring Tool Questions: Length of Stay (in days): 3 Was the patient admitted via the E.D.?: Yes Comorbidities: Cerebrovascular Disease and Liver or Renal Disease E.D. Visits: 1 Answers: Total Score: 12 Risk of Readmission: High Risk Care Management Discharge Plan Reason for Hospitalization: Hyponatremia and alcohol withdrawal Discharge Plan: Feliciano Phillips) will be discharged home with no new services . He will follow up with his community providers and plan of care and transport with family. Patient/Family Education Needs: Review of discharge instructions, limitations, activity, follow up plan, discuss Ask Me Three
== END 2022-12-21 15:03 | disposition home or self-care (01) | DRG 641 ==
LOC: ER 07:34 → ICU 13:43 → MS 12-20 09:45
PROVIDERS: Internal Medicine; Admitting Provider Internal Medicine; Emergency Provider Student in an Organized Health Care Education/Training Program; PCP Nurse Practitioner Family; Visit Provider Internal Medicine
DX: E87.1 Hypo-osmolality and hyponatremia (principal); F10.932 Alcohol use, unspecified with withdrawal with perceptual disturbance; F11.23 Opioid dependence with withdrawal; I69.354 Hemiplegia and hemiparesis following cerebral infarction affecting left non-dominant side; I10 Essential (primary) hypertension; Z79.84 Long term (current) use of oral hypoglycemic drugs; R74.01 Elevation of levels of liver transaminase levels; I65.23 Occlusion and stenosis of bilateral carotid arteries; F17.210 Nicotine dependence, cigarettes, uncomplicated; F41.8 Other specified anxiety disorders; K70.10 Alcoholic hepatitis without ascites; E78.5 Hyperlipidemia, unspecified; F39 Unspecified mood [affective] disorder; M48.061 Spinal stenosis, lumbar region without neurogenic claudication; F90.9 Attention-deficit hyperactivity disorder, unspecified type; K21.9 Gastro-esophageal reflux disease without esophagitis; K59.09 Other constipation; N62 Hypertrophy of breast; N52.9 Male erectile dysfunction, unspecified; E11.21 Type 2 diabetes mellitus with diabetic nephropathy; L30.8 Other specified dermatitis; G47.30 Sleep apnea, unspecified
CPT/HCPCS: 00123; 36415; 80048; 80053; 80076; 80307; 83690; 83935; 87426; 87449; 87637; 87801; 93005; 99291; J1650; 71046; 80320; 83735; 83880; 84100; 84295; 84300; 84484; 85025; 93010; 99232; 99238; J1885; J2405; J2597; J7060

== ENCOUNTER 2023-07-11 13:20 | Outpatient (REF) | payer MEDICAID, SELFPAY ==
[2023-07-11 16:31] LABS: Hemoglobin A1C 6.4 % (<5.7)
[2023-07-11 16:40] LABS: Anion Gap 11.1 mmol/L (3-11); BUN 8 mg/dL (7-18); CO2 25.9 mmol/L (21.0-32.0); CREATININE 0.8 mg/dL (0.70-1.30); Calcium 9.4 mg/dL (8.5-10.1); Calculated LDL 61 mg/dL (<100); Chloride 103 mmol/L (98-107); Cholesterol 133 mg/dL (<200); Estimated GFR 107.82 (mL/min/1.73m2); Glucose 259 mg/dL (74-106); HDL Cholesterol 50 mg/dL (40-60); Potassium 4.4 mmol/L (3.5-5.1); Sodium 140 mmol/L (136-145); Triglyceride 111 mg/dL (<150)
== END 2023-07-11 13:21 | disposition home or self-care (01) ==
LOC: NCHCN 13:20
PROVIDERS: PCP Student in an Organized Health Care Education/Training Program; Visit Provider Student in an Organized Health Care Education/Training Program
DX: E11.9 Type 2 diabetes mellitus without complications (principal); I10 Essential (primary) hypertension
CPT/HCPCS: 80048; 80061; 83036

== ENCOUNTER 2024-06-10 00:03 | Inpatient (IN) | payer MEDICARE, MEDICAID, SELFPAY ==
[2024-06-10] VITALS (192 sets, daily range): BP systolic 109–230; BP diastolic 57–118; PULSE 63–121; RESP 7–38; TEMP 36.5–37.3; O2SAT 79–100
--- NOTE | 2024-06-10 | RT.EKG_ITS ---
APPROVED REPORT Exam: Resting ECG Reason for Exam: stroke like symptoms Patient Location: E HR:106 bpm ECG Measurements Heart Rate 106 AXIS WY 149 P 78 QRSd 72 QRS 9 QT 288 T 32 QTc 383 Conclusion Sinus tachycardia...rate> 99 Probable left atrial enlargement...P >50mS, <-0.10mV V1 Physician: no stemi
--- NOTE | 2024-06-10 00:15 | DI.CT_ITS ---
Exam(s) CT BRAIN NECK CTA EXAM: CT BRAIN NECK CTA CLINICAL HISTORY: Left sided weakness, history of stroke. TECHNIQUE: Imaging Protocol: Axial CT angiography was performed with multi-slice acquisition and mu lti-planar and MIP reconstructions. CONTRAST MATERIAL: Intravenous: Omnipaque 350 Contrast volume:100 ml COMPARISON: CT CT BRAIN NECK CTA from 05/23/2022 FINDINGS: CT Head W/O and W contrast: Ventricles and Extra axial spaces: Slight dilatation of the right lateral ventricle. Hemorrhage: None. Cerebral parenchyma: No evidence of acute infarct or mass. Small area of old infarct in the high pos teromedial right frontal parietal region. Old basal ganglia lacunar infarcts. Midline shift: None. Brainstem/Cerebellum: No acute findings.. Calvarium: Normal chronic deformity at left frontal skull. Visualized Paranasal sinuses/Mastoids: Mucosal thickening of the sinuses. Opacification of multiple ethmoid sinuses. Mastoid air cells are clear. Soft Tissues: Unremarkable. Enhancement: Normal. CTA Brain W: Internal Carotid Arteries: There is again noted to be occlusion of the right internal carotid artery with reconstitution at the supraclinoid region. The left internal carotid artery shows no significant stenosis. Middle Cerebral Arteries: Right: No aneurysm, occlusion or significant stenosis. Left: No aneurysm, occlusion or significant stenosis. Anterior Cerebral Arteries: Right: No aneurysm, occlusion or significant stenosis. Left: No aneurysm, occlusion or significant stenosis. Posterior cerebral Arteries: Right: No aneurysm, occlusion or significant stenosis. Left: No aneurysm, occlusion or significant stenosis. Vertebral Arteries: Right: No aneurysm, occlusion or significant stenosis. Left: No aneurysm, occlusion or significant stenosis. Basilar Artery: No aneurysm, occlusion or significant stenosis. CTA Neck W: Common Carotid: Right: No dissection, occlusion or significant stenosis. Left: No dissection, occlusion or significant stenosis. External Carotid: Right: No dissection, occlusion or significant stenosis. Left: No dissection, occlusion or significant stenosis. Internal Carotid: Right: Occluded, as on prior. Left: There is mixed calcific and noncalcific plaque at the origin with apparent severe stenosis, how ever there is some motion in this area somewhat limiting the evaluation. Vertebral Artery: Right: No dissection, occlusion or significant stenosis. Left: No dissection, occlusion or significant stenosis. Lung Apices: No acute findings. Bones: No acute abnormality. Soft Tissues: Normal. IMPRESSION: 1. CTA brain: Occlusion of the right internal carotid artery again noted. 2. Head CT: Old right frontal parietal and basal ganglia lacunar infarcts. 3. CTA neck: Occlusion of the right internal carotid artery from origin through supraclinoid portion where it is reconstituted. This was noted on prior exam. There is mixed plaque at the origin of the left internal carotid artery with apparent severe stenosis which appears greater on the prior exam h owever there is motion at this level. RADIATION DOSE DELIVERED: 2,184.47mGy.cm Total DLP DATA REPOSITORY: All CT scans at this facility are submitted to the National Radiology Data Registry (NRDR) Dose Index Registry (DIR) with the [employer] ([employer]). RADIATION OPTIMIZATION: All CT scans at this facility use at least one of these dose optimization te chniques: automated exposure control; mA and/or kV adjustment per patient size (includes targeted exa ms where dose is matched to clinical indication); or iterative reconstruction.
--- NOTE | 2024-06-10 00:15 | DI.CT_ITS ---
Exam(s) CT CHEST PE CTA EXAM: CT CHEST PE CTA CLINICAL HISTORY: Chest heaviness and pressure, shortness of breath. TECHNIQUE: Imaging Protocol: Axial CT angiography was performed with multi-slice acquisition and mu lti-planar reconstructions as well as axial, coronal and sagittal MIP reconstructions. Computer aided detection (CAD) was utilized. CONTRAST MATERIAL: Intravenous: Omnipaque 350 Contrast volume:80 ml COMPARISON: CR XR CHEST 2V PA LATERAL from 12/18/2022 FINDINGS: Pulmonary Arteries: No evidence of filling defect to suggest pulmonary emboli. Mediastinum and Reyna: No dominant adenopathy or fluid collection. Tiny hiatal hernia. Pulmonary parenchyma: No consolidation or dominant measurable mass. Pleura: No effusion or pneumothorax. Heart: The heart is not dilated. Mild coronary artery calcifications are seen. Aorta: Thoracic aorta non-dilated. No dissection. Mild atherosclerotic changes. Upper abdomen: No acute findings. Bones: Unremarkable for age. Tubes, Catheters, and Lines: None Soft tissues: Mild bilateral gynecomastia. IMPRESSION: No evidence of pulmonary embolism or other acute abnormality.. RADIATION DOSE DELIVERED: 78.85mGy.cm Total DLP DATA REPOSITORY: All CT scans at this facility are submitted to the National Radiology Data Registry (NRDR) Dose Index Registry (DIR) with the [employer] ([employer]). RADIATION OPTIMIZATION: All CT scans at this facility use at least one of these dose optimization te chniques: automated exposure control; mA and/or kV adjustment per patient size (includes targeted exa ms where dose is matched to clinical indication); or iterative reconstruction.
[2024-06-10 00:23] LABS: BE (Venous) -3 mmol/L (-2-3); HCO3 (Venous) 23 mmol/L (23-28); O2 Sat (Venous) 85 %; TCO2 (Venous) 21 mmol/L (24-29); pCO2 (Venous) 42 mmHg (41-51); pH (Venous) 7.35 (7.31-7.41); pO2 (Venous) 58 mmHg
[2024-06-10] MEDS: nitroGLYcerin 0.4 MG TAB SL (00:23)
[2024-06-10] MEDS: Lactated Ringers 1,000 ML 1000 ML IV (00:24)
[2024-06-10 00:25] LABS: Abs Immature Grans 0.06 10^3/uL (0.0-0.06); Absolute Basophil Count 0.14 10^3/uL (0.0-0.2); Absolute Neutrophil Count 10.17 10^3/uL (1.2-6.7); Eosinophils % 0.1 %; HCT 42.1 % (40.0-50.0); Immature Grans % 0.4 %; MCH 29.4 pg (27.0-33.0); MCHC 33.3 % (32.0-36.0); MCV 88 fL (80-95); Monocytes % 3.4 %; Neutrophils % 71.1 %; Platelet Count 420 10^3/uL (130-400); RBC 4.76 10^6/uL (4.36-5.78); RDW 12.9 % (11.8-14.1); RDW-SD 42.1 fL; WBC 14.31 10^3/uL (4.4-10.8)
[2024-06-10 00:26] LABS: Absolute Eosinophil Count 0.01 10^3/uL (0.0-0.7); Absolute Lymphocyte Count 3.43 10^3/uL (1.2-3.4); Absolute Monocyte Count 0.49 10^3/uL (0.1-0.8)
[2024-06-10 00:38] LABS: INR 1.1 (0.9-1.1); Prothrombin Time 11.2 sec (9.1-11.1)
[2024-06-10 00:46] LABS: ETHANOL BLOOD 127.3 mg/dL (<10)
[2024-06-10 00:47] LABS: ALT 293 U/L (16-63); AST 308 U/L (15-37); Albumin 3.4 g/dL (3.4-5.0); Alkaline Phosphatase 109 U/L (46-116); Anion Gap 15.2 mmol/L (3-11); BUN 11 mg/dL (7-18); Bilirubin, Total 0.4 mg/dL (0.2-1.0); CO2 23.8 mmol/L (21.0-32.0); CREATININE 0.9 mg/dL (0.70-1.30); Calcium 8.2 mg/dL (8.5-10.1); Chloride 100 mmol/L (98-107); Glucose 157 mg/dL (74-106); Lipase 16 U/L (<78); Potassium 3.7 mmol/L (3.5-5.1); Sodium 139 mmol/L (136-145); Total Protein 7.7 g/dL (6.4-8.2); Troponin I 5 ng/L (<or=76)
[2024-06-10 00:53] LABS: NT-proBNP 104 pg/mL (<300); TSH (W/Ref FT4) 0.87 uIU/mL (0.36-3.74)
[2024-06-10] MEDS: Omnipaque 350 MG/ML 100 ML BTL IJ (01:00)
[2024-06-10] MEDS: Omnipaque 350 MG/ML 50 ML BTL IJ (01:00)
[2024-06-10] MEDS: Normal Saline - Diluent 50 ML VIAL IJ ×2 (01:04→01:05)
[2024-06-10] MEDS: Normal Saline Flush 10 ML SYR IVP ×3 (01:05→13:52)
--- NOTE | 2024-06-10 01:09 | W.ED.GENAD ---
Discharge Plan Disposition Patient Disposition: Admit to [facility] Discharge Details Clinical Impression: Left-sided weakness, Alcohol withdrawal, Stroke, Hypertensive urgency Primary Care Provider: Mikey Martínez ED Provider: Luis Alvarenga Home Meds and New Rx's Prescriptions: No Action lorazepam 0.5 mg tablet 0.5 mg PO ONCE PRN (Reason: anxiety/claustrophobia) Qty: 2 0RF Rx Instructions: Take one tablet 30min prior to MRI. Ok to take second at time of MRI if still anxious. Do not drive after taking. nicotine 7 mg/24 hr patch 24 hour 1 patch transdermal Q24H clopidogrel 75 mg tablet 75 mg PO DAILY atorvastatin 80 mg tablet 80 mg PO DAILY baclofen 20 mg tablet 20 mg PO TID hydroxyzine HCl 25 mg tablet 25 mg PO TID PRN pantoprazole 40 mg tablet,delayed release (DR/EC) 40 mg PO DAILY polyethylene glycol 3350 17 gram/dose powder 17 g PO DAILY docusate sodium [Colace] 100 mg capsule 100 mg PO BID PRN gabapentin 800 mg tablet 800 mg PO TID escitalopram oxalate 20 mg tablet 20 mg PO DAILY lisinopril 20 mg tablet 20 mg PO DAILY metformin 500 mg tablet 500 mg PO BID sildenafil [Viagra] 100 mg tablet 100 mg PO DAILY PRN Rx Instructions: administer 30 minutes to 4 hours before activity loratadine [Allergy Relief (loratadine)] 10 mg tablet 10 mg PO DAILY methadone 10 MG/ML concentrate 75 mg PO DAILY@1600 Patient Comments: 100 in am 75 in pm methadone 10 mg/mL Concentrate 100 mg PO DAILY AM lamotrigine [Lamictal] 100 mg Tablet 100 mg PO BID metoprolol tartrate 50 mg Tablet 50 mg PO BID Qty: 60 0RF thiamine HCl (vitamin B1) 100 mg tablet 100 mg PO DAILY Qty: 30 0RF HPI General Date/Time Provider Initiated Documentation: 06/10/24 00:05. HPI Narrative: This is a 49-year-old male with a past medical history of stroke about 2 years ago with subsequent chronic left-sided deficits, TBI, high cholesterol, hypertension, previous tobacco use currently now just using chew tobacco, diabetes mellitus, alcohol use, who is not currently on any blood thinners or antiplatelets (uncertain as to why) who presents today for evaluation of chest discomfort and weakness. Patient states that at 6 PM he developed mild shortness of breath, mild chest pressure, and weakness in his left leg that was worse than normal, as well as slight weakness that was worsening in his left arm. The symptoms remain stable and persistent for the last 6 hours. He did drink some alcohol tonight. He denies any falls or trauma. He denies any vomiting or diarrhea. He denies any history of heart attack. He denies any other complaints at this time. Related Data Home Medications ?Medication ?Instructions ?Recorded ?Confirmed methadone 10 mg/mL oral concentrate 75 mg PO DAILY@1600 09/03/15 06/10/24 lamotrigine 100 mg tablet 100 mg PO BID 12/16/20 06/10/24 (Lamictal) methadone 10 mg/mL oral concentrate 100 mg PO DAILY AM 12/16/20 06/10/24 metoprolol tartrate 50 mg tablet 50 mg PO BID #60 tabs 12/17/20 06/10/24 thiamine HCl (vitamin B1) 100 mg 100 mg PO DAILY #30 tabs 12/17/20 06/10/24 tablet atorvastatin 80 mg tablet 80 mg PO DAILY 07/18/22 06/10/24 baclofen 20 mg tablet 20 mg PO TID 07/18/22 06/10/24 clopidogrel 75 mg tablet 75 mg PO DAILY 07/18/22 06/10/24 docusate sodium 100 mg capsule 100 mg PO BID PRN 07/18/22 06/10/24 (Colace) escitalopram oxalate 20 mg tablet 20 mg PO DAILY 07/18/22 06/10/24 gabapentin 800 mg tablet 800 mg PO TID 07/18/22 06/10/24 hydroxyzine HCl 25 mg tablet 25 mg PO TID PRN 07/18/22 06/10/24 lisinopril 20 mg tablet 20 mg PO DAILY 07/18/22 06/10/24 loratadine 10 mg tablet (Allergy 10 mg PO DAILY 07/18/22 06/10/24 Relief (loratadine)) metformin 500 mg tablet 500 mg PO BID 07/18/22 06/10/24 nicotine 7 mg/24 hr daily 1 patch transdermal Q24H 07/18/22 06/10/24 transdermal patch pantoprazole 40 mg tablet,delayed 40 mg PO DAILY 07/18/22 06/10/24 release polyethylene glycol 3350 17 17 g PO DAILY 07/18/22 06/10/24 gram/dose oral powder sildenafil 100 mg tablet (Viagra) 100 mg PO DAILY PRN 07/18/22 06/10/24 lorazepam 0.5 mg tablet 0.5 mg PO ONCE PRN 08/15/22 06/10/24 anxiety/claustrophobia #2 tabs Previous Rx's ?Medication ?Instructions ?Recorded metoprolol tartrate 50 mg tablet 50 mg PO BID #60 tabs 12/17/20 thiamine HCl (vitamin B1) 100 mg 100 mg PO DAILY #30 tabs 12/17/20 tablet lorazepam 0.5 mg tablet 0.5 mg PO ONCE PRN 08/15/22 anxiety/claustrophobia #2 tabs Allergies Allergy/AdvReac Type Severity Reaction Status Date / Time tolmetin Allergy Unknown Unverified 06/10/24 00:14 General Stated Complaint: GenMedical KARL: 2 Exam Narrative Exam Narrative: 1.Const: Well-nourished, Well-developed, appearing stated age 2.Eyes: PERRL, no conjunctival injection, and symmetrical lids. 3.ENT: Atraumatic external nose and ears. Moist MM. Neck: Symmetric, trachea midline, No thyromegaly. 4.CVS: +S1/S2, Peripheral pulses 2+ and equal in all extremities. Brisk capillary refill in all extremities. 5.RESP: Unlabored respiratory effort. Clear to auscultation bilaterally. No wheezes rales or rhonchi 6.GI: Soft, Nontender/Nondistended, No hepatosplenomegaly. No guarding or rebound. 7.MSK: Normocephalic/Atraumatic, Extremities w/o deformity or ttp No cyanosis or clubbing, Normal movement of all extremities 8.Skin: Warm, Dry. No rashes or lesions. 9.Neuro: radiation monitor II-XII grossly intact. Sensation grossly intact, mild weakness on left lower extremity in the left upper extremity compared to the right. Patient states that this is slightly worse than his normal baseline. No dysdiadochokinesia or dysmetria for the upper extremities. Normal [id number]. Left lower extremity is unable to perform [id number], which she states is similar but slightly worse than normal. Right lower extremity functions normally with no weakness or deficit. No slurring of speech. 10.Psych: (AAO) x3. Appropriate mood and affect Course Vital Signs Vital signs: Vital Signs Pulse 115 H 06/10/24 00:06 Respiratory Rate 20 06/10/24 00:06 Blood Pressure 213/95 H 06/10/24 00:06 Pulse Oximetry 94 06/10/24 00:06 Pulse 100 H 06/10/24 00:31 Pulse 100 H 06/10/24 00:31 Respiratory Rate 13 06/10/24 00:31 Respiratory Effort Short of Breath 06/10/24 00:12 Respiratory Depth Normal 06/10/24 00:12 Respiratory Pattern Normal 06/10/24 00:12 Blood Pressure 159/92 H 06/10/24 00:31 Blood Pressure Mean 106 06/10/24 00:31 Blood Pressure Position Sitting 06/10/24 00:06 Pulse Oximetry 95 06/10/24 00:31 Oxygen Delivery Method Room Air 06/10/24 00:06 Oxygen Flow Rate 0 06/10/24 00:06 Lab/Test Results Lab/Test Results: Laboratory Tests Range/Units 06/10/24 06/10/24 00:10 00:21 WBC (4.4-10.8) 10^3/uL 14.31 H RBC (4.36-5.78) 10^6/uL 4.76 Hgb (13.5-17.5) g/dL 14.0 Hct (40.0-50.0) % 42.1 MCV (80-95) fL 88 MCH (27.0-33.0) pg 29.4 MCHC (32.0-36.0) % 33.3 RDW (11.8-14.1) % 12.9 Plt Count (130-400) 10^3/uL 420 H MPV (8.0-11.0) fL 9.0 Immature Gran % % 0.4 Neutrophils % % 71.1 Lymphocytes % % 24.0 Monocytes % % 3.4 Eosinophils % % 0.1 Basophils % % 1.0 Nucleated RBC % (0.0-0.3) % 0.0 Absolute Neutrophils (1.2-6.7) 10^3/uL 10.17 H Absolute Lymphocytes (1.2-3.4) 10^3/uL 3.43 H Absolute Monocytes (0.1-0.8) 10^3/uL 0.49 Absolute Eosinophils (0.0-0.7) 10^3/uL 0.01 Absolute Basophils (0.0-0.2) 10^3/uL 0.14 PT (9.1-11.1) sec 11.2 H INR (0.9-1.1) 1.1 APTT (20.6-30.2) sec 24.0 VBG pH (7.31-7.41) 7.35 VBG pCO2 (41-51) mmHg 42 VBG pO2 mmHg 58 VBG HCO3 (23-28) mmol/L 23 VBG Total CO2 (24-29) mmol/L 21 L VBG O2 Saturation % 85 VBG Base Excess (-2-3) mmol/L -3 L Sodium (136-145) mmol/L 139 Potassium (3.5-5.1) mmol/L 3.7 Chloride (98-107) mmol/L 100 Carbon Dioxide (21.0-32.0) mmol/L 23.8 Anion Gap (3-11) mmol/L 15.2 H BUN (7-18) mg/dL 11 Creatinine (0.70-1.30) mg/dL 0.9 Est GFR (CKD-EPI 2020) (mL/min/1.73m2) 103.40 Glucose (74-106) mg/dL 157 H Calcium (8.5-10.1) mg/dL 8.2 L Total Bilirubin (0.2-1.0) mg/dL 0.4 AST (15-37) U/L 308 H ALT (16-63) U/L 293 H Alkaline Phosphatase (46-116) U/L 109 Troponin I (<or=76) ng/L 5 NT-Pro-B Natriuret Pep (<300) pg/mL 104 Total Protein (6.4-8.2) g/dL 7.7 Albumin (3.4-5.0) g/dL 3.4 Lipase (<78) U/L 16 TSH (0.36-3.74) uIU/mL 0.87 Ethyl Alcohol (<10) mg/dL 127.3 H Medical Decision Making This is a 49-year-old male with a past medical history of stroke about 2 years ago with subsequent chronic left-sided deficits, TBI, high cholesterol, hypertension, previous tobacco use currently now just using chew tobacco, diabetes mellitus, alcohol use, who is not currently on any blood thinners or antiplatelets (uncertain as to why) who presents today for evaluation of chest discomfort and weakness. Patient states that at 6 PM he developed mild shortness of breath, mild chest pressure, and weakness in his left leg that was worse than normal, as well as slight weakness that was worsening in his left arm. The symptoms remain stable and persistent for the last 6 hours. He did drink some alcohol tonight. He denies any falls or trauma. He denies any vomiting or diarrhea. He denies any history of heart attack. He denies any other complaints at this time. Exam demonstrates well-appearing male, he has his chronic left-sided deficits of weakness for the upper and lower extremity, and subjectively he feels that they are slightly worse than normal. He demonstrates elevated heart rate in the 120s, as well as notable hypertension in the 210s systolic. Patient is out of the window for tPA/TNK at this stage being at or greater than 6 hours. Differential is concerning for worsening stroke, dehydration infection or electrolyte abnormality causing the slightly worsening acute on chronic weakness. The chest discomfort is concerning for ACS versus PE. Less likely dissection. Nitroglycerin was given and this notably improved his blood pressure, and also improved to chest pain from a 4 out of 10 to a 2 out of 10. We will get a CT/CTA to evaluate for clot for potential catheter directed thrombolysis or clot retrieval if this is a stroke. We will evaluate the chest for potential PE, will get troponins, monitor closely and reassess. EKG shows no evidence of STEMI at this stage. Will also test an alcohol level as intoxication is certainly concern as well. 3:[address] imaging has returned, no evidence of acute component or stroke, however he has multiple occlusions in his right internal carotid artery, as well as stenosis of his left internal carotid artery. However there appears to be good reconstitution distally everywhere. Laboratory workup shows white count of 14, but no bandemia. He denies any cough. He denies any headache or neck pain to suggest meningitis. Electrolytes stable, anion gap was 15. Renal function stable. Calcium slightly low at 8.2, transaminases are higher than normal at 308 and 293 respectively. Troponins are normal. Thyroid function normal. Alcohol level here is 127. Patient states that he has been drinking a significant amount quite regularly. He states that he usually drinks a 30 pack every day, but recently switched to gin. He states that he has had DTs in the past but denies ever having had a seizure from them that he can recall. Currently he does not show signs of detox, but I suspect as his alcohol level normalizes he very well may. We did have teleneurology evaluate the patient and did review the imaging and evaluated the patient. At this time with no signs of acute findings on imaging, and the patient being out of the tPA window she does not recommend any thrombolytics. She does recommend full dose aspirin, MRI, echo and PT OT. Additionally blood pressure was controlled with the nitroglycerin, but then it went back up to the 190s. 20 of labetalol was given this brought him back down to the 120s to 130s. I did contact the hospitalist Dr. Sarmiento and discussed the case with him. He agrees on the need for admission however we do not have any ICU beds at this time. It is unclear as to whether or not any patients can be transferred out of the ICU at this time, and so in the meantime we will plan for admission but keep the patient here in the ED until the daytime hospitalist staff is able to review the situation to determine if the patient needs to board in the ED or can be transition to the ICU here. In the meantime because of the patient's notable regular alcohol intake, and his last drink being at 9 PM last night we will start him prophylactically on phenobarbital at the low dose to prevent any significant DTs to further complicate his scenario. 7:25 AM Discussed the case with the hospitalist Dr. Brizuela, he agrees with the plan. Plan will still be for patient admission to the ICU if bed becomes available. I have extensively reviewed the treatment plan with the patient. I have addressed all patient concerns at this time. I have also discussed the plan with the admitting physician and they agree with the current assessment and plan and have agreed to assume responsibility for the patient. All parties demonstrate verbal understanding and agreement with our assessment and plan at this time. The documentation in this chart was dictated using Fullscreen dictation software. Please excuse any dictation errors. FINDINGS: ANTERIOR CIRCULATION: Right internal carotid artery: Right internal carotid artery is occluded with supraclinoid reconstitution. Right middle cerebral artery: No occlusion or significant stenosis. No aneurysm. Right anterior cerebral artery: No occlusion or significant stenosis. No aneurysm. Left internal carotid artery: Intracranial segment is patent with no significant stenosis. No aneurysm. Left middle cerebral artery: No occlusion or significant stenosis. No aneurysm. Left anterior cerebral artery: No occlusion or significant stenosis. No aneurysm. POSTERIOR CIRCULATION: Right vertebral artery: No occlusion or significant stenosis. No aneurysm. Left vertebral artery: No occlusion or significant stenosis. No aneurysm. Basilar artery: No occlusion or significant stenosis. No aneurysm. Right posterior cerebral artery: No occlusion or significant stenosis. No aneurysm. Left posterior cerebral artery: No occlusion or significant stenosis. No aneurysm. HEAD: Brain: Small area of encephalomalacia in the superior posterior right frontal lobe/right parietal lobe. Old lacunar infarction(s). No brain edema. No intracranial hemorrhage. Cerebral ventricles: Normal. No ventriculomegaly. Bones: Chronic focal deformity of the the life frontal skull. Paranasal sinuses: Pansinusitis. Mastoid air cells: Visualized mastoids are normal. No mastoid effusion. Soft tissues: Unremarkable. IMPRESSION: 1. Pansinusitis. 2. No acute brain findings. 3. Right internal carotid artery is occluded with supraclinoid reconstitution. 4. Cerebral arteries otherwise unremarkable. FINDINGS: Right common carotid artery: No stenosis. No dissection or occlusion. Right internal carotid artery: The entire cervical portion of the right internal carotid artery is completely occluded, with supraclinoid reconstitution, age-indeterminate, but probably chronic. Right external carotid artery: No occlusion or stenosis of the origin. Left common carotid artery: No stenosis. No dissection or occlusion. Left internal carotid artery: Severe short-segment stenosis of the origin proximal left internal carotid artery secondary to mixed atherosclerotic plaque. No thrombosis or occlusion. Left external carotid artery: No occlusion or stenosis of the origin. Right vertebral artery: No stenosis. No dissection or occlusion. Left vertebral artery: No stenosis. No dissection or occlusion. Soft tissues: Normal. No significant soft tissue swelling. Bones/joints: No acute fracture. IMPRESSION: 1. Severe short-segment stenosis of the origin proximal left internal carotid artery secondary to mixed atherosclerotic plaque. No thrombosis or occlusion. 2. The entire cervical portion of the right internal carotid artery is completely occluded, with supraclinoid reconstitution, age-indeterminate, but probably chronic. 3. No acute vascular findings. Quality:[facility] Health Related Social Needs: No Data to Display Critical Care Time Critical Care Time Critical Care Time: Yes Total Critical Care Time: 60 Attestation: Upon my evaluation, this patient had a high probability of imminent or life-threatening deterioration, which required my direct attention, intervention, and personal management. I have personally provided 60 minutes of critical care time exclusive of time spent on separately billable procedures. Time includes review of laboratory data, radiology results, discussion with consultants, and monitoring for potential decompensation. Interventions were performed as documented. [facility] All Active Problems (Updated 06/10/24 @ 03:43 by Luis Alvarenga DO) Hypertensive urgency (Acute) Stroke (Chronic) Alcohol withdrawal (Acute) Left-sided weakness (Acute) Acute hyponatremia (Acute) Alcohol withdrawal (Acute) Left carotid stenosis (Acute) Right carotid artery occlusion (Acute) CVA (cerebral vascular accident) (Chronic) Tobacco abuse (Acute) Elevated blood pressure reading (Acute) Anxiety and depression (Acute) Vomiting and diarrhea (Acute) Alcohol abuse (Chronic) Alcohol withdrawal (Acute) Electrolyte and fluid disorder (Acute) Alcoholic hepatitis (Acute) Medical History TBI (traumatic brain injury) Hyperlipidemia Mood disorder Spinal stenosis of lumbar region BMI 32.0-32.9,adult Hypertension Nephropathy Weakness of left leg ETOH abuse Degenerative disc disease ADHD Gynecomastia GERD (gastroesophageal reflux disease) Opioid dependence Chronic constipation Erectile dysfunction Hidradenitis suppurativa Diabetes mellitus Sleep apnea Eczema of both hands Headache Scrotal abscess Sinusitis Surgical History S/P lumbar spine operation Family History Mother Stroke Father Heart disease Social History Smoking/Tobacco Use Status: Current every day Smoking risk assessment performed?: Yes Alcohol Intake: former Drug use: Never Substance use type: former substance user and marijuana Housing: house Number of Children: 4 current occupation: Disabled Do you feel safe at home: Yes Do you feel safe in your relationship?: Yes
--- NOTE | 2024-06-10 01:35 | DI.VRAD_ITS ---
PROCEDURE INFORMATION: Exam: CTA Head Without And With Contrast, Arteriography Exam date and time: 06/10/2024 12:32 AM Age: 49 years old Clinical indication: Stroke-like symptoms; Lt upper extremity and lt lower extremity weakness; Additional info: L sided weakness TECHNIQUE: Imaging protocol: Computed tomographic angiography of the head without and with contrast. Exam focused on the arteries. 3D rendering (Not supervised by radiologist): MIP and/or 3D reconstructed images were created by the technologist. Radiation optimization: All CT scans at this facility use at least one of these dose optimization techniques: automated exposure control; mA and/or kV adjustment per patient size (includes targeted exams where dose is matched to clinical indication); or iterative reconstruction. Contrast material: OMNIPAQUE 350; Contrast volume: 70 ml; Contrast route: INTRAVENOUS (IV); Other technique: STROKE PROTOCOL was implemented. COMPARISON: CT BRAIN NECK CTA 05/23/2022 10:17 PM FINDINGS: ANTERIOR CIRCULATION: Right internal carotid artery: Right internal carotid artery is occluded with supraclinoid reconstitution. Right middle cerebral artery: No occlusion or significant stenosis. No aneurysm. Right anterior cerebral artery: No occlusion or significant stenosis. No aneurysm. Left internal carotid artery: Intracranial segment is patent with no significant stenosis. No aneurysm. Left middle cerebral artery: No occlusion or significant stenosis. No aneurysm. Left anterior cerebral artery: No occlusion or significant stenosis. No aneurysm. POSTERIOR CIRCULATION: Right vertebral artery: No occlusion or significant stenosis. No aneurysm. Left vertebral artery: No occlusion or significant stenosis. No aneurysm. Basilar artery: No occlusion or significant stenosis. No aneurysm. Right posterior cerebral artery: No occlusion or significant stenosis. No aneurysm. Left posterior cerebral artery: No occlusion or significant stenosis. No aneurysm. HEAD: Brain: Small area of encephalomalacia in the superior posterior right frontal lobe/right parietal lobe. Old lacunar infarction(s). No brain edema. No intracranial hemorrhage. Cerebral ventricles: Normal. No ventriculomegaly. Bones: Chronic focal deformity of the the life frontal skull. Paranasal sinuses: Pansinusitis. Mastoid air cells: Visualized mastoids are normal. No mastoid effusion. Soft tissues: Unremarkable. IMPRESSION: 1. Pansinusitis. 2. No acute brain findings. 3. Right internal carotid artery is occluded with supraclinoid reconstitution. 4. Cerebral arteries otherwise unremarkable. PROCEDURE INFORMATION: Exam: CTA Neck Without And With Contrast Exam date and time: 06/10/2024 12:32 AM Age: 49 years old Clinical indication: Stroke-like symptoms; Lt upper extremity and lt lower extremity weakness; Additional info: L sided weakness TECHNIQUE: Imaging protocol: Computed tomographic angiography of the neck without and with contrast. Exam focused on the cervical segments of the vasculature. 3D rendering (Not supervised by radiologist): MIP and/or 3D reconstructed images were created by the technologist. Radiation optimization: All CT scans at this facility use at least one of these dose optimization techniques: automated exposure control; mA and/or kV adjustment per patient size (includes targeted exams where dose is matched to clinical indication); or iterative reconstruction. Contrast material: OMNIPAQUE 350; Contrast volume: 70 ml; Contrast route: INTRAVENOUS (IV); COMPARISON: CT BRAIN NECK CTA 05/23/2022 10:17 PM FINDINGS: Right common carotid artery: No stenosis. No dissection or occlusion. Right internal carotid artery: The entire cervical portion of the right internal carotid artery is completely occluded, with supraclinoid reconstitution, age-indeterminate, but probably chronic. Right external carotid artery: No occlusion or stenosis of the origin. Left common carotid artery: No stenosis. No dissection or occlusion. Left internal carotid artery: Severe short-segment stenosis of the origin proximal left internal carotid artery secondary to mixed atherosclerotic plaque. No thrombosis or occlusion. Left external carotid artery: No occlusion or stenosis of the origin. Right vertebral artery: No stenosis. No dissection or occlusion. Left vertebral artery: No stenosis. No dissection or occlusion. Soft tissues: Normal. No significant soft tissue swelling. Bones/joints: No acute fracture. IMPRESSION: 1. Severe short-segment stenosis of the origin proximal left internal carotid artery secondary to mixed atherosclerotic plaque. No thrombosis or occlusion. 2. The entire cervical portion of the right internal carotid artery is completely occluded, with supraclinoid reconstitution, age-indeterminate, but probably chronic. 3. No acute vascular findings. REFERENCES: NASCET CRITERIA. The degree of stenosis in the cervical segment of the internal carotid artery is based on NASCET criteria. Normal is no stenosis. Mild is less than 50% stenosis. Moderate is 50-69% stenosis. Severe is 70% to 99% stenosis. Total occlusion is no detectable patent lumen. Dictated and Authenticated by: Andres Sharpe MD. Orderin Colette Smith MD
[2024-06-10 01:41] LABS: Troponin I 6 ng/L (<or=76)
--- NOTE | 2024-06-10 03:02 | DI.VRAD_ITS ---
PROCEDURE INFORMATION: Exam: CTA Chest With Contrast Exam date and time: 06/10/2024 12:50 AM Age: 49 years old Clinical indication: Shortness of breath; Additional info: Chest heaviness, pressure, SOB TECHNIQUE: Imaging protocol: Computed tomographic angiography of the chest with contrast. Exam focused on the arteries. 3D rendering (Not supervised by radiologist): MIP and/or 3D reconstructed images were created by the technologist. Radiation optimization: All CT scans at this facility use at least one of these dose optimization techniques: automated exposure control; mA and/or kV adjustment per patient size (includes targeted exams where dose is matched to clinical indication); or iterative reconstruction. Contrast material: OMNIPAQUE 350; Contrast volume: 80 ml; Contrast route: INTRAVENOUS (IV); COMPARISON: CR XR CHEST 2V PA LATERAL 12/18/2022 7:58 AM FINDINGS: Pulmonary arteries: Normal. No pulmonary emboli. Aorta: Aorta demonstrates mild atherosclerotic calcification. No aortic aneurysm or dissection. Lungs: Unremarkable. No consolidation. No masses. Pleural spaces: Unremarkable. No pneumothorax. No pleural effusion. Heart: Unremarkable. No cardiomegaly. No pericardial effusion. Coronary arteries: Mild atherosclerotic calcification coronary arteries. Lymph nodes: Unremarkable. No enlarged lymph nodes. Diaphragm: Small hiatal hernia. Bones/joints: Unremarkable. No acute fracture. Soft tissues: Bilateral nonspecific gynecomastia. IMPRESSION: No pulmonary embolism identified. Dictated and Authenticated by: Epi Graves MD. Orderin Colette Smith MD
[2024-06-10] MEDS: Aspirin 325 MG TAB PO (03:10)
[2024-06-10] MEDS: Labetalol 100 MG/20 ML VIAL 20 MG IVP (03:10)
[2024-06-10] MEDS: PHENobarbital 200 MG in Normal Saline 50 ML 100 MG IVPB ×2 (04:03→07:35)
--- NOTE | 2024-06-10 07:15 | DI.MRI_ITS ---
Exam(s) MR BRAIN WO EXAM: MR BRAIN WO CLINICAL HISTORY: eval for stroke. TECHNIQUE: Multiplanar multisequence MRI of the brain was performed. CONTRAST MATERIAL: Noncontrast COMPARISON: CT CT BRAIN NECK CTA from 06/10/2024 FINDINGS: Exam is limited by motion. VENTRICLES AND EXTRA AXIAL SPACES: Mild dilatation of the frontal horn of the right lateral ventricle due to ex vacuo dilatation secondary to adjacent old lacunar infarct. HEMORRHAGE: None. CEREBRAL PARENCHYMA: No focus of restricted diffusion to suggest acute infarct. No space-occupying le minerva identified. Old lacunar infarct adjacent to the frontal horn of the right lateral ventricle. O ld cortical infarct in the high right frontal parietal region. Scattered small foci of high signal i n the white matter consistent with microvascular changes. BRAINSTEM/CEREBELLUM: Normal. CALVARIUM: Mild depression in the anterior left frontal skull. VISUALIZED PARANASAL SINUSES/MASTOIDS: Pansinusitis. Small amount of fluid in the right mastoid air cells. Orbits: Unremarkable. Pituitary: Not enlarged. Vasculature: Chronic occlusion of the right infraclinoid internal carotid artery. IMPRESSION: Old high right frontal parietal and right basal ganglia lacunar infarcts. Chronic occlusion of right internal carotid artery. No evidence of acute infarct. DATA REPOSITORY:
--- NOTE | 2024-06-10 08:05 | W.EDPROG ---
Date of service: 06/10/24 Time of Service: 08:05 Medical Decision Making I received signout on this 49-year-old male pending hospitalization. Patient had a stroke last night, out of the window for tPA. Symptoms stable. Has a strong history of alcohol intake and will likely withdraw. Started on phenobarb protocol. MRI is ordered. Pending plan for admission once disposition location has been determined. Hospitalist team aware. I ordered the patient his morning lisinopril. 8:17 AM Patient's CIWA score was 4. He was normothermic. 8:34 AM I reassessed patient. He is awake alert has had some breakfast. He is requesting something to drink. He also wants something for anxiolysis prior to the MRI. I ordered him 2 mg IV midazolam. 1:13 PM Late charting due to patient care. Patient remained stable in the emergency department. Spoke with Dr. Bateman who placed orders for the patient to be hospitalized. Quality:SDOH Health Related Social Needs: No Data to Display Discharge Plan Disposition Patient Disposition: Admit to [facility] Discharge Details Clinical Impression: Left-sided weakness, Alcohol withdrawal, Stroke, Hypertensive urgency Admit Date/Time: 06/10/24 08:32 Admit Provider: Albert Bateman Attending Provider: Albert Bateman Primary Care Provider: Mikey Martínez ED Provider: Albert De Los Santos
--- NOTE | 2024-06-10 08:40 | NUR.NOTE ---
Bag of methadone given to pharmacy to verify.
[2024-06-10] MEDS: Midazolam 2 MG/2 ML VIAL IVP (08:45)
[2024-06-10] MEDS: Lisinopril 10 MG TAB 20 MG PO (08:46)
--- NOTE | 2024-06-10 08:47 | W.PM.HP.N ---
Date of service: 06/10/24 Time of Service: 08:47 Assessment and Plan Assessment and plan (1) CVA (cerebral vascular accident): Status: Chronic Assessment and plan: Clinically c/w an acute CVA with worsening of previous left sided deficits, but MRI/CTA did not show new infarcts. His symptoms may be related to variations in blood flow to old infarcted area. Also could be some degree of TIA. Teleneurology note reviewed. Given no sign of cardioembolic stroke and clinically a dynamic process occurring, will continue aspirin and add clopidogrel along with statin. Repeat lipids and A1c to assess risk factors He will need PT evaluation No issues with observed swallowing, he can eat when feeling able. (2) Hypertensive urgency: Status: Acute Assessment and plan: Severe hypertension at up to 230/118 in ED associated with chest pain. Chest pain resolved with NTG and EKG and troponin not c/w ACS. He did get a dose of lisinopril and I will not treat BP futher in first 24 hours unless it gets above 220/120, permissive HTN. Holding metoprolol (3) Alcohol withdrawal: Status: Acute Assessment and plan: Complicating picture, at risk for severe withdrawal. On phenobarbitol protocol, continue this. He is still nauseous, will give banana bag x 1 though he is taking a little po. If symptoms are severe and hits phenobarbital max we can add precedex Observe in ICU due to risk of severe withdrawal in setting of severe HTN with CVA and vascular disease. (4) Tobacco abuse: Status: Acute Assessment and plan: congratulated quitting smoking. He is still chewing, wants nicotene patch which I think is okay. (5) Opioid dependence: Assessment and plan: Continue methadone after confirming dose with [facility]. QTc reassuring. (6) Diabetes mellitus: Assessment and plan: Hasn't been getting regular care. Holding metformin with CTA. Get A1c. ISS coverage. (7) Contracture of muscle of left lower extremity: Status: Acute Assessment and plan: He is having pain and has a clear contracture that is chronic, though he is describing it feeling worse today. He had trial on baclofen for this but didn't like it. Will ask for PT. Phenobarb may help relax this. (8) Alcohol abuse: Status: Chronic Assessment and plan: He would like to quit drinking. Naltrexone not an option. He is on gabapentin. Acamprosate an option. Will review option for medical/non medical treatment and offer recovery coaching as he emerges from withdrawal. (9) Alcoholic hepatitis: Status: Acute Assessment and plan: AST/ALT up but INR and bili reassuring. Labs less indicative of cirrhosis. Follow LFTs. 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 He also had some weakness in the left hand but he didn't notice it was different than normal. He did not notice headache, though has been nauseous since then. He did not have vision changes, vertigo, voice changes, or trouble swallowing. At the same time, he felt pressure in his chest. He went to get help from a roommate and noted he had trouble walking and getting certain words out. He came to the emergency room at midnight. Upon arrival in the ED his pressure was quite elevated and he was given nitroglycerin. This resolved his chest pain and improved his blood pressure. He thinks his speaking is better, but left pain and weakness the same. Pain is achy and in the leg muscle and 6-7/10. He has this chronically but worse today. He first had a stroke in April 2022 associated with right internal carotid disease. He left the ED AMA but ended up admitted at [facility] [place] followed by 3 weeks of rehab. He had R frontal and parietal infarcts as well as R lentiform nucleus and cortical lacunes per neurology. He has had left sided weakness since then but no CN defects on neurologist exam then. .He had another admission 07/2022 with right leg weakness, but this resolved. He states he was taking his statin before today but ran out of aspirin and was not taking it. He hasn't seen his PCP or checked his A1c since June 2024. Review of Systems All systems reviewed & are unremarkable except as noted in HPI and below Cardiovascular Cardiovascular: Reports lightheadedness (sometimes when he looks to the right and get sup) Gastrointestinal Comments: some diffuse crampy abd pain Psychiatric Psychiatric: Reports difficulty concentrating (chronic) PFSH All Active Problems DVT prophylaxis (Acute) Contracture of muscle of left lower extremity (Acute) Hypertensive urgency (Acute) Stroke (Chronic) Alcohol withdrawal (Acute) Left-sided weakness (Acute) Acute hyponatremia (Acute) Alcohol withdrawal (Acute) Left carotid stenosis (Acute) Right carotid artery occlusion (Acute) CVA (cerebral vascular accident) (Chronic) Tobacco abuse (Acute) Alcoholic hepatitis (Acute) Electrolyte and fluid disorder (Acute) Alcohol withdrawal (Acute) Alcohol abuse (Chronic) Vomiting and diarrhea (Acute) Anxiety and depression (Acute) Elevated blood pressure reading (Acute) Medical History TBI (traumatic brain injury) Hyperlipidemia Mood disorder Spinal stenosis of lumbar region BMI 32.0-32.9,adult Hypertension Nephropathy Weakness of left leg ETOH abuse Degenerative disc disease ADHD Gynecomastia GERD (gastroesophageal reflux disease) Opioid dependence Chronic constipation Erectile dysfunction Hidradenitis suppurativa Diabetes mellitus Sleep apnea Eczema of both hands Headache Scrotal abscess Sinusitis Surgical History S/P lumbar spine operation Family History Mother Stroke Father Heart disease Social History (Updated 06/10/24 @ 14:23 by Albert Bateman) Smoking/Tobacco Use Status: Current every day Counseling given: provider counseling and counseling >3 minutes Smoking risk assessment performed?: Yes Alcohol Intake: current Alcohol Intake frequency: 3 or more drinks per day Alcohol type: hard liquor Counseling given: Yes Drug use: Never Substance use type: former substance user and marijuana Counseling provided: provider counseling and treatment program Housing: house Number of Children: 4 current occupation: Disabled Do you feel safe at home: Yes Do you feel safe in your relationship?: Yes Additional Social history: On SSDI since stroke. Lives in home with roommates Meds Allergies and Home Medications Allergies Allergy/AdvReac Type Severity Reaction Status Date / Time tolmetin Allergy Unknown Unverified 06/10/24 00:14 Home Medications ?Medication ?Instructions ?Recorded ?Confirmed ?Type methadone 10 mg/mL oral concentrate 75 mg PO DAILY@1600 09/03/15 06/10/24 History lamotrigine 100 mg tablet 100 mg PO BID 12/16/20 06/10/24 History (Lamictal) methadone 10 mg/mL oral concentrate 100 mg PO DAILY AM 12/16/20 06/10/24 History metoprolol tartrate 50 mg tablet 50 mg PO BID #60 tabs 12/17/20 06/10/24 Rx thiamine HCl (vitamin B1) 100 mg 100 mg PO DAILY #30 tabs 12/17/20 06/10/24 Rx tablet atorvastatin 80 mg tablet 80 mg PO DAILY 07/18/22 06/10/24 History baclofen 20 mg tablet 20 mg PO TID 07/18/22 06/10/24 History clopidogrel 75 mg tablet 75 mg PO DAILY 07/18/22 06/10/24 History docusate sodium 100 mg capsule 100 mg PO BID PRN 07/18/22 06/10/24 History (Colace) escitalopram oxalate 20 mg tablet 20 mg PO DAILY 07/18/22 06/10/24 History gabapentin 800 mg tablet 800 mg PO TID 07/18/22 06/10/24 History hydroxyzine HCl 25 mg tablet 25 mg PO TID PRN 07/18/22 06/10/24 History lisinopril 20 mg tablet 20 mg PO DAILY 07/18/22 06/10/24 History loratadine 10 mg tablet (Allergy 10 mg PO DAILY 07/18/22 06/10/24 History Relief (loratadine)) metformin 500 mg tablet 500 mg PO BID 07/18/22 06/10/24 History nicotine 7 mg/24 hr daily 1 patch transdermal Q24H 07/18/22 06/10/24 History transdermal patch pantoprazole 40 mg tablet,delayed 40 mg PO DAILY 07/18/22 06/10/24 History release polyethylene glycol 3350 17 17 g PO DAILY 07/18/22 06/10/24 History gram/dose oral powder sildenafil 100 mg tablet (Viagra) 100 mg PO DAILY PRN 07/18/22 06/10/24 History lorazepam 0.5 mg tablet 0.5 mg PO ONCE PRN 08/15/22 06/10/24 Rx anxiety/claustrophobia #2 tabs Exam Narrative Exam Narrative: GEN: Alert and oriented x 4, pleasant and cooperative, gives linear history. Sitting up in bed mildly uncomfortable appearing and diaphoretic HEENT: Head atraumatic. Conjunctiva clear, no icterus. PEERL, EOMI. no rhinorrhea. MMM, OP benign. Neck is supple with no masses or lymphadenopathy, trachea midline LUNGS: CTAB with normal effort CV: RRR with no murmurs, gallops, or rubs. ABD: active bowel sounds, soft, nontender and nondistended. No masses. EXT: no cyanosis, clubbing, or edema MSK: No joint redness or swelling NEURO: CN 2-12 significant for left facial droop sparing forehead, weak bite left, dimished sensation and louder sound on left vs right. Normal coordinaiton. 4/5 strenght RUE and RLE with extension contracture of left ankle. DTRs 3+ left and 2+ right in patellar, 2+ andre biceps. Normal speech. No tremor/asterixis SKIN: Pletheric and diaphoretic, no rashes or open wounds. PSYCH: normal mood and affect, normal thought process. He did describe seeing some bugs in the ED but no hallucinations now Results Imaging Chest x-ray: report reviewed (No acute pulmonary findings) and image reviewed CT scan - chest: report reviewed (No evidence of pulmonary embolism or other acute abnormality.. ) EKG: report reviewed and image reviewed (NSR, nl axis, intervals including QTc 383, Borderline ST depression V5-6 similar to 12/18, no STEMI) Imaging Studies: MRI Brain: Old high right frontal parietal and right basal ganglia lacunar infarcts. Chronic occlusion of right internal carotid artery. No evidence of acute infarct. CTA head/neck: 1. CTA brain: Occlusion of the right internal carotid artery again noted. 2. Head CT: Old right frontal parietal and basal ganglia lacunar infarcts. 3. CTA neck: Occlusion of the right internal carotid artery from origin through supraclinoid portion where it is reconstituted. This was noted on prior exam. There is mixed plaque at the origin of the left internal carotid artery with apparent severe stenosis which appears greater on the prior exam however there is motion at this level. Labs 06/10/24 00:10 06/10/24 00:10 Labs: Laboratory Results - last 24 hr 06/10/24 06/10/24 06/10/24 00:10 00:21 01:03 WBC 14.31 H RBC 4.76 Hgb 14.0 Hct 42.1 MCV 88 MCH 29.4 MCHC 33.3 RDW 12.9 Plt Count 420 H MPV 9.0 Immature Gran % 0.4 Neutrophils % 71.1 Lymphocytes % 24.0 Monocytes % 3.4 Eosinophils % 0.1 Basophils % 1.0 Nucleated RBC % 0.0 Absolute Neutrophils 10.17 H Absolute Lymphocytes 3.43 H Absolute Monocytes 0.49 Absolute Eosinophils 0.01 Absolute Basophils 0.14 PT 11.2 H INR 1.1 APTT 24.0 VBG pH 7.35 VBG pCO2 42 VBG pO2 58 VBG HCO3 23 VBG Total CO2 21 L VBG O2 Saturation 85 VBG Base Excess -3 L Sodium 139 Potassium 3.7 Chloride 100 Carbon Dioxide 23.8 Anion Gap 15.2 H BUN 11 Creatinine 0.9 Est GFR (CKD-EPI 2020) 103.40 Glucose 157 H Calcium 8.2 L Total Bilirubin 0.4 AST 308 H ALT 293 H Alkaline Phosphatase 109 Troponin I 5 6 NT-Pro-B Natriuret Pep 104 Total Protein 7.7 Albumin 3.4 Lipase 16 TSH 0.87 Ethyl Alcohol 127.3 H 06/10/24 03:16 WBC RBC Hgb Hct MCV MCH MCHC RDW Plt Count MPV Immature Gran % Neutrophils % Lymphocytes % Monocytes % Eosinophils % Basophils % Nucleated RBC % Absolute Neutrophils Absolute Lymphocytes Absolute Monocytes Absolute Eosinophils Absolute Basophils PT INR APTT VBG pH VBG pCO2 VBG pO2 VBG HCO3 VBG Total CO2 VBG O2 Saturation VBG Base Excess Sodium Potassium Chloride Carbon Dioxide Anion Gap BUN Creatinine Est GFR (CKD-EPI 2020) Glucose Calcium Total Bilirubin AST ALT Alkaline Phosphatase Troponin I Cancelled NT-Pro-B Natriuret Pep Total Protein Albumin Lipase TSH Ethyl Alcohol Last Vital Signs Temp 37.3 C 06/10/24 08:16 Pulse 91 H 06/10/24 08:33 Resp 10 L 06/10/24 08:30 BP 200/85 H 06/10/24 08:33 Pulse Ox 98 06/10/24 08:33 Time Spent Time spent with Patient: >75 minutes Time was spent: preparing to see the patient(eg.review tests), obtaining and/or reviewing separately otained hiistory, ordering medications,tests, procedures, referring, communicating with other health care transport nurse, indepentently interpreting results, counseling the patient and care coordination
[2024-06-10 08:49] LABS: Bilirubin Negative (Negative); Blood Negative (Negative); Clarity Clear (Clear); Glucose Negative (Negative); Ketones Negative (Negative); Leukocyte Esterase Negative (Negative); Nitrite Negative (Negative)
[2024-06-10 09:07] LABS: Lab Add On Test DONE
[2024-06-10 09:11] LABS: *AMPHETAMINES SCREEN URINE Negative (Negative); *BARBITURATES SCREEN URINE Positive (Negative); *BENZODIAZEPINES SCREEN URINE Negative (Negative); Cannabinoids THC Negative (Negative); Cocaine Screen,Urine Negative (Negative); METHADONE URINE SCREEN Positive (Negative); OPIATES URINE SCREEN Negative (Negative)
[2024-06-10 09:12] LABS: Tricyclic Antidepressants Negative (Negative)
[2024-06-10 09:14] LABS: Magnesium 1.7 mg/dL (1.8-2.4)
[2024-06-10] MEDS: Methadone Liquid 10 MG/ML 100 MG PO (10:22)
[2024-06-10] MEDS: Atorvastatin 40 MG TAB 80 MG PO (10:46)
[2024-06-10] MEDS: Enoxaparin 40 MG/0.4 ML SYR SC (10:47)
[2024-06-10] MEDS: PHENobarbital 110 MG in Normal Saline 50 ML 98.677 MG IVPB (11:23)
[2024-06-10] MEDS: Pantoprazole 40 MG TABCR PO (11:27)
[2024-06-10 13:01] LABS: Folate 9.4 ng/mL (8.6-20.0)
[2024-06-10] MEDS: Nicotine 7 MG/24 HR PATCH TD (13:46)
[2024-06-10] MEDS: PHENobarbital 130 MG/ML VIAL IVP (13:51)
[2024-06-10] MEDS: Ondansetron 4 MG/2 ML VIAL IVP (13:51)
--- NOTE | 2024-06-10 14:16 | W.PC.ACHO ---
Registration Status: Primary Language: Preferred Language: ED Information & Data Chief Complaint GenMedical 06/10/24 01:14 Triage Note hx of strokes. Pt sates that 06/10/24 00:06 he feels nauseatd and states that his left leg doesnt work. SOB. States that he feels out of it. Last stroke 2 years ago. States that he is on thinners. Started around 1830. Medical / Surgical History (Last Reviewed 12/18/22 @ 17:49 by Aleks Vasquez MD) TBI (traumatic brain injury) Hyperlipidemia Mood disorder Spinal stenosis of lumbar region BMI 32.0-32.9,adult Hypertension Nephropathy Weakness of left leg ETOH abuse Degenerative disc disease ADHD Gynecomastia GERD (gastroesophageal reflux disease) Opioid dependence Chronic constipation Erectile dysfunction Hidradenitis suppurativa Diabetes mellitus Sleep apnea Eczema of both hands Headache Scrotal abscess Sinusitis (Last Reviewed 12/18/22 @ 17:49 by Aleks Vasquez MD) S/P lumbar spine operation Most Recent Vital Signs Temperature 37 C 06/10/24 12:10 Temperature Source Temporal Artery Scan 06/10/24 12:10 Pulse 78 06/10/24 12:40 Pulse 79 06/10/24 12:40 Respiratory Rate 10 L 06/10/24 12:40 Respiratory Effort Normal, Non-Labored 06/10/24 12:10 Respiratory Depth Normal 06/10/24 12:10 Respiratory Pattern Normal 06/10/24 12:10 Blood Pressure 162/91 H 06/10/24 12:25 Blood Pressure Mean 114 06/10/24 12:25 Blood Pressure Position Sitting 06/10/24 12:10 Pulse Oximetry 95 06/10/24 12:40 Oxygen Delivery Method Room Air 06/10/24 12:10 Oxygen Flow Rate 0 06/10/24 12:10 Pain Level 7 06/10/24 12:10 Allergies tolmetin Allergy (Unverified 06/10/24 00:14) Unknown years ago Precautions Isolation Standard precaution 06/10/24 00:10 Active Medications Generic Name Dose Route Start Last Admin Trade Name Freq PRN Reason Stop Dose Admin Atorvastatin Calcium 80 mg 06/10/24 10:00 06/10/24 10:46 Atorvastatin 40 Mg Tab PO 80 mg DAILY GABY Administration Enoxaparin Sodium 40 mg 06/10/24 10:00 06/10/24 10:47 Enoxaparin 40 Mg/0.4 Ml Syr SC 40 mg Q24H GABY Administration Methadone HCl 100 mg 06/10/24 10:00 06/10/24 10:22 Methadone Liquid 10 Mg/Ml PO 100 mg DAILY GABY Administration Nicotine 7 mg 06/10/24 08:44 06/10/24 13:46 Nicotine 7 Mg/24 Hr Patch TD 7 mg DAILY PRN PRN Administration Agitation Ondansetron HCl 4 mg 06/10/24 13:07 06/10/24 13:51 Ondansetron 4 Mg/2 Ml Vial IVP 4 mg Q8H PRN PRN Administration Pantoprazole Sodium 40 mg 06/11/24 07:30 06/10/24 11:27 Pantoprazole 40 Mg Tabcr PO 40 mg DAILY@0730 GABY Administration Phenobarbital Sodium 130 mg 06/10/24 08:42 06/10/24 13:51 Phenobarbital 130 Mg/Ml Vial IVP 130 mg DIRECTED PRN Administration for mild anxiety/agitation Sodium Chloride 0 ml 06/10/24 01:05 06/10/24 13:52 Normal Saline Flush 10 Ml Syr IVP 10 ml PRN PRN Administration IV IV Catheter Type [Right Saline Lock Antecubital] IV Catheter Gauge [Right 18 Antecubital] Diet Orders Category Date Time Status Regular/Normal [DIET] Nutrition 06/10/24 Breakfast Active Diagnostics 06/10/24 06/10/24 06/10/24 Range/Units 12:23 09:06 08:34 WBC (4.4-10.8) 10^3/uL RBC (4.36-5.78) 10^6/uL Hgb (13.5-17.5) g/dL Hct (40.0-50.0) % MCV (80-95) fL MCH (27.0-33.0) pg MCHC (32.0-36.0) % RDW (11.8-14.1) % Plt Count (130-400) 10^3/uL MPV (8.0-11.0) fL Immature Gran % % Neutrophils % % Lymphocytes % % Monocytes % % Eosinophils % % Basophils % % Nucleated RBC % (0.0-0.3) % Absolute Neutrophils (1.2-6.7) 10^3/uL Absolute Lymphocytes (1.2-3.4) 10^3/uL Absolute Monocytes (0.1-0.8) 10^3/uL Absolute Eosinophils (0.0-0.7) 10^3/uL Absolute Basophils (0.0-0.2) 10^3/uL PT (9.1-11.1) sec INR (0.9-1.1) APTT (20.6-30.2) sec VBG pH (7.31-7.41) VBG pCO2 (41-51) mmHg VBG pO2 mmHg VBG HCO3 (23-28) mmol/L VBG Total CO2 (24-29) mmol/L VBG O2 Saturation % VBG Base Excess (-2-3) mmol/L Sodium (136-145) mmol/L Potassium (3.5-5.1) mmol/L Chloride (98-107) mmol/L Carbon Dioxide (21.0-32.0) mmol/L Anion Gap (3-11) mmol/L BUN (7-18) mg/dL Creatinine (0.70-1.30) mg/dL Est GFR (CKD-EPI 2020) (mL/min/1.73m2) Glucose (74-106) mg/dL Calcium (8.5-10.1) mg/dL Magnesium (1.8-2.4) mg/dL Total Bilirubin (0.2-1.0) mg/dL AST (15-37) U/L ALT (16-63) U/L Alkaline Phosphatase (46-116) U/L Troponin I (<or=76) ng/L NT-Pro-B Natriuret Pep (<300) pg/mL Total Protein (6.4-8.2) g/dL Albumin (3.4-5.0) g/dL Lipase (<78) U/L Whole Bld Vitamin B1 Folate 9.4 (8.6-20.0) ng/mL TSH (0.36-3.74) uIU/mL Urine Color Yellow (Yellow) Urine Clarity Clear (Clear) Urine pH 6.0 (5-8) Ur Specific Hillister 1.020 (1.005-1.025) Urine Protein Trace (Neg-Trace) mg/dL Urine Ketones Negative (Negative) mg/dL Urine Blood Negative (Negative) Urine Nitrite Negative (Negative) Urine Bilirubin Negative (Negative) Urine Urobilinogen 2.0 H (Up to 0.2) mg/dL Ur Leukocyte Esterase Negative (Negative) Urine Glucose Negative (Negative) mg/dL Urine Opiates Screen Negative (Negative) Urine Methadone Screen Positive A (Negative) Ur Barbiturates Screen Positive A (Negative) Ur Tricyclics Screen Negative (Negative) Ur Amphetamines Screen Negative (Negative) U Benzodiazepines Scrn Negative (Negative) Urine Cocaine Screen Negative (Negative) Ur THC Screen Negative (Negative) Ethyl Alcohol (<10) mg/dL Add-On Test Request DONE 06/10/24 06/10/24 06/10/24 Range/Units 03:16 01:03 00:21 WBC (4.4-10.8) 10^3/uL RBC (4.36-5.78) 10^6/uL Hgb (13.5-17.5) g/dL Hct (40.0-50.0) % MCV (80-95) fL MCH (27.0-33.0) pg MCHC (32.0-36.0) % RDW (11.8-14.1) % Plt Count (130-400) 10^3/uL MPV (8.0-11.0) fL Immature Gran % % Neutrophils % % Lymphocytes % % Monocytes % % Eosinophils % % Basophils % % Nucleated RBC % (0.0-0.3) % Absolute Neutrophils (1.2-6.7) 10^3/uL Absolute Lymphocytes (1.2-3.4) 10^3/uL Absolute Monocytes (0.1-0.8) 10^3/uL Absolute Eosinophils (0.0-0.7) 10^3/uL Absolute Basophils (0.0-0.2) 10^3/uL PT (9.1-11.1) sec INR (0.9-1.1) APTT (20.6-30.2) sec VBG pH (7.31-7.41) VBG pCO2 (41-51) mmHg VBG pO2 mmHg VBG HCO3 (23-28) mmol/L VBG Total CO2 (24-29) mmol/L VBG O2 Saturation % VBG Base Excess (-2-3) mmol/L Sodium (136-145) mmol/L Potassium (3.5-5.1) mmol/L Chloride (98-107) mmol/L Carbon Dioxide (21.0-32.0) mmol/L Anion Gap (3-11) mmol/L BUN (7-18) mg/dL Creatinine (0.70-1.30) mg/dL Est GFR (CKD-EPI 2020) (mL/min/1.73m2) Glucose (74-106) mg/dL Calcium (8.5-10.1) mg/dL Magnesium (1.8-2.4) mg/dL Total Bilirubin (0.2-1.0) mg/dL AST (15-37) U/L ALT (16-63) U/L Alkaline Phosphatase (46-116) U/L Troponin I Cancelled 6 (<or=76) ng/L NT-Pro-B Natriuret Pep (<300) pg/mL Total Protein (6.4-8.2) g/dL Albumin (3.4-5.0) g/dL Lipase (<78) U/L Whole Bld Vitamin B1 Folate (8.6-20.0) ng/mL TSH (0.36-3.74) uIU/mL Urine Color (Yellow) Urine Clarity (Clear) Urine pH (5-8) Ur Specific Hillister (1.005-1.025) Urine Protein (Neg-Trace) mg/dL Urine Ketones (Negative) mg/dL Urine Blood (Negative) Urine Nitrite (Negative) Urine Bilirubin (Negative) Urine Urobilinogen (Up to 0.2) mg/dL Ur Leukocyte Esterase (Negative) Urine Glucose (Negative) mg/dL Urine Opiates Screen (Negative) Urine Methadone Screen (Negative) Ur Barbiturates Screen (Negative) Ur Tricyclics Screen (Negative) Ur Amphetamines Screen (Negative) U Benzodiazepines Scrn (Negative) Urine Cocaine Screen (Negative) Ur THC Screen (Negative) Ethyl Alcohol 127.3 H (<10) mg/dL Add-On Test Request 06/10/24 Range/Units 00:10 WBC 14.31 H (4.4-10.8) 10^3/uL RBC 4.76 (4.36-5.78) 10^6/uL Hgb 14.0 (13.5-17.5) g/dL Hct 42.1 (40.0-50.0) % MCV 88 (80-95) fL MCH 29.4 (27.0-33.0) pg MCHC 33.3 (32.0-36.0) % RDW 12.9 (11.8-14.1) % Plt Count 420 H (130-400) 10^3/uL MPV 9.0 (8.0-11.0) fL Immature Gran % 0.4 % Neutrophils % 71.1 % Lymphocytes % 24.0 % Monocytes % 3.4 % Eosinophils % 0.1 % Basophils % 1.0 % Nucleated RBC % 0.0 (0.0-0.3) % Absolute Neutrophils 10.17 H (1.2-6.7) 10^3/uL Absolute Lymphocytes 3.43 H (1.2-3.4) 10^3/uL Absolute Monocytes 0.49 (0.1-0.8) 10^3/uL Absolute Eosinophils 0.01 (0.0-0.7) 10^3/uL Absolute Basophils 0.14 (0.0-0.2) 10^3/uL PT 11.2 H (9.1-11.1) sec INR 1.1 (0.9-1.1) APTT 24.0 (20.6-30.2) sec VBG pH 7.35 (7.31-7.41) VBG pCO2 42 (41-51) mmHg VBG pO2 58 mmHg VBG HCO3 23 (23-28) mmol/L VBG Total CO2 21 L (24-29) mmol/L VBG O2 Saturation 85 % VBG Base Excess -3 L (-2-3) mmol/L Sodium 139 (136-145) mmol/L Potassium 3.7 (3.5-5.1) mmol/L Chloride 100 (98-107) mmol/L Carbon Dioxide 23.8 (21.0-32.0) mmol/L Anion Gap 15.2 H (3-11) mmol/L BUN 11 (7-18) mg/dL Creatinine 0.9 (0.70-1.30) mg/dL Est GFR (CKD-EPI 2020) 103.40 (mL/min/1.73m2) Glucose 157 H (74-106) mg/dL Calcium 8.2 L (8.5-10.1) mg/dL Magnesium 1.7 L (1.8-2.4) mg/dL Total Bilirubin 0.4 (0.2-1.0) mg/dL AST 308 H (15-37) U/L ALT 293 H (16-63) U/L Alkaline Phosphatase 109 (46-116) U/L Troponin I 5 (<or=76) ng/L NT-Pro-B Natriuret Pep 104 (<300) pg/mL Total Protein 7.7 (6.4-8.2) g/dL Albumin 3.4 (3.4-5.0) g/dL Lipase 16 (<78) U/L Whole Bld Vitamin B1 Pending Folate (8.6-20.0) ng/mL TSH 0.87 (0.36-3.74) uIU/mL Urine Color (Yellow) Urine Clarity (Clear) Urine pH (5-8) Ur Specific Hillister (1.005-1.025) Urine Protein (Neg-Trace) mg/dL Urine Ketones (Negative) mg/dL Urine Blood (Negative) Urine Nitrite (Negative) Urine Bilirubin (Negative) Urine Urobilinogen (Up to 0.2) mg/dL Ur Leukocyte Esterase (Negative) Urine Glucose (Negative) mg/dL Urine Opiates Screen (Negative) Urine Methadone Screen (Negative) Ur Barbiturates Screen (Negative) Ur Tricyclics Screen (Negative) Ur Amphetamines Screen (Negative) U Benzodiazepines Scrn (Negative) Urine Cocaine Screen (Negative) Ur THC Screen (Negative) Ethyl Alcohol (<10) mg/dL Add-On Test Request [id number] Documentation Fingerstick Glucose Start: 06/10/24 00:12 Freq: Status: Complete Protocol: Activity Type Activity Date Activity User E-sign Co-sign Detail Recorded Client Recorded Date Recorded By Document 06/10/24 00:11 BKG DAEMON(10) [id number] 06/10/24 00:12 BKG DAEMON(10) Intake and Output - 24 Hour Total 06/10/24 00:03 thru 06/10/24 13:42 Intake Total 653.9269 Balance 653.9222 Weight 83.9 kg Intake: IV 653.9252 Other: Stool Size Large Stool Characteristics Soft Liquid Brown Falls Risk Assessment History of Falls Previous History 06/10/24 12:10 Contributing Factors Confusion,Impairments, 06/10/24 12:10 Incontinence,Medications Ambulatory Aids Independent 06/10/24 12:10 Tubes/Lines With any additional score 06/10/24 12:10 Gait Evaluation W/any additional score 06/10/24 12:10 Cognition No cognitive impairment 06/10/24 12:10 Fall Total Score 67 06/10/24 12:10 Level of Risk High Risk 06/10/24 12:10 Problems (Last Reviewed 12/18/22 @ 17:49 by Aleks Vasquez MD) DVT prophylaxis (Acute) Contracture of muscle of left lower extremity (Acute) Hypertensive urgency (Acute) CVA (cerebral vascular accident) (Chronic) Tobacco abuse (Acute) Alcohol abuse (Chronic) Alcohol withdrawal (Acute) Alcoholic hepatitis (Acute) Notes 06/10/24 08:40 Nursing Notes by Alissa Garcia Bag of methadone given to pharmacy to verify. Initialized on 06/10/24 08:40 - END OF NOTE v v v v v v v v v Sending and/or Receiving Nurses: Please use comment section below to note any information pertinent to the patient hand-off not included above. Information / Comments: Report taken at [employer] 11:50. [employer] shut down - report not saved. This is a re-documentation of the original handoff report. #18 RAC lungs clear A & O midazolam for MRI L sided weakness Report received from: Lola Reynaga RN
[2024-06-10] MEDS: MAGNESIUM SULFATE 8.12 MEQ, MULTIVITAMIN 10 ML, THIAMINE 100 MG, FOLIC ACID 1 MG in Nor... 168.867 MG IV (14:36)
[2024-06-10] MEDS: Clopidogrel 300 MG TAB PO (14:36)
[2024-06-10] MEDS: Gabapentin 800 MG TAB PO ×2 (14:36→20:05)
[2024-06-10] MEDS: Methadone Liquid 10 MG/ML 75 MG PO (20:05)
[2024-06-10] MEDS: lamoTRIgine 100 MG TAB PO (20:05)
[2024-06-11] VITALS (63 sets, daily range): BP systolic 143–204; BP diastolic 80–125; PULSE 61–96; RESP 7–40; TEMP 35.8–36.8; O2SAT 66–100
[2024-06-11 05:44] LABS: Abs Immature Grans 0.03 10^3/uL (0.0-0.06); Absolute Basophil Count 0.09 10^3/uL (0.0-0.2); Absolute Eosinophil Count 0.24 10^3/uL (0.0-0.7); Absolute Lymphocyte Count 2.61 10^3/uL (1.2-3.4); Absolute Monocyte Count 0.49 10^3/uL (0.1-0.8); Basophils % 0.9 %; Eosinophils % 2.3 %; HCT 36.3 % (40.0-50.0); HGB 11.8 g/dL (13.5-17.5); Immature Grans % 0.3 %; Lymphocytes % 25.4 %; MCH 29.1 pg (27.0-33.0); MCHC 32.5 % (32.0-36.0); MCV 89 fL (80-95); MPV 9.1 fL (8.0-11.0); Monocytes % 4.8 %; Neutrophils % 66.3 %; Platelet Count 279 10^3/uL (130-400); RBC 4.06 10^6/uL (4.36-5.78); RDW 12.8 % (11.8-14.1); RDW-SD 42.2 fL; WBC 10.26 10^3/uL (4.4-10.8)
[2024-06-11 06:06] LABS: Hemoglobin A1C 6.5 % (<5.7)
[2024-06-11 06:22] LABS: ALT 156 U/L (16-63); AST 115 U/L (15-37); Albumin 2.8 g/dL (3.4-5.0); Alkaline Phosphatase 132 U/L (46-116); Anion Gap 6.5 mmol/L (3-11); BUN 6 mg/dL (7-18); Bilirubin, Total 0.7 mg/dL (0.2-1.0); CO2 28.5 mmol/L (21.0-32.0); CREATININE 0.8 mg/dL (0.70-1.30); Calcium 8.2 mg/dL (8.5-10.1); Chloride 107 mmol/L (98-107); Estimated GFR 107.15 (mL/min/1.73m2); Glucose 100 mg/dL (74-106); PHOSPHORUS 3.3 mg/dL (2.6-4.7); Potassium 3.5 mmol/L (3.5-5.1); Sodium 142 mmol/L (136-145); Total Protein 6.6 g/dL (6.4-8.2)
[2024-06-11 06:34] LABS: Calculated LDL 14 mg/dL (<100); Cholesterol 87 mg/dL (<200); HDL Cholesterol 46 mg/dL (>or=40); Triglyceride 137 mg/dL (<150)
[2024-06-11] MEDS: Lisinopril 20 MG TAB PO (08:19)
[2024-06-11] MEDS: Atorvastatin 40 MG TAB 80 MG PO (08:19)
[2024-06-11] MEDS: Gabapentin 800 MG TAB PO ×3 (08:20→20:23)
[2024-06-11] MEDS: Escitalopram 20 MG TAB PO (08:20)
[2024-06-11] MEDS: Pantoprazole 40 MG TABCR PO (08:20)
[2024-06-11] MEDS: lamoTRIgine 100 MG TAB PO ×2 (08:20→20:23)
[2024-06-11] MEDS: Folic Acid 1 MG TAB PO (08:20)
[2024-06-11] MEDS: Multivitamin TAB 1 TAB PO (08:20)
[2024-06-11] MEDS: Clopidogrel 75 MG TAB PO (08:21)
[2024-06-11] MEDS: Methadone Liquid 10 MG/ML 100 MG PO (08:22)
[2024-06-11] MEDS: Thiamine 100 MG TAB PO (08:22)
--- NOTE | 2024-06-11 08:38 | PDOC.CMIN ---
Date of service: 06/11/24 Time of Service: 08:38 Care Management Initial Assmt Initial Assessment Reason for Hospitalization: ? CVA, Hypertensive urgency, alcohol withdrawal Functional Status/Living Situation Patient Presentation: Nanette presented to the ED early yesterday morning with c/o worsening of left sided deficits. He has hx of old infarct, but MRI/CTA did not show new infarcts. He was also noted to be severely hypertensive with BP as high as 230/118 with CP. He is also at risk for severe alcohol withdrawal, and is on the phenobarbitol protocol. Feliciano was lying in bed when CM met with him. He stated that he was keeping his head back because his neck is swollen and it is more comfortable that way. He otherwise looked well. He stated that he is feeling better today than yesterday, but feels stiff from being in bed. PT is recommending HH vs. OP PT and is issuing a FWW. Nanette would prefer outpatient PT Nanette was offered the Director Of Creative Services. He did not want the college sports coach at this time. Nanette is aware of that the college sports coach can be reached 18/09, and that he is able to call himself if so desired. He stated the desire to find a sponsor once he is feeling better. He is also hoping to find a therapist. Town of Residence: [facility] Resides with: Other (2 roommates) Significant Other/Family: Local (Mom, 2 sisters. Friend, [place]. 4 children. Feels well supported) Natural Supports: family is good support Employment Status: Disabled (due to depression and anxiety) Instrumental Activities of Daily Living (ADLs): Independent Medications Medication Management: No Issues/Barriers identified and Issues/Barriers with Instructions/Directions (does not appear that he is compliant) Physical Functioning/Mobility Assistive Device: left sided defecits at baseline from previous stroke. PT is issuing FWW. Advance Directives Advance Directives: Do you have an Advance Directive: N 10/10/12 00:14 AD On File at [facility]: N 10/10/12 00:14 Date Asked 06/11/24 06/11/24 11:37 AD Date Reviewed COLST On File at [facility] COLST Date Scanned Code Status Resuscitation Status Full Code Insurance Coverage/Financial Issues Insurance: Medicare Part A & B Medicaid of [place] Care Team Visit Care Team Role Provider Type Mikey Martínez Primary Care Provider NON-[facility] STAFF PHYSICIAN Albert De Los Santos MD Emergency Provider [facility] STAFF PHYSICIAN Albert Bateman Admit Provider [facility] STAFF PHYSICIAN Attending Provider Discharge Potential Discharge Needs: PCP F/U Appt and Other (may need neuro f/u) Anticipated Barriers to Discharge: None Identified Patient/Family Education Needs: Review discharge instructions, discuss Ask Me Three Transportation: Private vehicle Plan: Feliciano will be discharged home with a new referral for outpatient PT once medically stable. Feliciano will f/u with his PCP and continue per his plan of care. CM will continue to follow and to update the plan as needed. Social Determinants of Health Screening Social Determinants of health last assessed in clinic: 06/11/24 Will the Patient Participate in the Screening?: Yes Do you worry about having a steady place to live?: no Problems where you live: no known problems In the past 12 months, have you had to go without electric, gas, oil or water in your home?: no 1. Within the past 12 months, we worried whether our food would run out before we got money to buy more.: Don't know/refused 2. Within the past 12 months, the food we bought just didn't last and we didn't have money to get more.: Don't know/refused Has lack of transportation kept you from medical appointments or from doing things needed for daily living?: no Has anyone in your life made you feel unsafe or unsupported?: no How hard is it for you to pay for the very basics like food, housing, medical care, and heating? Would you say it is:: Not hard at all Do you want help finding or keeping work or a job?: I do not need or want help If for any reason you need help with day-to-day activities such as bathing, preparing meals, shopping, managing finances, etc., do you get the help you need?: I get all the help I need How often do you feel lonely or isolated from those around you?: Never Do you speak a language other than Arabic at home?: No Does the patient want assistance with any of the above?: No PFSH All Active Problems (Updated 06/11/24 @ 11:36 by Albert Bateman) DVT prophylaxis (Acute) Contracture of muscle of left lower extremity (Acute) Hypertensive urgency (Acute) Stroke (Chronic) Left-sided weakness (Acute) Left carotid stenosis (Acute) Right carotid artery occlusion (Acute) CVA (cerebral vascular accident) (Chronic) Tobacco abuse (Acute) Elevated blood pressure reading (Acute) Anxiety and depression (Acute) Vomiting and diarrhea (Acute) Alcohol abuse (Chronic) Alcohol withdrawal (Acute) Electrolyte and fluid disorder (Acute) Alcoholic hepatitis (Acute) Medical History (Updated 06/11/24 @ 11:36 by Albert Bateman) Acute hyponatremia TBI (traumatic brain injury) Hyperlipidemia Mood disorder Spinal stenosis of lumbar region BMI 32.0-32.9,adult Hypertension Nephropathy Weakness of left leg ETOH abuse Degenerative disc disease ADHD Gynecomastia GERD (gastroesophageal reflux disease) Opioid dependence Chronic constipation Erectile dysfunction Hidradenitis suppurativa Diabetes mellitus Sleep apnea Eczema of both hands Headache Scrotal abscess Sinusitis Surgical History S/P lumbar spine operation Family History Mother Stroke Father Heart disease Social History (Updated 06/10/24 @ 14:23 by Albert Bateman) Smoking/Tobacco Use Status: Current every day Counseling given: provider counseling and counseling >3 minutes Smoking risk assessment performed?: Yes Alcohol Intake: current Alcohol Intake frequency: 3 or more drinks per day Alcohol type: hard liquor Counseling given: Yes Drug use: Never Substance use type: former substance user and marijuana Counseling provided: provider counseling and treatment program Housing: house Number of Children: 4 current occupation: Disabled Do you feel safe at home: Yes Do you feel safe in your relationship?: Yes Additional Social history: On SSDI since stroke. Lives in home with roommates Readmission Within the Past 30 Days Yes or No: No
--- NOTE | 2024-06-11 09:45 | IN_ITS ---
PT Notes Visit Reasons: CVA/TIA, alcohol withdrawal Physical Therapy Inpatient Initial Evaluation Date: 06/11/2024 Referring Doctor: Albert Bateman MD PT Orders: PT CONSULT: Eval for Assistive Device. Safety Consult for D/C. Fall Safety Assessment Precautions: Fall. Standard. Activity as tolerated. Patient Profile/Admitting Diagnosis: Feliciano is a 49-year-old male with past medical history significant for CVA x 2, TBI, and EtOH abuse who presented to the ED on 06/10/2024 due to worsening chest discomfort and weakness. Patient was admitted for further assessment of suspected CVA, hypertensive urgency, ETOH withrawal, tobacco abuse, opiod dependence, DM, and alcoholic hepatitis. Patient was placed on ASA and Clopidogrel as well as statin but brain MRI and CTA both revealed no new infarcts. Permissive hypertension was allowed up to 220/110 mmHg per hospitalist. PMHX: All Active Problems DVT prophylaxis (Acute) Contracture of muscle of left lower extremity (Acute) Hypertensive urgency (Acute) Stroke (Chronic) Alcohol withdrawal (Acute) Left-sided weakness (Acute) Acute hyponatremia (Acute) Alcohol withdrawal (Acute) Left carotid stenosis (Acute) Right carotid artery occlusion (Acute) CVA (cerebral vascular accident) (Chronic) Tobacco abuse (Acute) Alcoholic hepatitis (Acute) Electrolyte and fluid disorder (Acute) Alcohol withdrawal (Acute) Alcohol abuse (Chronic) Vomiting and diarrhea (Acute) Anxiety and depression (Acute) Elevated blood pressure reading (Acute) Medical History TBI (traumatic brain injury) Hyperlipidemia Mood disorder Spinal stenosis of lumbar region BMI 32.0-32.9,adult Hypertension Nephropathy Weakness of left leg ETOH abuse Degenerative disc disease ADHD Gynecomastia GERD (gastroesophageal reflux disease) Opioid dependence Chronic constipation Erectile dysfunction Hidradenitis suppurativa Diabetes mellitus Sleep apnea Eczema of both hands Headache Scrotal abscess Sinusitis Surgical History S/P lumbar spine operation Social History/Home Situation: Lives in a mobile home with a friend and friend's daughter with 3 steps to enter. He is unsure of how long more he can stay with them and is hopeful he can find his own place soon. Equipment Owned/DME: His AFO on the L got lost when he moved out of his old place of residence. Subjective: Feliciano stated that because of what has happened to him in the past months, he has not continued with any therapies that were started for him. He is not able to identify where he has left his L AFO since he moved out his old house. He also said that he was incarcerated fro 30 days which further made his situation complicated. He is hoping to move outo f his current home. Denied headache, chest pain, and lightheadedness throughout session. He feels that the back of his L knee feels tighter and his ankle heavier than before he was admitted. Complained of pain in the L knee that did not limit amublation distance today. Added that he has had more than 10 falls in the past year due to his dizziness. Complained of stiffness and pain in neck as well. Objective: General Observation: Telemetry monitoring in place. L knee flexion contracture (chronic). L foot drop (chronic) Mental Status: Alert and oriented as to person, place, time, and purpose. Able to pay attention, focus, and respond appropriately. Mildly impulsive. Pain: Minimal pain in L knee at rest and with movement Vital Signs: Closely monitoed via tele ROM: Right Upper Extremity: Shoulder Flexion allowed up to 90 degrees. Shoulder abduction allowed up to 90 degrees. Elbow flexion WFL. Wrist flexion WFL. Functional opening and closing of hand WFL. Left Upper Extremity: Shoulder Flexion allowed up to 90 degrees. Shoulder abduction allowed up to 90 degrees. Elbow flexion WFL. Wrist flexion WFL. Functional opening and closing of hand WFL. Right Lower Extremity: Hip flexion WFL. Hip abduction WFL. Knee flexion WFL. Ankle dorsiflexion WFL. Ankle plantarflexion WFL. Left Lower Extremity: Hip flexion allows up to 100 degrees. Hip abduction WFL. Knee flexion 90 degrees to 45 degrees. Ankle dorsiflexion absent. Ankle plantarflexion WFL. Strength: Right Upper Extremity: Shoulder flexors 3-/5. Shoulder abductors 3-/5. Elbow flexors 4-/5. Elbow extensors 3-/5. Signal Operator strong. Left Upper Extremity: Shoulder flexors 3-/5. Shoulder abductors 3-/5. Elbow flexors 4-/5. Elbow extensors 3-/5. Signal Operator weak but functional. Right Lower Extremity: Hip flexors 4-/5. Hip abductors 4-/5. Knee flexors 4-/5. Knee extensors 4-/5. Ankle dorsiflexors 4-/5. Ankle plantarflexors 4-/5. Left Lower Extremity: Hip flexors 3-/5. Hip abductors 4-/5. Knee flexors 2-/5. Knee extensors 2-/5. Ankle dorsiflexors 1/5. Ankle plantarflexors 4-/5. Bed Mobility/Transfers: Minimal cueing provided for use of B hands as needed for support, movement sequence, AD management, and posture to reduce fall risk and minimize pain report Rolling independent Supine to sit independent Sit to supine independent Sit to stand stand by assist with FWW Stand to sit stand by assist with FWW Bed to toilet stand by assist with FWW Toilet to bed stand by assist with FWW Bed to reclining stand by assist with FWW Reclining chair to stand by assist with FWW Gait: 300 feet with FWW with conatct guard assist only. Gait hemiplegic-circumduction at L hip, absent DF on L, decreased L knee flexion during swing phase, decreased extension at heel strike due to L knee flexion contracture. Moderate verbal cueing provided fro walker management and more controlled pace during directional change to prevent LOB. Balance: Static Sitting: Normal Dynamic Sitting: Good Static Standing: Fair Dynamic Standing: Fair Special Tests: Mobility Limitations Standardized Measure [facility] 6 clicks Basic Mobility Inpatient Short Form: Raw Score: 22 CMS Score: 21% deficit Pronator Drift: None observed Rapid Alternating movement: Intact in B UE Impaired in L LE Romberg Test: Positive 4-Stage Balance Test: Deferred Informed Consent/Education: Patient was instructed in purpose of PT consult and plan of care. Agreeable to proceed with established PT POC to achieve personal goals. Assessment: Chronic L-sided hemipraresis with L LE more affected than L UE. Signal Operator on L weak but functional, able to hold onto walker handle safely. Hemiparetic gait much more subjectively pronounced but no loss of balance with use of FWW. New incrased painnin L knee did not limit ambulation distance for this evaluation. Patient did not report any chest discomfort throughout the session. Stability of walking more improved with FWW, will issue said device to take home with patient. Will also assess value of using a L AFO on footwear. Will have no support from firends he lives with. Patient presents with clinical signs and symptoms consistent with current/admitting diagnoses that have resulted to mobility limitations, gait instability, generalized weakness, and overall ADL decline as demonstrated by the following impairment level findings: 1. Decreased strength to L UE/LE major muscle groups 2. Impaired standing balance 3. Impaired activity tolerance 4. Limitation of joint range of motion in L knee extension and L ankle DF (acute on chronic) 5. Repeated falls 6. Pain in L knee (acute on chronic) Impairments are contributing to the following functional limitations: 1. Decline in bed mobility skills 2. Decline in transfer skills 3. Difficulty with ambulation without assistive device 4. Increased completion time for mobility ADL performance 5. Increased risk for falls 6. Difficulty with managing steps alone safely [place] 66086 moderate complexity based on the following: History: 49-year-old male with past medical history as indicated above Examination: Demonstrable impairment in strength, balance, and mobility level with underlying impairments and functional limitations as exhibited above as well as deficit score of 21% utilizing the [facility] Mobility Inpatient Short Form Presentation: Evolving Decision Makin moderate complexity Goals: Goals X1 week 1. Supine-Sit independent 2. Sit-Supine independent 3. Sit-Stand independent 4. Stand-Sit independent with FWW 5. Bed-Chair independent with FWW 6. Chair-Bed independent with FWW 7. Independent gait on level surface with use of FWW for at least 500 feet without report of pain nor dyspnea 8. Independent stair negotiation while holding onto B rails for at least 3 steps without report of pain nor dyspnea 9. Independent with home exercise program 10. Good static and dynamic standing balance/tolerance Plan of Care/Treatment Plan: 1-2x/day, 7 days/week x 1 week. Plan of care has been reviewed with the SALES AND SERVICE CONSULTANT providing the service under Physical Therapy direction. Initiate Physical Therapy intervention for pain management as needed, strengthening, bed mobility, transfers, gait, stairs, balance training, and use of assistive device. -- Assess value of L AFO in next session --Fit and issue FWW DISCHARGE RECOMMENDATIONS: [] Home with no services [] [X] Home with services. Patient will benefit from home health PT services in order to progress mobility level using least restrictive assistive ambulatory device, assess home safety, identify additional equipment needs, and establish a functional maintenance program that will increase ability of patient to remain at home. [] Home with outpatient PT [] [] SNF for continued rehabilitation [] [] Electronic Field Service Engineer Care [] [] SNF versus LTC based on ability to participate and progress [] TREATMENT CODE/TIME: 67632 x 20 minutes for 1 unit at, 9.530 x 15 minutes (9:45?10:20). Thank you for the opportunity to participate in the care of this patient. Mally Magana PT, DPT, CLT [facility] [place], [place]
--- NOTE | 2024-06-11 10:26 | W.PM.PROGNOT ---
Date of Service Date of service: 06/11/24 Time of Service: 08:05 Assessment and Plan Assessment and plan (1) CVA (cerebral vascular accident): Status: Chronic Assessment and plan: Clinically c/w an acute CVA with worsening of previous left sided deficits, but MRI/CTA did not show new infarcts. His symptoms may be related to variations in blood flow to old infarcted area. Also could be some degree of TIA. He was off all platelet meds prior to admission Teleneurology note reviewed. Given no sign of cardioembolic stroke and clinically a dynamic process occurring, will continue aspirin and add clopidogrel along with statin. Plan DAPT for 21 days, then ASA. Repeat lipids show LDL low at 14 and and A1c well controlled at 6.5% Left hemiparesis/facial droop improved on exam 06/11 PT evaluation today (2) Hypertensive urgency: Status: Acute Assessment and plan: Severe hypertension at up to 230/118 in ED associated with chest pain. Chest pain resolved with NTG and EKG and troponin not c/w ACS. He did get a dose of lisinopril and I will not treat BP futher in first 24 hours unless it gets above 220/120, permissive HTN. Now >24hours from event, resume metoprolol (3) Alcohol withdrawal: Status: Acute Assessment and plan: Complicating picture, at risk for severe withdrawal. Some hallucinations 06/10 but these have resolved. On phenobarbitol protocol, not scoring now after initial loading. Given stability, can transfer to floor. (4) Tobacco abuse: Status: Acute Assessment and plan: congratulated quitting smoking. He is still chewing, wants nicotene patch, continue this (5) Opioid dependence: Assessment and plan: Continue methadone per SHADY. QTc reassuring. (6) Diabetes mellitus: Assessment and plan: Hasn't been getting regular care. Holding metformin with CTA. A1c reassurign at 6.5%. ISS coverage. (7) Sleep apnea: Assessment and plan: Hypoxic overnight, c/w sleep apnea. He agrees to sleep study at discharge. (8) Contracture of muscle of left lower extremity: Status: Acute Assessment and plan: He is having pain and has a clear contracture that is chronic, though he is describing it feeling worse today. He had trial on baclofen for this but didn't like it. Improving today, PT consult (9) Alcohol abuse: Status: Chronic Assessment and plan: He would like to quit drinking. Naltrexone not an option. He is on gabapentin. Acamprosate an option. Will review option for medical/non medical treatment and offer recovery coaching prior to discharge (10) Alcoholic hepatitis: Status: Acute Assessment and plan: AST/ALT up but INR and bili reassuring. Labs less indicative of cirrhosis. LFTs improving 06/11 (11) DVT prophylaxis: Status: Acute Assessment and plan: enoxaparin Subjective Subjective Interval history since last seen: 24 events: On oxygen overnight, off this am (known untreated MICHAEL) CIWA scores 1 overnight, no prn phenobarb given Objective Last Vital Signs Temp 36.8 C 06/11/24 08:00 Pulse 88 06/11/24 09:56 Resp 11 L 06/11/24 09:56 BP 171/100 H 06/11/24 09:56 Pulse Ox 97 06/11/24 09:56 Laboratory Results - last 24 hr 06/10/24 06/11/24 12:23 05:28 WBC 10.26 RBC 4.06 L Hgb 11.8 L D Hct 36.3 L MCV 89 MCH 29.1 MCHC 32.5 RDW 12.8 Plt Count 279 MPV 9.1 Immature Gran % 0.3 Neutrophils % 66.3 Lymphocytes % 25.4 Monocytes % 4.8 Eosinophils % 2.3 Basophils % 0.9 Nucleated RBC % 0.0 Absolute Neutrophils 6.80 H Absolute Lymphocytes 2.61 Absolute Monocytes 0.49 Absolute Eosinophils 0.24 Absolute Basophils 0.09 Sodium 142 Potassium 3.5 Chloride 107 Carbon Dioxide 28.5 Anion Gap 6.5 BUN 6 L Creatinine 0.8 Est GFR (CKD-EPI 2020) 107.15 Glucose 100 Hemoglobin A1c 6.5 H Calcium 8.2 L Phosphorus 3.3 Magnesium 2.0 Total Bilirubin 0.7 AST 115 H ALT 156 H Alkaline Phosphatase 132 H Total Protein 6.6 Albumin 2.8 L Triglycerides 137 Total Cholesterol 87 LDL Cholesterol, Calc 14 HDL Cholesterol 46 H Folate 9.4 PAWSS Have you Been Recently Intoxicated or Drunk Within the Last 30 days?: Yes Have you Ever Experienced Previous Episodes of Alcohol Withdrawal?: Yes Have you ever Experienced Withdrawal Seizures?: No Have you ever Experienced Delirium Tremens(DT)s?: No Have you ever undergone Alcohol Rehabilitation Treatment (i.e, inpt ot outpatient treatment programs)?: Yes Have you ever Experienced Blackouts?: Yes Have you ever Combined Alcohol with other Downers within the last 90 days?: No Have you ever Combined Alcohol with any other Substance of Abuse during the last 90 days?: No Positive Blood Alcohol level on Presentation? [PCS.BAL]: Yes Evidence of Increased Autonomic Activity (i.e. HR>120, tremor, sweating, agitation, nausea)?: No Result: 5 Time Spent with Patient Time Spent with Patient: >50 minutes Time was spent: preparing to see the patient(eg.review tests), obtaining and/or reviewing separately otained hiistory, ordering medications,tests, procedures, referring, communicating with other health healthcare risk control consultant, indepentently interpreting results, counseling the patient and care coordination
[2024-06-11] MEDS: Metoprolol 50 MG TAB PO ×2 (10:31→20:23)
[2024-06-11] MEDS: Aspirin 81 MG CHEW PO (10:31)
[2024-06-11] MEDS: Enoxaparin 40 MG/0.4 ML SYR SC (10:32)
--- NOTE | 2024-06-11 11:26 | W.PC.ACHO ---
Registration Status: Primary Language: Preferred Language: ED Information & Data Chief Complaint GenMedical 06/10/24 01:14 Triage Note hx of strokes. Pt sates that 06/10/24 00:06 he feels nauseatd and states that his left leg doesnt work. SOB. States that he feels out of it. Last stroke 2 years ago. States that he is on thinners. Started around 1830. Medical / Surgical History (Last Updated 06/11/24 @ 10:34 by Albert Bateman) Acute hyponatremia TBI (traumatic brain injury) Hyperlipidemia Mood disorder Spinal stenosis of lumbar region BMI 32.0-32.9,adult Hypertension Nephropathy Weakness of left leg ETOH abuse Degenerative disc disease ADHD Gynecomastia GERD (gastroesophageal reflux disease) Opioid dependence Chronic constipation Erectile dysfunction Hidradenitis suppurativa Diabetes mellitus Sleep apnea Eczema of both hands Headache Scrotal abscess Sinusitis (Last Reviewed 06/10/24 @ 14:22 by Albert Bateman) S/P lumbar spine operation Most Recent Vital Signs Temperature 36.8 C 06/11/24 08:00 Temperature Source Temporal Artery Scan 06/11/24 08:00 Pulse 71 06/11/24 11:09 Pulse 71 06/11/24 11:09 Respiratory Rate 16 06/11/24 11:09 Respiratory Effort Normal, Non-Labored 06/10/24 12:10 Respiratory Depth Normal 06/10/24 12:10 Respiratory Pattern Normal 06/10/24 12:10 Blood Pressure 159/96 H 06/11/24 11:09 Blood Pressure Mean 116 06/11/24 11:09 Blood Pressure Position Sitting 06/10/24 12:10 Pulse Oximetry 95 06/11/24 11:09 Oxygen Delivery Method Room Air 06/11/24 08:17 Oxygen Flow Rate 0 06/11/24 08:17 Pain Level 0 06/11/24 11:20 Comment sleeping well briefly awake for vs, no needs verbalized 06/11/24 03:57 Allergies tolmetin Allergy (Unverified 06/10/24 00:14) Unknown years ago Precautions Isolation Standard precaution 06/10/24 00:10 Active Medications Generic Name Dose Route Start Last Admin Trade Name Freq PRN Reason Stop Dose Admin Atorvastatin Calcium 80 mg 06/10/24 10:00 06/11/24 08:19 Atorvastatin 40 Mg Tab PO 80 mg DAILY GABY Administration Clopidogrel Bisulfate 75 mg 06/11/24 08:30 06/11/24 08:21 Clopidogrel 75 Mg Tab PO 75 mg DAILY GABY Administration Enoxaparin Sodium 40 mg 06/10/24 10:00 06/11/24 10:32 Enoxaparin 40 Mg/0.4 Ml Syr SC 40 mg Q24H GABY Administration Escitalopram Oxalate 20 mg 06/11/24 08:30 06/11/24 08:20 Escitalopram 20 Mg Tab PO 20 mg DAILY GABY Administration Folic Acid 1 mg 06/11/24 08:30 06/11/24 08:20 Folic Acid 1 Mg Tab PO 06/17/24 08:31 1 mg QAM GABY Administration Gabapentin 800 mg 06/10/24 14:00 06/11/24 08:20 Gabapentin 800 Mg Tab PO 800 mg TID GABY Administration Insulin Aspart 0 units 06/10/24 17:00 06/11/24 10:09 Insulin Aspart 300 Units/3 Ml Pen SC Not Given 0800,1200,1700 [facility] Protocol Lamotrigine 100 mg 06/10/24 20:00 06/11/24 08:20 Lamotrigine 100 Mg Tab PO 100 mg BID GABY Administration Lisinopril 20 mg 06/11/24 08:30 06/11/24 08:19 Lisinopril 20 Mg Tab PO 20 mg DAILY GABY Administration Loratadine 10 mg 06/11/24 08:30 06/11/24 10:10 Loratidine 10 Mg Tab PO Not Given DAILY GABY Methadone HCl 100 mg 06/10/24 10:00 06/11/24 08:22 Methadone Liquid 10 Mg/Ml PO 100 mg DAILY GAYB Administration Methadone HCl 75 mg 06/10/24 20:00 06/10/24 20:05 Methadone Liquid 10 Mg/Ml PO 75 mg QPM GABY Administration Multivitamins 1 tab 06/11/24 08:30 06/11/24 08:20 Multivitamin Tab PO 06/17/24 08:31 1 tab QAM GABY Administration Nicotine 7 mg 06/10/24 08:44 06/10/24 13:46 Nicotine 7 Mg/24 Hr Patch TD 7 mg DAILY PRN PRN Administration Agitation Ondansetron HCl 4 mg 06/10/24 13:07 06/10/24 13:51 Ondansetron 4 Mg/2 Ml Vial IVP 4 mg Q8H PRN PRN Administration Pantoprazole Sodium 40 mg 06/11/24 07:30 06/11/24 08:20 Pantoprazole 40 Mg Tabcr PO 40 mg DAILY@0730 GABY Administration Phenobarbital Sodium 130 mg 06/10/24 08:42 06/10/24 13:51 Phenobarbital 130 Mg/Ml Vial IVP 130 mg DIRECTED PRN Administration for mild anxiety/agitation Sodium Chloride 0 ml 06/10/24 01:05 06/10/24 13:52 Normal Saline Flush 10 Ml Syr IVP 10 ml PRN PRN Administration Thiamine HCl 100 mg 06/11/24 08:30 06/11/24 08:22 Thiamine 100 Mg Tab PO 06/17/24 08:31 100 mg QAM GABY Administration IV IV Catheter Type [Right Peripheral IV Antecubital] IV Catheter Gauge [Right 18 Antecubital] Diet Orders Category Date Time Status Diet [Diabetes Consistent CHO] [DIET] Nutrition 06/11/24 Lunch Active Diagnostics 06/11/24 06/10/24 Range/Units 05:28 12:23 WBC 10.26 (4.4-10.8) 10^3/uL RBC 4.06 L (4.36-5.78) 10^6/uL Hgb 11.8 L D (13.5-17.5) g/dL Hct 36.3 L (40.0-50.0) % MCV 89 (80-95) fL MCH 29.1 (27.0-33.0) pg MCHC 32.5 (32.0-36.0) % RDW 12.8 (11.8-14.1) % Plt Count 279 (130-400) 10^3/uL MPV 9.1 (8.0-11.0) fL Immature Gran % 0.3 % Neutrophils % 66.3 % Lymphocytes % 25.4 % Monocytes % 4.8 % Eosinophils % 2.3 % Basophils % 0.9 % Nucleated RBC % 0.0 (0.0-0.3) % Absolute Neutrophils 6.80 H (1.2-6.7) 10^3/uL Absolute Lymphocytes 2.61 (1.2-3.4) 10^3/uL Absolute Monocytes 0.49 (0.1-0.8) 10^3/uL Absolute Eosinophils 0.24 (0.0-0.7) 10^3/uL Absolute Basophils 0.09 (0.0-0.2) 10^3/uL Sodium 142 (136-145) mmol/L Potassium 3.5 (3.5-5.1) mmol/L Chloride 107 (98-107) mmol/L Carbon Dioxide 28.5 (21.0-32.0) mmol/L Anion Gap 6.5 (3-11) mmol/L BUN 6 L (7-18) mg/dL Creatinine 0.8 (0.70-1.30) mg/dL Est GFR (CKD-EPI 2020) 107.15 (mL/min/1.73m2) Glucose 100 (74-106) mg/dL Hemoglobin A1c 6.5 H (<5.7) % Calcium 8.2 L (8.5-10.1) mg/dL Phosphorus 3.3 (2.6-4.7) mg/dL Magnesium 2.0 (1.8-2.4) mg/dL Total Bilirubin 0.7 (0.2-1.0) mg/dL AST 115 H (15-37) U/L ALT 156 H (16-63) U/L Alkaline Phosphatase 132 H (46-116) U/L Total Protein 6.6 (6.4-8.2) g/dL Albumin 2.8 L (3.4-5.0) g/dL Triglycerides 137 (<150) mg/dL Total Cholesterol 87 (<200) mg/dL LDL Cholesterol, Calc 14 (<100) mg/dL HDL Cholesterol 46 H (>or=40) mg/dL Folate 9.4 (8.6-20.0) ng/mL [id number] Documentation Fingerstick Glucose Start: 06/10/24 00:12 Freq: Status: Complete Protocol: Activity Type Activity Date Activity User E-sign Co-sign Detail Recorded Client Recorded Date Recorded By Document 06/10/24 00:11 BKG DAEMON [id number] 06/10/24 00:12 BKG DAEMON(2) Fingerstick Glucose Start: 06/10/24 13:43 Freq: .AC Status: Active Protocol: Activity Type Activity Date Activity User E-sign Co-sign Detail Recorded Client Recorded Date Recorded By Document 06/11/24 07:13 BKG DAEMON(3) [id number] 06/11/24 07:14 BKG DAEMON(4) Intake and Output - 24 Hour Total 06/10/24 00:03 thru 06/11/24 10:22 Intake Total 5359.1232 Output Total 1100 Balance 4259.1232 Weight 81.7 kg Intake: IV 1667.1232 Oral 3692 Output: Urine 1100 Other: Urine Color Yellow Urine Appearance Clear Urine Odor Normal Stool Occult Blood Negative Stool Size Large Stool Characteristics Soft Formed [place] Risk Assessment History of Falls Previous History 06/10/24 12:10 Contributing Factors Confusion,Impairments, 06/10/24 12:10 Incontinence,Medications Ambulatory Aids Independent 06/10/24 12:10 Tubes/Lines With any additional score 06/10/24 12:10 Gait Evaluation W/any additional score 06/10/24 12:10 Cognition No cognitive impairment 06/10/24 12:10 Fall Total Score 67 06/10/24 12:10 Level of Risk High Risk 06/10/24 12:10 Problems (Last Updated 06/11/24 @ 10:34 by Albert Bateman) DVT prophylaxis (Acute) Contracture of muscle of left lower extremity (Acute) Hypertensive urgency (Acute) CVA (cerebral vascular accident) (Chronic) Tobacco abuse (Acute) Alcohol abuse (Chronic) Alcohol withdrawal (Acute) Alcoholic hepatitis (Acute) Notes 06/10/24 08:40 Nursing Notes by Alissa Garcia Bag of methadone given to pharmacy to verify. Initialized on 06/10/24 08:40 - END OF NOTE v v v v v v v v v Sending and/or Receiving Nurses: Please use comment section below to note any information pertinent to the patient hand-off not included above. Information / Comments: TIA/ETOH w/Drawl, A&O x4, HR Reg, NSR, Lungs clear, L sided weakness, PT evaled today, Phenobar protocol, Total given 640, Soft stop 957, hard stop 1276, CIWA 1. Report received from: Mariana CASE SPECIALIST at 1115
[2024-06-11] MEDS: LORazepam 0.5 MG TAB PO (13:09)
[2024-06-11] MEDS: Nicotine 7 MG/24 HR PATCH TD (13:09)
--- NOTE | 2024-06-11 14:08 | PT.INTREAT ---
PT Notes Visit Reasons: CVA/TIA, alcohol withdrawal Physical Therapy Inpatient Initial Evaluation Date: 06/11/2024 Referring Doctor: Albert Bateman MD PT Orders: PT CONSULT: Eval for Assistive Device. Safety Consult for D/C. Fall Safety Assessment Precautions: Fall. Standard. Activity as tolerated. Patient Profile/Admitting Diagnosis: Feliciano is a 49-year-old male with past medical history significant for CVA x 2, TBI, and EtOH abuse who presented to the ED on 06/10/2024 due to worsening chest discomfort and weakness. Patient was admitted for further assessment of suspected CVA, hypertensive urgency, ETOH withrawal, tobacco abuse, opiod dependence, DM, and alcoholic hepatitis. Patient was placed on ASA and Clopidogrel as well as statin but brain MRI and CTA both revealed no new infarcts. Permissive hypertension was allowed up to 220/110 mmHg per hospitalist. PMHX: All Active Problems DVT prophylaxis (Acute) Contracture of muscle of left lower extremity (Acute) Hypertensive urgency (Acute) Stroke (Chronic) Alcohol withdrawal (Acute) Left-sided weakness (Acute) Acute hyponatremia (Acute) Alcohol withdrawal (Acute) Left carotid stenosis (Acute) Right carotid artery occlusion (Acute) CVA (cerebral vascular accident) (Chronic) Tobacco abuse (Acute) Alcoholic hepatitis (Acute) Electrolyte and fluid disorder (Acute) Alcohol withdrawal (Acute) Alcohol abuse (Chronic) Vomiting and diarrhea (Acute) Anxiety and depression (Acute) Elevated blood pressure reading (Acute) Medical History TBI (traumatic brain injury) Hyperlipidemia Mood disorder Spinal stenosis of lumbar region BMI 32.0-32.9,adult Hypertension Nephropathy Weakness of left leg ETOH abuse Degenerative disc disease ADHD Gynecomastia GERD (gastroesophageal reflux disease) Opioid dependence Chronic constipation Erectile dysfunction Hidradenitis suppurativa Diabetes mellitus Sleep apnea Eczema of both hands Headache Scrotal abscess Sinusitis Surgical History S/P lumbar spine operation Social History/Home Situation: Lives in a mobile home with a friend and friend's daughter with 3 steps to enter. He is unsure of how long more he can stay with them and is hopeful he can find his own place soon. Equipment Owned/DME: His AFO on the L got lost when he moved out of his old place of residence. Subjective: Feliciano stated that because of what has happened to him in the past months, he has not continued with any therapies that were started for him. He is not able to identify where he has left his L AFO since he moved out his old house. He also said that he was incarcerated fro 30 days which further made his situation complicated. He is hoping to move outo f his current home. Denied headache, chest pain, and lightheadedness throughout session. He feels that the back of his L knee feels tighter and his ankle heavier than before he was admitted. Complained of pain in the L knee that did not limit amublation distance today. Added that he has had more than 10 falls in the past year due to his dizziness. Complained of stiffness and pain in neck as well. Objective: General Observation: Telemetry monitoring in place. L knee flexion contracture (chronic). L foot drop (chronic) Mental Status: Alert and oriented as to person, place, time, and purpose. Able to pay attention, focus, and respond appropriately. Mildly impulsive. Pain: Minimal pain in L knee at rest and with movement Vital Signs: Closely monitoed via tele ROM: Right Upper Extremity: Shoulder Flexion allowed up to 90 degrees. Shoulder abduction allowed up to 90 degrees. Elbow flexion WFL. Wrist flexion WFL. Functional opening and closing of hand WFL. Left Upper Extremity: Shoulder Flexion allowed up to 90 degrees. Shoulder abduction allowed up to 90 degrees. Elbow flexion WFL. Wrist flexion WFL. Functional opening and closing of hand WFL. Right Lower Extremity: Hip flexion WFL. Hip abduction WFL. Knee flexion WFL. Ankle dorsiflexion WFL. Ankle plantarflexion WFL. Left Lower Extremity: Hip flexion allows up to 100 degrees. Hip abduction WFL. Knee flexion 90 degrees to 45 degrees. Ankle dorsiflexion absent. Ankle plantarflexion WFL. Strength: Right Upper Extremity: Shoulder flexors 3-/5. Shoulder abductors 3-/5. Elbow flexors 4-/5. Elbow extensors 3-/5. Housekeeping Room Inspector strong. Left Upper Extremity: Shoulder flexors 3-/5. Shoulder abductors 3-/5. Elbow flexors 4-/5. Elbow extensors 3-/5. Housekeeping Room Inspector weak but functional. Right Lower Extremity: Hip flexors 4-/5. Hip abductors 4-/5. Knee flexors 4-/5. Knee extensors 4-/5. Ankle dorsiflexors 4-/5. Ankle plantarflexors 4-/5. Left Lower Extremity: Hip flexors 3-/5. Hip abductors 4-/5. Knee flexors 2-/5. Knee extensors 2-/5. Ankle dorsiflexors 1/5. Ankle plantarflexors 4-/5. Bed Mobility/Transfers: Minimal cueing provided for use of B hands as needed for support, movement sequence, AD management, and posture to reduce fall risk and minimize pain report Rolling independent Supine to sit independent Sit to supine independent Sit to stand stand by assist with FWW Stand to sit stand by assist with FWW Bed to toilet stand by assist with FWW Toilet to bed stand by assist with FWW Bed to reclining stand by assist with FWW Reclining chair to stand by assist with FWW Gait: 300 feet with FWW with conatct guard assist only. Gait hemiplegic-circumduction at L hip, absent DF on L, decreased L knee flexion during swing phase, decreased extension at heel strike due to L knee flexion contracture. Moderate verbal cueing provided fro walker management and more controlled pace during directional change to prevent LOB. Balance: Static Sitting: Normal Dynamic Sitting: Good Static Standing: Fair Dynamic Standing: Fair Special Tests: Mobility Limitations Standardized Measure [facility] 6 clicks Basic Mobility Inpatient Short Form: Raw Score: 22 CMS Score: 21% deficit Pronator Drift: None observed Rapid Alternating movement: Intact in B UE Impaired in L LE Romberg Test: Positive 4-Stage Balance Test: Deferred Informed Consent/Education: Patient was instructed in purpose of PT consult and plan of care. Agreeable to proceed with established PT POC to achieve personal goals. Assessment: Chronic L-sided hemipraresis with L LE more affected than L UE. Housekeeping Room Inspector on L weak but functional, able to hold onto walker handle safely. Hemiparetic gait much more subjectively pronounced but no loss of balance with use of FWW. New incrased painnin L knee did not limit ambulation distance for this evaluation. Patient did not report any chest discomfort throughout the session. Stability of walking more improved with FWW, will issue said device to take home with patient. Will also assess value of using a L AFO on footwear. Will have no support from firends he lives with. Patient presents with clinical signs and symptoms consistent with current/admitting diagnoses that have resulted to mobility limitations, gait instability, generalized weakness, and overall ADL decline as demonstrated by the following impairment level findings: 1. Decreased strength to L UE/LE major muscle groups 2. Impaired standing balance 3. Impaired activity tolerance 4. Limitation of joint range of motion in L knee extension and L ankle DF (acute on chronic) 5. Repeated falls 6. Pain in L knee (acute on chronic) Impairments are contributing to the following functional limitations: 1. Decline in bed mobility skills 2. Decline in transfer skills 3. Difficulty with ambulation without assistive device 4. Increased completion time for mobility ADL performance 5. Increased risk for falls 6. Difficulty with managing steps alone safely Patient is assessed as a 15527 moderate complexity based on the following: History: 49-year-old male with past medical history as indicated above Examination: Demonstrable impairment in strength, balance, and mobility level with underlying impairments and functional limitations as exhibited above as well as deficit score of 21% utilizing the [facility] Mobility Inpatient Short Form Presentation: Evolving Decision Makin moderate complexity Goals: Goals X1 week 1. Supine-Sit independent 2. Sit-Supine independent 3. Sit-Stand independent 4. Stand-Sit independent with FWW 5. Bed-Chair independent with FWW 6. Chair-Bed independent with FWW 7. Independent gait on level surface with use of FWW for at least 500 feet without report of pain nor dyspnea 8. Independent stair negotiation while holding onto B rails for at least 3 steps without report of pain nor dyspnea 9. Independent with home exercise program 10. Good static and dynamic standing balance/tolerance Plan of Care/Treatment Plan: 1-2x/day, 7 days/week x 1 week. Plan of care has been reviewed with the METALLOGRAPHY TEACHER providing the service under Physical Therapy direction. Initiate Physical Therapy intervention for pain management as needed, strengthening, bed mobility, transfers, gait, stairs, balance training, and use of assistive device. -- Assess value of L AFO in next session --Fit and issue FWW DISCHARGE RECOMMENDATIONS: [] Home with no services [] [X] Home with services. Patient will benefit from home health PT services in order to progress mobility level using least restrictive assistive ambulatory device, assess home safety, identify additional equipment needs, and establish a functional maintenance program that will increase ability of patient to remain at home. [] Home with outpatient PT [] [] SNF for continued rehabilitation [] [] Out[facility] Beveler [facility] [] [] SNF versus LTC based on ability to participate and progress [] TREATMENT CODE/TIME: 75186 x 20 minutes for 1 unit at, 9.530 x 15 minutes (9:45?10:20). Thank you for the opportunity to participate in the care of this patient. Mally Magana PT, DPT, CLT [facility] [place], [place]
--- NOTE | 2024-06-11 14:08 | PT.INTREAT ---
PT Notes Visit Reasons: CVA/TIA, alcohol withdrawal Physical Therapy Inpatient Treatment Note Date: 06/11/2024 Precautions: Fall. Standard. Activity as tolerated. Subjective: Agreeable to treatment session. Objective: General Observation: Telemetry monitoring in place. L knee flexion contracture (chronic). L foot drop (chronic) Mental Status: Alert and oriented as to person, place, time, and purpose. Able to pay attention, focus, and respond appropriately. Mildly impulsive. Pain: Minimal pain in L knee at rest and with movement Vital Signs: Closely monitored via tele Bed Mobility/Transfers: Minimal cueing provided for use of B hands as needed for support, movement sequence, AD management, and posture to reduce fall risk and minimize pain report Rolling independent Supine to sit independent Sit to supine independent Sit to stand stand by assist with FWW Stand to sit stand by assist with FWW Bed to toilet stand by assist with FWW Toilet to bed stand by assist with FWW Bed to reclining stand by assist with FWW Reclining chair to stand by assist with FWW Gait: 150 feet + 300 feet with FWW with contact guard assist only. Gait hemiplegic-circumduction at L hip, absent DF on L, decreased L knee flexion during swing phase, decreased extension at heel strike due to L knee flexion contracture. Moderate verbal cueing provided fro walker management and more controlled pace during directional change to prevent LOB. Balance: Static Sitting: Normal Dynamic Sitting: Good Static Standing: Fair Dynamic Standing: Fair THERA EX: Patient was advised about safely and correctly performing gentle active stretches to the L knee flexors and L ankle plantarflexors using a stool in sitting and a folded pillow in bed held for 5-10 seconds x 10 reps. Instructed on doing this every two hours on his own. Assessment: Trialled AFO to L which fitted well in his L crocs without any issues -- less L foot drag, increased L ankle dorsiflexion, and more improved posture and stability as patient is able to put weight through the whole of L foot allowing active stretching to L contracted knee flexors and plantarflexors during stance phase of gat. Patient has also been fitted and provided with a front-wheeled walker to reduce fall risk. Chronic L-sided hemipraresis with L LE more affected than L UE. Product Assurance Engineer on L weak but functional, able to hold onto walker handle safely. Hemiparetic gait much more subjectively pronounced but no loss of balance with use of FWW. New incrased painnin L knee did not limit ambulation distance for this evaluation. Patient did not report any chest discomfort throughout the session. Stability of walking more improved with FWW, will issue said device to take home with patient. Will also assess value of using a L AFO on footwear. Will have no support from firends he lives with. Plan of Care/Treatment Plan: 1-2x/day, 7 days/week x 1 week. Plan of care has been reviewed with the CUSTOMER SUCCESS ASSOCIATE providing the service under Physical Therapy direction. Initiate Physical Therapy intervention for pain management as needed, strengthening, bed mobility, transfers, gait, stairs, balance training, and use of assistive device. DISCHARGE RECOMMENDATIONS: [] Home with no services [] [X] Home with services. Patient will benefit from home health PT services in order to progress mobility level using least restrictive assistive ambulatory device, assess home safety, identify additional equipment needs, and establish a functional maintenance program that will increase ability of patient to remain at home. [] Home with outpatient PT [] [] SNF for continued rehabilitation [] [] [facility] [] [] SNF versus LTC based on ability to participate and progress [] TREATMENT CODE/TIME: 66326 x 15 minutes for 1 unit, 76595 x 15 minutes for 1 unit (14:08?14:32).
[2024-06-11] MEDS: Methadone Liquid 10 MG/ML 75 MG PO (20:23)
[2024-06-12 03:24] VITALS: BP 157/93; PULSE 60; RESP 18; TEMP 36; O2SAT 92
[2024-06-12 07:14] VITALS: BP 180/94; PULSE 58; RESP 14; TEMP 35.9; O2SAT 95
[2024-06-12] MEDS: Atorvastatin 40 MG TAB 80 MG PO (08:09)
[2024-06-12] MEDS: Clopidogrel 75 MG TAB PO (08:12)
[2024-06-12] MEDS: Aspirin 81 MG CHEW PO (08:12)
[2024-06-12] MEDS: Gabapentin 800 MG TAB PO ×2 (08:13→13:54)
[2024-06-12] MEDS: Escitalopram 20 MG TAB PO (08:13)
[2024-06-12] MEDS: Folic Acid 1 MG TAB PO (08:13)
[2024-06-12] MEDS: lamoTRIgine 100 MG TAB PO (08:13)
[2024-06-12] MEDS: Methadone Liquid 10 MG/ML 100 MG PO (08:14)
[2024-06-12] MEDS: Lisinopril 20 MG TAB PO (08:14)
[2024-06-12] MEDS: Metoprolol 50 MG TAB PO (08:15)
[2024-06-12] MEDS: Multivitamin TAB 1 TAB PO (08:15)
[2024-06-12] MEDS: Pantoprazole 40 MG TABCR PO (08:16)
[2024-06-12] MEDS: Thiamine 100 MG TAB PO (08:16)
--- NOTE | 2024-06-12 09:30 | DI.US_ITS ---
APPROVED REPORT EXAM: Comprehensive 2D, Doppler, and color-flow Echocardiogram Patient Location: In-Patient Room/Bed: 215 Hydroelectric Machinery Mechanic: Adilson Syed RDCS (AE) Indications: TIA, h/o CVA Echo Enhancing Agent Indication: Rule out Shunt Agent(s) / Amount(s) Used: Agitated Saline 30.0 cc Comments: Contrast study was performed with 3 IV injections of 10ccs of agitated normal saline, at re st, with cough and post valsalva maneuver. Negative contrast study for shunt flow. Other Information Study Quality: Adequate Conclusion Normal left ventricular wall thickness and chamber size. Ejection fraction is 60%. Wall motion is n ormal Normal right ventricular size and function Both atria are normal in size No intracardiac shunting is identified with injection of agitated saline There are no structural valvular abnormalities Mild mitral regurgitation Estimated right ventricular systolic pressure is 39 mmHg Wall motion Left Ventricle The left ventricle is normal size. Left ventricular systolic function is normal. The left ventricular ejection fraction is within the normal range. There is normal left ventricular wall thickness. There is normal LV segmental wall motion. The left ventricular diastolic function is normal. There is no v entricular septal defect visualized. LVEF is 60%. Right Ventricle The right ventricle is normal size. The right ventricular systolic function is normal. Atria The left atrium size is normal. The right atrium size is normal. Saline bubble contrast intravenous i njection does not demonstrate PFO. Aortic Valve The aortic valve is normal in structure. Aortic valve is trileaflet. There is no aortic valvular sten osis. No aortic regurgitation is present. Mitral Valve The mitral valve is normal in structure. No evidence of mitral valve stenosis. Mild mitral regurgitat ion. Tricuspid Valve The tricuspid valve is normal in structure. There is no tricuspid valve stenosis. Trace tricuspid reg urgitation. The RVSP is 39 mmHg. Pulmonic Valve The pulmonary valve is normal in structure. There is no pulmonic valvular stenosis. There is no pulmo truong valvular regurgitation. Great Vessels The aortic root is normal in size. The ascending aorta is mildly dilated. Aortic arch is normal in ca liber. IVC is normal in size and collapses >50% with inspiration. Pericardium There is no pericardial effusion. 2D Dimensions IVSD d PLAX 0.65 cm M: 0.6-1.2 Ao Root d 3.54 cm M: 3.1 - 3.7 LVPW d PLAX 0.53 cm M: 0.6 - 1.2 Ao Asc Diam d 3.52 cm M: 2.6 - 3.4 LVID d PLAX 5.85 cm M: 4.2 - 5.8 LVDs 3.93 cm M: 2.5 - 4.0 LV EF Teichholz 60.4 % FS 32.74 % LV EDV (Teich) 169.6 mL LV ESV (Teich) 67.2 mL Stroke Vol Index (Teich) 53.61 M-Mode TAPSE 2.77 cm (M/F) >1.7 Auto EF LV EDV A4C 109.5 mL LV EDV A2C 132.1 mL LV EDV BP 121.1 mL LV ESV A4C 46.6 mL LV ESV A2C 53.0 mL LV ESV BP 50.2 mL LVEF(%) A4C 57.4 % LVEF(%) A2C 59.9 % LVEF(%) BP 58.5 % LV SV A4C 62.9 ml LV SV A2C 79.1 ml LV SV BP 70.9 ml LV CO A4C 3.7 L/min LV CO A2C 4.6 L/min LV CO BP 4.2 L/min HR A4C 58.64 BPM HR A2C 58.73 BPM LV EDV Index (BP) LA Volume LA Length A4C 3.8 cm LA Length A2C 3.6 cm LA Area A4C s 8.36 cm2 LA Area A2C s 6.41 cm2 LA Vol A4C A-L 15.54 mL LA Vol A2C A-L 9.69 mL LA Vol Biplane A-L 12.6 mL LA Vol/BSA A4C A-L LA Vol/BSA A2C A-L LA Vol/BSA BP A-L 6.6 mL/m2 LA Vol A4C MOD 14.5 mL LA Vol A2C MOD 9.4 mL LA Vol BP MOD 11.9 mL RA Volume RA Area A4C 10.2 cm2 RA ESV A4C (A-L) 21.9mL RA Vol/BSA A4C A-L RA Length A4C 4.1 cm RA ESV A4C (MOD) 21.0mL LV Diastology MV E' medial 0.097 (>0.07 m/s) MV E Vmax 1.00 (0.4-1.3 m/s) MV E/E' MED 10.26 (<14) MV A Vmax 0.95 (0.4-1.3 m/s) MV E' lateral 0.092 (>0.1 m/s) E/A Ratio 1.1 MV E/E' LAT 10.86 (<14) MV E' Average 0.095 m/s MV E/E'(average) 10.55 Aortic Valve AoV Vmax 1.18 m/s LVOT Vmax 1.01 m/s AoV Peak Grad 5.6 mmHg LVOT Peak Grad 4.1 mmHg AoV Area (Vmax) 3.60 cm2 LVOT VTI 0.236 m AoV VTI 0.301 m LVOT Mean Grad 2.1 mmHg AoV Mean Willy. 0.85 m/s LVOT SV 99.74 mL AoV Mean Grad 3.2 mmHg LVOT Diam s 2.30 cm AoV Area (VTI) 3.32 cm2 AV Regurg Peak Gr. 5.60 mmHg Velocity Ratio 0.86 Mitral Valve MV DT 133 (160-240 msec) Tricuspid Valve RA Pressure 3.00 mmHg TR Vmax 3.00 m/s TV S' 0.16 m/s TR Peak Grad 35.9 mmHg RVSP (TR) 39.0 mmHg
--- NOTE | 2024-06-12 10:14 | W.PM.PROGNOT ---
Assessment and Plan Assessment and plan (1) CVA (cerebral vascular accident): Status: Chronic Assessment and plan: Clinically c/w an acute CVA with worsening of previous left sided deficits, but MRI/CTA did not show new infarcts. His symptoms may be related to variations in blood flow to old infarcted area. Also could be some degree of TIA. He was off all platelet meds prior to admission Teleneurology note reviewed. Given no sign of cardioembolic stroke and clinically a dynamic process occurring, will continue aspirin and add clopidogrel along with statin. Plan DAPT for 21 days, then ASA. Repeat lipids show LDL low at 14 and and A1c well controlled at 6.5% Left hemiparesis/facial droop improved on exam 06/11 PT evaluation today (2) Hypertensive urgency: Status: Acute Assessment and plan: Severe hypertension at up to 230/118 in ED associated with chest pain. Chest pain resolved with NTG and EKG and troponin not c/w ACS. He did get a dose of lisinopril and I will not treat BP futher in first 24 hours unless it gets above 220/120, permissive HTN. Now >24hours from event, resume metoprolol (3) Alcohol withdrawal: Status: Acute Assessment and plan: Complicating picture, at risk for severe withdrawal. Some hallucinations /15 but these have resolved. On phenobarbitol protocol, not scoring now after initial loading. Given stability, can transfer to floor. (4) Tobacco abuse: Status: Acute Assessment and plan: congratulated quitting smoking. He is still chewing, wants nicotene patch, continue this (5) Opioid dependence: Assessment and plan: Continue methadone per SHADY. QTc reassuring. (6) Diabetes mellitus: Assessment and plan: Hasn't been getting regular care. Holding metformin with CTA. A1c reassurign at 6.5%. ISS coverage. (7) Sleep apnea: Assessment and plan: Hypoxic overnight, c/w sleep apnea. He agrees to sleep study at discharge. (8) Contracture of muscle of left lower extremity: Status: Acute Assessment and plan: He is having pain and has a clear contracture that is chronic, though he is describing it feeling worse today. He had trial on baclofen for this but didn't like it. Improving today, PT consult (9) Alcohol abuse: Status: Chronic Assessment and plan: He would like to quit drinking. Naltrexone not an option. He is on gabapentin. Acamprosate an option. Will review option for medical/non medical treatment and offer recovery coaching prior to discharge (10) Alcoholic hepatitis: Status: Acute Assessment and plan: AST/ALT up but INR and bili reassuring. Labs less indicative of cirrhosis. LFTs improving 06/11 (11) DVT prophylaxis: Status: Acute Assessment and plan: enoxaparin Objective Last Vital Signs Temp 35.9 C L 06/12/24 07:14 Pulse 58 L 06/12/24 07:14 Resp 14 06/12/24 07:14 BP 180/94 H 06/12/24 07:14 Pulse Ox 95 06/12/24 07:14 PAWSS Have you Been Recently Intoxicated or Drunk Within the Last 30 days?: Yes Have you Ever Experienced Previous Episodes of Alcohol Withdrawal?: Yes Have you ever Experienced Withdrawal Seizures?: No Have you ever Experienced Delirium Tremens(DT)s?: No Have you ever undergone Alcohol Rehabilitation Treatment (i.e, inpt ot outpatient treatment programs)?: Yes Have you ever Experienced Blackouts?: Yes Have you ever Combined Alcohol with other Downers within the last 90 days?: No Have you ever Combined Alcohol with any other Substance of Abuse during the last 90 days?: No Positive Blood Alcohol level on Presentation? [PCS.BAL]: Yes Evidence of Increased Autonomic Activity (i.e. HR>120, tremor, sweating, agitation, nausea)?: No Result: 5
[2024-06-12] MEDS: Enoxaparin 40 MG/0.4 ML SYR SC (10:53)
--- NOTE | 2024-06-12 11:19 | PTTR_ITS ---
PT Notes Visit Reasons: CVA/TIA, alcohol withdrawal Physical Therapy Inpatient Treatment Note Date: 06/12/2024 Precautions: Fall. Standard. Activity as tolerated. Subjective: Feels good about use of newly given AFO to L and of front-wheeled walker. Motivated to going back to outpatient PT. Objective: General Observation: L knee flexion contracture (chronic). L foot drop (chronic) Mental Status: Alert and oriented as to person, place, time, and purpose. Able to pay attention, focus, and respond appropriately. Mildly impulsive. Pain: Minimal pain in L knee at rest and with movement Vital Signs: SaO2 of 97% 99% on RA, HR 62-75 bpm during NuStep use Bed Mobility/Transfers: Minimal cueing provided for use of B hands as needed for support, movement sequence, AD management, and posture to reduce fall risk and minimize pain report Rolling independent Supine to sit independent Sit to supine independent Sit to stand stand by assist with FWW Stand to sit stand by assist with FWW Bed to toilet stand by assist with FWW Toilet to bed stand by assist with FWW Bed to reclining stand by assist with FWW Reclining chair to stand by assist with FWW Gait: 150 feet + 300 feet in the morning and 300 feet + 300 feet in the afternoon with FWW with supervision only. Gait hemiplegic-circumduction at L hip, absent DF on L, decreased L knee flexion during swing phase, decreased extension at heel strike due to L knee flexion contracture. Moderate verbal cueing provided fro walker management and more controlled pace during directional change to prevent LOB. Stairs: 6 x 4 inch steps and 2 x 4-inch steps while holding onto B rails for support Balance: Static Sitting: Normal Dynamic Sitting: Good Static Standing: Fair Dynamic Standing: Fair THERA EX: -Patient was advised about safely and correctly perform gentle active stretches to the L knee flexors and L ankle plantarflexors using a stool in sitting and a folded pillow in bed held for 5-10 seconds x 10 reps. Instructed on doing this every two hours on his own. -NuStep with resistance at 6 for 2 minutes x 2 sets in the morning; 2 minutes x 3 sets in the afternoon with report of L knee pain at 3-4/10 that subsided with rest. Assessment: Trialled AFO to L which fitted well in his L crocs without any issues -- less L foot drag, increased L ankle dorsiflexion, and more improved posture and stability as patient is able to put weight through the whole of L foot allowing active stretching to L contracted knee flexors and plantarflexors during stance phase of gat. Patient has also been fitted and provided with a front-wheeled walker to reduce fall risk. DISCHARGE RECOMMENDATIONS: [] Home with no services [] [] Home with services [] [X] Home with outpatient PT for continued neurologic rehab to improve gait, increase stability, and progress overall mobility level. [] SNF for continued rehabilitation [] [] [facility] [] [] SNF versus LTC based on ability to participate and progress [] TREATMENT CODE/TIME: Session 1--54391 x 21 minutes for 1 unit (11:19?11:40). Session 2-- 7530 x 15 minutes for 1 unit, 32906 x 15 minutes for 1 unit (13:25-13:55).
[2024-06-12 11:23] VITALS: BP 145/88; PULSE 62; RESP 14; TEMP 35.9; O2SAT 95
--- NOTE | 2024-06-12 13:44 | W.NUTRFU ---
Date of service: 06/12/24 Time of Service: 13:30 Nutrition Note NOTE: Feliciano sitting in bed cleaning his hat on my visit. PT admitted for stroke workup and being treated for CVA, hypertensive urgency, etoh withdrawal. Feliciano is current smoker. He relates he has had diabetes for years but never took it too seriously as far as being compliant with meds. He feels after having a stroke he is more inclined to keep blood sugars tighter in control. A1c was 6.5% yesterday and shared that this is a good number - suggested that other things need to be worked on as well and can be bigger risks for cardiovascular issues such as tobacco use - related that combined with diabetes this will lead to complications more easily. He took some educational handouts about balancing plate for diabetes along with my card to contact for outpatient visit. will follow up prior to d/c to see if any questions and try again to get outpatient appt booked for continued guidance Time Spent in Nutritional Counseling and Treatment: 10 min
--- NOTE | 2024-06-12 13:54 | PHA.REVIEW2 ---
Pharmacy Admission Review Admission Clinical Review Admission Pharmacy Review: DVT prophylaxis (Acute) Contracture of muscle of left lower extremity (Acute) Hypertensive urgency (Acute) Tobacco abuse (Acute) Alcohol withdrawal (Acute) Alcoholic hepatitis (Acute) tolmetin Allergy (Unverified 06/10/24 00:14) Unknown Resuscitation Status Full Code Height 5 ft 6 in Weight 82.7 kg Pharmacy Admission Review Renal Dosing Renal Dosing: BUN 6 mg/dL (7-18) L 06/11/24 05:28 Creatinine 0.8 mg/dL (0.70-1.30) 06/11/24 05:28 Medications needing adjustments: Reviewed (CrCl 110.2 mL/min) List of meds needing interventions: Current medications are okay Anticoagulation Anticoagulation: Hgb 11.8 g/dL (13.5-17.5) L D 06/11/24 05:28 Hct 36.3 % (40.0-50.0) L 06/11/24 05:28 Plt Count 279 10^3/uL (130-400) 06/11/24 05:28 INR 1.1 (0.9-1.1) 06/10/24 00:10 Creatinine 0.8 mg/dL (0.70-1.30) 06/11/24 05:28 DVT Prophylaxis: Reviewed Medications: Enoxaparin (40mg daily) Opiate Usage Evaluate Pain Scale/Pains Meds: Reviewed (methadone 100mg qAM and 75mg qPM - confirmed with [facility]) Scheduled Bowel Reg ordered if on Opiates?: No (PRN docusate and Miralax) Relevant Labs Relevant Labs: Sodium 142 mmol/L (136-145) 06/11/24 05:28 Potassium 3.5 mmol/L (3.5-5.1) 06/11/24 05:28 Chloride 107 mmol/L (98-107) 06/11/24 05:28 Phosphorus 3.3 mg/dL (2.6-4.7) 06/11/24 05:28 Magnesium 2.0 mg/dL (1.8-2.4) 06/11/24 05:28 Electrolytes, C-Reactive P, ESR: Reviewed (No new labs for today) DM Control DM Control: Glucose 100 mg/dL (74-106) 06/11/24 05:28 Hemoglobin A1c 6.5 % (<5.7) H 06/11/24 05:28 Finger Stick Blood Glucose 92 1203 Finger Stick Blood Glucose 92 1121 Finger Stick Blood Glucose 92 1121 Finger Stick Blood Glucose 87 0823 Finger Stick Blood Glucose 87 0713 Finger Stick Blood Glucose 87 0713 DM Control: Reviewed Insulin Dosing, Diabetic Medication: Has order for SS insulin Cardiac Review Cardiac Review: Troponin I Cancelled 06/10/24 03:16 NT-Pro-B Natriuret Pep 104 pg/mL (<300) 06/10/24 00:10 Blood Pressure 145/88 1123 Blood Pressure 180/94 0714 Blood Pressure 157/93 0324 BP, HR, EF%: Reviewed (HR WNL (low 60s)) List meds needing interventions: Has order for lisinopril 20mg daily and metoprolol 50mg BID QTc Review QTc: Reviewed (383 from 06/10/24) IV to PO Switch IV Medications: Intervened (changed ondansetron from IV to PO - verified with provider first) Home Meds Home Med List reviewed: Reviewed Relevent Home Meds Not ordered & why?: baclofen (PRN), hydroxyzine (PRN), lorazepam (PRN), metformin (on hold per H+P), sildenafil (PRN) Current Meds Current Medication Order Review: Intervened Comments: Asked provider if order for PRN phenobarbital could be discontinued (last dosed 06/10) - provider was okay with this
[2024-06-12] MEDS: Nicotine 7 MG/24 HR PATCH TD (13:57)
--- NOTE | 2024-06-12 15:18 | W.PM.DS.N ---
Date of service: 06/12/24 Time of Service: 15:19 DS: Diagnosis Discharge Diagnosis (1) CVA (cerebral vascular accident): Status: Chronic (2) Hypertensive urgency: Status: Acute (3) Alcohol withdrawal: Status: Acute (4) Tobacco abuse: Status: Acute (5) Opioid dependence: (6) Diabetes mellitus: (7) Sleep apnea: (8) Contracture of muscle of left lower extremity: Status: Acute (9) Alcohol abuse: Status: Chronic (10) Alcoholic hepatitis: Status: Acute (11) DVT prophylaxis: Status: Acute Discharge Plan Disposition Patient Disposition: Home Condition: Improving Discharge Details Reason For Visit: CVA/TIA, alcohol withdrawal Admit Date/Time: 06/10/24 08:32 Admit Provider: Albert Bateman Attending Provider: Albert Bateman Primary Care Provider: Mikey Martínez Hospital Course Hospital Course: This 49 yo male with PMHx 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 On arrival to the ED his pressure was quite elevated and he was given nitroglycerin. This resolved his chest pain and improved his blood pressure. Work up in the ED showed no acute or new findings as per head CT, head/neck CTA. Blood work was unremarkable except forWBC 14, AST 308 and ALT 293. The patint was admitted to the medical surgical floor with telemetry by the hospitalist for evaluation and management of hypertensive urgency, ETOH withdrawal, transaminitis, stroke TIA with recommendation for ASA, plavix, TTE w bubble and MRI by [facility] neurology. MRI was negative for acute stroke but showed old high right frontal parietal and right basal ganglia lacunar infarcts. Chronic occlusion of right internal carotid artery. Echocardiogram was unremarkable with LVEF 60% and no findings of right to left shunt. Blood pressure has been controlled; the patient received phenobarbital for withdrawal symptoms that resolved. Will be discharge home with outpatient physical therapy and follow-up with PCP. Recommendations for PCP follow-up: Neurology and vascular surgery referrals needed A1C 6.5% Discussed with Dr. Kim Home Meds and New Rx's Prescriptions: New aspirin [Children's Aspirin] 81 mg Tablet,Chewable 81 mg PO DAILY Qty: 30 0RF folic acid 1 mg Tablet 1 mg PO QAM Qty: 30 0RF Continued lorazepam 0.5 mg tablet 0.5 mg PO ONCE PRN (Reason: anxiety/claustrophobia) Qty: 2 0RF Rx Instructions: Take one tablet 30min prior to MRI. Ok to take second at time of MRI if still anxious. Do not drive after taking. nicotine 7 mg/24 hr patch 24 hour 1 patch transdermal Q24H clopidogrel 75 mg tablet 75 mg PO DAILY atorvastatin 80 mg tablet 80 mg PO DAILY baclofen 20 mg tablet 20 mg PO TID hydroxyzine HCl 25 mg tablet 25 mg PO TID PRN pantoprazole 40 mg tablet,delayed release (DR/EC) 40 mg PO DAILY polyethylene glycol 3350 17 gram/dose powder 17 g PO DAILY docusate sodium [Colace] 100 mg capsule 100 mg PO BID PRN gabapentin 800 mg tablet 800 mg PO TID escitalopram oxalate 20 mg tablet 20 mg PO DAILY lisinopril 20 mg tablet 20 mg PO DAILY metformin 500 mg tablet 500 mg PO BID sildenafil [Viagra] 100 mg tablet 100 mg PO DAILY PRN Rx Instructions: administer 30 minutes to 4 hours before activity loratadine [Allergy Relief (loratadine)] 10 mg tablet 10 mg PO DAILY methadone 10 MG/ML concentrate 75 mg PO 1999 Patient Comments: 100 in am 75 in pm 799 and 1999 per his report methadone 10 mg/mL Concentrate 100 mg PO DAILY AM lamotrigine [Lamictal] 100 mg Tablet 100 mg PO BID metoprolol tartrate 50 mg Tablet 50 mg PO BID Qty: 60 0RF thiamine HCl (vitamin B1) 100 mg tablet 100 mg PO DAILY Qty: 30 0RF Discharge Instructions Stand Alone Forms: Nursing Discharge Form Referrals: Mikey Martínez [Primary Care Provider] - (Follow-up within 7 days of discharged) SYD Chirinos [OTHER] - (Outpatient PT) Activity:: Activity as Tolerated Equipment/Supplies:: No Equipment Needed Diet:: heart healthy diabetic Discharge Orders Other Ambulatory Orders: Cardiac Event Recorder (Routine) Timeframe: 20240612 Facility: [facility] - Location: Respiratory Therapy Ordered By: Anna Mason DS: Summary Time Spent with Patient providing and/or coordinating discharge services: Greater than 30 minutes Status at Discharge Functional status at discharge: uses cane/walker Overall status at discharge: patient is progressing back to baseline Mental Status: mental status grossly normal Speech and Movement: speech and movement normal Mood: congruent mood Affect: normal affect Quality:SDOH Health Related Social Needs: No Data to Display Exam Narrative Exam Narrative: GEN: Alert and oriented x 4 LUNGS: unlabored, clear lungs bilaterally CV: RRR with no murmurs, gallops, or rubs. ABD: nondistended , soft, nontender NEURO: Alert and oriented X4 CN 2-12 significant for left facial droop sparing forehead, weak bite left, diminished sensation and louder sound on left vs right. Normal coordinaiton. 4/5 strenght RUE and RLE with extension contracture of left ankle. Normal speech. No tremor/asterixis SKIN:No rashes or open wounds. PSYCH: normal mood and affect, normal thought process, no hallucinations now Psych Mental Status: mental status grossly normal Speech and Movement: speech and movement normal Mood: congruent mood Affect: normal affect DS: Data Vitals/I&O Vitals and I&O: Vital Signs Temperature 35.9 C L 06/12/24 11:23 Temperature Source Temporal Artery Scan 06/12/24 11:23 Pulse 62 06/12/24 11:23 Pulse 71 06/11/24 11:09 Respiratory Rate 14 06/12/24 11:23 Respiratory Effort Normal, Non-Labored 06/10/24 12:10 Respiratory Depth Normal 06/10/24 12:10 Respiratory Pattern Normal 06/10/24 12:10 Blood Pressure 145/88 H 06/12/24 11:23 Blood Pressure Mean 116 06/11/24 11:09 Blood Pressure Position Sitting 06/10/24 12:10 Pulse Oximetry 95 06/12/24 11:23 Oxygen Delivery Method Room Air 06/12/24 11:23 Oxygen Flow Rate 0 06/12/24 11:23 Pain Level 0 06/12/24 03:24 Comment RN notified 06/12/24 11:23 Intake & Output 06/11/24 06/12/24 06/12/24 23:59 11:59 23:59 Intake Total 300 / 4285.2 600 / 600 Output Total 1450 / 1800 1300 / 1300 Balance -1150 / 2485.2 -700 / -700 Weight 82.7 kg Intake: Oral 300 / 3272 600 / 600 Output: Urine 1450 / 1800 1300 / 1300 Other: Urine Color Pale Yellow Urine Appearance Clear Clear Cloudy Urine Odor Normal Comment pt voided, unmeasured PFSH All Active Problems (Updated 06/12/24 @ 15:48 by Anna Mason APRN) TIA (transient ischemic attack) (Acute) DVT prophylaxis (Acute) Contracture of muscle of left lower extremity (Acute) Hypertensive urgency (Acute) Stroke (Chronic) Left-sided weakness (Acute) Left carotid stenosis (Acute) Right carotid artery occlusion (Acute) CVA (cerebral vascular accident) (Chronic) Tobacco abuse (Acute) Elevated blood pressure reading (Acute) Anxiety and depression (Acute) Vomiting and diarrhea (Acute) Alcohol abuse (Chronic) Alcohol withdrawal (Acute) Electrolyte and fluid disorder (Acute) Alcoholic hepatitis (Acute) Medical History (Updated 06/12/24 @ 15:48 by Anna Mason APRN) Acute hyponatremia TBI (traumatic brain injury) Hyperlipidemia Mood disorder Spinal stenosis of lumbar region BMI 32.0-32.9,adult Hypertension Nephropathy Weakness of left leg ETOH abuse Degenerative disc disease ADHD Gynecomastia GERD (gastroesophageal reflux disease) Opioid dependence Chronic constipation Erectile dysfunction Hidradenitis suppurativa Diabetes mellitus Sleep apnea Eczema of both hands Headache Scrotal abscess Sinusitis Surgical History S/P lumbar spine operation Family History Mother Stroke Father Heart disease Social History (Updated 06/10/24 @ 14:23 by Albert Bateman) Smoking/Tobacco Use Status: Current every day Counseling given: provider counseling and counseling >3 minutes Smoking risk assessment performed?: Yes Alcohol Intake: current Alcohol Intake frequency: 3 or more drinks per day Alcohol type: hard liquor Counseling given: Yes Drug use: Never Substance use type: former substance user and marijuana Counseling provided: provider counseling and treatment program Housing: house Number of Children: 4 current occupation: Disabled Do you feel safe at home: Yes Do you feel safe in your relationship?: Yes Additional Social history: On SSDI since stroke. Lives in home with roommates Time Spent with Patient Time Spent with Patient: 70-84 minutes4 Time was spent: preparing to see the patient(eg.review tests), obtaining and/or reviewing separately otained hiistory, ordering medications,tests, procedures, referring, communicating with other health ocular care technician, indepentently interpreting results, counseling the patient and care coordination
[2024-06-12 15:19] VITALS: BP 163/87; PULSE 61; RESP 14; TEMP 35.9; O2SAT 98
--- NOTE | 2024-06-12 16:40 | PDOC.CMDIS ---
LACE Index Scoring Tool Questions: Length of Stay (in days): 2 Was the patient admitted via the E.D.?: Yes Comorbidities: Cerebrovascular Disease and Mild Liver/Renal Disease E.D. Visits: 1 Answers: Total Score: 9 Risk of Readmission: Low Risk Care Management Discharge Plan Reason for Hospitalization: R/O CVA, alcoholic withdrawal Discharge Plan: Feliciano was discharged home this evening with no new orders. He will f/u with his PCP and was referred to outpatient PT. He was also issued a FWW from PT. Feliciano declined the offer of [facility] [employer] [facility] again today. Feliciano will continue per his plan of care. He was transported home in a private vehicle. Patient/Family Education Needs: Review of discharge instructions, activity, limitations, and discuss ask me 3. Services Needed at Discharge: Physical Therapy (outpatient referral to Srinivasan Vogel was sent) [facility] Health Related Social Needs: No Data to Display
[2024-06-14 13:00] LABS: Thiamine (Vitamin B1), WB 170 nmol/L (70-180)
== END 2024-06-12 16:26 | disposition home or self-care (01) | DRG 305 ==
LOC: ER 09:23 → ICU 12:22 → MS 06-11 11:31
PROVIDERS: Student in an Organized Health Care Education/Training Program; Admitting Provider Family Medicine; Emergency Provider Emergency Medicine; PCP Student in an Organized Health Care Education/Training Program; Responsible Provider Nurse Practitioner Acute Care; Visit Provider Family Medicine
DX: I16.0 Hypertensive urgency (principal); F10.139 Alcohol abuse with withdrawal, unspecified; E87.1 Hypo-osmolality and hyponatremia; I69.354 Hemiplegia and hemiparesis following cerebral infarction affecting left non-dominant side; F11.23 Opioid dependence with withdrawal; I10 Essential (primary) hypertension; M62.462 Contracture of muscle, left lower leg; K70.10 Alcoholic hepatitis without ascites; G47.30 Sleep apnea, unspecified; Z87.820 Personal history of traumatic brain injury; E78.00 Pure hypercholesterolemia, unspecified; F17.220 Nicotine dependence, chewing tobacco, uncomplicated; F41.8 Other specified anxiety disorders; M48.061 Spinal stenosis, lumbar region without neurogenic claudication; E11.29 Type 2 diabetes mellitus with other diabetic kidney complication; K21.9 Gastro-esophageal reflux disease without esophagitis; F90.9 Attention-deficit hyperactivity disorder, unspecified type; I65.23 Occlusion and stenosis of bilateral carotid arteries; R07.89 Other chest pain; R74.01 Elevation of levels of liver transaminase levels
CPT/HCPCS: 00123; 36415; 36416; 70496; 70498; 71275; 80053; 80061; 80307; 82805; 82962; 83690; 93005; 93270; 93306; 94761; 96361; 96365; 96366; 96372; 96375; 97110; 97162; 97530; 99291; J1650; 70551; 80320; 81003; 82746; 83036; 83735; 83880; 84100; 84425; 84443; 84484; 85025; 85610; 85730; 93010; 94760; 99223; 99233; 99239; J1815; J1920; J2250; J2405; J2560; J3411; J3475; J3490; Q9967

== ENCOUNTER 2024-07-15 07:21 | Outpatient (CLI) | payer MEDICARE, MEDICAID, SELFPAY ==
--- NOTE | 2024-07-15 14:05 | W.CARDEVENT ---
Date of service: 07/15/24 Time of Service: 14:05 Cardiac Event Recorder Referring Provider:: Anna Mason Indications:: TIA Cardiac Event Note: This is a cardiac event monitor. Patient was monitored for 23 days. Rhythm throughout was sinus with an average heart rate overall of 78. Minimum was 52, maximum 158. There were no significant ventricular dysrhythmias. There was no atrial fibrillation, no high-grade AV block, no pauses greater than 3 seconds. No symptoms were reported
== END 2024-07-15 07:22 | disposition home or self-care (01) ==
LOC: CARDOPNVT 07:21
PROVIDERS: PCP Student in an Organized Health Care Education/Training Program; Visit Provider Internal Medicine Cardiovascular Disease
DX: G45.9 Transient cerebral ischemic attack, unspecified (principal); I63.9 Cerebral infarction, unspecified
CPT/HCPCS: 93272

== ENCOUNTER 2024-07-17 13:27 | Inpatient (IN) | payer MEDICARE, MEDICAID, SELFPAY ==
[2024-07-17] VITALS (106 sets, daily range): BP systolic 70–199; BP diastolic 46–161; PULSE 59–126; RESP 11–29; TEMP 36.5–37.6; O2SAT 81–100
--- NOTE | 2024-07-17 13:15 | RT.EKG_ITS ---
APPROVED REPORT Exam: Resting ECG Reason for Exam: Stroke Patient Location: E HR:104 bpm ECG Measurements Heart Rate 104 AXIS OR 147 P 83 QRSd 77 QRS -9 QT 399 T 18 QTc 526 Conclusion Sinus tachycardia...rate> 99 Prolonged QT interval...QTc >500mS Sinus tachycardia. Prlonged QT. When compared to 06/10/24 prolonged QT is new. WD
[2024-07-17] MEDS: Naloxone 0.4 MG/ML VIAL (13:29)
[2024-07-17] MEDS: Ketamine 50 MG/5 ML SYRINGE (13:43)
[2024-07-17] MEDS: Rocuronium 50 MG/5 ML SYR (13:44)
--- NOTE | 2024-07-17 13:45 | DI.RAD_ITS ---
Exam(s) XR PORTABLE CHEST AP POST LINE EXAM: XR PORTABLE CHEST AP POST LINE CLINICAL HISTORY: post intubation TECHNIQUE: 2D digital imaging was performed. COMPARISON: CR XR CHEST 2V PA LATERAL from 12/18/2022 FINDINGS: Exam is limited by multiple overlying monitoring leads as well as defibrillator pads. Lungs are not well inflated. Endotracheal tube has been inserted which appears to lie to proximal aspect of the right main bronchu s. It should be retracted 4-5 cm. LUNGS: Clear. No pleural abnormality seen. HEART: Normal size. AORTA: Normal diameter. BONES: Unremarkable for age. Soft tissues: A nasogastric tube has been inserted which projects in the stomach. IMPRESSION: Endotracheal tube projects in the right main bronchus. Nasogastric tube appears appropriate position within the stomach. Findings called to Dr. Duke of the emergency department. DATA REPOSITORY: RADIATION DOSE DELIVERED:
--- NOTE | 2024-07-17 13:52 | W.ED.GENAD ---
Discharge Plan Disposition Patient Disposition: Admit to [facility] Condition: Serious Discharge Details Chief Complaint: CVA/TIA Clinical Impression: Alcohol abuse, Hyperglycemia, Long-term current use of methadone for opiate dependence, Alcohol withdrawal, Respiratory failure, DKA (diabetic ketoacidosis), Acidosis Primary Care Provider: Mikey Martínez ED Provider: Sanjuana Wilson Home Meds and New Rx's Prescriptions: No Action lorazepam 0.5 mg tablet 0.5 mg PO ONCE PRN (Reason: anxiety/claustrophobia) Qty: 2 0RF Rx Instructions: Take one tablet 30min prior to MRI. Ok to take second at time of MRI if still anxious. Do not drive after taking. nicotine 7 mg/24 hr patch 24 hour 1 patch transdermal Q24H clopidogrel 75 mg tablet 75 mg PO DAILY atorvastatin 80 mg tablet 80 mg PO DAILY baclofen 20 mg tablet 20 mg PO TID hydroxyzine HCl 25 mg tablet 25 mg PO TID PRN pantoprazole 40 mg tablet,delayed release (DR/EC) 40 mg PO DAILY polyethylene glycol 3350 17 gram/dose powder 17 g PO DAILY docusate sodium [Colace] 100 mg capsule 100 mg PO BID PRN gabapentin 800 mg tablet 800 mg PO TID escitalopram oxalate 20 mg tablet 20 mg PO DAILY lisinopril 20 mg tablet 20 mg PO DAILY metformin 500 mg tablet 500 mg PO BID sildenafil [Viagra] 100 mg tablet 100 mg PO DAILY PRN Rx Instructions: administer 30 minutes to 4 hours before activity loratadine [Allergy Relief (loratadine)] 10 mg tablet 10 mg PO DAILY methadone 10 MG/ML concentrate 75 mg PO 1999 Patient Comments: 100 in am 75 in pm 799 and 1999 per his report methadone 10 mg/mL Concentrate 100 mg PO DAILY AM lamotrigine [Lamictal] 100 mg Tablet 100 mg PO BID metoprolol tartrate 50 mg Tablet 50 mg PO BID Qty: 60 0RF thiamine HCl (vitamin B1) 100 mg tablet 100 mg PO DAILY Qty: 30 0RF aspirin [Children's Aspirin] 81 mg Tablet,Chewable 81 mg PO DAILY Qty: 30 0RF folic acid 1 mg Tablet 1 mg PO QAM Qty: 30 0RF HPI General Date/Time Provider Initiated Documentation: 07/17/24 13:52. Limitations to Documentation: altered mental status (unresponsive). History of Present Illness 49 year old M presents to the emergency department with the chief complaint of Brought in via EMS after being found down at home, unresponsive, Related Data Home Medications ?Medication ?Instructions ?Recorded ?Confirmed methadone 10 mg/mL oral concentrate 75 mg PO 199909/03/15 06/10/24 lamotrigine 100 mg tablet 100 mg PO BID 12/16/20 06/10/24 (Lamictal) methadone 10 mg/mL oral concentrate 100 mg PO DAILY AM 12/16/20 06/10/24 metoprolol tartrate 50 mg tablet 50 mg PO BID #60 tabs 12/17/20 06/10/24 thiamine HCl (vitamin B1) 100 mg 100 mg PO DAILY #30 tabs 12/17/20 06/10/24 tablet atorvastatin 80 mg tablet 80 mg PO DAILY 07/18/22 06/10/24 baclofen 20 mg tablet 20 mg PO TID 07/18/22 06/10/24 clopidogrel 75 mg tablet 75 mg PO DAILY 07/18/22 06/10/24 docusate sodium 100 mg capsule 100 mg PO BID PRN 07/18/22 06/10/24 (Colace) escitalopram oxalate 20 mg tablet 20 mg PO DAILY 07/18/22 06/10/24 gabapentin 800 mg tablet 800 mg PO TID 07/18/22 06/10/24 hydroxyzine HCl 25 mg tablet 25 mg PO TID PRN 07/18/22 06/10/24 lisinopril 20 mg tablet 20 mg PO DAILY 07/18/22 06/10/24 loratadine 10 mg tablet (Allergy 10 mg PO DAILY 07/18/22 06/10/24 Relief (loratadine)) metformin 500 mg tablet 500 mg PO BID 07/18/22 06/10/24 nicotine 7 mg/24 hr daily 1 patch transdermal Q24H 07/18/22 06/10/24 transdermal patch pantoprazole 40 mg tablet,delayed 40 mg PO DAILY 07/18/22 06/10/24 release polyethylene glycol 3350 17 17 g PO DAILY 07/18/22 06/10/24 gram/dose oral powder sildenafil 100 mg tablet (Viagra) 100 mg PO DAILY PRN 07/18/22 06/10/24 lorazepam 0.5 mg tablet 0.5 mg PO ONCE PRN 08/15/22 06/10/24 anxiety/claustrophobia #2 tabs aspirin 81 mg chewable tablet 81 mg PO DAILY #30 tabs 06/12/24 (Children's Aspirin) folic acid 1 mg tablet 1 mg PO QAM #30 tabs 06/12/24 Previous Rx's ?Medication ?Instructions ?Recorded metoprolol tartrate 50 mg tablet 50 mg PO BID #60 tabs 12/17/20 thiamine HCl (vitamin B1) 100 mg 100 mg PO DAILY #30 tabs 12/17/20 tablet lorazepam 0.5 mg tablet 0.5 mg PO ONCE PRN 08/15/22 anxiety/claustrophobia #2 tabs aspirin 81 mg chewable tablet 81 mg PO DAILY #30 tabs 06/12/24 (Children's Aspirin) folic acid 1 mg tablet 1 mg PO QAM #30 tabs 06/12/24 Allergies Allergy/AdvReac Type Severity Reaction Status Date / Time tolmetin Allergy Unknown Unverified 06/10/24 00:14 General KARL: 2 Review of Systems Narrative: Unable to obtain d/t level of consciousness Exam Const General: ill appearing acutely and other (pulse present, insufficient respiratory effort being bagged, nasal trumpet ) Nutritional Appearance: average body habitus Orientation: obtunded Limitations: altered mental status HENMT Head: normal to inspection and no palpable skull fracture Face and sinus: normal facial exam Mouth: oral mucosae normal and oropharynx normal (no gag reflex) Teeth and gingiva: poor dentition Eyes Pupils: irregular on the left (fixed at 5mm, right 4mm with slightly more response) and not reactive Neck Neck: no tracheal deviation Chest Chest: normal inspection of the chest Resp Effort & Inspection: decreased respiratory effort Auscultation: clear to auscultation bilaterally Cardio Rate: tachycardic Rhythm: regular rhythm Pulses: femoral pulses present and other (central present, no pulses at radial or feet) GI Inspection: normal to inspection Skin General skin exam: mottling (extremities) and scars (hx of several abscesses noted in axilla and buttoc) Neuro General: patient obtunded Cranial Nerves: pupils not ERRL Extrem General: normal to inspection Procedure Airway Management Date of Procedure: 07/17/24 Patient Consented: Emergent Case Indication: Respiratory failure and Reduced level of consciousness Provider that performed the procedure: Sanjuana Wilson Mallampati Class: 2 Airway Type: Intubation Laryngoscopy: Atraumatic Laryngoscopy. Grade: Airway Blades: Glidescope 1. Endotracheal Tube: Oral, Cuffed and 7.5mm. Secured at(cm): 24. Placement Confirmation: Cuff inflated with minimally occlusive pressure, Secured with commercial device, breath sounds > on right and ETCO2 waveform present Comment: ET tube repositioned, back up, after noting absent breath sounds on the left Medical Decision Making Patient is an unresponsive 49-year-old male brought in via EMS found down at home. Per EMS, patient was found by his roommate with unknown downtime. Patient does have history of TBI, hyperlipidemia, hypertension, chronic weakness of the left side associated with previous CVA, alcohol abuse, ADHD, GERD, opioid dependence on methadone, unknown last dose, diabetes. He was noted to have low respiratory rate, became apneic in route here. Patient has been hypotensive and tachycardic. They did attempt narcan with possible mild improvement. He is on methadone, unknown last dose. No known trauma, no objective trauma evidence per EMS. They report that roomate lives with him, reported vague hx and unknown down time or if he actually fell. Glucose per EMS in the 400s. On exam, patient appears acutely ill, unresponsive. He does have spontaneous respirations with easy bruising Sharlow and assisted with bagging by respiratory therapy was also at bedside. Patient does have pupillary discrepancy left being greater than the right, right is more reactive than the left. 5 mm on the left,4 mm on the right. Patient's skin is mottled, he has absent peripheral pulses but intact central pulses. Patient does have some mild response to noxious stimuli but also has some notable posturing of the upper extremities. Decision was made by the teams for emergent endotracheal intubation as patient is currently not able to protect his airway, seems to be deteriorating based on history from EMS. No response from dosing of Narcan. Oxygen was optimized with respiratory at bedside, bagged into the mid 90s as best as possible. Patient not have any episode of emesis or aspiration. No objective findings of trauma. Intubation was performed by myself with Dr. Duke at bedside with Ketamine and Rocuronium. 7.5mm tube was placed with glidescope. Absent breath sounds initially on the left, tube was backedup. Mejia and OG was also placed by nursing staff. Patient noted to be hypothermic initially at 35.8, unclear if this is associated with prolonged downtime. Considered OD, withdrawal, seizure, trauma, elevated ICP, ICH, DKA or other metabolic disorder. Based on the patient's having unknown downtime, if he does have a CVA, he would not be a candidate for lytics. Will obtain a CT Noncon to evaluate for any intracranial hemorrhage, CTA chest abdomen pelvis to evaluate for any aortic abnormality or other emergent process. pH 6.9, lactate 12.5, CO2 67, HCO3 13. This was immediate post intubation, with his ventilation improving, will obtain repeat, expect improvement. With glucose >400, will beging tx for DKA. He is receiving IV fluids, starting insulin. K 4.6. Called by radiologist: nothing acute in abdomen/pelvis. They note that ET tube needs to be backed up which has already been completed after I had immediately reviewed the images. No acute abnroamlities in the head CT, just chronic findings of previous CVA. Attempted to call Royer Adams, listed as next of kin, without success. Family came to hospital, primary contact is Adilson tinoco, . Roommate is also point of contact per family, Carolina [phone]. Mom and other family members present. Meg reports that Feliciano had been doing well, last ETOH was last night. drinkgs about 30 beers per day. current ETOH <3. they report that he will intermittently decide to stop drinking and become sick- no known personal hx of seizures with ETOH cessation but they report family hx of this. She states taht he began to feel unwell in logan shower, when he got out, asked for an ambulance because he felt, hot. He then became weak and confused. Roomoote reports that she noted his speech changed. With this report, will add CTA head and neck. Family also report that he has hx of depression and reported recently that he, wants to . They do not believe he had access to OD and do not feel that he would really try to commit suicide. They also note that he has had diarrhea for a few days. Sedation being maintained with propofol which has had to be titrated based on patient's blood pressure and responsiveness. Remaining labs are returned. CBC shows normal white count, hemoglobin hematocrit within normal limits. ABG repeated after intubation with a pH of 7.7, CO2 of 48, bicarb 18. CMP shows a sodium of 133 which corrects to 139.Creatinine 1.6 which is new for the patient, typically around 0.8. CK 612. Did consider seizure as well as rhabdomyolysis although this number is not that significantly elevated. Initial troponin within normal limits. Repeat troponin remains stable. With ETOH withdrawal high on ddx, will begin on phenobarbatol protocol, he did have this when last admitted. As the patient was noted to have gastroenteritis on the CT scan as well as diarrhea at home we will also begin the patient on ceftriaxone and Flagyl although with the acute onset of his symptoms I do find infectious etiology less likely. He did have a significantly elevated lactate. Patient remains intubated. He is on his third liter of fluids. He has received rocuronium and get demeaned for intubation sedation. Remains sedated with propofol. Beginning the phenobarbital. Getting ceftriaxone and Flagyl. Since intubation, patient is remained hemodynamically stable. CT chest abdomen pelvis as well as CTA without finding suggest stroke, acute dissection or aneurysm. Labs do not support ACS. More concerning is the patient's acidosis likely associated with DKA and acute alcohol withdrawal in the setting of respiratory failure. Concern for potential seizure as well that would have been unwitnessed. Consulted with the hospitalist who agrees to admission. Quality:SDOH Health Related Social Needs: No Data to Display PFSH All Active Problems (Updated 07/17/24 @ 17:13 by NICOL Jeong) Acidosis (Acute) DKA (diabetic ketoacidosis) (Acute) Respiratory failure (Acute) Alcohol withdrawal (Acute) Alcohol abuse (Chronic) Long-term current use of methadone for opiate dependence (Acute) Depression (Chronic) History of CVA (cerebrovascular accident) (Acute) Hyperglycemia (Acute) Lactic acidosis (Acute) Enteritis (Acute) Aspiration into airway (Acute) Acute respiratory failure with hypoxia (Acute) TIA (transient ischemic attack) (Acute) Stroke (Chronic) Left-sided weakness (Acute) Left carotid stenosis (Acute) Right carotid artery occlusion (Acute) CVA (cerebral vascular accident) (Chronic) Tobacco abuse (Acute) Elevated blood pressure reading (Acute) Anxiety and depression (Acute) Vomiting and diarrhea (Acute) Alcohol abuse (Chronic) Electrolyte and fluid disorder (Acute) Alcoholic hepatitis (Acute) Medical History (Updated 07/17/24 @ 17:13 by NICOL Jeong) Contracture of muscle of left lower extremity Acute hyponatremia TBI (traumatic brain injury) Hyperlipidemia Mood disorder Spinal stenosis of lumbar region BMI 32.0-32.9,adult Hypertension Nephropathy Weakness of left leg ETOH abuse Degenerative disc disease ADHD Gynecomastia GERD (gastroesophageal reflux disease) Opioid dependence Chronic constipation Erectile dysfunction Hidradenitis suppurativa Diabetes mellitus Sleep apnea Eczema of both hands Headache Scrotal abscess Sinusitis Surgical History S/P lumbar spine operation Family History Mother Stroke Father Heart disease Social History (Updated 06/10/24 @ 14:23 by Albert Bateman) Smoking/Tobacco Use Status: Current every day Counseling given: provider counseling and counseling >3 minutes Smoking risk assessment performed?: Yes Alcohol Intake: current Alcohol Intake frequency: 3 or more drinks per day Alcohol type: hard liquor Counseling given: Yes Drug use: Never Substance use type: former substance user and marijuana Counseling provided: provider counseling and treatment program Housing: house Number of Children: 4 current occupation: Disabled Do you feel safe at home: Yes Do you feel safe in your relationship?: Yes Additional Social history: On SSDI since stroke. Lives in home with roommates
[2024-07-17 13:55] LABS: BE (Venous) -20 mmol/L (-2-3); HCO3 (Venous) 13 mmol/L (23-28); O2 Sat (Venous) 92 %; TCO2 (Venous) 14 mmol/L (24-29); pO2 (Venous) 106 mmHg
[2024-07-17 13:58] LABS: pCO2 (Venous) 67 mmHg (41-51)
[2024-07-17 13:59] LABS: Lactate 12.5 mmol/L (<or=2.0)
[2024-07-17 14:02] LABS: Abs Immature Grans 0.06 10^3/uL (0.0-0.06); Absolute Basophil Count 0.03 10^3/uL (0.0-0.2); Absolute Eosinophil Count 0.04 10^3/uL (0.0-0.7); Absolute Lymphocyte Count 3.66 10^3/uL (1.2-3.4); Absolute Neutrophil Count 3.31 10^3/uL (1.2-6.7); Basophils % 0.4 %; Eosinophils % 0.5 %; HCT 42.6 % (40.0-50.0); HGB 13.2 g/dL (13.5-17.5); Immature Grans % 0.8 %; Lymphocytes % 49.5 %; MCH 29.2 pg (27.0-33.0); MCV 94 fL (80-95); MPV 10.1 fL (8.0-11.0); Monocytes % 4.1 %; Neutrophils % 44.7 %; Platelet Count 281 10^3/uL (130-400); RBC 4.52 10^6/uL (4.36-5.78); RDW 13.3 % (11.8-14.1); RDW-SD 46.3 fL
[2024-07-17 14:09] LABS: Prothrombin Time 10.4 sec (9.1-11.1)
[2024-07-17 14:17] LABS: Creatine Kinase 612 U/L (39-308)
[2024-07-17] MEDS: Normal Saline - Diluent 50 ML VIAL IJ ×2 (14:21→15:57)
[2024-07-17] MEDS: Omnipaque 350 MG/ML 500 ML BTL-Imaging package IJ (14:22)
--- NOTE | 2024-07-17 14:25 | DI.CT_ITS ---
Exam(s) CT HEAD - STROKE PROTOCOL EXAM: CT HEAD - STROKE PROTOCOL CLINICAL HISTORY: unconscious, blown pupil. TECHNIQUE: Imaging Protocol: Axial computed tomography images with coronal and sagittal reformatted images were created and reviewed COMPARISON: CT CT BRAIN NECK CTA from 06/10/2024 FINDINGS: Ventricles and Extra axial spaces: Normal in size and morphology for the patient's age. Hemorrhage: None. Cerebral parenchyma: There is again seen an area of encephalomalacia involving the high right parieta l lobe. There is an old lacunar infarct involving the right caudate nucleus. There are areas of dec reased attenuation in the white matter consistent with chronic microvascular ischemic disease. No ac jessica mass effect. No evidence of an acute territorial infarct is seen. Midline shift: None. Brainstem/Cerebellum: Normal. Calvarium: Normal. Visualized Paranasal sinuses/Mastoids: Mucosal thickening in several paranasal sinuses. The mastoid air cells are clear. Soft Tissues: Unremarkable. IMPRESSION: 1. No acute intracranial process. If symptoms persist, a follow-up MRI of the brain should be consid ered. 2. Old lacunar infarct in the right caudate nucleus and an area of encephalomalacia in the high right parietal lobe. RADIATION DOSE DELIVERED: 878.96mGy.cm Total DLP DATA REPOSITORY: All CT scans at this facility are submitted to the National Radiology Data Registry (NRDR) Dose Index Registry (DIR) with the [employer] (ACR). RADIATION OPTIMIZATION: All CT scans at this facility use at least one of these dose optimization te chniques: automated exposure control; mA and/or kV adjustment per patient size (includes targeted exa ms where dose is matched to clinical indication); or iterative reconstruction.
--- NOTE | 2024-07-17 14:25 | DI.CT_ITS ---
Exam(s) CT THORAX ABD/PEL CTA EXAM: CT THORAX ABD/PEL CTA CLINICAL HISTORY: unresponsive, unclear etiology. TECHNIQUE: Imaging Protocol: Axial CT angiography was performed with multi-slice acquisition and m ulti-planar and/or 3D reconstructions. Lung Computer Aided Detection (CAD) was utilized. CONTRAST MATERIAL: Intravenous: Omnipaque 350 contrast volume:100 mL Oral: No COMPARISON: CT HEAD WITHOUT CONTRAST from 01/27/[address] CHEST PE CTA from 06/10/2024 FINDINGS: CHEST: Tracheobronchial tree: Patent where visualized. There is no evidence of bronchiectasis.The tip of the endotracheal tube is seen in the right mainstem bronchus. The emergency department was immediately c ontacted with this finding. Pulmonary parenchyma: There is complete collapse of the left lower lobe. Atelectatic changes are seen in the right lung base. The lungs are otherwise clear. No suspicious pulmonary nodules are present. No architectural distortion. Pulmonary Arteries: No evidence of filling defect to suggest pulmonary emboli. Mediastinum and Reyna: No dominant adenopathy or fluid collection. The esophagus is unremarkable.There is a mild leftward shift of the mediastinum likely secondary to the loss of volume of the left lower lobe. The enteric tube passes into the stomach with its tip in the body in good position. Visualized thyroid: Unremarkable. Pleura: No effusion or pneumothorax. Heart: The heart is not dilated. No coronary artery calcifications are seen. No pericardial effusion. Aorta: Thoracic aorta non-dilated. No evidence of dissection. Atherosclerotic calcification is presen t. Soft Tissues: Bilateral gynecomastia. Bones: Within normal limits for the patient's age.There is an old healed left 10th rib fracture. ABDOMEN AND PELVIS: Abdomen: Celiac axis/mesenteric arteries: No evidence of occlusion or significant stenosis. Renal Arteries: No evidence of occlusion or significant stenosis. Mild atherosclerotic calcification is seen at the origins of both renal arteries. Aorta: No evidence of occlusion or significant stenosis. No aneurysm or dissection. Atheroscleroti c calcification is present. Pelvis: Iliac Arteries: There is atherosclerotic calcification present bilaterally. There is 50 percent sten osis of the proximal right common iliac artery. There is less than 50 percent stenosis of the distal left common iliac artery. There is no evidence of occlusion. Common Femoral Arteries: Atherosclerotic calcification is present bilaterally. There is 50 percent s tenosis of the common femoral arteries bilaterally. No occlusion is seen. ABDOMEN: Liver: There is diffuse decreased attenuation of the liver suggesting fatty infiltration. No measurab le mass. Portal, superior mesenteric and splenic veins: Unremarkable. Gallbladder and Biliary Tract: No stones are seen. The common duct is mildly distended at almost 1 cm . Pancreas: Normal density, no abnormal calcifications or inflammatory process. Spleen: Normal. Adrenals: No masses seen. Kidneys: Normal size, contour and axis. No radiodense stones or obstructive uropathy. No masses seen. Bowel: There is an enteric tube present. The tip is in good position in the body of the stomach. The small bowel shows mild wall thickening. The small bowel and large bowel show fluid-filled loops. This may represent an enterocolitis. There is no evidence of bowel obstruction. No evidence of appendicit is. Peritoneal Cavity: No ascites, collection or mesenteric inflammatory response. No free air. Lymph Nodes: Within normal limits. Bones: Within normal limits for the patient's age. There is an old healed left rib fracture. Soft Tissues: Bilateral gynecomastia. PELVIS: Bladder: Symmetric distention, no gross wall thickening. There is a Mejia catheter within the urinary bladder. There is air in the bladder likely reflecting recent catheterization. Reproductive Organs: Unremarkable as visualized. Lymph Nodes: Within normal limits. Bones: Within normal limits for the patient's age. IMPRESSION: 1. Fluid-filled loops of small and large bowel with mild wall thickening in the small bowel. The find ings may represent an enterocolitis. There is no evidence of bowel obstruction. 2. The tip of the enteric tube is in good position in the body of the stomach. 3. There is a Mejia catheter seen in the urinary bladder. The air within the bladder likely reflects the recent catheterization. 4. Hepatic steatosis. 5. No evidence of aneurysm or dissection of the abdominal aorta. 6. The sclerotic disease seen in the iliac arteries and femoral arteries causing 50 percent stenosis of the right common iliac artery and the common femoral arteries bilaterally. No occlusion is present . 7. The tip of the endotracheal tube is in the right mainstem bronchus. This finding was discussed wit julita Wilson of the emergency department at 2:50 p.m. on 07/17/2024. 8. Complete consolidation and volume loss of the left lower lobe. 9. No evidence of a pulmonary embolism, thoracic aortic dissection or aneurysm. RADIATION DOSE DELIVERED: 1,805.57mGy.cm Total DLP DATA REPOSITORY: All CT scans at this facility are submitted to the National Radiology Data Registry (NRDR) Dose Index Registry (DIR) with the [employer] (ACR). RADIATION OPTIMIZATION: All CT scans at this facility use at least one of these dose optimization te chniques: automated exposure control; mA and/or kV adjustment per patient size (includes targeted exa ms where dose is matched to clinical indication); or iterative reconstruction.
[2024-07-17] MEDS: Lactated Ringers 1,000 ML 1000 ML IV ×2 (14:26→17:30)
[2024-07-17 14:28] LABS: ALT 50 U/L (16-63); AST 128 U/L (15-37); Albumin 2.8 g/dL (3.4-5.0); Alkaline Phosphatase 117 U/L (46-116); Anion Gap 20.1 mmol/L (3-11); BUN 9 mg/dL (7-18); Bilirubin, Total 0.6 mg/dL (0.2-1.0); CO2 15.9 mmol/L (21.0-32.0); CREATININE 1.6 mg/dL (0.70-1.30); Calcium 9.2 mg/dL (8.5-10.1); Chloride 97 mmol/L (98-107); Estimated GFR 51.84 (mL/min/1.73m2); Glucose 461 mg/dL (74-106); Magnesium 2.4 mg/dL (1.8-2.4); Potassium 4.5 mmol/L (3.5-5.1); Sodium 133 mmol/L (136-145); Troponin I 32 ng/L (<or=76)
[2024-07-17 14:30] LABS: ETHANOL BLOOD < 3.0 mg/dL (<10)
[2024-07-17 14:46] LABS: Acetaminophen 10 ug/mL (10-30); Salicylate < 2.8 mg/dL (<2.8)
--- NOTE | 2024-07-17 15:00 | DI.CT_ITS ---
Exam(s) CT BRAIN NECK CTA EXAM: CT BRAIN NECK CTA CLINICAL HISTORY: altered prior to LOC. TECHNIQUE: Imaging Protocol: Axial CT angiography was performed with multi-slice acquisition and mu lti-planar and/or 3D reconstructions. CONTRAST MATERIAL: Intravenous: Omnipaque 350 contrast volume:70 mL COMPARISON: CT CT HEAD - STROKE PROTOCOL from 07/17/2024 FINDINGS: CT Head W/O and W: Ventricles and Extra axial spaces: Normal in size and morphology for the patient's age. Hemorrhage: None. Cerebral parenchyma: There is an old infarct seen in the high right parietal lobe. There is an old l acunar infarct seen in the right caudate nucleus. There are areas of decreased attenuation in the wh ite matter consistent with chronic microvascular ischemic disease. No acute midline shift. Midline shift: None. Brainstem/Cerebellum: Normal. Calvarium: Normal. Visualized Paranasal sinuses/Mastoids: There is mucosal thickening in the visualized paranasal sinuse s. The mastoid air cells are clear. Soft Tissues: Unremarkable. Enhancement: Unremarkable. CTA Neck W: Common Carotid: Right: No dissection, occlusion or significant stenosis. Left: No dissection, occlusion or significant stenosis. Mild atherosclerosis in the carotid bulb. External Carotid: Right: No occlusion or significant stenosis. Left: No occlusion or significant stenosis. Internal Carotid: Right: There is again seen occlusion of the right internal carotid artery at its origin. There is r econstitution at the supraclinoid region. Left: No dissection, occlusion or significant stenosis. There is atherosclerosis at the origin of th e left internal carotid artery with approximately 50 percent stenosis. Vertebral Artery: Right: No dissection, occlusion or significant stenosis. Left: No dissection, occlusion or significant stenosis. Lung Apices: Normal. Bones: Within normal limits for the patient's age. Soft Tissues: Normal. Thyroid gland: Unremarkable. The patient has both an endotracheal and enteric tube. The tips of the catheters are not identified on this examination. CTA Brain W: Internal Carotid Arteries: There is again seen occlusion of the right internal carotid artery with re constitution at the supraclinoid region. There is mild atherosclerosis seen in the left internal car otid artery but no occlusion or significant stenosis. No aneurysm is seen. Anterior Cerebral Arteries: Right: No aneurysm, occlusion or significant stenosis. Left: No aneurysm, occlusion or significant stenosis. Middle Cerebral Arteries: Right: No aneurysm, occlusion or significant stenosis. Left: No aneurysm, occlusion or significant stenosis. Posterior Cerebral Arteries: Right: No aneurysm, occlusion or significant stenosis. Left: No aneurysm, occlusion or significant stenosis. Vertebral Arteries: Right: No aneurysm, occlusion or significant stenosis. Left: No aneurysm, occlusion or significant stenosis. Basilar Artery: No aneurysm, occlusion or significant stenosis. IMPRESSION: 1. Stable occlusion of the right internal carotid artery from its origin to its reconstitution in the supraclinoid region. 2. No acute intracranial process. 3. Atherosclerotic calcification seen at the origin of the left internal carotid artery with approxim ately 50 percent stenosis noted. RADIATION DOSE DELIVERED: 2,444.57mGy.cm Total DLP DATA REPOSITORY: All CT scans at this facility are submitted to the National Radiology Data Registry (NRDR) Dose Index Registry (DIR) with the [employer] (ACR). RADIATION OPTIMIZATION: All CT scans at this facility use at least one of these dose optimization te chniques: automated exposure control; mA and/or kV adjustment per patient size (includes targeted exa ms where dose is matched to clinical indication); or iterative reconstruction.
[2024-07-17] MEDS: THIAMINE 100 MG in Normal Saline 100 ML 200 MG IVPB (15:10)
[2024-07-17 15:20] LABS: BE -11 mmol/L (-2-3); HCO3 18 mmol/L (22-26); pCO2 48 mmHg (35-45); pO2 77 mmHg (80-105); sO2 91 % (95-98); tCO2 17 mmol/L (23-27)
[2024-07-17 15:24] LABS: FIO2 45 %; Site Right Radial
[2024-07-17 15:26] LABS: pH 7.17 (7.35-7.45)
[2024-07-17 15:32] LABS: Bilirubin Negative (Negative); Blood Moderate (Negative); Clarity Clear (Clear); Glucose Negative (Negative); Ketones Negative (Negative); Leukocyte Esterase Negative (Negative); Nitrite Negative (Negative); Specific Gravity >= 1.030 (1.005-1.025); Urobilinogen 0.2 mg/dL (Up to 0.2); pH 5.5 (5-8)
--- NOTE | 2024-07-17 15:32 | W.EDPROG ---
Date of service: 07/17/24 Time of Service: 13:28 Medical Decision Making 49-year-old male presented via EMS found unresponsive. Patient with low oxygen saturations and route. EMS was bagging upon arrival. He had significantly elevated blood sugar. Patient with history of stroke and alcohol use. Unclear history however EMS reports last known well was around noon today. They state that roommate believes he has been drinking tea all day and not alcohol. On arrival patient is unresponsive. He did receive Narcan en route. Additional dose of Narcan was given upon ED arrival. Patient was managed by NICOL Lockett, please see her note for full details. I was present for initial evaluation and determination that patient required emergent intubation. I did supervise RSI and intubation. I did witness ET tube go through cords on video monitor. Patient did have decreased breath on the left after intubation and ET tube was pulled back. Quality:SDOH Health Related Social Needs: No Data to Display Discharge Plan Discharge Details Chief Complaint: CVA/TIA Primary Care Provider: Mikey Martínez ED Provider: Sanjuana Wilson Home Meds and New Rx's Prescriptions: No Action lorazepam 0.5 mg tablet 0.5 mg PO ONCE PRN (Reason: anxiety/claustrophobia) Qty: 2 0RF Rx Instructions: Take one tablet 30min prior to MRI. Ok to take second at time of MRI if still anxious. Do not drive after taking. nicotine 7 mg/24 hr patch 24 hour 1 patch transdermal Q24H clopidogrel 75 mg tablet 75 mg PO DAILY atorvastatin 80 mg tablet 80 mg PO DAILY baclofen 20 mg tablet 20 mg PO TID hydroxyzine HCl 25 mg tablet 25 mg PO TID PRN pantoprazole 40 mg tablet,delayed release (DR/EC) 40 mg PO DAILY polyethylene glycol 3350 17 gram/dose powder 17 g PO DAILY docusate sodium [Colace] 100 mg capsule 100 mg PO BID PRN gabapentin 800 mg tablet 800 mg PO TID escitalopram oxalate 20 mg tablet 20 mg PO DAILY lisinopril 20 mg tablet 20 mg PO DAILY metformin 500 mg tablet 500 mg PO BID sildenafil [Viagra] 100 mg tablet 100 mg PO DAILY PRN Rx Instructions: administer 30 minutes to 4 hours before activity loratadine [Allergy Relief (loratadine)] 10 mg tablet 10 mg PO DAILY methadone 10 MG/ML concentrate 75 mg PO 1999 Patient Comments: 100 in am 75 in pm 0800 and 1999 per his report methadone 10 mg/mL Concentrate 100 mg PO DAILY AM lamotrigine [Lamictal] 100 mg Tablet 100 mg PO BID metoprolol tartrate 50 mg Tablet 50 mg PO BID Qty: 60 0RF thiamine HCl (vitamin B1) 100 mg tablet 100 mg PO DAILY Qty: 30 0RF aspirin [Children's Aspirin] 81 mg Tablet,Chewable 81 mg PO DAILY Qty: 30 0RF folic acid 1 mg Tablet 1 mg PO QAM Qty: 30 0RF
[2024-07-17 15:37] LABS: Troponin I 30 ng/L (<or=76)
[2024-07-17 15:42] LABS: Bacteria Many HPF (Negative); C & S Indicated? No; Casts 3-5 Fine Granular LPF (Negative); Crystals Negative HPF (Negative); Epithelial Cells Rare HPF (Negative); Mucus Negative (Negative)
[2024-07-17 15:53] LABS: *AMPHETAMINES SCREEN URINE Negative (Negative); *BARBITURATES SCREEN URINE Negative (Negative); *BENZODIAZEPINES SCREEN URINE Negative (Negative); Cannabinoids THC Negative (Negative); Cocaine Screen,Urine Negative (Negative); METHADONE URINE SCREEN Positive (Negative); OPIATES URINE SCREEN Negative (Negative)
[2024-07-17 15:55] LABS: Tricyclic Antidepressants Negative (Negative)
[2024-07-17] MEDS: INSULIN REGULAR IN 0.9 % NACL 100 UNIT/100 ML BAG IVINF (16:00)
--- NOTE | 2024-07-17 16:39 | W.PM.HP.N ---
Date of service: 07/17/24 Time of Service: 16:39 Assessment and Plan Assessment and plan (1) Acute respiratory failure with hypoxia: Status: Acute Assessment and plan: - Patient reportedly had diarrhea over the last few days, normally consumes 30 beers a day, but had not consumed any alcohol today, but after taking a shower felt lightheaded and dizzy resulting in fall - This likely is secondary to fluid loss due to enteritis in combination with poor appropriate p.o. intake in the setting of alcohol withdrawal - Patient required bag ventilation via EMS and was intubated in the emergency department - VBG immediately after intubation showed pH of 6.9, pCO2 of 67, bicarb of 13 and PO2 of 106 with a lactic acid of 12.5 - About an hour and a half after intubation ABG showed improvement with pH of 7.17, pCO2 48, bicarb of 18 and oxygen saturation of 91% on 45% of FiO2 - Greatly appreciate respiratory therapy and ongoing management of patient's ventilator settings - Patient started on propofol in the emergency department for sedation, though this has since been changed to fentanyl and Precedex as patient had an episode of hypotension likely secondary to be going when he was rolled for Flexi-Seal placement and had significant large loose/watery bowel movement -Will consider spontaneous breathing trial tomorrow morning based on appropriateness (2) Aspiration into airway: Status: Acute Assessment and plan: -Likely occurred when patient was down -This was seen on CT with complete collapse of left lower lobe -Though this may be secondary to atelectasis, cannot rule out aspiration pneumonitis at this time -Will continue ceftriaxone and Flagyl as this will also cover enteritis as noted below (3) Enteritis: Status: Acute Assessment and plan: - Patient reportedly had diarrhea for the last few days leading up to event as noted above - Additionally, after placing admission orders emergency room nurse informed the patient has been having persistent loose stools - Rectal tube placed - C. difficile sent, will follow-up results - Emergency room physician prior to liquid stools noted by emergency room nurse had started patient on ceftriaxone and Flagyl for concern for enteritis, will continue (4) Lactic acidosis: Status: Acute Assessment and plan: - Likely secondary to combination of downtime, hypoxia, poor perfusion during that time, potential enteritis (as noted above) - Will follow-up repeat lactic acid (5) Alcohol withdrawal: Status: Resolved Assessment and plan: - Patient has significant history of alcohol use disorder and multiple episodes of withdrawal though without known seizures - Patient reportedly drinks 30 beers a day - Alcohol level is found to be 0 in the emergency department - Unknown if incident resulting in intubation and hospitalization was secondary to alcohol withdrawal, but either way patient is at severe risk of withdrawing while intubated, and was thus started on phenobarb protocol in the emergency department, will continue (6) Hyperglycemia: Status: Acute Assessment and plan: - Patient's blood glucose were noted as being elevated via EMS and upon arrival to ED - ED provider initially started patient on insulin drip for concern for DKA as patient was also found to be severely acidotic and with anion gap - However, I believe acidosis and anion gap is primarily secondary to severe lactic acidosis of 12.9, as well as hypercapnia with initial CO2 of 67 on VBG - Additionally, UA was without any ketones - Will leave insulin drip on until blood glucose normalizes and then transition to sliding scale while patient is intubated (7) History of CVA (cerebrovascular accident): Status: Acute Assessment and plan: - Continue home clopidogrel, aspirin, statin via NG tube (8) Depression: Status: Chronic Assessment and plan: - Continue home Lexapro dose through NG tube (9) Long-term current use of methadone for opiate dependence: Status: Acute Assessment and plan: - Will restart home methadone tomorrow morning and once confirmed by pharmacy History of Present Illness History of Present Illness Chief Complaint: AMS Narrative: 49-year-old gentleman with a past medical history of CVA with residual left-sided deficit, hypertension, opioid use on methadone, alcoholic hepatitis with ongoing alcohol use disorder, depression, anxiety, NIDDM presented to the emergency department via EMS after being found unresponsive by his roommate. Initially, the story that was told to ED provider was that patient was down for unknown amount of time after being found by patient's roommate. However, once remained arrived to the emergency department they stated that patient drinks about 30 beers a day, but did not drink today. Patient has been having diarrhea for the last few days, and patient began to feel lightheaded and dizzy after taking a shower, also stated that he felt hot but then became weak and confused and patient fell. Upon EMS arrival they administered Narcan with mild improvement and noted that his glucose was in the 400s. Upon arrival to the emergency department patient appeared acutely ill and unresponsive with spontaneous respirations but very shallow and assisted by bagging with respiratory therapy. At which time decision was made for patient to be intubated, with ET tube initially noted to being in right mainstem bronchus but had since been readjusted with good position noted on imaging. Patient was sedated with propofol, and was also started on phenobarb loading dose given high suspicion for alcohol withdrawal given the patient's alcohol level was undetectable. He is also given an additional dose of Narcan without improvement. Initial VBG shortly after intubation showed pH of 6.9, CO2 of 67, bicarb of 13 and a lactic of 12.5. Glucose was also rechecked and noted as being greater than 400 and patient was started on insulin drip concern for DKA. CT Noncon of the head did not show any intracranial hemorrhage, and CTA chest abdomen pelvis was also unremarkable with the exception of fluid-filled loops of small and large bowel with mild wall thickening in the small bowel that may represent enterocolitis, as well as complete consolidation and volume loss of the left lower lobe which may be due to aspiration or atelectasis. Patient also had head neck CTA was he was discovered that he had fallen after being lightheaded dizzy from the shower but did not show any acute findings. Repeat ABG about an hour and a half after intubation showed improvement with a pH of 7.17, pCO2 of 48, bicarb of 18. At which time, given the patient's respiratory status had stabilized, emergency room NICOL mcfarlandd hospitalist admission for patient with acute hypoxic respiratory failure, lactic acidosis, alcohol withdrawal, and possible aspiration pneumonia/pneumonitis. Review of Systems All systems reviewed & are unremarkable except as noted in HPI and below PFSH All Active Problems (Updated 07/17/24 @ 17:13 by NICOL Jeong) Acidosis (Acute) DKA (diabetic ketoacidosis) (Acute) Respiratory failure (Acute) Alcohol withdrawal (Acute) Alcohol abuse (Chronic) Long-term current use of methadone for opiate dependence (Acute) Depression (Chronic) History of CVA (cerebrovascular accident) (Acute) Hyperglycemia (Acute) Lactic acidosis (Acute) Enteritis (Acute) Aspiration into airway (Acute) Acute respiratory failure with hypoxia (Acute) TIA (transient ischemic attack) (Acute) Stroke (Chronic) Left-sided weakness (Acute) Left carotid stenosis (Acute) Right carotid artery occlusion (Acute) CVA (cerebral vascular accident) (Chronic) Tobacco abuse (Acute) Elevated blood pressure reading (Acute) Anxiety and depression (Acute) Vomiting and diarrhea (Acute) Alcohol abuse (Chronic) Electrolyte and fluid disorder (Acute) Alcoholic hepatitis (Acute) Medical History (Updated 07/17/24 @ 17:13 by NICOL Jeong) Contracture of muscle of left lower extremity Acute hyponatremia TBI (traumatic brain injury) Hyperlipidemia Mood disorder Spinal stenosis of lumbar region BMI 32.0-32.9,adult Hypertension Nephropathy Weakness of left leg ETOH abuse Degenerative disc disease ADHD Gynecomastia GERD (gastroesophageal reflux disease) Opioid dependence Chronic constipation Erectile dysfunction Hidradenitis suppurativa Diabetes mellitus Sleep apnea Eczema of both hands Headache Scrotal abscess Sinusitis Surgical History S/P lumbar spine operation Family History Mother Stroke Father Heart disease Social History (Updated 06/10/24 @ 14:23 by Albert Bateman) Smoking/Tobacco Use Status: Current every day Counseling given: provider counseling and counseling >3 minutes Smoking risk assessment performed?: Yes Alcohol Intake: current Alcohol Intake frequency: 3 or more drinks per day Alcohol type: hard liquor Counseling given: Yes Drug use: Never Substance use type: former substance user and marijuana Counseling provided: provider counseling and treatment program Housing: house Number of Children: 4 current occupation: Disabled Do you feel safe at home: Yes Do you feel safe in your relationship?: Yes Additional Social history: On SSDI since stroke. Lives in home with roommates Meds Allergies and Home Medications Allergies Allergy/AdvReac Type Severity Reaction Status Date / Time tolmetin Allergy Unknown Unverified 06/10/24 00:14 Home Medications ?Medication ?Instructions ?Recorded ?Confirmed ?Type methadone 10 mg/mL oral concentrate 75 mg PO 199909/03/15 06/10/24 History lamotrigine 100 mg tablet 100 mg PO BID 12/16/20 06/10/24 History (Lamictal) methadone 10 mg/mL oral concentrate 100 mg PO DAILY AM 12/16/20 06/10/24 History metoprolol tartrate 50 mg tablet 50 mg PO BID #60 tabs 12/17/20 06/10/24 Rx thiamine HCl (vitamin B1) 100 mg 100 mg PO DAILY #30 tabs 12/17/20 06/10/24 Rx tablet atorvastatin 80 mg tablet 80 mg PO DAILY 07/18/22 06/10/24 History baclofen 20 mg tablet 20 mg PO TID 07/18/22 06/10/24 History clopidogrel 75 mg tablet 75 mg PO DAILY 07/18/22 06/10/24 History docusate sodium 100 mg capsule 100 mg PO BID PRN 07/18/22 06/10/24 History (Colace) escitalopram oxalate 20 mg tablet 20 mg PO DAILY 07/18/22 06/10/24 History gabapentin 800 mg tablet 800 mg PO TID 07/18/22 06/10/24 History hydroxyzine HCl 25 mg tablet 25 mg PO TID PRN 07/18/22 06/10/24 History lisinopril 20 mg tablet 20 mg PO DAILY 07/18/22 06/10/24 History loratadine 10 mg tablet (Allergy 10 mg PO DAILY 07/18/22 06/10/24 History Relief (loratadine)) metformin 500 mg tablet 500 mg PO BID 07/18/22 06/10/24 History nicotine 7 mg/24 hr daily 1 patch transdermal Q24H 07/18/22 06/10/24 History transdermal patch pantoprazole 40 mg tablet,delayed 40 mg PO DAILY 07/18/22 06/10/24 History release polyethylene glycol 3350 17 17 g PO DAILY 07/18/22 06/10/24 History gram/dose oral powder sildenafil 100 mg tablet (Viagra) 100 mg PO DAILY PRN 07/18/22 06/10/24 History lorazepam 0.5 mg tablet 0.5 mg PO ONCE PRN 08/15/22 06/10/24 Rx anxiety/claustrophobia #2 tabs aspirin 81 mg chewable tablet 81 mg PO DAILY #30 tabs 06/12/24 Rx (Children's Aspirin) folic acid 1 mg tablet 1 mg PO QAM #30 tabs 06/12/24 Rx Exam Narrative Exam Narrative: Chronically ill-appearing intubated gentleman laying in bed no acute distress, ET tube in place, withdraws to painful stimuli, heart regular rhythm, lungs clear to auscultation with mechanical breath sounds with the exception of coarse breath sounds noted in the left lower lobe, abdomen soft, nontender, nondistended Results Labs 07/17/24 13:32 07/17/24 13:32 Labs: Laboratory Results - last 24 hr 07/17/24 07/17/24 07/17/24 13:32 13:51 14:00 WBC 7.40 RBC 4.52 Hgb 13.2 L Hct 42.6 MCV 94 MCH 29.2 MCHC 31.0 L RDW 13.3 Plt Count 281 MPV 10.1 Immature Gran % 0.8 Neutrophils % 44.7 Lymphocytes % 49.5 Monocytes % 4.1 Eosinophils % 0.5 Basophils % 0.4 Nucleated RBC % 0.0 Absolute Neutrophils 3.31 Absolute Lymphocytes 3.66 H Absolute Monocytes 0.30 Absolute Eosinophils 0.04 Absolute Basophils 0.03 PT 10.4 INR 1.0 ABG Sample Site ABG pH ABG pCO2 ABG pO2 ABG HCO3 ABG Total CO2 ABG O2 Saturation ABG Base Excess VBG pH 6.90 L* VBG pCO2 67 H* VBG pO2 106 VBG HCO3 13 L VBG Total CO2 14 L VBG O2 Saturation 92 VBG Base Excess -20 L VBG Lactate 12.5 H* FiO2 Sodium 133 L Potassium 4.5 Chloride 97 L Carbon Dioxide 15.9 L Anion Gap 20.1 H BUN 9 Creatinine 1.6 H Est GFR (CKD-EPI 2020) 51.84 Glucose 461 H Calcium 9.2 Magnesium 2.4 Total Bilirubin 0.6 AST 128 H ALT 50 Alkaline Phosphatase 117 H Creatine Kinase 612 H Troponin I 32 Total Protein 7.0 Albumin 2.8 L Urine Color Yellow Urine Clarity Clear Urine pH 5.5 Ur Specific [place] >= 1.030 H Urine Protein 100 H Urine Ketones Negative Urine Blood Moderate H Urine Nitrite Negative Urine Bilirubin Negative Urine Urobilinogen 0.2 Ur Leukocyte Esterase Negative Urine RBC 5-10 H Urine WBC 3-5 Ur Epithelial Cells Rare Urine Crystals Negative Urine Bacteria Many Urine Casts 3-5 Fine Granular Urine Mucus Negative Ur Culture Indicated? No Urine Glucose Negative Salicylates < 2.8 Urine Opiates Screen Negative Urine Methadone Screen Positive A Acetaminophen 10 Ur Barbiturates Screen Negative Ur Tricyclics Screen Negative Ur Amphetamines Screen Negative U Benzodiazepines Scrn Negative Urine Cocaine Screen Negative Ur THC Screen Negative Ethyl Alcohol < 3.0 ABO/Rh A Positive Antibody Screen NEGATIVE 07/17/24 07/17/24 15:05 15:15 WBC RBC Hgb Hct MCV MCH MCHC RDW Plt Count MPV Immature Gran % Neutrophils % Lymphocytes % Monocytes % Eosinophils % Basophils % Nucleated RBC % Absolute Neutrophils Absolute Lymphocytes Absolute Monocytes Absolute Eosinophils Absolute Basophils PT INR ABG Sample Site Right Radial ABG pH 7.17 L* ABG pCO2 48 H ABG pO2 77 L ABG HCO3 18 L ABG Total CO2 17 L ABG O2 Saturation 91 L ABG Base Excess -11 L VBG pH VBG pCO2 VBG pO2 VBG HCO3 VBG Total CO2 VBG O2 Saturation VBG Base Excess VBG Lactate FiO2 45 Sodium Potassium Chloride Carbon Dioxide Anion Gap BUN Creatinine Est GFR (CKD-EPI 2020) Glucose Calcium Magnesium Total Bilirubin AST ALT Alkaline Phosphatase Creatine Kinase Troponin I 30 Total Protein Albumin Urine Color Urine Clarity Urine pH Ur Specific [place] Urine Protein Urine Ketones Urine Blood Urine Nitrite Urine Bilirubin Urine Urobilinogen Ur Leukocyte Esterase Urine RBC Urine WBC Ur Epithelial Cells Urine Crystals Urine Bacteria Urine Casts Urine Mucus Ur Culture Indicated? Urine Glucose Salicylates Urine Opiates Screen Urine Methadone Screen Acetaminophen Ur Barbiturates Screen Ur Tricyclics Screen Ur Amphetamines Screen U Benzodiazepines Scrn Urine Cocaine Screen Ur THC Screen Ethyl Alcohol ABO/Rh Antibody Screen Last Vital Signs Temp 99.1 F 07/17/24 16:13 Pulse 104 H 07/17/24 16:13 Resp 20 07/17/24 16:13 BP 151/103 H 07/17/24 16:13 Pulse Ox 98 07/17/24 16:13 Time Spent Time spent with Patient: >75 minutes Time was spent: preparing to see the patient(eg.review tests), obtaining and/or reviewing separately otained hiistory, ordering medications,tests, procedures, referring, communicating with other health ambulatory care nurse, indepentently interpreting results, counseling the patient and care coordination
[2024-07-17] MEDS: metroNIDAZOLE 500 MG/100 ML BAG 100 MG IVPB ×2 (16:59→22:36)
[2024-07-17] MEDS: cefTRIAXone 1 GM/50 ML BAG IVPB (17:00)
[2024-07-17] MEDS: fentaNYL 100 MCG/2 ML VIAL (17:25)
[2024-07-17] MEDS: Pantoprazole 40 MG VIAL IVP (17:35)
--- NOTE | 2024-07-17 17:55 | W.ED.PROC ---
Date of service: 07/17/24 Time of Service: 17:55 Procedures Arterial Line Time Out Performed: No Size (Gauge): 20 Technique Used: direct puncture technique Post-Procedure: line sutured into place and dry sterile dressing placed Patient Tolerated Procedure: well Complications: none Site: right and radial Additional Comments: Ultrasounds guided Medical Decision Making Quality:SDOH Health Related Social Needs: No Data to Display
[2024-07-17] MEDS: Norepinephrine in D5W 8 MG/250 ML BAG 9.375 MG IV (18:23)
[2024-07-17] MEDS: PROPOFOL 1,000 MG/100 ML BTL 5 MG (18:35)
[2024-07-17] MEDS: Normal Saline 1,000 ML 100 ML IV (18:40)
[2024-07-17] MEDS: dexmedeTOMidine IN 0.9 % NACL 400 MCG/100 ML BTL 8 MCG IV (18:57)
[2024-07-17 19:07] LABS: C Diff PCR Negative (Negative); EPI 027-NAP1-B1 PRESUMPTIVE NEGATIVE
--- NOTE | 2024-07-17 19:11 | W.SURGCON ---
Date of service: 07/17/24 Time of Service: 19:11 History of Present Illness History of Present Illness Chief Complaint: emergency central venous access Narrative: Feliciano was admitted through the ER with severe metabolic and respiratory acidosis. He was intubated and multiple pressers were initiated for severe shock. I was consulted for emergency central venous access [facility] All Active Problems (Updated 07/17/24 @ 17:13 by NICOL Jeong) Acidosis (Acute) DKA (diabetic ketoacidosis) (Acute) Respiratory failure (Acute) Alcohol withdrawal (Acute) Alcohol abuse (Chronic) Long-term current use of methadone for opiate dependence (Acute) Depression (Chronic) History of CVA (cerebrovascular accident) (Acute) Hyperglycemia (Acute) Lactic acidosis (Acute) Enteritis (Acute) Aspiration into airway (Acute) Acute respiratory failure with hypoxia (Acute) TIA (transient ischemic attack) (Acute) Stroke (Chronic) Left-sided weakness (Acute) Left carotid stenosis (Acute) Right carotid artery occlusion (Acute) CVA (cerebral vascular accident) (Chronic) Tobacco abuse (Acute) Elevated blood pressure reading (Acute) Anxiety and depression (Acute) Vomiting and diarrhea (Acute) Alcohol abuse (Chronic) Electrolyte and fluid disorder (Acute) Alcoholic hepatitis (Acute) Medical History (Updated 07/17/24 @ 17:13 by NICOL Jeong) Contracture of muscle of left lower extremity Acute hyponatremia TBI (traumatic brain injury) Hyperlipidemia Mood disorder Spinal stenosis of lumbar region BMI 32.0-32.9,adult Hypertension Nephropathy Weakness of left leg ETOH abuse Degenerative disc disease ADHD Gynecomastia GERD (gastroesophageal reflux disease) Opioid dependence Chronic constipation Erectile dysfunction Hidradenitis suppurativa Diabetes mellitus Sleep apnea Eczema of both hands Headache Scrotal abscess Sinusitis Surgical History S/P lumbar spine operation Family History Mother Stroke Father Heart disease Social History (Updated 06/10/24 @ 14:23 by Albert Bateman) Smoking/Tobacco Use Status: Current every day Counseling given: provider counseling and counseling >3 minutes Smoking risk assessment performed?: Yes Alcohol Intake: current Alcohol Intake frequency: 3 or more drinks per day Alcohol type: hard liquor Counseling given: Yes Drug use: Never Substance use type: former substance user and marijuana Counseling provided: provider counseling and treatment program Housing: house Number of Children: 4 current occupation: Disabled Do you feel safe at home: Yes Do you feel safe in your relationship?: Yes Additional Social history: On SSDI since stroke. Lives in home with roommates Results Last Vital Signs Temp 98.6 F 07/17/24 18:00 Pulse 80 07/17/24 18:00 Resp 23 07/17/24 18:27 BP 70/46 L 07/17/24 18:27 Pulse Ox 100 07/17/24 18:27 Labs 07/17/24 13:32 07/17/24 13:32 Labs: Laboratory Results - last 24 hr 07/17/24 07/17/24 07/17/24 13:32 13:51 14:00 WBC 7.40 RBC 4.52 Hgb 13.2 L Hct 42.6 MCV 94 MCH 29.2 MCHC 31.0 L RDW 13.3 Plt Count 281 MPV 10.1 Immature Gran % 0.8 Neutrophils % 44.7 Lymphocytes % 49.5 Monocytes % 4.1 Eosinophils % 0.5 Basophils % 0.4 Nucleated RBC % 0.0 Absolute Neutrophils 3.31 Absolute Lymphocytes 3.66 H Absolute Monocytes 0.30 Absolute Eosinophils 0.04 Absolute Basophils 0.03 PT 10.4 INR 1.0 ABG Sample Site ABG pH ABG pCO2 ABG pO2 ABG HCO3 ABG Total CO2 ABG O2 Saturation ABG Base Excess VBG pH 6.90 L* VBG pCO2 67 H* VBG pO2 106 VBG HCO3 13 L VBG Total CO2 14 L VBG O2 Saturation 92 VBG Base Excess -20 L VBG Lactate 12.5 H* FiO2 Sodium 133 L Potassium 4.5 Chloride 97 L Carbon Dioxide 15.9 L Anion Gap 20.1 H BUN 9 Creatinine 1.6 H Est GFR (CKD-EPI 2020) 51.84 Glucose 461 H Calcium 9.2 Magnesium 2.4 Total Bilirubin 0.6 AST 128 H ALT 50 Alkaline Phosphatase 117 H Creatine Kinase 612 H Troponin I 32 Total Protein 7.0 Albumin 2.8 L Urine Color Yellow Urine Clarity Clear Urine pH 5.5 Ur Specific Saucier >= 1.030 H Urine Protein 100 H Urine Ketones Negative Urine Blood Moderate H Urine Nitrite Negative Urine Bilirubin Negative Urine Urobilinogen 0.2 Ur Leukocyte Esterase Negative Urine RBC 5-10 H Urine WBC 3-5 Ur Epithelial Cells Rare Urine Crystals Negative Urine Bacteria Many Urine Casts 3-5 Fine Granular Urine Mucus Negative Ur Culture Indicated? No Urine Glucose Negative Stl C.difficile Tox PCR Salicylates < 2.8 Urine Opiates Screen Negative Urine Methadone Screen Positive A Acetaminophen 10 Ur Barbiturates Screen Negative Ur Tricyclics Screen Negative Ur Amphetamines Screen Negative U Benzodiazepines Scrn Negative Urine Cocaine Screen Negative Ur THC Screen Negative Ethyl Alcohol < 3.0 ABO/Rh A Positive Antibody Screen NEGATIVE 07/17/24 07/17/24 07/17/24 15:05 15:15 17:54 WBC RBC Hgb Hct MCV MCH MCHC RDW Plt Count MPV Immature Gran % Neutrophils % Lymphocytes % Monocytes % Eosinophils % Basophils % Nucleated RBC % Absolute Neutrophils Absolute Lymphocytes Absolute Monocytes Absolute Eosinophils Absolute Basophils PT INR ABG Sample Site Right Radial ABG pH 7.17 L* ABG pCO2 48 H ABG pO2 77 L ABG HCO3 18 L ABG Total CO2 17 L ABG O2 Saturation 91 L ABG Base Excess -11 L VBG pH VBG pCO2 VBG pO2 VBG HCO3 VBG Total CO2 VBG O2 Saturation VBG Base Excess VBG Lactate FiO2 45 Sodium Potassium Chloride Carbon Dioxide Anion Gap BUN Creatinine Est GFR (CKD-EPI 2020) Glucose Calcium Magnesium Total Bilirubin AST ALT Alkaline Phosphatase Creatine Kinase Troponin I 30 Total Protein Albumin Urine Color Urine Clarity Urine pH Ur Specific Saucier Urine Protein Urine Ketones Urine Blood Urine Nitrite Urine Bilirubin Urine Urobilinogen Ur Leukocyte Esterase Urine RBC Urine WBC Ur Epithelial Cells Urine Crystals Urine Bacteria Urine Casts Urine Mucus Ur Culture Indicated? Urine Glucose Stl C.difficile Tox PCR Negative Salicylates Urine Opiates Screen Urine Methadone Screen Acetaminophen Ur Barbiturates Screen Ur Tricyclics Screen Ur Amphetamines Screen U Benzodiazepines Scrn Urine Cocaine Screen Ur THC Screen Ethyl Alcohol ABO/Rh Antibody Screen Procedures Central Line Placement Right IJ: Time out performed: Yes Patient placed on monitor/pulse ox: Yes MD prep: mask, gown and gloves Central line prep: Chlorhexidine scrub Local anesthesia used: lidocaine 1% Amount of anesthesia used (ml): 3 Ultrasound used for placement: Yes Central line lumen inserted: triple Post procedure: sutured in place, good blood return, all ports aspirated, flushed, capped and sterile dressing applied Patient tolerated procedure: well and no complications Complications: none Additional comments: Under emergency conditions and with implied consent, I placed a right IJ triple lumen catheter with ultrasound guidance (images were not saved). I used sterile technique with single stick cannulation of the vein. The line was affixed in place at 17 cm at the skin level. All ports flushed and withdrew blood with ease. Sterile dressings were placed. CXr shows no pneumothoax and well positioned line
--- NOTE | 2024-07-17 19:49 | DI.RAD_ITS ---
Exam(s) XR PORTABLE CHEST AP POST LINE EXAM: XR PORTABLE CHEST AP POST LINE CLINICAL HISTORY: new central line placement TECHNIQUE: 2D digital imaging was performed. COMPARISON: CR XR PORTABLE CHEST AP POST LINE from 07/17/[address] THORAX ABD/PEL CTA from 07/17/2024 FINDINGS: Exam is limited by overlying monitoring leads and defibrillator paddles. The endotracheal tube has been pulled back which now lies above the level of the dion, in satisfactory position. A right int ernal jugular central venous catheter has been inserted which projects in the lower SVC. The nasogas tric tube is unchanged, projecting in the stomach. LUNGS: Increased densities at the medial left lung base, mostly obscured by overlying defibrillator p ads. Left lower lobe atelectasis was noted on CT. No pneumothorax. HEART: Normal size. AORTA: Normal diameter. BONES: Unremarkable for age. Soft tissues: Unremarkable. IMPRESSION: Satisfactory positioning of endotracheal tube and right internal jugular central venous catheter. DATA REPOSITORY: RADIATION DOSE DELIVERED:
[2024-07-17 19:57] LABS: BE -8 mmol/L (-2-3); HCO3 18 mmol/L (22-26); pCO2 34 mmHg (35-45); pH 7.32 (7.35-7.45); pO2 168 mmHg (80-105); tCO2 16 mmol/L (23-27)
[2024-07-17 19:59] LABS: FIO2 45 %; Site Arterial Line
--- NOTE | 2024-07-17 20:13 | DI.VRAD_ITS ---
PROCEDURE INFORMATION: Exam: XR Chest Exam date and time: 07/17/2024 7:30 PM Age: 49 years old Clinical indication: Device placement; Other: New central line placement TECHNIQUE: Imaging protocol: Radiologic exam of the chest. Views: 1 view. COMPARISON: CT THORAX ABD/PEL CTA 07/17/2024 2:17 PM FINDINGS: Tubes, catheters and devices: The tip of the endotracheal tube now projects over the lower trachea at the level of the aortic arch. There is a new right IJ central line with its tip projecting at the SVC. Again noted is a nasogastric tube which extends at least to the level of the gastric body but its more inferior aspect is off the radiographic field of view. There is a new vertically oriented catheter projecting along the left aspect of the mediastinum with its tip residing at the level of the AP window which could represent an intra-aortic balloon pump. Lungs: There is mild retrocardiac airspace opacity, suggesting left lower lobe atelectasis, which may be improved from prior study. Lungs otherwise clear. There is no pulmonary vascular congestion. Pleural spaces: There are no pleural effusions present. There is no evidence of pneumothorax. Heart/Mediastinum: The cardiomediastinal silhouette is within normal limits. Bones/joints: Unremarkable. IMPRESSION: 1. New right IJ line with tip projecting at the SVC. No evidence of pneumothorax. 2. Interval retraction of the endotracheal tube with its tip now projecting at the level of the aortic arch. 3. Findings suggest improved left lower lobe atelectasis. Dictated and Authenticated by: Ablert Spring MD. Orderin Americo Verma MD
[2024-07-17] MEDS: Insulin Aspart 300 UNITS/3 ML PEN SC (20:20)
[2024-07-17] MEDS: Normal Saline Flush 10 ML SYR IVP (20:34)
[2024-07-17 20:54] LABS: Troponin I 62 ng/L (<or=76)
[2024-07-17 21:33] LABS: Anion Gap 16.3 mmol/L (3-11); BUN 14 mg/dL (7-18); CO2 18.7 mmol/L (21.0-32.0); CREATININE 1.2 mg/dL (0.70-1.30); Calcium 8.1 mg/dL (8.5-10.1); Chloride 102 mmol/L (98-107); Estimated GFR 73.22 (mL/min/1.73m2); Glucose 217 mg/dL (74-106); Potassium 3.9 mmol/L (3.5-5.1); Sodium 137 mmol/L (136-145)
[2024-07-17] MEDS: lamoTRIgine 100 MG TAB NG (22:35)
[2024-07-17] MEDS: fentaNYL 100 MCG/2 ML VIAL 50 MCG IVP (23:05)
[2024-07-17] MEDS: PHENobarbital 110 MG in Normal Saline 50 ML 100 MG IVPB (23:14)
[2024-07-18] VITALS (97 sets, daily range): BP systolic 89–190; BP diastolic 62–101; PULSE 61–77; RESP 9–22; TEMP 36.7–37.9; O2SAT 87–100
[2024-07-18 00:40] LABS: BE -7 mmol/L (-2-3); HCO3 18 mmol/L (22-26); pCO2 32 mmHg (35-45); pH 7.36 (7.35-7.45); pO2 97 mmHg (80-105); sO2 98 % (95-98); tCO2 16 mmol/L (23-27)
[2024-07-18 00:42] LABS: FIO2 30 %; Site Arterial Line
[2024-07-18 01:11] LABS: Anion Gap 14.4 mmol/L (3-11); BUN 14 mg/dL (7-18); CO2 19.6 mmol/L (21.0-32.0); Chloride 104 mmol/L (98-107); Estimated GFR 91.12 (mL/min/1.73m2); Glucose 207 mg/dL (74-106); Potassium 3.9 mmol/L (3.5-5.1); Sodium 138 mmol/L (136-145)
[2024-07-18] MEDS: PHENobarbital 110 MG in Normal Saline 50 ML 100 MG IVPB (02:39)
[2024-07-18] MEDS: fentaNYL 100 MCG/2 ML VIAL 50 MCG IVP ×3 (02:40→20:40)
[2024-07-18] MEDS: Normal Saline 1,000 ML 150 ML IV ×3 (02:58→17:29)
[2024-07-18] MEDS: Normal Saline Flush 10 ML SYR IVP ×4 (03:15→20:03)
[2024-07-18] MEDS: dexmedeTOMidine IN 0.9 % NACL 400 MCG/100 ML BTL 18 MCG IV ×2 (03:19→16:29)
[2024-07-18] MEDS: metroNIDAZOLE 500 MG/100 ML BAG 100 MG IVPB ×4 (04:48→21:27)
[2024-07-18 05:45] LABS: BE (Venous) -4 mmol/L (-2-3); HCO3 (Venous) 22 mmol/L (23-28); O2 Sat (Venous) 73 %; TCO2 (Venous) 20 mmol/L (24-29); pCO2 (Venous) 42 mmHg (41-51); pH (Venous) 7.32 (7.31-7.41); pO2 (Venous) 43 mmHg
[2024-07-18 05:46] LABS: HCT 33.9 % (40.0-50.0); HGB 11.3 g/dL (13.5-17.5); MCH 29.4 pg (27.0-33.0); MPV 8.9 fL (8.0-11.0); Platelet Count 225 10^3/uL (130-400); RBC 3.84 10^6/uL (4.36-5.78); RDW 13.6 % (11.8-14.1); RDW-SD 43.8 fL; WBC 14.34 10^3/uL (4.4-10.8)
[2024-07-18 05:56] LABS: MCV 88 fL (80-95)
[2024-07-18 05:57] LABS: MCHC 33.3 % (32.0-36.0)
[2024-07-18 06:04] LABS: ALT 246 U/L (16-63); AST 611 U/L (15-37); Albumin 2.5 g/dL (3.4-5.0); Alkaline Phosphatase 99 U/L (46-116); Anion Gap 10.2 mmol/L (3-11); BUN 12 mg/dL (7-18); Bilirubin, Total 0.3 mg/dL (0.2-1.0); CO2 23.8 mmol/L (21.0-32.0); Calcium 7.8 mg/dL (8.5-10.1); Chloride 106 mmol/L (98-107); Estimated GFR 91.12 (mL/min/1.73m2); Glucose 181 mg/dL (74-106); Sodium 140 mmol/L (136-145); Total Protein 6.1 g/dL (6.4-8.2)
[2024-07-18] MEDS: Insulin Aspart 300 UNITS/3 ML PEN SC ×3 (06:42→17:51)
[2024-07-18] MEDS: Norepinephrine in D5W 8 MG/250 ML BAG 3.75 MG IV (07:32)
[2024-07-18] MEDS: lamoTRIgine 100 MG TAB NG ×2 (07:56→20:30)
[2024-07-18] MEDS: Escitalopram 20 MG TAB NG (07:56)
[2024-07-18] MEDS: Clopidogrel 75 MG TAB NG (07:56)
[2024-07-18] MEDS: Enoxaparin 40 MG/0.4 ML SYR SC (07:57)
--- NOTE | 2024-07-18 08:30 | PDOC.CMIN ---
Date of service: 07/18/24 Time of Service: 08:30 Care Management Initial Assmt Initial Assessment Reason for Hospitalization: Acute Hypoxic Respiratory Failure Functional Status/Living Situation Patient Presentation: Feliciano is hospitalized for acute hypoxic respiratory failure, lactic acidosis, alcohol withdrawal, and possible aspiration pneumonia. He is on phenobarb per protocol and is currently intubated in the ICU with a plan to try to extubate tomorrow. Prior to discharge, Feliciano will be provided with sobriety resources through [facility] (if he accepts a referral, historically he has not.) Information obtained is per chart review and discussed during interdepartmental huddle. CM will continue to follow. Town of Residence: [facility] Resides with: Other (2 roommates) Significant Other/Family: Local (Mom, 2 sisters. Friend, [place]. 4 children. ) Natural Supports: family is good support Employment Status: Disabled Instrumental Activities of Daily Living (ADLs): Independent Medications Medication Management: No Issues/Barriers identified Advance Directives Advance Directives: Do you have an Advance Directive: N 10/10/12 00:14 AD On File at [facility]: N 10/10/12 00:14 Date Asked 06/12/24 06/12/24 16:09 AD Date Reviewed COLST On File at [facility] COLST Date Scanned Code Status Resuscitation Status Full Code Portal Pt does not currently have a portal and education provided: Yes Insurance Coverage/Financial Issues Insurance: Medicare Part A & B Medicaid of [place] Care Team Visit Care Team Role Provider Type Mikey Martínez Primary Care Provider MD [facility] STAFF PHYSICIAN NICOL Jeong Emergency Provider [employer] Varinder Sarmiento MD Admit Provider [facility] STAFF PHYSICIAN Attending Provider Discharge Potential Discharge Needs: PCP F/U Appt and Other (Community support for sobriety if pt desires) Anticipated Barriers to Discharge: None Identified Patient/Family Education Needs: Review discharge instructions, discuss Ask Me Three Transportation: Private vehicle Plan: eFliciano is currently intubated in the ICU. He will be provided with the opportunity to meet with a head boys tennis coach when appropriate. Anticipate, Feliciano will be discharged home via private vehicle with family/friends once medically stable. Feliciano will f/u with his PCP and continue per his plan of care. CM will continue to follow and to update the plan as needed. Social Determinants of Health Screening Will the Patient Participate in the Screening?: Unable to obtain [facility] All Active Problems (Updated 07/18/24 @ 11:04 by Varinder Sarmiento MD) Hypovolemic shock (Acute) Acidosis (Acute) DKA (diabetic ketoacidosis) (Acute) Respiratory failure (Acute) Alcohol withdrawal (Acute) Alcohol abuse (Chronic) Long-term current use of methadone for opiate dependence (Acute) Depression (Chronic) History of CVA (cerebrovascular accident) (Acute) Hyperglycemia (Acute) Lactic acidosis (Acute) Enteritis (Acute) Aspiration into airway (Acute) Acute respiratory failure with hypoxia (Acute) TIA (transient ischemic attack) (Acute) Stroke (Chronic) Left-sided weakness (Acute) Left carotid stenosis (Acute) Right carotid artery occlusion (Acute) CVA (cerebral vascular accident) (Chronic) Tobacco abuse (Acute) Elevated blood pressure reading (Acute) Anxiety and depression (Acute) Vomiting and diarrhea (Acute) Alcohol abuse (Chronic) Electrolyte and fluid disorder (Acute) Alcoholic hepatitis (Acute) Medical History (Updated 07/18/24 @ 11:04 by Varinder Sarmiento MD) Contracture of muscle of left lower extremity Acute hyponatremia TBI (traumatic brain injury) Hyperlipidemia Mood disorder Spinal stenosis of lumbar region BMI 32.0-32.9,adult Hypertension Nephropathy Weakness of left leg ETOH abuse Degenerative disc disease ADHD Gynecomastia GERD (gastroesophageal reflux disease) Opioid dependence Chronic constipation Erectile dysfunction Hidradenitis suppurativa Diabetes mellitus Sleep apnea Eczema of both hands Headache Scrotal abscess Sinusitis Surgical History S/P lumbar spine operation Family History Mother Stroke Father Heart disease Social History (Updated 06/10/24 @ 14:23 by Albert Bateman) Smoking/Tobacco Use Status: Current every day Counseling given: provider counseling and counseling >3 minutes Smoking risk assessment performed?: Yes Alcohol Intake: current Alcohol Intake frequency: 3 or more drinks per day Alcohol type: hard liquor Counseling given: Yes Drug use: Never Substance use type: former substance user and marijuana Counseling provided: provider counseling and treatment program Housing: house Number of Children: 4 current occupation: Disabled Do you feel safe at home: Yes Do you feel safe in your relationship?: Yes Additional Social history: On SSDI since stroke. Lives in home with roommates
[2024-07-18] MEDS: dexmedeTOMidine IN 0.9 % NACL 400 MCG/100 ML BTL 14 MCG IV (09:16)
--- NOTE | 2024-07-18 09:52 | CHAPLAIN ---
I met Nanette's family in the ED last night when they arrived to check on him. Six family members were here and came into the ED two at a time to see him. He was intubated and sedated at the time. Family members were encouraged to speak with Nanette and and informed the he was being admitted to the ICU as he was still intubated. I'll plan to follow up with them today.
--- NOTE | 2024-07-18 11:02 | W.PM.PROGNOT ---
Date of Service Date of service: 07/18/24 Time of Service: 11:02 Assessment and Plan Assessment and plan (1) Acute respiratory failure with hypoxia: Status: Acute Assessment and plan: - Patient reportedly had diarrhea over the last few days, normally consumes 30 beers a day, but had not consumed any alcohol today, but after taking a shower felt lightheaded and dizzy resulting in fall - This likely is secondary to fluid loss due to enteritis in combination with poor appropriate p.o. intake in the setting of alcohol withdrawal - Patient required bag ventilation via EMS and was intubated in the emergency department - VBG immediately after intubation showed pH of 6.9, pCO2 of 67, bicarb of 13 and PO2 of 106 with a lactic acid of 12.5 - About an hour and a half after intubation ABG showed improvement with pH of 7.17, pCO2 48, bicarb of 18 and oxygen saturation of 91% on 45% of FiO2 - Greatly appreciate respiratory therapy and ongoing management of patient's ventilator settings - Patient started on propofol in the emergency department for sedation, though this has since been changed to fentanyl and Precedex as patient had an episode of hypotension likely secondary to be going when he was rolled for Flexi-Seal placement and had significant large loose/watery bowel movement - Patient had prolonged spontaneous breathing trial the morning of 07/18/2024 which she passed from a respiratory standpoint, but became rather tired towards the end; plan to sedate patient and redo SBT tomorrow with plan for extubation tomorrow morning 07/19/2024 (2) Hypovolemic shock: Status: Acute Assessment and plan: - Shortly after arrival to the ICU patient's mean arterial pressures noted on art line was as low as 48 and persistently below 65 despite total of 3 L of IV fluid bolus - This is likely secondary to hypovolemia in the setting of poor p.o. fluid intake, and profuse diarrhea - Shortly upon arrival to the ICU, general surgeon Dr. Driscoll graciously placed central line and patient was put on maximum of 8 L norepinephrine - Norepinephrine has since been weaned down to 2 mcg, continue to wean as tolerated - Continue on 100 mL/h normal saline (3) Aspiration into airway: Status: Acute Assessment and plan: -Likely occurred when patient was down -This was seen on CT with complete collapse of left lower lobe -Though this may be secondary to atelectasis, cannot rule out aspiration pneumonitis at this time -Will continue ceftriaxone and Flagyl as this will also cover enteritis as noted below (4) Enteritis: Status: Acute Assessment and plan: - Patient reportedly had diarrhea for the last few days leading up to event as noted above - Additionally, after placing admission orders emergency room nurse informed the patient has been having persistent loose stools - Rectal tube placed - C. difficile sent, will follow-up results - Emergency room physician prior to liquid stools noted by emergency room nurse had started patient on ceftriaxone and Flagyl for concern for enteritis, will continue (5) Lactic acidosis: Status: Acute Assessment and plan: - Likely secondary to combination of downtime, hypoxia, poor perfusion during that time, potential enteritis (as noted above) - Will follow-up repeat lactic acid (6) Alcohol withdrawal: Status: Resolved Assessment and plan: - Patient has significant history of alcohol use disorder and multiple episodes of withdrawal though without known seizures - Patient reportedly drinks 30 beers a day - Alcohol level is found to be 0 in the emergency department - Unknown if incident resulting in intubation and hospitalization was secondary to alcohol withdrawal, but either way patient is at severe risk of withdrawing while intubated, and was thus started on phenobarb protocol in the emergency department, will continue (7) Hyperglycemia: Status: Acute Assessment and plan: - Patient's blood glucose were noted as being elevated via EMS and upon arrival to ED - ED provider initially started patient on insulin drip for concern for DKA as patient was also found to be severely acidotic and with anion gap - However, I believe acidosis and anion gap is primarily secondary to severe lactic acidosis of 12.9, as well as hypercapnia with initial CO2 of 67 on VBG - Additionally, UA was without any ketones - Insulin drip was discontinued upon arrival to ICU - Every 6 hours glucose checks and SSI while intubated (8) History of CVA (cerebrovascular accident): Status: Acute Assessment and plan: - Continue home clopidogrel, aspirin, statin via NG tube (9) Depression: Status: Chronic Assessment and plan: - Continue home Lexapro dose through NG tube (10) Long-term current use of methadone for opiate dependence: Status: Acute Assessment and plan: - Will restart home methadone tomorrow morning and once confirmed by pharmacy Subjective Subjective Interval history since last seen: Patient was examined while intubated but during spontaneous breathing trial. He was intermittently able to communicate appropriately, but towards the end of breathing trial became rather tired and would not be able to stay awake and keep his eyes open. Exam Narrative Exam Narrative: Chronically ill-appearing intubated gentleman laying in bed no acute distress, ET tube in place, withdraws to painful stimuli, heart regular rhythm, lungs clear to auscultation with mechanical breath sounds with the exception of coarse breath sounds noted in the left lower lobe, abdomen soft, nontender, nondistended Objective Last Vital Signs Temp 98.6 F 07/18/24 06:00 Pulse 68 07/18/24 08:31 Resp 11 L 07/18/24 08:31 BP 115/68 07/18/24 08:31 Pulse Ox 100 07/18/24 08:31 Laboratory Results - last 24 hr 07/17/24 07/17/24 07/17/24 13:32 13:51 14:00 WBC 7.40 RBC 4.52 Hgb 13.2 L Hct 42.6 MCV 94 MCH 29.2 MCHC 31.0 L RDW 13.3 Plt Count 281 MPV 10.1 Immature Gran % 0.8 Neutrophils % 44.7 Lymphocytes % 49.5 Monocytes % 4.1 Eosinophils % 0.5 Basophils % 0.4 Nucleated RBC % 0.0 Absolute Neutrophils 3.31 Absolute Lymphocytes 3.66 H Absolute Monocytes 0.30 Absolute Eosinophils 0.04 Absolute Basophils 0.03 PT 10.4 INR 1.0 ABG Sample Site ABG pH ABG pCO2 ABG pO2 ABG HCO3 ABG Total CO2 ABG O2 Saturation ABG Base Excess VBG pH 6.90 L* VBG pCO2 67 H* VBG pO2 106 VBG HCO3 13 L VBG Total CO2 14 L VBG O2 Saturation 92 VBG Base Excess -20 L VBG Lactate 12.5 H* FiO2 Sodium 133 L Potassium 4.5 Chloride 97 L Carbon Dioxide 15.9 L Anion Gap 20.1 H BUN 9 Creatinine 1.6 H Est GFR (CKD-EPI 2020) 51.84 Glucose 461 H Calcium 9.2 Magnesium 2.4 Total Bilirubin 0.6 AST 128 H ALT 50 Alkaline Phosphatase 117 H Creatine Kinase 612 H Troponin I 32 Total Protein 7.0 Albumin 2.8 L Urine Color Yellow Urine Clarity Clear Urine pH 5.5 Ur Specific [place] >= 1.030 H Urine Protein 100 H Urine Ketones Negative Urine Blood Moderate H Urine Nitrite Negative Urine Bilirubin Negative Urine Urobilinogen 0.2 Ur Leukocyte Esterase Negative Urine RBC 5-10 H Urine WBC 3-5 Ur Epithelial Cells Rare Urine Crystals Negative Urine Bacteria Many Urine Casts 3-5 Fine Granular Urine Mucus Negative Ur Culture Indicated? No Urine Glucose Negative Stl C.difficile Tox PCR Salicylates < 2.8 Urine Opiates Screen Negative Urine Methadone Screen Positive A Acetaminophen 10 Ur Barbiturates Screen Negative Ur Tricyclics Screen Negative Ur Amphetamines Screen Negative U Benzodiazepines Scrn Negative Urine Cocaine Screen Negative Ur THC Screen Negative Ethyl Alcohol < 3.0 ABO/Rh A Positive Antibody Screen NEGATIVE 07/17/24 07/17/24 07/17/24 15:05 15:15 17:54 WBC RBC Hgb Hct MCV MCH MCHC RDW Plt Count MPV Immature Gran % Neutrophils % Lymphocytes % Monocytes % Eosinophils % Basophils % Nucleated RBC % Absolute Neutrophils Absolute Lymphocytes Absolute Monocytes Absolute Eosinophils Absolute Basophils PT INR ABG Sample Site Right Radial ABG pH 7.17 L* ABG pCO2 48 H ABG pO2 77 L ABG HCO3 18 L ABG Total CO2 17 L ABG O2 Saturation 91 L ABG Base Excess -11 L VBG pH VBG pCO2 VBG pO2 VBG HCO3 VBG Total CO2 VBG O2 Saturation VBG Base Excess VBG Lactate FiO2 45 Sodium Potassium Chloride Carbon Dioxide Anion Gap BUN Creatinine Est GFR (CKD-EPI 2020) Glucose Calcium Magnesium Total Bilirubin AST ALT Alkaline Phosphatase Creatine Kinase Troponin I 30 Total Protein Albumin Urine Color Urine Clarity Urine pH Ur Specific [place] Urine Protein Urine Ketones Urine Blood Urine Nitrite Urine Bilirubin Urine Urobilinogen Ur Leukocyte Esterase Urine RBC Urine WBC Ur Epithelial Cells Urine Crystals Urine Bacteria Urine Casts Urine Mucus Ur Culture Indicated? Urine Glucose Stl C.difficile Tox PCR Negative Salicylates Urine Opiates Screen Urine Methadone Screen Acetaminophen Ur Barbiturates Screen Ur Tricyclics Screen Ur Amphetamines Screen U Benzodiazepines Scrn Urine Cocaine Screen Ur THC Screen Ethyl Alcohol ABO/Rh Antibody Screen 07/17/24 07/17/24 07/17/24 19:51 20:05 21:12 WBC RBC Hgb Hct MCV MCH MCHC RDW Plt Count MPV Immature Gran % Neutrophils % Lymphocytes % Monocytes % Eosinophils % Basophils % Nucleated RBC % Absolute Neutrophils Absolute Lymphocytes Absolute Monocytes Absolute Eosinophils Absolute Basophils PT INR ABG Sample Site Arterial Line ABG pH 7.32 L ABG pCO2 34 L ABG pO2 168 H ABG HCO3 18 L ABG Total CO2 16 L ABG O2 Saturation ABG Base Excess -8 L VBG pH VBG pCO2 VBG pO2 VBG HCO3 VBG Total CO2 VBG O2 Saturation VBG Base Excess VBG Lactate FiO2 45 Sodium 137 Potassium 3.9 Chloride 102 Carbon Dioxide 18.7 L Anion Gap 16.3 H BUN 14 Creatinine 1.2 Est GFR (CKD-EPI 2020) 73.22 Glucose 217 H Calcium 8.1 L Magnesium Total Bilirubin AST ALT Alkaline Phosphatase Creatine Kinase Troponin I 62 Total Protein Albumin Urine Color Urine Clarity Urine pH Ur Specific [place] Urine Protein Urine Ketones Urine Blood Urine Nitrite Urine Bilirubin Urine Urobilinogen Ur Leukocyte Esterase Urine RBC Urine WBC Ur Epithelial Cells Urine Crystals Urine Bacteria Urine Casts Urine Mucus Ur Culture Indicated? Urine Glucose Stl C.difficile Tox PCR Salicylates Urine Opiates Screen Urine Methadone Screen Acetaminophen Ur Barbiturates Screen Ur Tricyclics Screen Ur Amphetamines Screen U Benzodiazepines Scrn Urine Cocaine Screen Ur THC Screen Ethyl Alcohol ABO/Rh Antibody Screen 07/18/24 07/18/24 07/18/24 00:35 00:50 05:00 WBC RBC Hgb Hct MCV MCH MCHC RDW Plt Count MPV Immature Gran % Neutrophils % Lymphocytes % Monocytes % Eosinophils % Basophils % Nucleated RBC % Absolute Neutrophils Absolute Lymphocytes Absolute Monocytes Absolute Eosinophils Absolute Basophils PT INR ABG Sample Site Arterial Line ABG pH 7.36 ABG pCO2 32 L ABG pO2 97 ABG HCO3 18 L ABG Total CO2 16 L ABG O2 Saturation 98 ABG Base Excess -7 L VBG pH VBG pCO2 VBG pO2 VBG HCO3 VBG Total CO2 VBG O2 Saturation VBG Base Excess VBG Lactate FiO2 30 Sodium 138 Cancelled Potassium 3.9 Cancelled Chloride 104 Cancelled Carbon Dioxide 19.6 L Cancelled Anion Gap 14.4 H Cancelled BUN 14 Cancelled Creatinine 1.0 Cancelled Est GFR (CKD-EPI 2020) 91.12 Cancelled Glucose 207 H Cancelled Calcium 8.0 L Cancelled Magnesium Total Bilirubin AST ALT Alkaline Phosphatase Creatine Kinase Troponin I Total Protein Albumin Urine Color Urine Clarity Urine pH Ur Specific [place] Urine Protein Urine Ketones Urine Blood Urine Nitrite Urine Bilirubin Urine Urobilinogen Ur Leukocyte Esterase Urine RBC Urine WBC Ur Epithelial Cells Urine Crystals Urine Bacteria Urine Casts Urine Mucus Ur Culture Indicated? Urine Glucose Stl C.difficile Tox PCR Salicylates Urine Opiates Screen Urine Methadone Screen Acetaminophen Ur Barbiturates Screen Ur Tricyclics Screen Ur Amphetamines Screen U Benzodiazepines Scrn Urine Cocaine Screen Ur THC Screen Ethyl Alcohol ABO/Rh Antibody Screen 07/18/24 05:38 WBC 14.34 H RBC 3.84 L Hgb 11.3 L Hct 33.9 L MCV 88 D MCH 29.4 MCHC 33.3 D RDW 13.6 Plt Count 225 MPV 8.9 Immature Gran % Neutrophils % Lymphocytes % Monocytes % Eosinophils % Basophils % Nucleated RBC % Absolute Neutrophils Absolute Lymphocytes Absolute Monocytes Absolute Eosinophils Absolute Basophils PT INR ABG Sample Site ABG pH ABG pCO2 ABG pO2 ABG HCO3 ABG Total CO2 ABG O2 Saturation ABG Base Excess VBG pH 7.32 VBG pCO2 42 VBG pO2 43 VBG HCO3 22 L VBG Total CO2 20 L VBG O2 Saturation 73 VBG Base Excess -4 L VBG Lactate FiO2 Sodium 140 Potassium 4.0 Chloride 106 Carbon Dioxide 23.8 Anion Gap 10.2 BUN 12 Creatinine 1.0 Est GFR (CKD-EPI 2020) 91.12 Glucose 181 H Calcium 7.8 L Magnesium Total Bilirubin 0.3 AST 611 H ALT 246 H Alkaline Phosphatase 99 Creatine Kinase Troponin I Total Protein 6.1 L Albumin 2.5 L Urine Color Urine Clarity Urine pH Ur Specific [place] Urine Protein Urine Ketones Urine Blood Urine Nitrite Urine Bilirubin Urine Urobilinogen Ur Leukocyte Esterase Urine RBC Urine WBC Ur Epithelial Cells Urine Crystals Urine Bacteria Urine Casts Urine Mucus Ur Culture Indicated? Urine Glucose Stl C.difficile Tox PCR Salicylates Urine Opiates Screen Urine Methadone Screen Acetaminophen Ur Barbiturates Screen Ur Tricyclics Screen Ur Amphetamines Screen U Benzodiazepines Scrn Urine Cocaine Screen Ur THC Screen Ethyl Alcohol ABO/Rh Antibody Screen Time Spent with Patient Time Spent with Patient: >50 minutes Time was spent: preparing to see the patient(eg.review tests), obtaining and/or reviewing separately otained hiistory, ordering medications,tests, procedures, referring, communicating with other health long term care social worker, indepentently interpreting results, counseling the patient and care coordination
--- NOTE | 2024-07-18 11:12 | PHACLINREV_ITS ---
Pharmacy Admission Review Admission Clinical Review Admission Pharmacy Review: Hypovolemic shock (Acute) Acidosis (Acute) DKA (diabetic ketoacidosis) (Acute) Respiratory failure (Acute) Alcohol withdrawal (Acute) Long-term current use of methadone for opiate dependence (Acute) History of CVA (cerebrovascular accident) (Acute) Hyperglycemia (Acute) Lactic acidosis (Acute) Enteritis (Acute) Aspiration into airway (Acute) Acute respiratory failure with hypoxia (Acute) tolmetin Allergy (Unverified 06/10/24 00:14) Unknown Resuscitation Status Full Code Height 5 ft 6 in Weight 83.9 kg Comments Comments/Follow Ups: Per provider regarding increased LFTs - his LFT jump is mostly AST which is due to his EtOH use. as far as precedex it should be fine since his bili is still ok which is a little more worrisome for liver dysfunction. plus he wont be on it much longer with the plan to extubate him tomorrow morning Pharmacy Admission Review Renal Dosing Renal Dosing: BUN 12 mg/dL (7-18) 07/18/24 05:38 Creatinine 1.0 mg/dL (0.70-1.30) 07/18/24 05:38 Medications needing adjustments: Reviewed (CrCl 88.8 mL/min) List of meds needing interventions: Current medications are okay Anticoagulation Anticoagulation: Hgb 11.3 g/dL (13.5-17.5) L 07/18/24 05:38 Hct 33.9 % (40.0-50.0) L 07/18/24 05:38 Plt Count 225 10^3/uL (130-400) 07/18/24 05:38 INR 1.0 (0.9-1.1) 07/17/24 13:32 Creatinine 1.0 mg/dL (0.70-1.30) 07/18/24 05:38 DVT Prophylaxis: Reviewed (Hgb decreased from 13.2) Medications: Enoxaparin (40mg daily) Opiate Usage Evaluate Pain Scale/Pains Meds: Reviewed (fentanyl 50mcg IVP q1h PRN - 100 mcg/24hrs) Scheduled Bowel Reg ordered if on Opiates?: No (PRN Miralax) Relevant Labs Relevant Labs: Sodium 140 mmol/L (136-145) 07/18/24 05:38 Potassium 4.0 mmol/L (3.5-5.1) 07/18/24 05:38 Chloride 106 mmol/L (98-107) 07/18/24 05:38 Magnesium 2.4 mg/dL (1.8-2.4) 07/17/24 13:32 Electrolytes, C-Reactive P, ESR: Reviewed (AST/ALT increased from 128/50 to 611/246 - Enoxaparin can cause increased LFTs but no recommendations in terms of dose adjusting. Precedex has extensive hepatic metabolism and can accumulate in patients with advanced liver impairment. Sent message to provider.) DM Control DM Control: Glucose 181 mg/dL (74-106) H 07/18/24 05:38 Finger Stick Blood Glucose 175 0642 Finger Stick Blood Glucose 175 0639 Finger Stick Blood Glucose 175 0639 DM Control: Intervened Insulin Dosing, Diabetic Medication: Has order for SS insulin q6h (intubated currently). Was put on insulin drip in ED that was stopped when transferred to ICU. I discontinued the order today after verifying with provider that it was no longer needed. Cardiac Review Cardiac Review: Troponin I 62 ng/L (<or=76) 07/17/24 20:05 BP, HR, EF%: Reviewed (BP/HR WNL) List meds needing interventions: Patient currently on Precedex drip at 14 mls/hr and norepinephrine drip at 2 mcg/min QTc Review QTc: Reviewed (526 from 07/17/24) IV to PO Switch IV Medications: Reviewed (intubated/NG tube - may extubate tomorrow) Home Meds Home Med List reviewed: Intervened Relevent Home Meds Not ordered & why?: aspirin, atorvastatin, baclofen, folic acid, gabapentin, hydroxyzine, lisinopril, loratadine, lorazepam, metformin, methadone, metoprolol, nicotine patch, sildenafil (PRN) and thiamine Patient currently intubated/NG tube. Per provider may extubate tomorrow. Watch for addition of home meds once patient able to take PO. Called [facility] in [facility] to confirm patients methadone dose. Confirmed patient has split dose of 100mg AM and 75mg PM. Last seen at [facility] 07/11 and was given home doses through 07/17. Informed provider, currently no order. Current Meds Current Medication Order Review: Intervened Comments: Patient has been off insulin drip since he was admitted to ICU last night. Discontinued order (verified with provider/provider was okay with this) Changed IV ED access order, changed APAP and pantoprazole route from PO to NG and changed timing of pantoprazole to be on an even hour per pharmacy protocol Phenobarbital for alcohol withdrawal Soft stop: 957mg Hard stop: 1276mg CIWA 4 @ 0610 this morning Total dose so far: 600mg (loading dose) Spoke to provider regarding the loading doses. Total dose should have been 380mg but this was given as one loading dose and then patient received 2 more doses of 110mg. Provider did put in order for the PRN phenobarb, informed provider that patient will be above soft stop after 3 PRN doses are given. Pharmacy Antibiotic Review Relevant Labs: WBC 14.34 10^3/uL (4.4-10.8) H 07/18/24 05:38 Temperature 37.0 C Temperature 37.0 C Temperature 36.7 C Temperature 37.0 C Temperature 37.0 C Temperature 37.0 C Temperature 37.6 C Temperature 37.0 C Temperature 37.0 C Pharmacy Antibiotic Activity: Reviewed, no change Comments: Patient is on ceftriaxone and metronidazole, day 1, for possible aspiration pneumonia/enteritis. WBC increased from 7.4 and no cultures at this time. Comments Comments/Follow Ups: Per provider regarding increased LFTs - his LFT jump is mostly AST which is due to his EtOH use. as far as precedex it should be fine since his bili is still ok which is a little more worrisome for liver dysfunction. plus he wont be on it much longer with the plan to extubate him tomorrow morning
[2024-07-18] MEDS: Acetaminophen 325 MG TAB NG ×2 (13:48→20:30)
[2024-07-18] MEDS: cefTRIAXone 1 GM/50 ML BAG IVPB (16:30)
[2024-07-18] MEDS: PHENobarbital 130 MG/ML VIAL IVP ×3 (16:30→20:24)
[2024-07-18] MEDS: Pantoprazole 40 MG VIAL IVP (19:09)
[2024-07-18] MEDS: cloNIDine 0.1 MG TAB 0.2 MG PO (21:28)
[2024-07-18] MEDS: fentaNYL 100 MCG/2 ML VIAL IVP ×2 (21:30→22:30)
[2024-07-18] MEDS: dexmedeTOMidine IN 0.9 % NACL 400 MCG/100 ML BTL 30 MCG IV (22:44)
[2024-07-19] VITALS (37 sets, daily range): BP systolic 107–186; BP diastolic 74–139; PULSE 24–116; RESP 12–29; TEMP 36.5–39.4; O2SAT 9–99
--- NOTE | 2024-07-19 00:06 | CE_ITS ---
Date of service: 07/18/24 Time of Service: 21:11 Event Note: I was called by the ICU nurse that the patient's blood pressure was elevated and he was concerned that he was having opioid withdrawal having been on 175 mg of methadone daily and now only on fentanyl 50 mg every hour as needed. Calculating the equivalent dose of fentanyl for the methadone would have been 300 mcg hourly. This may be an overestimate with methadone having a variable equivalents to morphine milligram equivalent dosing. He was on pressor agents until just afternoon and has been on IV hydration with 150 cc/h since last evening. His urine output was adequate and with his acute blood pressure I did decrease his IV rate to 125 cc/h. Patient did receive 1 dose of clonidine 0.2 mg because of his hypertension with systolics near 200 and diastolics over 100 without response and then he did receive 1 dose of hydralazine because of p ersistent severe hypertension. Patient also had his fentanyl dosing increased to 100 mcg hourly as needed which was a safe amount because of the variable MME. Shortly after patient received hydralazine he was having increased secretions and respiratory therapy did notice that he was requiring higher FiO2 with his mechanical ventilation. He was having occasional coarse crackles despite having the IV fluid rate decreased. He needed his restraints renewed which were ordered and with return the patient he began to have increased respiratory distress with plugging and acute hypoxemia with rapid response called. This was around 01:15 with respiratory therapy and Dr. Alvarenga reevaluating the endotracheal tube which appeared to be kinked and plugged with mucus. Copious amounts of donohue frothy mucus was suctioned and the tube was adjusted with patient becoming less distressed that he became acutely diaphoretic and spiked a fever above 39 ?C. He has been having fever in the evening despite his IV antibiotic therapy for aspiration pneumonia. His sedation with phenobarbital and Precedex had been adequate To discontinue when he became more agitated. It does appear that he was having progressive increase secretions possible plugging and also appeared acutely fluid overloaded with chest x-ray done after this event revealing flash pulmonary edema. Patient did respond to IV Lasix 40 mg. His blood pressure stabilized after his endotracheal tube was suctioned and appropriately placed as well as with diuresis. IV fluids has been stopped and will be restarted at a lower rate to maintain urine output and because patient blood pressure once again is on the low side. Because of his fever and change in respiratory status, his antibiotics were broadened to cover possible progressive pneumonia with cefepime, vancomycin and doxycycline. Rocephin and Flagyl were discontinued. Blood cultures were performed. Lab evaluation did reveal elevated BNP with no comparison, and slight increase in troponin which will be trended and EKG did not show acute ischemic changes. He remains in sinus rhythm and after his episode was not tachycardic. His lactate was slightly elevated after being cleared. The patient will remain on mechanical ventilation with broad-spectrum IV antibiotics and cautiously given fentanyl along with continuation of Precedex and phenobarbital with close monitoring in the ICU. He is a full code. Assessment/plan: Aspiration pneumonia with hypoventilation because of respiratory failure now worsened with probable fluid overload and flash pulmonary edema responded to IV Lasix and adjustment of IV fluids. Will also have adjustment of IV antibiotic therapy as above and follow closely with continue mechanical ventilation. Patient will continue treatment for alcohol and narcotic withdrawal. There is no evidence of acute neurological changes to warrant further imaging at this time. Weaning off mechanical ventilation may be delayed if his respiratory status remains unstable with increased secretions. Follow-up on blood cultures and adjust antibiotic therapy as indicated. Patient continues to receive critical care and will remain in the ICU. Exam: XR Chest Exam date and time: 07/19/2024 1:42 AM Age: 49 years old Clinical indication: Other: Decreased saturation TECHNIQUE: Imaging protocol: Radiologic exam of the chest. Views: 1 view. COMPARISON: XR PORTABLE CHEST AP 07/17/2024 7:30 PM FINDINGS: Tubes, catheters and devices: Endotracheal tube terminates approximately 4 cm above the dion. Nasogastric tube extends below the diaphragm. Distal tip not imaged. Right central venous catheter again identified. Lungs: Low lung volumes. Increased pulmonary markings. Pleural spaces: No large pleural effusion seen. Heart/Mediastinum: No cardiomegaly. Bones/joints: No acute abnormality. IMPRESSION: 1. Increased pulmonary markings, likely related to low lung volumes. Cannot exclude edema or infection. Follow-up as clinically warranted. 2. Tubes and lines as above. Date of exam: 06/10/24 EXAM: Comprehensive 2D, Doppler, and color-flow Echocardiogram Indications: TIA, h/o CVA Echo Enhancing Agent Indication: Rule out Shunt Agent(s) / Amount(s) Used: Agitated Saline 30.0 cc Comments: Contrast study was performed with 3 IV injections of 10ccs of agitated normal saline, at rest, with cough and post valsalva maneuver. Negative contrast study for shunt flow. Other Information Study Quality: Adequate Conclusion Normal left ventricular wall thickness and chamber size. Ejection fraction is 60%. Wall motion is normal Normal right ventricular size and function Both atria are normal in size No intracardiac shunting is identified with injection of agitated saline There are no structural valvular abnormalities Mild mitral regurgitation Estimated right ventricular systolic pressure is 39 mmHg, Time Spent with Patient Time spent in critical care(minutes): 60 Time Spent Included: Coordination of care, Chart review, Documenting critically ill care, Time at immediate bedside and Discussing critically ill care with other medical staff (Nursing staff and Dr. Alvarenga)
[2024-07-19] MEDS: fentaNYL 100 MCG/2 ML VIAL IVP ×4 (00:12→22:21)
[2024-07-19] MEDS: cloNIDine 0.1 MG TAB 0.2 MG PO (00:14)
[2024-07-19] MEDS: hydrALAZINE 20 MG/ML VIAL 10 MG IVP (00:47)
[2024-07-19] MEDS: Normal Saline Flush 10 ML SYR IVP ×6 (00:48→19:40)
[2024-07-19] MEDS: Normal Saline 1,000 ML 125 ML IV ×2 (00:52→13:59)
[2024-07-19] MEDS: dexmedeTOMidine IN 0.9 % NACL 400 MCG/100 ML BTL 30 MCG IV ×3 (00:52→07:49)
[2024-07-19] MEDS: Acetaminophen 325 MG TAB NG (01:26)
--- NOTE | 2024-07-19 01:44 | DI.RAD_ITS ---
Exam(s) XR PORTABLE CHEST AP EXAM: XR PORTABLE CHEST AP CLINICAL HISTORY: decreased saturation TECHNIQUE: 2D digital imaging was performed. COMPARISON: CR,XR XR PORTABLE CHEST AP POST LINE from 07/17/2024 FINDINGS: The exam is limited by multiple overlying monitoring leads. Endotracheal tube and nasogastric tube are unchanged in position. LUNGS: Low lung volumes. There appears to be vascular prominence and increased interstitial markings which could indicate mild pulmonary edema. No pleural abnormality seen. HEART: Normal size. AORTA: Normal diameter. BONES: Unremarkable for age. Soft tissues: Unremarkable. IMPRESSION: Vascular prominence and increased interstitial markings could indicate mild pulmonary edema. Previou sly noted left medial basilar infiltrate is mainly obscured by overlying monitoring leads. The preliminary [facility] report was reviewed. DATA REPOSITORY: RADIATION DOSE DELIVERED:
--- NOTE | 2024-07-19 01:45 | RT.EKG_ITS ---
APPROVED REPORT Exam: Resting ECG Reason for Exam: Flash pulmonary edema Patient Location: I HR:88 bpm ECG Measurements Heart Rate 88 AXIS OH 154 P 81 QRSd 81 QRS 3 QT 483 T 45 QTc 585 Conclusion Sinus rhythm...normal P axis, V-rate 50- 99 Anterior infarct, old...Q >40mS, abnormal ST-T, V2-V5 Prolonged QT interval...QTc >500mS Artifact in lead(s) I,III,aVR,aVL,aVF,V1,V2,V5,V6 and baseline wander in lead(s) V1,V3
[2024-07-19] MEDS: Furosemide 40 MG/4 ML VIAL IVP (01:51)
--- NOTE | 2024-07-19 02:23 | DI.[facility]_ITS ---
PROCEDURE INFORMATION: Exam: XR Chest Exam date and time: 07/19/2024 1:42 AM Age: 49 years old Clinical indication: Other: Decreased saturation TECHNIQUE: Imaging protocol: Radiologic exam of the chest. Views: 1 view. COMPARISON: XR PORTABLE CHEST AP 07/17/2024 7:30 PM FINDINGS: Tubes, catheters and devices: Endotracheal tube terminates approximately 4 cm above the dion. Nasogastric tube extends below the diaphragm. Distal tip not imaged. Right central venous catheter again identified. Lungs: Low lung volumes. Increased pulmonary markings. Pleural spaces: No large pleural effusion seen. Heart/Mediastinum: No cardiomegaly. Bones/joints: No acute abnormality. IMPRESSION: 1. Increased pulmonary markings, likely related to low lung volumes. Cannot exclude edema or infection. Follow-up as clinically warranted. 2. Tubes and lines as above. Dictated and Authenticated by: Flower Mcdonald MD. Orderin Colette Smith MD
[2024-07-19 02:31] LABS: BE (Venous) -8 mmol/L (-2-3); HCO3 (Venous) 17 mmol/L (23-28); O2 Sat (Venous) 73 %; TCO2 (Venous) 16 mmol/L (24-29); pCO2 (Venous) 32 mmHg (41-51); pH (Venous) 7.35 (7.31-7.41); pO2 (Venous) 42 mmHg
[2024-07-19 02:32] LABS: HCT 30.3 % (40.0-50.0); HGB 9.8 g/dL (13.5-17.5); MCH 29.1 pg (27.0-33.0); MCHC 32.3 % (32.0-36.0); MCV 90 fL (80-95); MPV 9.5 fL (8.0-11.0); Platelet Count 164 10^3/uL (130-400); RBC 3.37 10^6/uL (4.36-5.78); RDW 13.7 % (11.8-14.1); WBC 9.98 10^3/uL (4.4-10.8)
[2024-07-19 02:34] LABS: Lactate 3.1 mmol/L (<or=2.0)
[2024-07-19 02:45] LABS: Anion Gap 14.5 mmol/L (3-11); BUN 15 mg/dL (7-18); CO2 19.5 mmol/L (21.0-32.0); CREATININE 1.1 mg/dL (0.70-1.30); Chloride 107 mmol/L (98-107); Estimated GFR 81.28 (mL/min/1.73m2); Glucose 203 mg/dL (74-106); Potassium 3.1 mmol/L (3.5-5.1); Sodium 141 mmol/L (136-145)
[2024-07-19 02:46] LABS: Magnesium 1.6 mg/dL (1.8-2.4)
[2024-07-19 02:59] LABS: NT-proBNP 2517 pg/mL (<300)
[2024-07-19 03:02] LABS: Troponin I 88 ng/L (<or=76)
[2024-07-19 03:16] LABS: Albumin 2.6 g/dL (3.4-5.0); Alkaline Phosphatase 87 U/L (46-116); Bilirubin, Direct 0.1 mg/dL (0.0-0.2); Bilirubin, Total 0.3 mg/dL (0.2-1.0); Total Protein 6.3 g/dL (6.4-8.2)
--- NOTE | 2024-07-19 03:56 | RESPIRATORY ---
0324: FiO2 decreased to 28% from 70% slowly due to SpO2 99-100%, Currently saturating 94% without respiratory distress. Current vent settings, tidal volume 7cc/kg of IBW = 450, RR: 18, PEEP: 8, FiO2 28%, and I:E ratio: 1:2. Pt. appears to be comfortable on above vent settings at this time. RN aware about adjustment of FiO2. 0230: VBG: compensated metabolic acidosis, no vent adjustment needed at this time based on VBG. 0145: FiO2 decreased to 70% from 100% slowly based on SpO2 and patient's RR was between 20-24. Requested VBG orde. 0128: pt. still remained agitative with febrile, tachypeniec, and hypertensive despite vent settings mentioned below and Rapid Response called. FiO2 increased to 100% per provider and increased ETT suctioning frequency. ISTAT chest x-ray and bedside POCUS performed by , states no concerned to pneumothorax. 0106: RT was called due to sudden onset of pt. desaturation. Pt. was agitating with very febrile and visible mucus on ETT. Upon arrival patient was having RR above 30 with high PIP to 30-35. Immediately suctioned copious amount of secretion with help of bullets of saline through ETT that made PIP to go down back to 15 immediately but Pt. still remained febrile, agitative, hypertensive, tachypneic and desaturating that required to increase tidal volume to 7cc/kg of IBW and PEEP to 8 from 5 and then FiO2 to 90% to maintain good saturation. ETT seems slightly pinched on spot where it was taped together with GI tube but it was not a problematic previously, it was not affecting to have high PIP and problems to ventilation before however it's been removed. BBS ins/epiratory crackles with good aeration through out all lobes of both lungs. Pt. remained on Tidal volume of 7cc/kg of IBW, RR 18, PEEP of 8 and FiO2 90%.
[2024-07-19 04:00] LABS: ALT 1420 U/L (16-63); AST 5866 U/L (15-37)
[2024-07-19] MEDS: CEFEPIME 2 GM in Normal Saline 100 ML IVPB ×3 (04:23→19:39)
[2024-07-19] MEDS: VANCOMYCIN/WATER (PEG) 2 GM/400 ML BAG IV (04:58)
[2024-07-19] MEDS: DOXYCYCLINE 100 MG in Normal Saline 100 ML IVPB ×2 (05:36→18:18)
[2024-07-19] MEDS: ACETAMINOPHEN 1,000 MG/100 ML BAG 400 MG IVPB ×2 (05:44→10:58)
[2024-07-19] MEDS: MAGNESIUM SULFATE 2 GM/50 ML BAG IV_INF (05:45)
[2024-07-19] MEDS: Insulin Aspart 300 UNITS/3 ML PEN SC ×4 (06:10→22:06)
[2024-07-19 06:18] LABS: BE (Venous) -4 mmol/L (-2-3); HCO3 (Venous) 21 mmol/L (23-28); O2 Sat (Venous) 76 %; TCO2 (Venous) 20 mmol/L (24-29); pCO2 (Venous) 33 mmHg (41-51); pH (Venous) 7.41 (7.31-7.41); pO2 (Venous) 42 mmHg
[2024-07-19 06:23] LABS: HCT 28.7 % (40.0-50.0); HGB 9.6 g/dL (13.5-17.5); MCH 29.6 pg (27.0-33.0); MCHC 33.4 % (32.0-36.0); MCV 89 fL (80-95); MPV 9.7 fL (8.0-11.0); Platelet Count 161 10^3/uL (130-400); RBC 3.24 10^6/uL (4.36-5.78); RDW 13.6 % (11.8-14.1); RDW-SD 44.5 fL; WBC 10.71 10^3/uL (4.4-10.8)
[2024-07-19 06:47] LABS: Albumin 2.5 g/dL (3.4-5.0); Alkaline Phosphatase 77 U/L (46-116); Anion Gap 13.7 mmol/L (3-11); BUN 14 mg/dL (7-18); Bilirubin, Total 0.3 mg/dL (0.2-1.0); CO2 22.3 mmol/L (21.0-32.0); Calcium 7.8 mg/dL (8.5-10.1); Chloride 107 mmol/L (98-107); Estimated GFR 91.12 (mL/min/1.73m2); Glucose 163 mg/dL (74-106); Sodium 143 mmol/L (136-145); Total Protein 5.9 g/dL (6.4-8.2); Troponin I 386 ng/L (<or=76)
[2024-07-19 06:50] LABS: ALT 1475 U/L (16-63); AST 6728 U/L (15-37)
[2024-07-19] MEDS: Escitalopram 20 MG TAB NG (07:53)
[2024-07-19] MEDS: Enoxaparin 40 MG/0.4 ML SYR SC (07:53)
[2024-07-19] MEDS: Clopidogrel 75 MG TAB NG (07:54)
[2024-07-19] MEDS: lamoTRIgine 100 MG TAB NG (07:54)
[2024-07-19] MEDS: POTASSIUM CHLORIDE 20 MEQ/100 ML BAG 100 MEQ IV_INF ×2 (10:13→11:13)
[2024-07-19 10:44] LABS: Troponin I 433 ng/L (<or=76)
--- NOTE | 2024-07-19 11:21 | PGE_ITS ---
Date of Service Date of service: 07/19/24 Time of Service: 11:21 Assessment and Plan Assessment and plan (1) Acute respiratory failure with hypoxia: Status: Acute Assessment and plan: - Patient reportedly had diarrhea over the last few days, normally consumes 30 beers a day, but had not consumed any alcohol today, but after taking a shower felt lightheaded and dizzy resulting in fall - This likely is secondary to fluid loss due to enteritis in combination with poor appropriate p.o. intake in the setting of alcohol withdrawal - Patient required bag ventilation via EMS and was intubated in the emergency department - VBG immediately after intubation showed pH of 6.9, pCO2 of 67, bicarb of 13 and PO2 of 106 with a lactic acid of 12.5 - About an hour and a half after intubation ABG showed improvement with pH of 7.17, pCO2 48, bicarb of 18 and oxygen saturation of 91% on 45% of FiO2 - Greatly appreciate respiratory therapy and ongoing management of patient's ventilator settings - Patient started on propofol in the emergency department for sedation, though this has since been changed to fentanyl and Precedex as patient had an episode of hypotension likely secondary to be going when he was rolled for Flexi-Seal placement and had significant large loose/watery bowel movement - Patient had prolonged spontaneous breathing trial the morning of 07/18/2024 which she passed from a respiratory standpoint, but became rather tired towards the end; plan to sedate patient and redo SBT tomorrow with plan for extubation tomorrow morning 07/19/2024 - Overnight patient had event where he became agitated, hypertensive and tachycardic subsequently hypoxic and was determined to be secondary to a mucous plug which once evacuated patient's vital signs and oxygen requirements improved - Patient passed spontaneous breathing trial on the morning of 07/19/2024 and was successfully extubated to nasal cannula which has since been weaned off (2) Hypovolemic shock: Status: Acute Assessment and plan: - Shortly after arrival to the ICU patient's mean arterial pressures noted on art line was as low as 48 and persistently below 65 despite total of 3 L of IV fluid bolus - This is likely secondary to hypovolemia in the setting of poor p.o. fluid intake, and profuse diarrhea - Shortly upon arrival to the ICU, general surgeon Dr. Driscoll graciously placed central line and patient was put on maximum of 8 L norepinephrine - Norepinephrine has since been weaned off since PM 07/19 (3) Aspiration into airway: Status: Acute Assessment and plan: -Likely occurred when patient was down -This was seen on CT with complete collapse of left lower lobe -Though this may be secondary to atelectasis, cannot rule out aspiration pneumonitis at this time -Will continue ceftriaxone and Flagyl as this will also cover enteritis as noted below (4) Enteritis: Status: Acute Assessment and plan: - Patient reportedly had diarrhea for the last few days leading up to event as noted above - Additionally, after placing admission orders emergency room nurse informed the patient has been having persistent loose stools - Rectal tube placed - C. difficile sent, will follow-up results - Emergency room physician prior to liquid stools noted by emergency room nurse had started patient on ceftriaxone and Flagyl for concern for enteritis, will continue (5) Lactic acidosis: Status: Acute Assessment and plan: - Likely secondary to combination of downtime, hypoxia, poor perfusion during that time, potential enteritis (as noted above) - Will follow-up repeat lactic acid (6) Alcohol withdrawal: Status: Resolved Assessment and plan: - Patient has significant history of alcohol use disorder and multiple episodes of withdrawal though without known seizures - Patient reportedly drinks 30 beers a day - Alcohol level is found to be 0 in the emergency department - Unknown if incident resulting in intubation and hospitalization was secondary to alcohol withdrawal, but either way patient is at severe risk of withdrawing while intubated, and was thus started on phenobarb protocol in the emergency department, will continue (7) Hyperglycemia: Status: Acute Assessment and plan: - Patient's blood glucose were noted as being elevated via EMS and upon arrival to ED - ED provider initially started patient on insulin drip for concern for DKA as patient was also found to be severely acidotic and with anion gap - However, I believe acidosis and anion gap is primarily secondary to severe lactic acidosis of 12.9, as well as hypercapnia with initial CO2 of 67 on VBG - Additionally, UA was without any ketones - Insulin drip was discontinued upon arrival to ICU - ACHS glucose checks and SSI now that patient has been extubated (8) History of CVA (cerebrovascular accident): Status: Acute Assessment and plan: - Continue home clopidogrel, aspirin, statin - Question of new neurologic deficit including some speech delay and right sided facial droop, though this may be secondary to patient having just been extubated with sedating meds needing time to washout and for patient to regain strength - Will obtain brain MRI on a Sunday, though results unlikely to result in any change in medical therapy as patient is already on max stroke prevention with clopidogrel, aspirin and high-dose statin (9) Depression: Status: Chronic Assessment and plan: - Continue home Lexapro dose through NG tube (10) Long-term current use of methadone for opiate dependence: Status: Acute Assessment and plan: - Will restart home methadone tomorrow morning and once confirmed by pharmacy Subjective Subjective Interval history since last seen: Patient successfully extubated earlier this morning. His speech was initially somewhat slurred and slow though which was during my exam has improved. Patient is able to state that he is happy he is extubated and has been repeatedly asking for water and ice chips. Exam Narrative Exam Narrative: Chronically ill-appearing gentleman sitting up in the bed in no acute distress, awake, alert, oriented to person place time and situation,, heart regular rhythm, lungs clear to auscultation with mechanical breath sounds with the exception of coarse breath sounds noted in the left lower lobe, abdomen soft, nontender, nondistended, normal strength and sensation in right upper and lower extremity, baseline diminished strength and sensation in left upper and lower extremity, questionable right-sided facial droop noted to be new by family Objective Last Vital Signs Temp 100.8 F H 07/19/24 08:00 Pulse 66 07/19/24 08:08 Resp 19 07/19/24 08:08 BP 144/92 H 07/19/24 08:08 Pulse Ox 97 07/19/24 09:31 Laboratory Results - last 24 hr 07/18/24 07/19/24 07/19/24 12:58 02:29 05:55 WBC 9.98 10.71 RBC 3.37 L 3.24 L Hgb 9.8 L 9.6 L Hct 30.3 L 28.7 L MCV 90 89 MCH 29.1 29.6 MCHC 32.3 33.4 RDW 13.7 13.6 Plt Count 164 161 MPV 9.5 9.7 VBG pH 7.35 7.41 VBG pCO2 32 L 33 L VBG pO2 42 42 VBG HCO3 17 L 21 L VBG Total CO2 16 L 20 L VBG O2 Saturation 73 76 VBG Base Excess -8 L -4 L VBG Lactate 1.0 3.1 H* Sodium 141 143 Potassium 3.1 L 3.0 L Chloride 107 107 Carbon Dioxide 19.5 L 22.3 Anion Gap 14.5 H 13.7 H BUN 15 14 Creatinine 1.1 1.0 Est GFR (CKD-EPI 2020) 81.28 91.12 Glucose 203 H 163 H Calcium 8.0 L 7.8 L Magnesium 1.6 L Total Bilirubin 0.3 0.3 Conjugated Bilirubin 0.1 AST 5866 H 6728 H ALT 1420 H 1475 H Alkaline Phosphatase 87 77 Troponin I 88 H* 386 H* NT-Pro-B Natriuret Pep 2517 H Total Protein 6.3 L 5.9 L Albumin 2.6 L 2.5 L Random Vancomycin 07/19/24 09:45 WBC RBC Hgb Hct MCV MCH MCHC RDW Plt Count MPV VBG pH VBG pCO2 VBG pO2 VBG HCO3 VBG Total CO2 VBG O2 Saturation VBG Base Excess VBG Lactate Sodium Potassium Chloride Carbon Dioxide Anion Gap BUN Creatinine Est GFR (CKD-EPI 2020) Glucose Calcium Magnesium Total Bilirubin Conjugated Bilirubin AST ALT Alkaline Phosphatase Troponin I 433 H* NT-Pro-B Natriuret Pep Total Protein Albumin Random Vancomycin 22.0 Time Spent with Patient Time Spent with Patient: >50 minutes Time was spent: preparing to see the patient(eg.review tests), obtaining and/or reviewing separately otained hiistory, ordering medications,tests, procedures, referring, communicating with other health rn transitional care, indepentently interpreting results, counseling the patient and care coordination
[2024-07-19] MEDS: Acetaminophen 325 MG TAB PO ×2 (15:44→21:50)
[2024-07-19 16:49] LABS: Troponin I 501 ng/L (<or=76)
[2024-07-19] MEDS: PHENobarbital 130 MG/ML VIAL IVP (17:24)
[2024-07-19] MEDS: VANCOMYCIN/WATER (PEG) 1.5 GM/300 ML BAG IV (18:18)
[2024-07-19] MEDS: Pantoprazole 40 MG VIAL IVP (18:26)
[2024-07-19] MEDS: lamoTRIgine 100 MG TAB PO (19:39)
[2024-07-20] VITALS (28 sets, daily range): BP systolic 133–178; BP diastolic 80–111; PULSE 57–95; RESP 14–39; TEMP 36.5–37.8; O2SAT 93–98
[2024-07-20] MEDS: fentaNYL 100 MCG/2 ML VIAL IVP ×2 (00:37→11:32)
[2024-07-20] MEDS: PHENobarbital 130 MG/ML VIAL IVP (01:36)
[2024-07-20] MEDS: Acetaminophen 325 MG TAB PO ×2 (02:17→11:32)
[2024-07-20] MEDS: CEFEPIME 2 GM in Normal Saline 100 ML IVPB ×3 (03:49→19:50)
[2024-07-20] MEDS: LORazepam 1 MG TAB PO (03:50)
[2024-07-20] MEDS: DOXYCYCLINE 100 MG in Normal Saline 100 ML IVPB ×2 (05:46→18:52)
[2024-07-20] MEDS: Normal Saline Flush 10 ML SYR IVP ×4 (05:50→19:48)
[2024-07-20 06:14] LABS: HCT 28.4 % (40.0-50.0); HGB 9.8 g/dL (13.5-17.5); MCHC 34.5 % (32.0-36.0); MCV 84 fL (80-95); MPV 9.8 fL (8.0-11.0); Platelet Count 157 10^3/uL (130-400); RBC 3.38 10^6/uL (4.36-5.78); RDW 12.9 % (11.8-14.1); RDW-SD 39.1 fL; WBC 11.51 10^3/uL (4.4-10.8)
[2024-07-20 06:36] LABS: Anion Gap 12.7 mmol/L (3-11); BUN 5 mg/dL (7-18); CO2 22.3 mmol/L (21.0-32.0); CREATININE 0.7 mg/dL (0.70-1.30); Calcium 8.3 mg/dL (8.5-10.1); Chloride 100 mmol/L (98-107); Estimated GFR 111.56 (mL/min/1.73m2); Glucose 142 mg/dL (74-106); Sodium 135 mmol/L (136-145)
--- NOTE | 2024-07-20 06:45 | RT.EKG_ITS ---
APPROVED REPORT Exam: Resting ECG Reason for Exam: elevated trop Patient Location: I HR:90 bpm ECG Measurements Heart Rate 90 AXIS DC 143 P 5 QRSd 82 QRS -3 QT 389 T 65 QTc 476 Conclusion Sinus rhythm...normal P axis, V-rate 50- 99 Anteroseptal infarct, age indeterminate...Q >35mS, T neg, V1-V2
[2024-07-20 06:52] LABS: Potassium 2.4 mmol/L (3.5-5.1)
[2024-07-20 06:53] LABS: Troponin I 1247 ng/L (<or=76)
[2024-07-20] MEDS: Heparin in 0.45% NaCl 25,000 UNIT/250 ML BAG 10 UNIT IVINF (09:23)
[2024-07-20] MEDS: POTASSIUM CHLORIDE 20 MEQ/100 ML BAG 50 MEQ IV_INF ×2 (09:24→11:47)
[2024-07-20] MEDS: Methadone Liquid 10 MG/ML 100 MG PO (09:24)
[2024-07-20] MEDS: lamoTRIgine 100 MG TAB PO ×2 (09:44→19:48)
[2024-07-20] MEDS: Escitalopram 20 MG TAB PO (09:44)
[2024-07-20] MEDS: Clopidogrel 75 MG TAB PO (09:44)
[2024-07-20] MEDS: Metoprolol 50 MG TAB PO ×2 (09:52→19:47)
[2024-07-20] MEDS: Aspirin 325 MG TAB PO (09:53)
[2024-07-20] MEDS: Clopidogrel 300 MG TAB 600 MG PO (09:53)
[2024-07-20 10:06] LABS: PTT Activated 24.3 sec (20.6-30.2)
[2024-07-20 11:28] LABS: Troponin I 1404 ng/L (<or=76)
[2024-07-20] MEDS: Atorvastatin 40 MG TAB 80 MG PO (11:34)
[2024-07-20] MEDS: Insulin Aspart 300 UNITS/3 ML PEN SC (12:01)
[2024-07-20] MEDS: VANCOMYCIN/WATER (PEG) 1.5 GM/300 ML BAG IV (12:42)
[2024-07-20 13:06] LABS: Troponin I 1257 ng/L (<or=76)
[2024-07-20 15:41] LABS: Troponin I 1139 ng/L (<or=76)
--- NOTE | 2024-07-20 16:44 | W.PM.PROGNOT ---
Date of Service Date of service: 07/20/24 Time of Service: 16:44 Assessment and Plan Assessment and plan (1) NSTEMI (non-ST elevated myocardial infarction): Status: Acute Assessment and plan: - At around 2 AM on 07/19/2024 patient with nosebleeding hypertensive, tachycardic and restless while he was still intubated and this was secondary to mucous plug that once was removed by respiratory therapist improved symptoms - During that time EKG was changed checked and did not show any acute changes and troponin was elevated to about 80 - However, over the course of the subsequent 24 hours troponin continued to increase ultimately being as high as 1200 on the morning of 07/20/2024 which prompted checking EKG which showed new ST depressions in V3 through V6, though patient was without complaints of chest pain - At that time case was discussed with [facility] cardiology and given the patient's multiple comorbid conditions they recommended treating NSTEMI medically with the initiation of heparin drip, loading Plavix and aspirin dose - They also recommended that while trending troponins after initiating medical therapy if they have significantly elevated, should there be additional worsening EKG changes or development of chest pain they should be contacted again to put patient on list for cardiac catheterization - However, while first troponin after initiation of medical therapy did increase to 1400, subsequent have gone down to 1200 and most recently 1100 - Will continue medical therapy for NSTEMI, and trend tropes (2) Acute respiratory failure with hypoxia: Status: Acute Assessment and plan: - Patient reportedly had diarrhea over the last few days, normally consumes 30 beers a day, but had not consumed any alcohol today, but after taking a shower felt lightheaded and dizzy resulting in fall - This likely is secondary to fluid loss due to enteritis in combination with poor appropriate p.o. intake in the setting of alcohol withdrawal - Patient required bag ventilation via EMS and was intubated in the emergency department - VBG immediately after intubation showed pH of 6.9, pCO2 of 67, bicarb of 13 and PO2 of 106 with a lactic acid of 12.5 - About an hour and a half after intubation ABG showed improvement with pH of 7.17, pCO2 48, bicarb of 18 and oxygen saturation of 91% on 45% of FiO2 - Greatly appreciate respiratory therapy and ongoing management of patient's ventilator settings - Patient started on propofol in the emergency department for sedation, though this has since been changed to fentanyl and Precedex as patient had an episode of hypotension likely secondary to be going when he was rolled for Flexi-Seal placement and had significant large loose/watery bowel movement - Patient had prolonged spontaneous breathing trial the morning of 07/18/2024 which she passed from a respiratory standpoint, but became rather tired towards the end; plan to sedate patient and redo SBT tomorrow with plan for extubation tomorrow morning 07/19/2024 - Overnight patient had event where he became agitated, hypertensive and tachycardic subsequently hypoxic and was determined to be secondary to a mucous plug which once evacuated patient's vital signs and oxygen requirements improved - Patient passed spontaneous breathing trial on the morning of 07/19/2024 and was successfully extubated to nasal cannula which has since been weaned off (3) Hypovolemic shock: Status: Acute Assessment and plan: - Shortly after arrival to the ICU patient's mean arterial pressures noted on art line was as low as 48 and persistently below 65 despite total of 3 L of IV fluid bolus - This is likely secondary to hypovolemia in the setting of poor p.o. fluid intake, and profuse diarrhea - Shortly upon arrival to the ICU, general surgeon Dr. Driscoll graciously placed central line and patient was put on maximum of 8 L norepinephrine - Norepinephrine has since been weaned off since PM 07/19 (4) Aspiration into airway: Status: Acute Assessment and plan: -Likely occurred when patient was down -This was seen on CT with complete collapse of left lower lobe -Though this may be secondary to atelectasis, cannot rule out aspiration pneumonitis at this time -Will continue vanc and cefepime (5) Delirium: Status: Acute Assessment and plan: - Patient has multiple reasons to have developed delirium and has had a visualized waxing and waning mental status - Combination of alcohol withdrawal, opiate withdrawal, previous CVA and NSTEMI I will put patient at risk for delirium - Alcohol withdrawal and opiate withdrawal have been addressed as have NSTEMI - Continue to orient patient (6) Enteritis: Status: Acute Assessment and plan: - Patient reportedly had diarrhea for the last few days leading up to event as noted above - Additionally, after placing admission orders emergency room nurse informed the patient has been having persistent loose stools - Rectal tube placed - C. difficile sent, will follow-up results - Emergency room physician prior to liquid stools noted by emergency room nurse had started patient on ceftriaxone and Flagyl for concern for enteritis, will continue (7) Lactic acidosis: Status: Acute Assessment and plan: - Likely secondary to combination of downtime, hypoxia, poor perfusion during that time, potential enteritis (as noted above) - Will follow-up repeat lactic acid (8) Alcohol withdrawal: Status: Resolved Assessment and plan: - Patient has significant history of alcohol use disorder and multiple episodes of withdrawal though without known seizures - Patient reportedly drinks 30 beers a day - Alcohol level is found to be 0 in the emergency department - Unknown if incident resulting in intubation and hospitalization was secondary to alcohol withdrawal, but either way patient is at severe risk of withdrawing while intubated - patient has since received max dose of phenobarb (9) Hyperglycemia: Status: Acute Assessment and plan: - Patient's blood glucose were noted as being elevated via EMS and upon arrival to ED - ED provider initially started patient on insulin drip for concern for DKA as patient was also found to be severely acidotic and with anion gap - However, I believe acidosis and anion gap is primarily secondary to severe lactic acidosis of 12.9, as well as hypercapnia with initial CO2 of 67 on VBG - Additionally, UA was without any ketones - Insulin drip was discontinued upon arrival to ICU - ACHS glucose checks and SSI now that patient has been extubated (10) History of CVA (cerebrovascular accident): Status: Acute Assessment and plan: - Continue home clopidogrel, aspirin, statin - Question of new neurologic deficit including some speech delay and right sided facial droop, though this may be secondary to patient having just been extubated with sedating meds needing time to washout and for patient to regain strength - Will obtain brain MRI on a Sunday, though results unlikely to result in any change in medical therapy as patient is already on max stroke prevention with clopidogrel, aspirin and high-dose statin (11) Depression: Status: Chronic Assessment and plan: - Continue home Lexapro dose through NG tube (12) Long-term current use of methadone for opiate dependence: Status: Acute Assessment and plan: - home methadone restarted 07/20 Subjective Subjective Interval history since last seen: Patient was a little more awake and alert this morning able to speak though primarily complained of being weak, laying in bed and wanting to be here. Patient's overall condition was explained in the presence of his family members including his 2 sisters who are his medical decision makers and they understand current situation and expressed gratitude towards the care that patient has received. Exam Narrative Exam Narrative: Chronically ill-appearing gentleman sitting up in the bed in no acute distress, awaken intermentently and during those periods is alert and oriented to person place, heart regular rhythm, lungs clear to auscultation with mechanical breath sounds with the exception of coarse breath sounds noted in the left lower lobe, abdomen soft, nontender, nondistended, normal strength and sensation in right upper and lower extremity, baseline diminished strength and sensation in left upper and lower extremity Objective Last Vital Signs Temp 99.0 F 07/20/24 13:05 Pulse 70 07/20/24 14:02 Resp 29 H 07/20/24 14:02 BP 133/86 07/20/24 14:02 Pulse Ox 96 07/20/24 14:02 Laboratory Results - last 24 hr 07/19/24 07/20/24 07/20/24 16:17 05:35 05:45 WBC 11.51 H RBC 3.38 L Hgb 9.8 L Hct 28.4 L MCV 84 D MCH 29.0 MCHC 34.5 RDW 12.9 Plt Count 157 MPV 9.8 APTT Sodium 135 L Potassium 2.4 L* Chloride 100 Carbon Dioxide 22.3 Anion Gap 12.7 H BUN 5 L Creatinine 0.7 Est GFR (CKD-EPI 2020) 111.56 Glucose 142 H Calcium 8.3 L Troponin I 501 H* 1247 H* 07/20/24 07/20/24 07/20/24 09:25 11:00 12:32 WBC RBC Hgb Hct MCV MCH MCHC RDW Plt Count MPV APTT 24.3 Sodium Potassium Chloride Carbon Dioxide Anion Gap BUN Creatinine Est GFR (CKD-EPI 2020) Glucose Calcium Troponin I 1404 H* 1257 H* 07/20/24 15:03 WBC RBC Hgb Hct MCV MCH MCHC RDW Plt Count MPV APTT Sodium Potassium Chloride Carbon Dioxide Anion Gap BUN Creatinine Est GFR (CKD-EPI 2020) Glucose Calcium Troponin I 1139 H* Time Spent with Patient Time Spent with Patient: >50 minutes Time was spent: preparing to see the patient(eg.review tests), obtaining and/or reviewing separately otained hiistory, ordering medications,tests, procedures, referring, communicating with other health care specialist, indepentently interpreting results, counseling the patient and care coordination
[2024-07-20 16:57] LABS: PTT Activated 29.7 sec (20.6-30.2)
[2024-07-20 18:49] LABS: PTT Activated 31.2 sec (20.6-30.2)
[2024-07-20] MEDS: Pantoprazole 40 MG VIAL IVP (18:52)
[2024-07-20 19:12] LABS: Troponin I 1029 ng/L (<or=76)
[2024-07-20] MEDS: Methadone Liquid 10 MG/ML 75 MG PO (19:47)
--- NOTE | 2024-07-20 21:00 | RT.EKG_ITS ---
APPROVED REPORT Exam: Resting ECG Reason for Exam: V-tach Patient Location: I HR:69 bpm ECG Measurements Heart Rate 69 AXIS TN 123 P 36 QRSd 119 QRS -57 QT 636 T 83 QTc 682 Conclusion Sinus rhythm...normal P axis, V-rate 50- 99 Long QTc Left ventricular hypertrophy...multiple voltage criteria
[2024-07-20 22:33] LABS: Magnesium 1.4 mg/dL (1.8-2.4)
[2024-07-20 22:44] LABS: Troponin I 923 ng/L (<or=76)
[2024-07-20] MEDS: MAGNESIUM SULFATE 2 GM/50 ML BAG IV_INF (22:59)
[2024-07-20] MEDS: Heparin in 0.45% NaCl 25,000 UNIT/250 ML BAG 13 UNIT IVINF (23:52)
[2024-07-21] VITALS (17 sets, daily range): BP systolic 130–186; BP diastolic 72–116; PULSE 59–82; RESP 6–26; TEMP 36.3–37.8; O2SAT 91–98
--- NOTE | 2024-07-21 | DI.CT_ITS ---
Exam(s) CT HEAD WO EXAM: CT HEAD WO CLINICAL HISTORY: on heparin, h/o CVA, more depressed mental status.. TECHNIQUE: Imaging Protocol: Axial computed tomography images with coronal and sagittal reformatted images were created and reviewed COMPARISON: CT CT BRAIN NECK CTA from 07/17/2024 FINDINGS: Ventricles and Extra axial spaces: Normal in size and morphology for the patient's age. Hemorrhage: There are multifocal areas of petechial hemorrhage. Cerebral parenchyma: New large area of edema seen in the right frontal through parietal lobes as well as anterior temporal lobe. There is significant [id number] midline shift, proximally 15 millimet ers and severe compression of the right lateral ventricle with some dilatation of the left lateral ve ntricle. There is also uncal herniation noted on the right. Brainstem/Cerebellum: Normal. Calvarium: Deformity at the frontal skull appears chronic. Visualized Paranasal sinuses:Retention cyst left sphenoid sinus. Few mastoid air cells so some mucou s retention. Mastoids: Clear. Soft Tissues: Unremarkable. ORBITS: Unremarkable. PITUITARY: Not enlarged. IMPRESSION: Large area of infarction involving the frontal and parietal lobes with midline shift, significant com pression of the right lateral ventricle and uncal herniation. Faint petechial hemorrhage noted withi n the area of infarction. The preliminary [facility] report was reviewed. RADIATION DOSE DELIVERED: Total DLP DATA REPOSITORY: All CT scans at this facility are submitted to the National Radiology Data Registry (NRDR) Dose Index Registry (DIR) with the [employer] (ACR). RADIATION OPTIMIZATION: All CT scans at this facility use at least one of these dose optimization te chniques: automated exposure control; mA and/or kV adjustment per patient size (includes targeted exa ms where dose is matched to clinical indication); or iterative reconstruction.
[2024-07-21 00:05] LABS: Anion Gap 14.7 mmol/L (3-11); BUN 8 mg/dL (7-18); CO2 23.3 mmol/L (21.0-32.0); CREATININE 0.6 mg/dL (0.70-1.30); Calcium 8.2 mg/dL (8.5-10.1); Chloride 98 mmol/L (98-107); Estimated GFR 116.87 (mL/min/1.73m2); Glucose 141 mg/dL (74-106); Sodium 136 mmol/L (136-145)
[2024-07-21 00:07] LABS: Potassium 2.4 mmol/L (3.5-5.1)
[2024-07-21] MEDS: POTASSIUM CHLORIDE 20 MEQ/100 ML BAG 50 MEQ IV_INF ×5 (00:20→17:39)
--- NOTE | 2024-07-21 01:00 | RT.EKG_ITS ---
APPROVED REPORT Exam: Resting ECG Reason for Exam: changing EKG Patient Location: I HR:68 bpm ECG Measurements Heart Rate 68 AXIS OK 127 P 53 QRSd 119 QRS -53 QT 639 T 83 QTc 680 Conclusion Sinus rhythm...normal P axis, V-rate 50- 99 Left ventricular hypertrophy...multiple voltage criteria Long QTc
[2024-07-21 01:32] LABS: PTT Activated 49.6 sec (20.6-30.2)
[2024-07-21 01:38] LABS: Troponin I 842 ng/L (<or=76)
[2024-07-21] MEDS: CEFEPIME 2 GM in Normal Saline 100 ML IVPB ×2 (03:47→12:10)
[2024-07-21 05:03] LABS: HCT 30.1 % (40.0-50.0); HGB 10.4 g/dL (13.5-17.5); MCH 29.1 pg (27.0-33.0); MCHC 34.6 % (32.0-36.0); MCV 84 fL (80-95); MPV 10.1 fL (8.0-11.0); Platelet Count 182 10^3/uL (130-400); RBC 3.58 10^6/uL (4.36-5.78); RDW 13.1 % (11.8-14.1); RDW-SD 39.6 fL; WBC 12.59 10^3/uL (4.4-10.8)
[2024-07-21 05:27] LABS: Anion Gap 11.9 mmol/L (3-11); BUN 9 mg/dL (7-18); CO2 22.1 mmol/L (21.0-32.0); CREATININE 0.6 mg/dL (0.70-1.30); Calcium 8.4 mg/dL (8.5-10.1); Chloride 100 mmol/L (98-107); Estimated GFR 116.87 (mL/min/1.73m2); Glucose 131 mg/dL (74-106); Sodium 134 mmol/L (136-145)
[2024-07-21 05:33] LABS: Potassium 2.8 mmol/L (3.5-5.1)
[2024-07-21 05:34] LABS: Troponin I 837 ng/L (<or=76)
[2024-07-21] MEDS: VANCOMYCIN/WATER (PEG) 1.5 GM/300 ML BAG IV (06:01)
[2024-07-21] MEDS: DOXYCYCLINE 100 MG in Normal Saline 100 ML IVPB ×2 (06:08→17:40)
--- NOTE | 2024-07-21 06:37 | CE_ITS ---
Date of service: 07/20/24 Time of Service: 23:04 Event Note: Beginning earlier in the evening patient was noted as having multiple episodes of nonsustained V. tach lasting about 10 to 15 seconds each. Both during and in between these episodes patient denied any chest pain. EKG was performed and showed concerns for progression to STEMI with questionable ST elevations in the lateral leads where NSTEMI was diagnosed earlier in the day. EKG was sent to [facility] cardiology and case was discussed with nonfarm animal caretaker. In the absence of chest pain and resolution of periods of V. tach, in addition to patient not completely meeting criteria for STEMI, it was determined patient would not need immediate transfer. Recommendations at that time were continue current care, and that periods of V. tach would likely resolve given patient just recently having started metoprolol. Additionally, patient had on eventful remainder of the evening and did not have any additional episodes of V. tach, his troponin continues to decrease overnight, and he had no changes in every 3 hour EKGs. Time Spent with Patient Time spent in critical care(minutes): 50 Time Spent Included: Coordination of care, Chart review, Documenting critically ill care, Time at immediate bedside and Discussing critically ill care with other medical staff
[2024-07-21 07:57] LABS: Lab Add On Test DONE
[2024-07-21 08:07] LABS: Magnesium 1.9 mg/dL (1.8-2.4)
[2024-07-21 08:22] LABS: PTT Activated 51.8 sec (20.6-30.2)
[2024-07-21] MEDS: Methadone Liquid 10 MG/ML 100 MG PO (08:24)
[2024-07-21] MEDS: Potassium Chloride 20 MEQ TABCR 40 MEQ PO ×2 (08:25→13:53)
[2024-07-21] MEDS: Clopidogrel 75 MG TAB PO (08:25)
[2024-07-21] MEDS: Escitalopram 20 MG TAB PO (08:25)
[2024-07-21] MEDS: Atorvastatin 40 MG TAB 80 MG PO (08:25)
[2024-07-21] MEDS: Lisinopril 20 MG TAB PO (08:25)
[2024-07-21] MEDS: Metoprolol 50 MG TAB PO (08:26)
[2024-07-21] MEDS: lamoTRIgine 100 MG TAB PO (08:26)
[2024-07-21] MEDS: Normal Saline Flush 10 ML SYR IVP (08:28)
[2024-07-21] MEDS: Normal Saline 500 ML 30 ML IV (08:55)
[2024-07-21] MEDS: Insulin Aspart 300 UNITS/3 ML PEN SC ×2 (12:11→17:38)
--- NOTE | 2024-07-21 12:53 | PGE_ITS ---
Date of Service Date of service: 07/21/24 Time of Service: 12:53 Assessment and Plan Assessment and plan (1) NSTEMI (non-ST elevated myocardial infarction): Status: Acute Assessment and plan: - At around 2 AM on 07/19/2024 patient with nosebleeding hypertensive, tachycardic and restless while he was still intubated and this was secondary to mucous plug that once was removed by respiratory therapist improved symptoms - During that time EKG was checked and did not show any acute changes and troponin was elevated to about 80 - However, over the course of the subsequent 24 hours troponin continued to increase ultimately being as high as 1200 on the morning of 07/20/2024 which prompted checking EKG which showed new ST depressions in V3 through V6, though patient was without complaints of chest pain - At that time case was discussed with [facility] cardiology and given the patient's multiple comorbid conditions they recommended treating NSTEMI medically with the initiation of heparin drip, loading Plavix and aspirin dose - They also recommended that while trending troponins after initiating medical therapy if they have significantly elevated, should there be additional worsening EKG changes or development of chest pain they should be contacted again to put patient on list for cardiac catheterization - However, while first troponin after initiation of medical therapy did increase to 1400, subsequent have continued to trend down despite non-sustained Vtach overnight - Will continue medical therapy for NSTEMI, metoprolol (2) Ventricular tachycardia (paroxysmal): Status: Acute Assessment and plan: In setting of NSTEMI, though troponins increasing started on metorpolol, continue At least one of the strips looks polymorphic. His QTc is long. Supplementing K+. Get Mg above 2. Hold pm methadone with MS less clear. Consider cutting escitalopram. Repeat EKG this afternoon, follow. (3) Acute respiratory failure with hypoxia: Status: Acute Assessment and plan: - Patient required bag ventilation via EMS and was intubated in the emergency department - VBG immediately after intubation showed pH of 6.9, pCO2 of 67, bicarb of 13 and PO2 of 106 with a lactic acid of 12.5 - Extubated 07/19 AM, now off supplmental O2 (4) Hypovolemic shock: Status: Acute Assessment and plan: - Hypotensive despite 3L of fluids after initial presentation, felt related to diarrhea/dehydration. - Dr. Driscoll placed central line and was on norepinephrine, weaned off by 07/19 PM. (5) Aspiration into airway: Status: Acute Assessment and plan: -Likely occurred when patient was down -This was seen on CT with complete collapse of left lower lobe -Though this may be secondary to atelectasis, cannot rule out aspiration pneumonitis at this time -Has been on vanc and cefepime, now that off ventilator and off O2, get MRSA screen and stop vancomycin if negative. (6) Delirium: Status: Acute Assessment and plan: - Patient has multiple reasons to have developed delirium and has had a visualized waxing and waning mental status - Combination of alcohol withdrawal, opiate withdrawal, previous CVA and NSTEMI I will put patient at risk for delirium - Alcohol withdrawal and opiate withdrawal have been addressed as have NSTEMI - Continue to orient patient (7) Enteritis: Status: Acute Assessment and plan: - Patient reportedly had diarrhea for the last few days leading up to event as noted above - Additionally, after placing admission orders emergency room nurse informed the patient has been having persistent loose stools - Rectal tube placed - C. difficile sent, will follow-up results - Emergency room physician prior to liquid stools noted by emergency room nurse had started patient on ceftriaxone and Flagyl for concern for enteritis, will continue (8) Lactic acidosis: Status: Acute Assessment and plan: - Likely secondary to combination of downtime, hypoxia, poor perfusion during that time, potential enteritis (as noted above) - Will follow-up repeat lactic acid (9) Alcohol withdrawal: Status: Resolved Assessment and plan: - Patient has significant history of alcohol use disorder and multiple episodes of withdrawal though without known seizures - Patient reportedly drinks 30 beers a day - Alcohol level is found to be 0 in the emergency department - Unknown if incident resulting in intubation and hospitalization was secondary to alcohol withdrawal, but either way patient is at severe risk of withdrawing while intubated - patient has since received max dose of phenobarb (10) Hyperglycemia: Status: Acute Assessment and plan: - Patient's blood glucose were noted as being elevated via EMS and upon arrival to ED - ED provider initially started patient on insulin drip for concern for DKA as patient was also found to be severely acidotic and with anion gap - However, I believe acidosis and anion gap is primarily secondary to severe lactic acidosis of 12.9, as well as hypercapnia with initial CO2 of 67 on VBG - Additionally, UA was without any ketones - Insulin drip was discontinued upon arrival to ICU - ACHS glucose checks and SSI now that patient has been extubated (11) History of CVA (cerebrovascular accident): Status: Acute Assessment and plan: - Continue home clopidogrel, aspirin, statin - His left sided neurologic is and general alertness remains worse than baseline. This still could be related to sedating medications but at risk for additional strokes. Family is concerned. CTA head/neck on admission did not show anything new. - Will obtain brain MRI on a Sunday, though results unlikely to result in any change in medical therapy as patient is already on max stroke prevention with clopidogrel, aspirin and high-dose statin - He will need PT/OT and speech when more alert/able. (12) Depression: Status: Chronic Assessment and plan: - Continue home escitalopram, though I may have to cut this back if QTc remains long. (13) Long-term current use of methadone for opiate dependence: Status: Acute Assessment and plan: - home methadone restarted 07/20, hold the additional 75mg in PM for now with mental status and long QTc (14) Hypokalemia: Status: Acute Assessment and plan: Severe, given IV and po, follow in PM. Try to get to 4 with long QTc and Vtach (15) Elevated liver transaminase level: Status: Acute Assessment and plan: This was mild on admission, worsening on 07/19, will repeat. He does not seem to have RUQ tenderness or signs of obstruction. May be shock liver. Repeat today with INR Subjective Subjective Patient reports: tolerating liquids well; denies vomiting or fever Interval history since last seen: Events: Troponins trending since 07/19, down overnight hypokalemia supplemented Episodes of ventricular tach on tele overnight, 10-15 seconds at a time, no hypotension or clincal change documented. EKG changes reviewed with [facility] cardiology, did not recommended transfer He denies pain. Alertness waxing/waning, asks for things, answers questions, but then not responsive at times. Sisters worried that he looks worse today than yesterday, less alert. They were expecting him to be getting better. Wonder if he would be better off at [facility]. Exam Narrative Exam Narrative: Chronically ill-appearing gentleman sitting up in the bed in no acute distress, awaken intermentently and during those periods is alert and oriented to person place, heart regular rhythm wiht no m/g/r, lungs clear to auscultation with occaisional wheeze. abdomen soft, nontender, nondistended, normal strength and sensation in right upper and lower extremity. He has left facial droop, not moving left upper/lower extremity Objective Last Vital Signs Temp 37.8 C H 07/21/24 02:57 Pulse 61 07/21/24 10:12 Resp 14 07/21/24 10:12 BP 153/86 H 07/21/24 10:12 Pulse Ox 97 07/21/24 04:01 Laboratory Results - last 24 hr 07/20/24 07/20/24 07/20/24 12:32 15:03 16:32 WBC RBC Hgb Hct MCV MCH MCHC RDW Plt Count MPV APTT 29.7 Sodium Potassium Chloride Carbon Dioxide Anion Gap BUN Creatinine Est GFR (CKD-EPI 2020) Glucose Calcium Magnesium Troponin I 1257 H* 1139 H* Add-On Test Request 07/20/24 07/20/24 07/20/24 18:25 22:17 23:52 WBC RBC Hgb Hct MCV MCH MCHC RDW Plt Count MPV APTT 31.2 H Sodium 136 Potassium 2.4 L* Chloride 98 Carbon Dioxide 23.3 Anion Gap 14.7 H BUN 8 Creatinine 0.6 L Est GFR (CKD-EPI 2020) 116.87 Glucose 141 H Calcium 8.2 L Magnesium 1.4 L Troponin I 1029 H* 923 H* Add-On Test Request 07/21/24 07/21/24 07/21/24 01:15 04:30 05:35 WBC 12.59 H RBC 3.58 L Hgb 10.4 L Hct 30.1 L MCV 84 MCH 29.1 MCHC 34.6 RDW 13.1 Plt Count 182 MPV 10.1 APTT 49.6 H Sodium 134 L Potassium 2.8 L* Chloride 100 Carbon Dioxide 22.1 Anion Gap 11.9 H BUN 9 Creatinine 0.6 L Est GFR (CKD-EPI 2020) 116.87 Glucose 131 H Calcium 8.4 L Magnesium 1.9 Troponin I 842 H* 837 H* Cancelled Add-On Test Request DONE 07/21/24 07:50 WBC RBC Hgb Hct MCV MCH MCHC RDW Plt Count MPV APTT 51.8 H Sodium Potassium Chloride Carbon Dioxide Anion Gap BUN Creatinine Est GFR (CKD-EPI 2020) Glucose Calcium Magnesium Troponin I Add-On Test Request Time Spent with Patient Time Spent with Patient: >50 minutes Time was spent: preparing to see the patient(eg.review tests), obtaining and/or reviewing separately otained hiistory, ordering medications,tests, procedures, referring, communicating with other health pediatric acute care unit nurse, indepentently interpreting results, counseling the patient and care coordination
--- NOTE | 2024-07-21 13:00 | RT.EKG_ITS ---
APPROVED REPORT Exam: Resting ECG Reason for Exam: follow up NSTEMI Patient Location: I HR:58 bpm ECG Measurements Heart Rate 58 AXIS MN 140 P -25 QRSd 84 QRS -35 QT 658 T 75 QTc 647 Conclusion Sinus rhythm...normal P axis, V-rate 50- 99 Left axis deviation...QRS axis (-30,-90) Anteroseptal infarct, age indeterminate...Q >35mS, T neg, V1-V2 Prolonged QT interval...QTc >500mS
[2024-07-21] MEDS: Heparin in 0.45% NaCl 25,000 UNIT/250 ML BAG 16 UNIT IVINF (13:51)
[2024-07-21] MEDS: MAGNESIUM SULFATE 1 GM/100 ML BAG IV_INF (13:52)
[2024-07-21 14:26] LABS: INR 1.2 (0.9-1.1); Prothrombin Time 11.7 sec (9.1-11.1)
[2024-07-21 14:32] LABS: ALT 512 U/L (16-63); AST 330 U/L (15-37); Albumin 2.3 g/dL (3.4-5.0); Alkaline Phosphatase 71 U/L (46-116); Bilirubin, Direct 0.2 mg/dL (0.0-0.2); Bilirubin, Total 0.5 mg/dL (0.2-1.0); Total Protein 6.2 g/dL (6.4-8.2)
[2024-07-21 16:11] LABS: MRSA PCR Negative (Negative)
[2024-07-21 16:22] LABS: PTT Activated 51.8 sec (20.6-30.2)
--- NOTE | 2024-07-21 16:58 | DI.VRAD_ITS ---
Addendum created by Prateek Burr MD on 07/21/2024 5:00:56 PM EDT: THIS REPORT CONTAINS FINDINGS THAT MAY BE CRITICAL TO PATIENT CARE. The findings were verbally communicated via telephone conference with Karolina Clark RN at 5:00 PM EDT on 07/21/2024. The findings were acknowledged and understood. Initial report created on 07/21/2024 4:58:30 PM EDT: PROCEDURE INFORMATION: Exam: CT Head Without Contrast Exam date and time: 07/21/2024 4:41 PM Age: 49 years old Clinical indication: Other: On heparin, h/o CVA, more depressed mental status TECHNIQUE: Imaging protocol: Computed tomography of the head without contrast. Radiation optimization: All CT scans at this facility use at least one of these dose optimization techniques: automated exposure control; mA and/or kV adjustment per patient size (includes targeted exams where dose is matched to clinical indication); or iterative reconstruction. COMPARISON: CT BRAIN NECK CTA 07/17/2024 3:43 PM FINDINGS: Brain: Interval development of large areas of edema/ischemia in the right MARIANO and MCA territories with subfalcine shift to the left of 9 mm in the frontal region. Faint petechial areas of hemorrhage suspected. Right-sided uncal herniation noted. No tonsillar herniation Cerebral ventricles: Severely effaced with mild left-sided hydrocephalus Paranasal sinuses: A polyp/retention cyst is noted in the left sphenoid sinus.No fluid levels. Mastoid air cells: Visualized mastoid air cells are well aerated. Bones: Unremarkable. No acute fracture. Soft tissues: Unremarkable. IMPRESSION: Interval development of large areas of ischemia/edema on the right as described with 9 mm midline shift to the left and uncal herniation. Faint petechial areas of hemorrhage noted. Mild left-sided hydrocephalus Dictated and Authenticated by: Prateek Burr MD. Orderin Fransico Price MD
[2024-07-21] MEDS: Pantoprazole 40 MG VIAL IVP (17:45)
--- NOTE | 2024-07-21 18:53 | W.PM.DS.N ---
Date of service: 07/21/24 Time of Service: 18:53 DS: Diagnosis Discharge Diagnosis (1) NSTEMI (non-ST elevated myocardial infarction): Status: Acute (2) Ventricular tachycardia (paroxysmal): Status: Acute (3) Acute respiratory failure with hypoxia: Status: Acute (4) Hypovolemic shock: Status: Acute (5) Aspiration into airway: Status: Acute (6) Delirium: Status: Acute (7) Enteritis: Status: Acute (8) Lactic acidosis: Status: Acute (9) Alcohol withdrawal: Status: Resolved (10) Hyperglycemia: Status: Acute (11) History of CVA (cerebrovascular accident): Status: Acute (12) Depression: Status: Chronic (13) Long-term current use of methadone for opiate dependence: Status: Acute (14) Hypokalemia: Status: Acute (15) Elevated liver transaminase level: Status: Acute Discharge Plan Disposition Patient Disposition: Transfer-Acute Inpatient Care Specific Acute Inpt Facility: [facility] Condition: Critical Discharge Details Reason For Visit: Acute hypopxic respiratory failure Admit Date/Time: 07/17/24 16:37 Admit Provider: Varinder Sarmiento Attending Provider: Varinder Sarmiento Primary Care Provider: Mikey Martínez Hospital Course Hospital Course: 49-year-old gentleman with a past medical history of CVA a/w right carotid occlusion with residual left-sided deficit, hypertension, opioid use disorder on methadone, alcoholic hepatitis with ongoing alcohol use disorder, depression, anxiety, NIDDM presented to the emergency department via EMS after he had a reported syncopal event after showering, though the history per the roommate was initially not clear and reported as found down. Per the roommate the patient was previously drinking about 30 beers per day (c/w his known history) but did not drink that day, and had been having diarrhea. His alcohol level was negative. ED evaluation was significant for respiratory and metabolic acidosis. CT chest/abd/pelvis showed LLL consolidation. CT head/CTA head/neck showed no acute findings. He was intubated for respiratory failure with suppressed mental status that was presumed metabolic. He was treated for possible aspiration pneumonia with ceftriaxone and metronidazole and admitted to the ICU. He breifly required norepinephrine for hypotension after intubation, but this was weaned the first night. Blood cultures and c. diff toxin were negative. Lactic acidosis improved. He had an trial off support 07/18 morning but was tiring tired so remained intubated. 07/19 he was evaluated overnight for severe elevated blood pressures. There was concern for opioid withdrawal despite a fentanyl drip given his high dose methadone at baseline. He had increased need for respiratory support, but his blood pressure and respiratory status improved after suction of mucous plugging. There was a concern for fluid overload. IV fluids were stopped and antibiotic coverage was broadened to cefepime/vancomycin and doxycyline. He was given a dose of furosemide. He was also treated for alcohol withdrawal with standard phenobarbital given his history. He stabilized and he was extubated 07/19 am. Troponins however were mildly elevated at 80 after the overnight event. Initially there was no EKG changes but when troponins continued over 1000 by 07/20 EKG was repeated and showed ST depressions. [facility] was contacted and medical therapy for NSTEMI was recommended. On 07/20 heparin ggt was started in addition to the previously prescribed aspirin and clopidogrel (he had a TIA admission 06/10/24, but had stopped taking these medications after discharge). His troponins then trended down. AST and ALT were elevated from 50/117 on admissin to 6728/1475 on 07/19, but decreased to 330/512. This was felt related to his acute illness with some shock. Acute hepatitis panel was ordered day of discharge but never sent due to transfer. Overnight 07/20 to 07/21 he had episodes of non-sustained V tach. His potassium and magnesium were low and these were supplemented. His QTc was over 600. His afternooon methadone 07/21 was held. On 07/21 the new hospitalist who had discharged the patient a month ago noted his left hemiparesis was much more dense than baseline. His family also were worried about his mental status and weakness. The general mental status suppression was noted on previous notes, but felt to be related to his complex illness. However with his history there was a concern for hemorrhagic conversion of his CVA so CT was repeated. CT showed a large new right stroke with swelling and mass effect. Heparin was stopped. [facility] neurosurgery was consulted and he was transferred emergently to [facility] NeuroICU for possible cranectomy. MRSA PCR of nares was negative 07/21 so vancomycin was stopped. Home Meds and New Rx's Prescriptions: No Action lorazepam 0.5 mg tablet 0.5 mg PO ONCE PRN (Reason: anxiety/claustrophobia) Qty: 2 0RF Rx Instructions: Take one tablet 30min prior to MRI. Ok to take second at time of MRI if still anxious. Do not drive after taking. nicotine 7 mg/24 hr patch 24 hour 1 patch transdermal Q24H clopidogrel 75 mg tablet 75 mg PO DAILY atorvastatin 80 mg tablet 80 mg PO DAILY baclofen 20 mg tablet 20 mg PO TID hydroxyzine HCl 25 mg tablet 25 mg PO TID PRN pantoprazole 40 mg tablet,delayed release (DR/EC) 40 mg PO DAILY polyethylene glycol 3350 17 gram/dose powder 17 g PO DAILY docusate sodium [Colace] 100 mg capsule 100 mg PO BID PRN gabapentin 800 mg tablet 800 mg PO TID escitalopram oxalate 20 mg tablet 20 mg PO DAILY lisinopril 20 mg tablet 20 mg PO DAILY metformin 500 mg tablet 500 mg PO BID sildenafil [Viagra] 100 mg tablet 100 mg PO DAILY PRN Rx Instructions: administer 30 minutes to 4 hours before activity loratadine [Allergy Relief (loratadine)] 10 mg tablet 10 mg PO DAILY methadone 10 MG/ML concentrate 75 mg PO 1999 Patient Comments: 100 in am 75 in pm 799 and 1999 per his report methadone 10 mg/mL Concentrate 100 mg PO DAILY AM lamotrigine [Lamictal] 100 mg Tablet 100 mg PO BID metoprolol tartrate 50 mg Tablet 50 mg PO BID Qty: 60 0RF thiamine HCl (vitamin B1) 100 mg tablet 100 mg PO DAILY Qty: 30 0RF aspirin [Children's Aspirin] 81 mg Tablet,Chewable 81 mg PO DAILY Qty: 30 0RF folic acid 1 mg Tablet 1 mg PO QAM Qty: 30 0RF Discharge Instructions Activity:: bedbound Equipment/Supplies:: No Equipment Needed Diet:: per [facility] neurosurgery, NPO for now Discharge Orders Discharge Orders: Discharge Order (Routine); Ordered 07/21/24 Ordered By: Albert Bateman DS: Summary Time Spent with Patient providing and/or coordinating discharge services: Greater than 30 minutes Status at Discharge Functional status at discharge: bed bound Overall status at discharge: patient is not back to baseline Mental Status: other Speech and Movement: slowed movement (left hemiparesis, dense) Mood: other Affect: blunted Quality:SDOH Health Related Social Needs: No Data to Display Exam Narrative Exam Narrative: Chronically ill-appearing gentleman sitting up in the bed, somnolent but responds to voice with slow but intelligible voice, oriented to person place, heart regular rhythm with no m/g/r, lungs clear to auscultation with occaisional wheeze. abdomen soft, nontender, nondistended, normal strength and sensation in right upper and lower extremity. He has left facial droop, not moving left upper/lower extremity. pupils equal andre and reactive. He has his hand to the right side of his face. Psych Mental Status: other Speech and Movement: slowed movement (left hemiparesis, dense) Mood: other Affect: blunted DS: Data Vitals/I&O Vitals and I&O: Vital Signs Temperature 36.3 C L 07/21/24 18:16 Temperature Source Tympanic 07/21/24 02:57 Pulse 62 07/21/24 18:01 Pulse 64 07/21/24 18:01 Respiratory Rate 25 H 07/21/24 18:01 Respiratory Effort Labored, Accessory Muscle Use, Mechanically Ventilated, Incrsd Work of Breathing 07/19/24 01:15 Blood Pressure 130/78 07/21/24 18:01 Blood Pressure Mean 94 07/21/24 18:01 Blood Pressure Position Supine 07/17/24 13:26 Pulse Oximetry 93 07/21/24 18:01 Respiratory End-tidal CO2 07/19/24 07:57 Oxygen Delivery Method Room Air 07/21/24 18:16 Oxygen Flow Rate 0 07/21/24 18:16 Fraction of Inspired Oxygen (FIO2) 24 07/19/24 08:08 Pain Level 2 07/20/24 02:17 Comment Pt temp also 38 with temporal scan 07/18/24 13:15 Comment MD Aware 07/17/24 15:15 Arterial Systolic 144 07/19/24 10:00 Arterial Diastolic 81 07/19/24 10:00 Arterial Mean 103 07/19/24 10:00 Intake & Output 07/20/24 07/21/24 07/21/24 23:59 11:59 23:59 Intake Total 1308.133 / 1508.133 904.934 / 1396.401 491.467 / 1396.401 Output Total 550 / 3800 1799 / 1999 200 / 1999 Balance 758.133 / -2291.867 -895.066 / -603.599 291.467 / -603.599 Intake: IV 958.133 / 1158.133 664.934 / 916.401 251.467 / 916.401 Oral 350 / 350 240 / 480 240 / 480 Output: Urine 550 / 3800 1800 / 2000 200 / 2000 Stool 0 / 0 Other: Urine Color Pale Pale Yellow Yellow Yellow Urine Appearance Clear Clear Clear Comment Moderate boone coloration w/ notable cloudiness. Data Completed and Pending Labs on day of discharge: Labs from last 24 hours 07/21/24 07/21/24 07/21/24 16:00 14:36 14:00 WBC RBC Hgb Hct MCV MCH MCHC RDW Plt Count MPV PT 11.7 H INR 1.2 H APTT 51.8 H Sodium Potassium 3.0 L Chloride Carbon Dioxide Anion Gap BUN Creatinine Est GFR (CKD-EPI 2020) Glucose Calcium Magnesium Total Bilirubin 0.5 Conjugated Bilirubin 0.2 AST 330 H ALT 512 H Alkaline Phosphatase 71 Troponin I Total Protein 6.2 L Albumin 2.3 L MRSA (TEM-PCR) Negative Add-On Test Request 07/21/24 07/21/24 07/21/24 07:50 05:35 04:30 WBC 12.59 H RBC 3.58 L Hgb 10.4 L Hct 30.1 L MCV 84 MCH 29.1 MCHC 34.6 RDW 13.1 Plt Count 182 MPV 10.1 PT INR APTT 51.8 H Sodium 134 L Potassium 2.8 L* Chloride 100 Carbon Dioxide 22.1 Anion Gap 11.9 H BUN 9 Creatinine 0.6 L Est GFR (CKD-EPI 2020) 116.87 Glucose 131 H Calcium 8.4 L Magnesium 1.9 Total Bilirubin Conjugated Bilirubin AST ALT Alkaline Phosphatase Troponin I Cancelled 837 H* Total Protein Albumin MRSA (TEM-PCR) Add-On Test Request DONE 07/21/24 07/20/24 07/20/24 01:15 23:52 22:17 WBC RBC Hgb Hct MCV MCH MCHC RDW Plt Count MPV PT INR APTT 49.6 H Sodium 136 Potassium 2.4 L* Chloride 98 Carbon Dioxide 23.3 Anion Gap 14.7 H BUN 8 Creatinine 0.6 L Est GFR (CKD-EPI 2020) 116.87 Glucose 141 H Calcium 8.2 L Magnesium 1.4 L Total Bilirubin Conjugated Bilirubin AST ALT Alkaline Phosphatase Troponin I 842 H* 923 H* Total Protein Albumin MRSA (TEM-PCR) Add-On Test Request 07/20/24 18:25 WBC RBC Hgb Hct MCV MCH MCHC RDW Plt Count MPV PT INR APTT 31.2 H Sodium Potassium Chloride Carbon Dioxide Anion Gap BUN Creatinine Est GFR (CKD-EPI 2020) Glucose Calcium Magnesium Total Bilirubin Conjugated Bilirubin AST ALT Alkaline Phosphatase Troponin I 1029 H* Total Protein Albumin MRSA (TEM-PCR) Add-On Test Request Preliminary micro results at discharge 07/19/24 02:29 Blood Blood Culture - Preliminary NO GROWTH 48 HOURS 07/19/24 02:10 Blood Blood Culture - Preliminary NO GROWTH 48 HOURS PFSH All Active Problems (Updated 07/21/24 @ 13:32 by Albert Bateman) Elevated liver transaminase level (Acute) Hypokalemia (Acute) Ventricular tachycardia (paroxysmal) (Acute) Delirium (Acute) NSTEMI (non-ST elevated myocardial infarction) (Acute) Hypovolemic shock (Acute) Acidosis (Acute) DKA (diabetic ketoacidosis) (Acute) Respiratory failure (Acute) Alcohol withdrawal (Acute) Alcohol abuse (Chronic) Long-term current use of methadone for opiate dependence (Acute) Depression (Chronic) History of CVA (cerebrovascular accident) (Acute) Hyperglycemia (Acute) Lactic acidosis (Acute) Enteritis (Acute) Aspiration into airway (Acute) Acute respiratory failure with hypoxia (Acute) TIA (transient ischemic attack) (Acute) Stroke (Chronic) Left-sided weakness (Acute) Left carotid stenosis (Acute) Right carotid artery occlusion (Acute) CVA (cerebral vascular accident) (Chronic) Tobacco abuse (Acute) Alcoholic hepatitis (Acute) Electrolyte and fluid disorder (Acute) Alcohol abuse (Chronic) Vomiting and diarrhea (Acute) Anxiety and depression (Acute) Elevated blood pressure reading (Acute) Medical History (Updated 07/21/24 @ 13:32 by Albert Bateman) Contracture of muscle of left lower extremity Acute hyponatremia TBI (traumatic brain injury) Hyperlipidemia Mood disorder Spinal stenosis of lumbar region BMI 32.0-32.9,adult Hypertension Nephropathy Weakness of left leg ETOH abuse Degenerative disc disease ADHD Gynecomastia GERD (gastroesophageal reflux disease) Opioid dependence Chronic constipation Erectile dysfunction Hidradenitis suppurativa Diabetes mellitus Sleep apnea Eczema of both hands Headache Scrotal abscess Sinusitis Surgical History S/P lumbar spine operation Family History Mother Stroke Father Heart disease Social History (Updated 06/10/24 @ 14:23 by Albert Bateman) Smoking/Tobacco Use Status: Current every day Counseling given: provider counseling and counseling >3 minutes Smoking risk assessment performed?: Yes Alcohol Intake: current Alcohol Intake frequency: 3 or more drinks per day Alcohol type: hard liquor Counseling given: Yes Drug use: Never Substance use type: former substance user and marijuana Counseling provided: provider counseling and treatment program Housing: house Number of Children: 4 current occupation: Disabled Do you feel safe at home: Yes Do you feel safe in your relationship?: Yes Additional Social history: On SSDI since stroke. Lives in home with roommates Time Spent with Patient Time Spent with Patient: >85 minutes Time was spent: preparing to see the patient(eg.review tests), obtaining and/or reviewing separately otained hiistory, ordering medications,tests, procedures, referring, communicating with other health vision care associate, indepentently interpreting results, counseling the patient and care coordination
--- NOTE | 2024-07-21 19:23 | NUR.NOTE ---
called and spoke to Tena Galloway (sister) at this time to report pt's shoes were found in room after pt transferred to [facility] and had left the building. apologies made to her and reported that shoes are in bag with pt label on bag. that family could call ahead to ICU and let us know when they are coming and shoes can be brought down to front office agent.
== END 2024-07-21 18:48 | disposition short-term general hospital (02) | DRG 208 ==
LOC: ER 17:13 → ICU 07-18 02:16
PROVIDERS: Emergency Medicine Emergency Medical Services; Family Medicine; Admitting Provider Family Medicine; Emergency Provider Physician Assistant; PCP Student in an Organized Health Care Education/Training Program; Responsible Provider Family Medicine; Visit Provider Family Medicine
DX: J69.0 Pneumonitis due to inhalation of food and vomit (principal); J96.01 Acute respiratory failure with hypoxia; R57.1 Hypovolemic shock; I21.4 Non-ST elevation (NSTEMI) myocardial infarction; I63.89 Other cerebral infarction; T17.808A Unspecified foreign body in other parts of respiratory tract causing other injury, initial encounter; E87.21 Acute metabolic acidosis; F11.20 Opioid dependence, uncomplicated; I69.354 Hemiplegia and hemiparesis following cerebral infarction affecting left non-dominant side; F10.139 Alcohol abuse with withdrawal, unspecified; F11.23 Opioid dependence with withdrawal; J98.11 Atelectasis; I47.20 Ventricular tachycardia, unspecified; F05 Delirium due to known physiological condition; W19.XXXA Unspecified fall, initial encounter; W44.9XXA Unspecified foreign body entering into or through a natural orifice, initial encounter; K52.9 Noninfective gastroenteritis and colitis, unspecified; I10 Essential (primary) hypertension; K70.10 Alcoholic hepatitis without ascites; F32.A Depression, unspecified; F41.9 Anxiety disorder, unspecified; E11.65 Type 2 diabetes mellitus with hyperglycemia; E78.5 Hyperlipidemia, unspecified; Z87.820 Personal history of traumatic brain injury; E11.21 Type 2 diabetes mellitus with diabetic nephropathy; M48.061 Spinal stenosis, lumbar region without neurogenic claudication; F90.9 Attention-deficit hyperactivity disorder, unspecified type; K21.9 Gastro-esophageal reflux disease without esophagitis; K59.09 Other constipation; G47.30 Sleep apnea, unspecified; L73.2 Hidradenitis suppurativa; F17.210 Nicotine dependence, cigarettes, uncomplicated; Z79.899 Other long term (current) drug therapy; Z78.1 Physical restraint status; R74.01 Elevation of levels of liver transaminase levels; E83.42 Hypomagnesemia; E87.6 Hypokalemia
CPT/HCPCS: 36556; 00123; 31500; 36415; 36416; 36592; 51702; 70496; 70498; 71045; 71275; 80048; 80053; 80076; 80307; 82550; 82805; 82962; 85027; 86850; 86900; 86901; 87040; 87641; 93005; 96361; 96365; 96366; 96367; 96368; 96372; 96375; 99222; 99285; J1650; 36600; 70450; 74174; 80202; 80320; 80329; 81003; 81015; 83605; 83735; 83880; 84132; 84484; 85025; 85610; 85730; 93010; 94002; 94003; 99223; 99233; 99239; 99291; J0131; J0360; J0692; J0696; J1644; J1815; J1836; J1938; J2310; J2470; J2560; J2704; J3010; J3372; J3411; J3475; J3480

== ENCOUNTER 2025-02-04 12:38 | Outpatient (REF) | payer MEDICARE, MEDICAID, SELFPAY ==
[2025-02-04 17:14] LABS: Abs Immature Grans 0.07 10^3/uL (0.0-0.06); HCT 37.3 % (40.0-50.0); HGB 11.9 g/dL (13.5-17.5); Immature Grans % 0.5 %; MCH 28.1 pg (27.0-33.0); MCHC 31.9 % (32.0-36.0); MCV 88 fL (80-95); MPV 10.3 fL (8.0-11.0); Platelet Count 421 10^3/uL (130-400); RBC 4.23 10^6/uL (4.36-5.78); RDW 15.2 % (11.8-14.1); RDW-SD 49.2 fL; WBC 14.14 10^3/uL (4.4-10.8)
[2025-02-04 17:40] LABS: TSH (W/Ref FT4) 0.79 uIU/mL (0.55-4.78)
[2025-02-04 17:47] LABS: ALT 22 U/L (10-49); AST 20 U/L (<34); Albumin 4.2 g/dL (3.2-5.0); Alkaline Phosphatase 81 U/L (46-116); Anion Gap 11.1 mmol/L (3-11); BUN 11 mg/dL (9-23); Bilirubin, Total 0.2 mg/dL (0.2-1.2); CO2 24.9 mmol/L (20.0-31.0); Calcium 9.5 mg/dL (8.3-10.6); Chloride 104 mmol/L (98-107); Glucose 146 mg/dL (74-106); Potassium 4.6 mmol/L (3.5-5.1); Sodium 140 mmol/L (136-145); Total Protein 7.3 g/dL (5.7-8.2)
[2025-02-14 01:30] LABS: Testosterone, Free 8.1 pg/mL (35.0-155.0)
== END 2025-02-04 12:39 | disposition home or self-care (01) ==
LOC: NCHCN 12:38
PROVIDERS: PCP Student in an Organized Health Care Education/Training Program; Visit Provider Student in an Organized Health Care Education/Training Program
DX: R53.83 Other fatigue (principal)
CPT/HCPCS: 80053; 84402; 84403; 84443; 85025